=== PATIENT | female | born 1975 | race Caucasian/White ===

== ENCOUNTER 2019-07-25 15:50 | Outpatient (CLI) | payer OTHER, SELFPAY ==
[2019-07-25 17:47] LABS: Beta HCG Quantitative 13.63 mIU/ML
== END 2019-07-25 15:51 | disposition home or self-care (01) ==
LOC: ANHLAB 15:54
PROVIDERS: PCP Obstetrics & Gynecology
DX: O20.9 Hemorrhage in early pregnancy, unspecified (principal)
CPT/HCPCS: 36415; 84702

== ENCOUNTER 2019-08-01 13:22 | Outpatient (CLI) | payer OTHER, SELFPAY ==
[2019-08-01 14:30] LABS: Beta HCG Quantitative 9.11 mIU/ML
== END 2019-08-01 13:23 | disposition home or self-care (01) ==
PROVIDERS: PCP Obstetrics & Gynecology
DX: O03.9 Complete or unspecified spontaneous abortion without complication (principal)
CPT/HCPCS: 36415; 84702

== ENCOUNTER 2019-08-15 12:04 | Outpatient (RCR) | payer OTHER, SELFPAY ==
[2019-08-08 13:42] LABS: Beta HCG Quantitative 6.39 mIU/ML
[2019-08-15 13:11] LABS: Beta HCG Quantitative < 2.39 mIU/ML
== END 2019-11-06 23:59 | disposition home or self-care (01) ==
LOC: ANHLAB 12:04
PROVIDERS: PCP Obstetrics & Gynecology
DX: O03.9 Complete or unspecified spontaneous abortion without complication (principal)
CPT/HCPCS: 36415; 84702

== ENCOUNTER 2019-08-24 14:57 | Outpatient (CLI) | payer OTHER, SELFPAY ==
--- NOTE | ~2019-08-24 | US_ITS ---
EXAMINATION: US pelvic complete w TV DATE: 08/24/2019 16:03 INDICATION: Recurrent loss presenting with pelvic pain. TECHNIQUE: Multiple transabdominal and endovaginal sonographic images of the pelvis were obtained. COMPARISON: None. FINDINGS: The uterus measures 11.6 x 4.8 x 6.5 cm. The endometrial complex measures 9 mm in thickness. The rig ht ovary measures 2.8 x 1.8 x 3.0 cm. The left ovary measures 2.9 x 1.3 x 2.4 cm. There is normal vas cular flow in the ovaries. A few small anechoic peripheral ovarian cysts/follicles at both ovaries wi th 1.5 cm dominant follicle at the right ovary. There is no free fluid in the pelvis. IMPRESSION: 1. Normal pelvic ultrasound. Reviewed, dictated and finalized at location A. [employer]
== END 2019-08-24 14:58 | disposition home or self-care (01) ==
PROVIDERS: PCP Obstetrics & Gynecology; Visit Provider Obstetrics & Gynecology
DX: R10.2 Pelvic and perineal pain (principal)
CPT/HCPCS: 76830; 76856

== ENCOUNTER 2019-09-30 07:22 | Outpatient (CLI) | payer OTHER, SELFPAY ==
[2019-10-02 19:02] LABS: Progesterone 3.2 ng/mL (***)
== END 2019-09-30 07:23 | disposition home or self-care (01) ==
PROVIDERS: PCP Obstetrics & Gynecology; Visit Provider Obstetrics & Gynecology
DX: Z31.41 Encounter for fertility testing (principal)
CPT/HCPCS: 36415; 84144

== ENCOUNTER 2019-10-10 12:44 | Outpatient (CLI) | payer OTHER, SELFPAY ==
[2019-10-12 12:10] LABS: Progesterone 3.7 ng/mL (***)
== END 2019-10-10 12:45 | disposition home or self-care (01) ==
PROVIDERS: Visit Provider Obstetrics & Gynecology
DX: Z31.41 Encounter for fertility testing (principal)
CPT/HCPCS: 36415; 84144

== ENCOUNTER 2019-11-07 09:53 | Outpatient (CLI) | payer OTHER, SELFPAY ==
[2019-11-10 03:48] LABS: Progesterone 18.7 ng/mL (***)
== END 2019-11-07 09:54 | disposition home or self-care (01) ==
PROVIDERS: Visit Provider Obstetrics & Gynecology
DX: Z31.41 Encounter for fertility testing (principal)
CPT/HCPCS: 36415; 84144

== ENCOUNTER 2019-11-13 17:20 | Outpatient (CLI) | payer OTHER, SELFPAY ==
[2019-11-13 19:00] LABS: Free T4 Free Thyroxine 0.92 ng/mL (0.78-2.19)
== END 2019-11-13 17:21 | disposition home or self-care (01) ==
LOC: ANHLAB 17:21
PROVIDERS: Visit Provider Obstetrics & Gynecology
DX: E07.9 Disorder of thyroid, unspecified (principal); Z32.01 Encounter for pregnancy test, result positive
CPT/HCPCS: 36415; 84439; 84443; 84702

== ENCOUNTER 2019-11-16 07:02 | Outpatient (CLI) | payer OTHER, SELFPAY ==
[2019-11-19 03:43] LABS: Progesterone 33.5 ng/mL (***)
== END 2019-11-16 07:03 | disposition home or self-care (01) ==
LOC: ANHLAB 07:04
PROVIDERS: Visit Provider Obstetrics & Gynecology
DX: Z32.01 Encounter for pregnancy test, result positive (principal)
CPT/HCPCS: 36415; 84144; 84702

== ENCOUNTER 2019-12-13 13:29 | Outpatient (CLI) | payer OTHER, SELFPAY ==
[2019-12-13 15:07] LABS: Basophils Percent Auto 0.5 % (0.2-1.2); Eosinophils Absolute Auto 0.1 K/mm3 (0-0.3); Eosinophils Percent Auto 1.3 % (0-4.4); Hematocrit 38.2 % (37.0-47.0); Hemoglobin 12.8 g/dL (12.0-15.0); Immature Granulocyte Absolute 0.04 K/mm3 (0.00-0.031); Immature Granulocyte Percent A 0.5 % (0-0.5); Lymphocytes Absolute Auto 2.28 K/mm3 (0.9-3.2); Lymphocytes Percent Auto 26.3 % (18.3-44.2); Mean Corpuscular HGB Conc 33.5 g/dl (32-36); Mean Corpuscular Hemoglobin 31.8 pg (26-34); Mean Corpuscular Volume 94.8 fl (80-100); Mean Platelet Volume 10.7 fl (7.4-10.4); Monocytes Absolute Auto 0.5 K/mm3 (0.1-0.6); Monocytes Percent Auto 5.7 % (2.6-8.5); Neutrophils Absolute Auto 5.7 K/mm3 (1.3-6.7); Neutrophils Percent Auto 65.7 % (45.5-73.1); Platelet Count Result 256 k/mm3 (150-375); Red Blood Count 4.03 M/mm3 (4.2-5.4); Red Cell Distribution Width 12.1 % (11.5-14.5); White Blood Count 8.7 K/mm3 (4.5-10.0)
[2019-12-13 15:11] LABS: Add Urine Microscopic? YES; Appearance Urine Clear (Clear); Bacteria Urine Trace /hpf; Bilirubin Urine Negative (Negative); Blood Urine Negative (Negative); Color Urine Yellow (Yellow); Glucose Urine UA Negative (Negative); Ketones Urine Trace mg/dL (Negative); Leukocyte Esterase Ur Negative LEU/UL (NEGATIVE); Mucus Urine Heavy /lpf; Nitrate Urine Negative (Negative); Protein Urine Negative (Negative); RBC Urine 0-2 /hpf (0-2); Squamous Epithelial Cell Urine Moderate /hpf (Few); Urobilinogen Urine Negative mg/dL (<2.0); WBC Urine 0-3 /hpf (0-3)
== END 2019-12-13 13:30 | disposition home or self-care (01) ==
PROVIDERS: Visit Provider Obstetrics & Gynecology
DX: O02.1 Missed abortion (principal); Z3A.00 Weeks of gestation of pregnancy not specified
CPT/HCPCS: 36415; 81001; 85025; 86850; 86900; 86901; 87086; 87088

== ENCOUNTER 2019-12-20 20:00 | Emergency (ER) | payer OTHER, SELFPAY ==
[2019-12-20 20:03] VITALS: PULSE 92; RESP 17; TEMP 36.6; O2SAT 100
[2019-12-20 20:12] VITALS: BP 139/84
--- NOTE | 2019-12-20 20:43 | ED.GENADULT ---
HPI - General Adult General Chief complaint: STUNT PERSON Stated complaint: BLEEDING POST D&C Time Seen by Provider: 12/20/19 20:25 History of Present Illness HPI narrative: Patient is a 43-year-old female who presents the ER with vaginal bleeding. She underwent a D&C for a miscarriage earlier in the week. She is 4 to 5 weeks along at that time. She is been doing well. Yesterday she became little bit more active and then today she went to work and then went to the grocery store. She started having some spotting and cramping and then around 430 started having heavy bleeding with passage of clots. Reports she bled through 1 pad and 1/2-hour and then a second pad over the course of another hour. She still continues have some bright red trickling. She is not on any blood thinners. She suffered no trauma. No abnormal vaginal discharge. Related Data Home Medications Medication Instructions Recorded Confirmed levothyroxine 12/20/19 Allergies Allergy/AdvReac Type Severity Reaction Status Date / Time dicloxacillin Allergy Seizure Verified 12/20/19 20:22 Review of Systems Review of Systems: All systems reviewed & are unremarkable except as noted in HPI and below Constitutional: Constitutional: Denies chills, Denies fever(s) and Denies weakness ENT: Denies nasal congestion and Denies sore throat Cardiovascular: Cardiovascular: Denies chest pain and Denies radiating jaw, neck or arm pain Gastrointestinal: Gastrointestinal: Denies nausea and Denies vomiting Genitourinary: Genitourinary: Reports abnormal vaginal bleeding, Reports pelvic pain and Denies vaginal discharge PMFSH Past Medical History Medical History (Updated 12/20/19 @ 22:49 by Rboerto Alas MD) 3, currently Para 2 Surgical History Surgical History (Updated 12/20/19 @ 20:46 by Roberto Alas MD) H/O dilation and curettage Social History Social History (Updated 05/14/19 @ 17:54 by Lamine Lomeli) Smoking status: Unknown if ever smoked Gender identity (if verbalized by the patient): Female Exam Narrative: Exam Narrative: GENERAL: Well-appearing, well-nourished, and in no acute distress. HEAD: Normocephalic, atraumatic. ENT: Mucous membranes moist. CHEST: Clear to auscultation. No respiratory distress. HEART: Regular rate and rhythm. Normal peripheral pulses. ABDOMEN: Soft, nontender, nondistended. Pelvic: Normal external genitalia. Moderate mount of blood within the vaginal vault with clot. This was evacuated. Patient has some redundant vaginal tissue that somewhat obstructs the view of the cervix. Superior aspect seen and it is normal in appearance. There is no reaccumulation of blood after evacuation. If patient continues to bleed it is slow. EXTREMITIES: Normal range of motion. No edema. NEURO: Alert and oriented x3. Course Course Emergency Course: Patient informed of results. Discussed the case with Dr. Bright who is on-call for patient's OB. They will contact her tomorrow to arrange close follow-up. Patient really has follow-up scheduled for 2 days from now. Vital Signs Vital signs: Vital Signs Temperature 97.8 F 12/20/19 20:03 Pulse Rate 92 12/20/19 20:03 Respiratory Rate 17 12/20/19 20:03 Pulse Oximetry 100 12/20/19 20:03 Temperature 97.8 F 12/20/19 20:03 Pulse Rate 92 12/20/19 20:03 Respiratory Rate 17 12/20/19 20:03 Blood Pressure 139/84 12/20/19 20:12 Pulse Oximetry 100 12/20/19 20:03 Medical Decision Making Vital Signs Vital Signs: Vital Signs Temperature 97.8 F 12/20/19 20:03 Pulse Rate 92 12/20/19 20:03 Respiratory Rate 17 12/20/19 20:03 Pulse Oximetry 100 12/20/19 20:03 Temperature 97.8 F 12/20/19 20:03 Pulse Rate 92 12/20/19 20:03 Respiratory Rate 17 12/20/19 20:03 Blood Pressure 139/84 12/20/19 20:12 Pulse Oximetry 100 12/20/19 20:03 Lab Data Result diagrams: 12/20/19 21:08 12/20/19 21:08
[2019-12-20 21:13] LABS: Basophils Absolute Auto 0.1 K/mm3 (0.0-0.1); Basophils Percent Auto 0.6 % (0.2-1.2); Eosinophils Absolute Auto 0.1 K/mm3 (0-0.3); Eosinophils Percent Auto 1.8 % (0-4.4); Hematocrit 35.5 % (37.0-47.0); Hemoglobin 12.3 g/dL (12.0-15.0); Immature Granulocyte Absolute 0.02 K/mm3 (0.00-0.031); Immature Granulocyte Percent A 0.3 % (0-0.5); Lymphocytes Absolute Auto 2.52 K/mm3 (0.9-3.2); Mean Corpuscular HGB Conc 34.6 g/dl (32-36); Mean Corpuscular Hemoglobin 32.8 pg (26-34); Mean Corpuscular Volume 94.7 fl (80-100); Mean Platelet Volume 10.4 fl (7.4-10.4); Monocytes Absolute Auto 0.5 K/mm3 (0.1-0.6); Monocytes Percent Auto 6.1 % (2.6-8.5); Neutrophils Absolute Auto 4.7 K/mm3 (1.3-6.7); Neutrophils Percent Auto 59.2 % (45.5-73.1); Platelet Count Result 222 k/mm3 (150-375); Red Blood Count 3.75 M/mm3 (4.2-5.4); White Blood Count 7.9 K/mm3 (4.5-10.0)
[2019-12-20 21:24] LABS: Blood Urea Nitrogen 16 mg/dL (7-17); Calcium 8.9 mg/dL (8.4-10.2); Carbon Dioxide 23 mmol/L (22-30); Chloride 107 mmol/L (98-107); Estimated CRCL calculation 69 ml/min; Estimated Glomerular Filt Rate > 60; Glucose 102 mg/dL (65-105); Potassium 4.2 mmol/L (3.4-5.0); Sodium 137 mmol/L (137-145)
[2019-12-20 21:29] LABS: Partial Thromboplastin Time 23.1 SECONDS (22.3-36.8); Prothrombin Time 12.6 Seconds (11.1-14.7)
[2019-12-20 22:52] VITALS: BP 132/96; PULSE 80; RESP 18; O2SAT 100
[2019-12-20 22:58] VITALS: BP 132/77; PULSE 80; RESP 18; O2SAT 98
== END 2019-12-20 22:59 | disposition home or self-care (01) ==
PROVIDERS: Emergency Provider Emergency Medicine
DX: N93.9 Abnormal uterine and vaginal bleeding, unspecified (principal); Z98.890 Other specified postprocedural states
CPT/HCPCS: 36415; 80048; 85025; 85610; 85730; 99284

== ENCOUNTER 2020-04-09 17:39 | Outpatient (CLI) | payer OTHER, SELFPAY ==
--- NOTE | ~2020-04-09 | MM_ITS ---
EXAMINATION: MM screening tom BI w raúl HISTORY: Screening mammogram TECHNIQUE: Craniocaudal and mediolateral oblique 3-D tomosynthesis images were obtained and synthetic 2-D images were generated. CAD analysis was submitted and interpreted. COMPARISON: 04/05/2018 BREAST PARENCHYMAL COMPOSITION: There are scattered areas of fibroglandular density. FINDINGS: There is no evidence of suspicious mass, calcification, or architectural distortion to sugg est malignancy in either breast. There has been no suspicious interval change. IMPRESSION: 1. No mammographic evidence of malignancy. 2. Recommend routine screening mammography in one year. BI-RADS Category 1: Negative Reviewed, dictated and finalized at location A.
== END 2020-04-09 17:40 | disposition home or self-care (01) ==
PROVIDERS: PCP Obstetrics & Gynecology; Visit Provider Obstetrics & Gynecology
DX: Z12.31 Encounter for screening mammogram for malignant neoplasm of breast (principal)
CPT/HCPCS: 77063; 77067

== ENCOUNTER 2021-05-12 05:52 | Inpatient (IN) | payer OTHER, SELFPAY ==
[2021-05-12] VITALS (152 sets, daily range): BP systolic 101–177; BP diastolic 58–109; PULSE 73–242; RESP 18; TEMP 36.7–37.9; O2SAT 93–100; BMI 34.7
--- OUTSIDE RECORDS SUMMARY | 2021-05-12 05:58 | XMS_ITS ---
:1975 Author Care Team Providers Name Role Phone Pascale Spears Primary Care Provider Unavailable Allergies Code Code System Name Reaction Severity Status Onset 3356 RxNorm Dicloxacillin ? ? Active ? Medications Name Status Start Date Stop Date ? ? levothyroxine Completed ? 11/27/2020 levothyroxine 25 mcg tablet Active ? Not available valacyclovir 500 mg tablet Active ? Not a vailable Problems Name Status Onset Date Source ? Active 11/27/2020 ? Hypothyroidism Active ? ? Marginal Insertion of Umbilical Cord Active ? ? Advanced Maternal Age Active ? ? In Vitro Fertilization Active ? ? Chronic Hypertension in Obstetric Context Active ? ? Procedures Date Name Performed by ? 09/03/2020 In Vitro Fertilization Information not a vailable 06/28/2015 Procedure on Rib Information not avai lable Notes: tumor removed 11/27/2020 US, Obstetric, [facility] [place] [address] [place] [address] ([address]) 01/08/2021 US, Obstetric, 2Nd or 3Rd Trimester [facility] [address] [place] [address] (Work [address]) 02/05/2021 US, Obstetric, Follow-up [place] [address]
--- OUTSIDE RECORDS SUMMARY | 2021-05-12 05:59 | XMS_ITS | Encounter Summary ---
:1975 Author Reason for Visit None recorded. Assessment and Plan 1. Chronic hypertension complica ting AND/OR reason for care during ? US, obstetric, biophysical profile + non-stress test Discussion Note: None recorded.Patient educational handouts: No information available. Plan of Care Reminders Provider Appointments Ob Routine Pascale Laurence 05/14/2021 MD Regan 3:00PM ? Ob Routine Pascale Th erese 05/20/2021 MD eRgan 2:00PM Lab None recorded. ? ? Referral None recorded. ? ? Procedures None recorded. ? ? Surgeries None recorded. ? ? Imaging US, Obstetric, [facility] [place] Biophysical Profile + 04/08/2021 Non-stress Test Medications Name Start Date ? ? levothyroxine 25 mcg tablet ? valacyclovir 500 mg tablet ? TAKE 1 TABLET BY MOUTH DAILY Medications Administered None recorded. Vitals None recorded. Results Lab Results None recorded. Allergies Code Code System Name Reaction Severity Onset 6693 RxNorm Dicloxacillin ? ? ? Problems Name Status Onset Date Source ?
--- OUTSIDE RECORDS SUMMARY | 2021-05-12 05:59 | XMS_ITS | Encounter Summary ---
:1975 Author Reason for Visit OB visit Assessment and Plan 1. Advanced maternal age 2. Chronic hypertension in obste tric context 3. Hypothyroidism 4. In vitro fertilization 5. Marginal insertion of umbilic al cord Discussion Note: None recorded.Patient educational handouts: No information available. Plan of Care Reminders Provider Appointments Ob Routine Pascale Laurence 05/14/2021 MD Regan 3:00PM ? Ob Routine Pascale Guajardo ere 05/20/2021 MD Regan 2:00PM Lab None ? ? recorded. Referral None ? ? recorded. Procedures None ? ? recorded. Surgeries None ? ? recorded. Imaging None ? ? recorded. Medications Name Start Date ? ? levothyroxine 25 mcg tablet ? valacyclovir 500 mg tablet ? TAKE 1 TABLET BY MOUTH DAILY Medications Administered None recorded. Vitals Height Weight BMI Blood Pressure 5 ft 5 in 205 lbs 34.1 kg/m2 140/82 mm[Hg] Results Lab Results None recorded. Allergies Code Code System Name Reaction Severity Onset 2288 RxNorm Di
--- OUTSIDE RECORDS SUMMARY | 2021-05-12 05:59 | XMS_ITS | Encounter Summary ---
:1975 Author Reason for Visit None recorded. Assessment and Plan 1. Chronic hypertension complica ting AND/OR reason for care during ? US, obstetric, follow-up ? US, obstetric, biophysical profile + non-stress test Discussion Note: None recorded.Patient educational handouts: No information available. Plan of Care Reminders Provider Appointments Ob Routine Pascale Laurence 05/14/2021 MD Regan 3:00PM ? Ob Routine Pascale Th erese 05/20/2021 MD Regan 2:00PM Lab None recorded. ? ? Referral None recorded. ? ? Procedures None recorded. ? ? Surgeries None recorded. ? ? Imaging US, Obstetric, [facility] Follow-up 04/30/2021 ? US, Obstetric, [facility] Biophysical Profile + 04/30/2021 Non-stress Test Medications Name Start Date ? ? levothyroxine 25 mcg tablet ? valacyclovir 500 mg tablet ? TAKE 1 TABLET BY MOUTH DAILY Medications Administered None recorded. Vitals None recorded. Results Lab Results None recorded. Allergies Code Code Syst
--- OUTSIDE RECORDS SUMMARY | 2021-05-12 05:59 | XMS_ITS | Encounter Summary ---
[...] None recorded. ? ? Imaging US, Obstetric, [facility] Biophysical Profile + 04/16/2021 Non-stress Test Medications Name Start Date ? ? levothyroxine 25 mcg tablet ? valacyclovir 500 mg tablet ? TAKE 1 TABLET BY MOUTH DAILY Medications Administered None recorded. Vitals None recorded. Results Lab Results None recorded. Allergies Code Code System Name Reaction Severity Onset 9239 RxNorm Dicloxacillin ? ? ? Problems Name Status Onset Date Source ?
--- OUTSIDE RECORDS SUMMARY | 2021-05-12 05:59 | XMS_ITS | Encounter Summary ---
:1975 Author Reason for Visit None recorded. Assessment and Plan 1. IVF - in-vitro fertilization ? non-stress test Discussion Note: None recorded.Patient educational handouts: No information available. Plan of Care Reminders Provider Appointments Ob Routine Pascale Laurence 05/14/2021 MD Regan 3:00PM ? Ob Routine Pascale Th erese 05/20/2021 MD Regan 2:00PM Lab None ? ? recorded. Referral None ? ? recorded. Procedures None ? ? recorded. Surgeries None ? ? recorded. Imaging Non-stress [place] Test 04/16/2021 Medications Name Start Date ? ? levothyroxine 25 mcg tablet ? valacyclovir 500 mg tablet ? TAKE 1 TABLET BY MOUTH DAILY Medications Administered None recorded. Vitals None recorded. Results Lab Results None recorded. Allergies Code Code System Name Reaction Severity Onset 7855 RxNorm Dicloxacillin ? ? ? Problems Name Status Onset Date Source ? Active 11/27/2020 ? Hypothyroidism Active
--- OUTSIDE RECORDS SUMMARY | 2021-05-12 05:59 | XMS_ITS | Encounter Summary ---
:1975 Author Reason for Visit None recorded. Assessment and Plan 1. IVF - in-vitro fertilization ? non-stress test Discussion Note: None recorded.Patient educational handouts: No information available. Plan of Care Reminders Provider Appointments Ob Routine Pascael Laurence 05/14/2021 MD Regan 3:00PM ? Ob Routine Pascale Th erese 05/20/2021 MD Regan 2:00PM Lab None ? ? recorded. Referral None ? ? recorded. Procedures None ? ? recorded. Surgeries None ? ? recorded. Imaging Non-stress [place] Test 04/08/2021 Medications Name Start Date ? ? levothyroxine 25 mcg tablet ? valacyclovir 500 mg tablet ? TAKE 1 TABLET BY MOUTH DAILY Medications Administered None recorded. Vitals None recorded. Results Lab Results None recorded. Allergies Code Code System Name Reaction Severity Onset 7489 RxNorm Dicloxacillin ? ? ? Problems Name Status Onset Date Source ? Active 11/27/2020 ? Hypothyroidism Active
--- OUTSIDE RECORDS SUMMARY | 2021-05-12 05:59 | XMS_ITS | Encounter Summary ---
:1975 Author Reason for Visit OB visit OB [id number] EDC 05/22/2021 LMP 07/27/2020 and IVF done 09/03/2020 Assessment and Plan Assessment Note Patient is __34_weeks . Dis cussed plan. 1. Routine care Discussion Note: None recorded.Patient educational handouts: No [...] BMI Blood Pressure 5 ft 5 in 208 lbs 34.6 kg/m2 128/86 mm[Hg] Results Lab Results None recorded. Allergies Code Code System Name Reaction Severity Onset 4874 RxNorm Dicloxacillin ? ? ? Problems
--- OUTSIDE RECORDS SUMMARY | 2021-05-12 05:59 | XMS_ITS | Encounter Summary ---
:1975 Author Reason for Visit None recorded. Assessment and Plan 1. -induced hypertensio n ? non-stress test Discussion Note: None recorded.Patient educational handouts: No information available. Plan of Care Reminders Provider Appointments Ob Routine Pascale Laurence 05/14/2021 MD Regan 3:00PM ? Ob Routine Pascale Th erese 05/20/2021 MD Regan 2:00PM Lab None ? ? recorded. Referral None ? ? recorded. Procedures None ? ? recorded. Surgeries None ? ? recorded. Imaging Non-stress [place] Test 04/02/2021 Medications Name Start Date ? ? levothyroxine 25 mcg tablet ? valacyclovir 500 mg tablet ? TAKE 1 TABLET BY MOUTH DAILY Medications Administered None recorded. Vitals None recorded. Results Lab Results None recorded. Allergies Code Code System Name Reaction Severity Onset 2692 RxNorm Dicloxacillin ? ? ? Problems Name Status Onset Date Source ? Active 11/27/2020 ? Hypothyroidism Active
--- OUTSIDE RECORDS SUMMARY | 2021-05-12 05:59 | XMS_ITS | Encounter Summary ---
[...] None recorded. ? ? Imaging US, Obstetric, [facility] Biophysical Profile + 04/22/2021 Non-stress Test Medications Name Start Date ? ? levothyroxine 25 mcg tablet ? valacyclovir 500 mg tablet ? TAKE 1 TABLET BY MOUTH DAILY Medications Administered None recorded. Vitals None recorded. Results Lab Results None recorded. Allergies Code Code System Name Reaction Severity Onset 2640 RxNorm Dicloxacillin ? ? ? Problems Name Status Onset Date Source ?
--- OUTSIDE RECORDS SUMMARY | 2021-05-12 05:59 | XMS_ITS | Encounter Summary ---
:1975 Author Reason for Visit OB visit Assessment and Plan Assessment Note Patient is ___weeks . Discu ssed plan. 1. Routine care Discussion Note: None [...] ft 5 in 208 lbs 34.6 kg/m2 (1) 148/89 mm[H g] (2) 124/89 mm[Hg ] Results Lab Results None recorded. Allergies Code Code System Name Reaction Severity Onset 1131 RxNorm Dicloxacillin ? ? ? Problems
--- OUTSIDE RECORDS SUMMARY | 2021-05-12 05:59 | XMS_ITS | Encounter Summary ---
[...] None recorded. ? ? Imaging US, Obstetric, [facility] Biophysical Profile + 05/06/2021 Non-stress Test Medications Name Start Date ? ? levothyroxine 25 mcg tablet ? valacyclovir 500 mg tablet ? TAKE 1 TABLET BY MOUTH DAILY Medications Administered None recorded. Vitals None recorded. Results Lab Results None recorded. Allergies Code Code System Name Reaction Severity Onset 4274 RxNorm Dicloxacillin ? ? ? Problems Name Status Onset Date Source ?
--- OUTSIDE RECORDS SUMMARY | 2021-05-12 05:59 | XMS_ITS | Encounter Summary ---
:1975 Author Reason for Visit None recorded. Assessment and Plan 1. Chronic hypertension in obste tric context ? non-stress test Discussion Note: None recorded.Patient educational handouts: No information available. Plan of Care Reminders Provider Appointments Ob Routine Pascale Laurence 05/14/2021 MD Regan 3:00PM ? Ob Routine Pascale Th erese 05/20/2021 MD Regan 2:00PM Lab None ? ? recorded. Referral None ? ? recorded. Procedures None ? ? recorded. Surgeries None ? ? recorded. Imaging Non-stress [place] Test 04/30/2021 Medications Name Start Date ? ? levothyroxine 25 mcg tablet ? valacyclovir 500 mg tablet ? TAKE 1 TABLET BY MOUTH DAILY Medications Administered None recorded. Vitals Weight Blood Pressure 208 lbs (1) 148/89 mm[Hg] (2) 124/89 mm[Hg] Results Lab Results None recorded. Allergies Code Code System Name Reaction Severity Onset 1339 RxNorm Dicloxacillin ? ? ? Problems Name Status O
--- OUTSIDE RECORDS SUMMARY | 2021-05-12 05:59 | XMS_ITS | Encounter Summary ---
:1975 Author Reason for Visit OB visit Assessment and Plan 1. Chronic hypertension in obste tric context 2. Advanced maternal age 3. In vitro fertilization Discussion Note: None recorded.Patient educational handouts: No [...] BMI Blood Pressure 5 ft 5 in 211 lbs 35.1 kg/m2 (1) 154/97 mm[H g] (2) 135/89 mm[Hg ] Results Lab Results None recorded. Allergies Code Code System Name Reaction Severity Onset 9299 RxNorm Dicloxacillin ? ? ? Problems
--- OUTSIDE RECORDS SUMMARY | 2021-05-12 05:59 | XMS_ITS | Encounter Summary ---
[...] ? recorded. Imaging Non-stress [place] Test 04/22/2021 Medications Name Start Date ? ? levothyroxine 25 mcg tablet ? valacyclovir 500 mg tablet ? TAKE 1 TABLET BY MOUTH DAILY Medications Administered None recorded. Vitals None recorded. Results Lab Results None recorded. Allergies Code Code System Name Reaction Severity Onset 8120 RxNorm Dicloxacillin ? ? ? Problems Name Status Onset Date Source ? Active 11/27/2020 ? Hypothyroidism Active
--- OUTSIDE RECORDS SUMMARY | 2021-05-12 05:59 | XMS_ITS | Encounter Summary ---
:1975 Author Reason for Visit OB visit OB [id number] EDC 05/19/2021 LMP 06/30/2020 IVF 09/03/2020 Assessment and Plan Assessment Note Patient is _32__weeks . Dis cussed plan. 1. Routine care Discussion Note: None recorded.Patient educational handouts: No information available. Plan of Care Reminders Provider Appointments Ob Routine Pascale Laurence 05/14/2021 MD Regan 3:00PM ? Ob Routine Pascale Guajardo erese 05/20/2021 MD Regan 2:00PM Lab None [...] BMI Blood Pressure 5 ft 5 in 207 lbs 34.4 kg/m2 (1) 146/86 mm[H g] (2) 122/86 mm[Hg ] Results Lab Results None recorded. Allergies Code Code System Name Reaction Severity Onset 33
--- OUTSIDE RECORDS SUMMARY | 2021-05-12 05:59 | XMS_ITS | Encounter Summary ---
:1975 Author Reason for Visit None recorded. Assessment and Plan 1. Chronic hypertension complica ting AND/OR reason for care during ? non-stress test Discussion Note: None recorded.Patient educational handouts: No information available. Plan of Care Reminders Provider Appointments Ob Routine Pascale Laurence 05/14/2021 MD Regan 3:00PM ? Ob Routine Pascale Th erese 05/20/2021 MD Regan 2:00PM Lab None ? ? recorded. Referral None ? ? recorded. Procedures None ? ? recorded. Surgeries None ? ? recorded. Imaging Non-stress [place] Test 05/06/2021 Medications Name Start Date ? ? levothyroxine 25 mcg tablet ? valacyclovir 500 mg tablet ? TAKE 1 TABLET BY MOUTH DAILY Medications Administered None recorded. Vitals None recorded. Results Lab Results None recorded. Allergies Code Code System Name Reaction Severity Onset 0376 RxNorm Dicloxacillin ? ? ? Problems Name Status Onset Date Source ?
--- OUTSIDE RECORDS SUMMARY | 2021-05-12 05:59 | XMS_ITS | Encounter Summary ---
:1975 Author Reason for Visit OB visit Assessment and Plan 1. Chronic hypertension in obste tric context 2. Advanced maternal age 3. Hypothyroidism 4. In vitro fertilization 5. [...] ft 5 in 207 lbs 34.4 kg/m2 125/84 mm[Hg] Results Lab Results None recorded. Allergies Code Code System Name Reaction Severity Onset 6674 RxNorm Di
--- OUTSIDE RECORDS SUMMARY | 2021-05-12 05:59 | XMS_ITS | Encounter Summary ---
[...] ? Imaging US, Obstetric, [facility] Follow-up 04/02/2021 ? US, Obstetric, [facility] Biophysical Profile + 04/02/2021 Non-stress Test Medications Name Start Date ? ? levothyroxine 25 mcg tablet ? valacyclovir 500 mg tablet ? TAKE 1 TABLET BY MOUTH DAILY Medications Administered None recorded. Vitals None recorded. Results Lab Results None recorded. Allergies Code Code Syste
--- OUTSIDE RECORDS SUMMARY | 2021-05-12 06:00 | XMS_ITS | Encounter Summary ---
[...] None recorded. ? ? Imaging US, Obstetric, [facility] Biophysical Profile + 03/25/2021 Non-stress Test Medications Name Start Date ? ? levothyroxine 25 mcg tablet ? valacyclovir 500 mg tablet ? TAKE 1 TABLET BY MOUTH DAILY Medications Administered None recorded. Vitals None recorded. Results Lab Results None recorded. Allergies Code Code System Name Reaction Severity Onset 5426 RxNorm Dicloxacillin ? ? ? Problems Name Status Onset Date Source ?
--- OUTSIDE RECORDS SUMMARY | 2021-05-12 06:00 | XMS_ITS | Encounter Summary ---
[...] BMI Blood Pressure 5 ft 5 in 204 lbs 33.9 kg/m2 135/84 mm[Hg] Results Lab Results None recorded. Allergies Code Code System Name Reaction Severity Onset 9135 RxNorm Di
--- OUTSIDE RECORDS SUMMARY | 2021-05-12 06:00 | XMS_ITS | Encounter Summary ---
[...] ? recorded. Imaging Non-stress [place] Test 03/25/2021 Medications Name Start Date ? ? levothyroxine 25 mcg tablet ? valacyclovir 500 mg tablet ? TAKE 1 TABLET BY MOUTH DAILY Medications Administered None recorded. Vitals None recorded. Results Lab Results None recorded. Allergies Code Code System Name Reaction Severity Onset 8258 RxNorm Dicloxacillin ? ? ? Problems Name Status Onset Date Source ?
--- OUTSIDE RECORDS SUMMARY | 2021-05-12 06:00 | XMS_ITS | Encounter Summary ---
:1975 Author Reason for Visit OB visit Assessment and Plan 1. Chronic hypertension in obste tric context ? unlisted lab - CMP/CBC/uri c acid ? protein:creatinine ratio, urine 2. Advanced maternal age 3. Hypothyroidism 4. In vitro fertilization Discussion Note: None recorded.Patient educational handouts: No information available. Plan of Care Reminders Provider Appointments Ob Routine Pascale Laurence 05/14/2021 MD Regan 3:00PM ? Ob Routine Pascale Guajardo ere 05/20/2021 MD Regan 2:00PM Lab Unlisted [facility] ? [facility] Protein:creatinine 03/25/2021 Hospital (Lab ) Ratio, Urine Referral None ? ? recorded. Procedures None ? ? recorded. Surgeries None ? ? recorded. Imaging None ? ? recorded. Medications Name Start Date ? ? levothyroxine 25 mcg tablet ? valacyclovir 500 mg tablet ? TAKE 1 TABLET BY MOUTH DAILY Medications Administered None recorded. Vitals Height Weight BMI Blood Pressure
--- OUTSIDE RECORDS SUMMARY | 2021-05-12 06:00 | XMS_ITS | Encounter Summary ---
[...] ft 5 in 207 lbs 34.4 kg/m2 124/85 mm[Hg] Results Lab Results None recorded. Allergies Code Code System Name Reaction Severity Onset 2947 RxNorm Dicloxacillin ? ? ? Problems Name Status Onset Date Source ?
--- OUTSIDE RECORDS SUMMARY | 2021-05-12 06:00 | XMS_ITS | Encounter Summary ---
:1975 Author Reason for Visit None recorded. Assessment and Plan 1. Hypertension complicating pre gnancy ? US, obstetric, follow-up Discussion Note: None recorded.Patient educational handouts: No information available. Plan of Care Reminders Provider Appointments Ob Routine Pascale Laurence 05/14/2021 MD Regan 3:00PM ? Ob Routine Pascale Th erese 05/20/2021 MD Regan 2:00PM Lab None ? ? recorded. Referral None ? ? recorded. Procedures None ? ? recorded. Surgeries None ? ? recorded. Imaging [facility] Obstetric, Follow-up 02/28/2021 Medications Name Start Date ? ? levothyroxine 25 mcg tablet ? valacyclovir 500 mg tablet ? TAKE 1 TABLET BY MOUTH DAILY Medications Administered None recorded. Vitals None recorded. Results Lab Results None recorded. Allergies Code Code System Name Reaction Severity Onset 6661 RxNorm Dicloxacillin ? ? ? Problems Name Status Onset Date Source ? Active 11/27/2020 ? Hypothyroidism Acti
[2021-05-12] MEDS: LACTATED RINGERS 1,000 ML 125 ML IV CONT ×3 (06:53→13:52)
[2021-05-12 06:54] LABS: Basophils Percent Auto 0.4 % (0.2-1.2); Eosinophils Absolute Auto 0.1 K/mm3 (0-0.3); Eosinophils Percent Auto 0.8 % (0-4.4); Hematocrit 35.8 % (37.0-47.0); Hemoglobin 12.4 g/dL (12.0-15.0); Immature Granulocyte Absolute 0.13 K/mm3 (0.00-0.031); Immature Granulocyte Percent A 1.5 % (0-0.5); Lymphocytes Absolute Auto 2.08 K/mm3 (0.9-3.2); Lymphocytes Percent Auto 23.3 % (18.3-44.2); Mean Corpuscular HGB Conc 34.6 g/dl (32-36); Mean Corpuscular Hemoglobin 33.5 pg (26-34); Mean Corpuscular Volume 96.8 fl (80-100); Mean Platelet Volume 10.5 fl (7.4-10.4); Monocytes Absolute Auto 0.6 K/mm3 (0.1-0.6); Monocytes Percent Auto 6.7 % (2.6-8.5); Neutrophils Percent Auto 67.3 % (45.5-73.1); Platelet Count Result 199 k/mm3 (150-375); Red Cell Distribution Width 12.2 % (11.5-14.5); White Blood Count 8.9 K/mm3 (4.5-10.0)
[2021-05-12] MEDS: OXYTOCIN 30 UNITS/NS 500 ML 30 UNITS/500 ML BAG IV CONT (06:57)
[2021-05-12] MEDS: LACTATED RINGERS 1,000 ML 999 ML IV CONT (08:44)
--- NOTE | 2021-05-12 08:45 | WPDANESEPP ---
Anes - Eval Pre Procedure Procedure: labor epidural Date/Time: 05/12/21 08:45 Surgeon: veena Preop Diagnosis: pain during labor Pre Op Diagnosis: Induction Patient Data Age: 45 Gender: F Height: 1.65 m Weight: 94.5 kg Last Vital Signs Temp 37.2 C 05/12/21 07:34 Pulse 87 05/12/21 08:30 BP 137/88 05/12/21 08:30 Allergies Allergy/AdvReac Type Severity Reaction Status Date / Time dicloxacillin Allergy Seizure Verified 12/20/19 20:22 Home Medications Medication Instructions Recorded Confirmed Type levothyroxine 25 mcg PO DAILY 12/20/19 05/12/21 History PNV cmb#95-ferrous fumarate-FA 1 tablet PO DAILY 04/25/21 05/12/21 History [] ferrous sulfate [Iron (ferrous 325 mg PO DAILY 04/25/21 05/12/21 History sulfate)] valacyclovir 500 mg PO DAILY 04/25/21 05/12/21 History Laboratory Tests 05/12/21 05/12/21 05/12/21 06:37 06:37 06:37 WBC 8.9 K/mm3 K/mm3 (4.5-10.0) RBC 3.70 M/mm3 L M/mm3 (4.2-5.4) Hgb 12.4 g/dL g/dL (12.0-15.0) Hct 35.8 % L % (37.0-47.0) MCV 96.8 fl fl (80-100) MCH 33.5 pg pg (26-34) MCHC 34.6 g/dl g/dl (32-36) RDW 12.2 % % (11.5-14.5) Plt Count 199 k/mm3 k/mm3 (150-375) MPV 10.5 fl H fl (7.4-10.4) Immature Gran % (Auto) 1.5 % H % (0-0.5) Neut % (Auto) 67.3 % % (45.5-73.1) Lymph % (Auto) 23.3 % % (18.3-44.2) Randolph % (Auto) 6.7 % % (2.6-8.5) Eos % (Auto) 0.8 % % (0-4.4) Baso % (Auto) 0.4 % % (0.2-1.2) Lymph # (Auto) 2.08 K/mm3 K/mm3 (0.9-3.2) Randolph # (Auto) 0.6 K/mm3 K/mm3 (0.1-0.6) Eos # (Auto) 0.1 K/mm3 K/mm3 (0-0.3) Baso # (Auto) 0.0 K/mm3 K/mm3 (0.0-0.1) Abs Immat Gran (auto) 0.13 K/mm3 H K/mm3 (0.00-0.031) Absolute Neuts (auto) 6.0 K/mm3 K/mm3 (1.3-6.7) Absolute Nucleated RBC 0.0 K/mm3 K/mm3 (0.0-0.012) Nucleated RBC % 0.0 % % (0.0-0.2) RPR Pending Blood Type O Positive Antibody Screen Negative Patient hx anesthesia problems: none Family hx anesthesia problems: none Results Review: All pre-operative results and documents have been reviewed as part of the pre-operative evaluation. [facility] Past Medical History Medical History (Updated 05/12/21 @ 08:46 by Angelika Liang CRNA) 3, currently Para 2 Hypothyroid Surgical History Surgical History (Updated 12/20/19 @ 20:46 by Roberto Alas MD) H/O dilation and curettage Family History Family History (Updated 04/25/21 @ 15:36 by Wanda Person RN) Mother Heart attack Social History Social History (Updated 05/14/19 @ 17:54 by Lamine Lomeli) Smoking status: Never smoker Second hand tobacco smoke exposure: No Substance use: never Gender identity (if verbalized by the patient): Female Spiritual care concerns: No Exam Day of Procedure 05/12/21 08:45
--- NOTE | 2021-05-12 09:36 | PM.IMHP ---
H&P: HPI History of Present Illness Date/Time: 05/12/21 09:36 Chief Complaint: induction of labor Narrative: [place] is a 45yo at 38.4 with complicated by anxiety, cHTN no meds, IVF, AMA, hypothyroidism and marginal cord insertion. Presents for induction due to cHTN. GBS neg. Review of Systems Review of Systems: All systems reviewed & are unremarkable except as noted in HPI and below PMFSH Past Medical History Medical History (Updated 05/12/21 @ 09:39 by Pascale Spears MD) 3, currently Para 2 Hypothyroid Surgical History Surgical History (Updated 12/20/19 @ 20:46 by Roberto Alas MD) H/O dilation and curettage Family History Family History (Updated 04/25/21 @ 15:36 by Wanda Person RN) Mother Heart attack Social History Social History (Updated 05/14/19 @ 17:54 by Lamine Lomeli) Smoking status: Never smoker Second hand tobacco smoke exposure: No Substance use: never Gender identity (if verbalized by the patient): Female Spiritual care concerns: No Meds Home Medications and Allergies Home Medications Medication Instructions Recorded Confirmed Type levothyroxine 25 mcg PO DAILY 12/20/19 05/12/21 History PNV cmb#95-ferrous fumarate-FA 1 tablet PO DAILY 04/25/21 05/12/21 History [] ferrous sulfate [Iron (ferrous 325 mg PO DAILY 04/25/21 05/12/21 History sulfate)] valacyclovir 500 mg PO DAILY 04/25/21 05/12/21 History Allergies Allergy/AdvReac Type Severity Reaction Status Date / Time dicloxacillin Allergy Seizure Verified 12/20/19 20:22 Vital Signs Vital Signs - 24 hr 05/12/21 06:52 05/12/21 06:58 05/12/21 07:00 Temperature 100.3 F H Pulse Rate 113 H 109 H Blood Pressure 136/94 H 147/99 H Pulse Oximetry 05/12/21 07:30 05/12/21 07:34 05/12/21 07:45 Temperature 98.9 F Pulse Rate 92 112 H Blood Pressure 133/84 131/96 H Pulse Oximetry 05/12/21 08:00 05/12/21 08:18 05/12/21 08:30 Temperature Pulse Rate 98 104 H 87 Blood Pressure 133/94 H 134/89 137/88 Pulse Oximetry 05/12/21 08:45 05/12/21 08:50 05/12/21 08:52 Temperature Pulse Rate 102 H 105 H Blood Pressure 148/97 H 138/89 Pulse Oximetry 100 100 05/12/21 08:53 05/12/21 08:55 05/12/21 08:56 Temperature Pulse Rate 115 H 149 H Blood Pressure 153/72 H 177/104 H Pulse Oximetry 99 05/12/21 08:58 05/12/21 09:00 05/12/21 09:01 Temperature Pulse Rate 117 H 242 H Blood Pressure 160/89 H 118/93 H Pulse Oximetry 97 05/12/21 09:03 05/12/21 09:05 05/12/21 09:08 Temperature Pulse Rate 91 95 Blood Pressure 131/106 H 146/89 H 143/82 H Pulse Oximetry 100 05/12/21 09:10 05/12/21 09:13 05/12/21 09:15 Temperature Pulse Rate 98 102 H 85 Blood Pressure 133/84 148/87 H 141/78 H Pulse Oximetry 100 98 05/12/21 09:18 05/12/21 09:20 05/12/21 09:23 Temperature Pulse Rate 114 H 106 H 92 Blood Pressure 112/72 130/93 H 128/80 Pulse Oximetry 98 05/12/21 09:25 05/12/21 09:28 05/12/21 09:30 Temperature Pulse Rate 103 H 89 89 Blood Pressure 134/89 125/93 H 130/76 Pulse Oximetry 98 98 05/12/21 09:33 05/12/21 09:35 Temperature Pulse Rate 102 H 108 H Blood Pressure 151/109 H 132/82 Pulse Oximetry 98 Exam Const: General: no acute distress Resp: Effort & Inspection: normal respiratory effort Auscultation: clear to auscultation bilaterally Cardio: Rate: regular rate Rhythm: regular rhythm GI: GI Palp: Yes Soft to palpation : Other: cervix 3cm external os, but 1.5cm internal os AROM clear small amount Extrem: General: normal to inspection H&P: Results Labs Labs: Short CBC 05/12/21 Range/Units 06:37 WBC 8.9 (4.5-10.0) K/mm3 Hgb 12.4 (12.0-15.0) g/dL Hct 35.8 L (37.0-47.0) % Plt Count 199 (150-375) k/mm3 Assessment and Plan Assessment and plan (1) Hypertension affecting : Code(s): O16.9 - Unspecified maternal
[2021-05-12 10:11] LABS: Rapid Plasma Reagin Non-Reactive (NonReactive)
--- NOTE | 2021-05-12 17:47 | PM.OBPRVD ---
OB - Delivery Note Procedure Delivery date: 05/12/21 Procedure: Intrapartal events: None Induction method: AROM and per pitocin protocol Delivery monitor: external FHT and internal uterine Route of delivery: Laceration Description: Perineal - 2nd Degree Delivery repair: vicryl Specimen: No Quantitative Blood Loss (ml): 500 Anesthesia type: Epidural Disposition: floor Narrative: With adequate expulsive efforts by the mother, the baby's head was delivered OP. The baby's anterior shoulder was delivered under the pubic symphysis without difficulty. The posterior shoulder and the rest of the baby delivered without difficulty. The was placed on the mothers chest and suctioned and stimulated. The cord was clamped and cut after 30 seconds. Mother and baby both stable. Baby Date of : 05/12/21 Time of : 17:22 Weeks of gestation at delivery: 38 Infant gender: Female Weight (pounds): 7 Weight (ounces): 4 presentation: vertex Placenta delivery description: Spontaneous cord vessel description: 3 Vessels and Delayed Cord Clamping score one minute: 8 score five minutes: 9
[2021-05-12] MEDS: OXYTOCIN 30 UNITS/NS 500 ML 30 UNITS/500 ML BAG 125 UNITS IV CONT (18:05)
[2021-05-12] MEDS: BENZOCAINE 20% AER SPR (*SP) 56 GM CAN 1 SPRAY TOPICAL (19:53)
[2021-05-12] MEDS: IBUPROFEN 600 MG TABLET PO (19:53)
[2021-05-12] MEDS: WITCH HAZEL 40 PADS 1 PAD TOPICAL (19:53)
[2021-05-12] MEDS: ACETAMINOPHEN 325 MG TABLET 650 MG PO (20:47)
[2021-05-13 04:00] VITALS: BP 146/92; PULSE 100; RESP 18; TEMP 36.5; O2SAT 97
[2021-05-13] MEDS: IBUPROFEN 600 MG TABLET PO ×3 (04:56→19:25)
[2021-05-13 05:10] LABS: Hematocrit 31.6 % (37.0-47.0); Hemoglobin 10.9 g/dL (12.0-15.0)
[2021-05-13] MEDS: LEVOTHYROXINE SODIUM 25 MCG TABLET PO (06:47)
[2021-05-13] MEDS: valACYclovir HCL 500 MG TABLET PO (06:47)
[2021-05-13 06:50] VITALS: BP 129/86; PULSE 94; RESP 18; TEMP 36.6; O2SAT 96
[2021-05-13] MEDS: DIBUCAINE 1% OINTMENT 30 GM TUBE 1 APPLIC TOPICAL (06:50)
[2021-05-13] MEDS: LANOLIN (LANSINOH) 7.5 GM CREAM 1 APPLIC TOPICAL (06:50)
[2021-05-13] MEDS: MULTIVIT/MIN/PREN/FOL AC/IRON TABLET 1 TAB PO (06:50)
[2021-05-13] MEDS: DOCUSATE SODIUM 100 MG CAPSULE PO (06:51)
--- NOTE | 2021-05-13 07:56 | P.PNOB_ITS ---
OB - PN: Subj Subjective Date/time seen: 05/13/21 07:56 Patient comments: no complaints and pain well controlled baby status: doing well and nursing well [place] feeding status: exclusively breast feeding OB - PN: Obj Data Labs CBC & Chem 7: 05/13/21 04:57 Labs: Laboratory Results - last 24 hr 05/12/21 05/13/21 06:37 04:57 Hgb 10.9 L Hct 31.6 L RPR Non-reactive OB - PN A/P Assessment and Plan (1) AMA (advanced maternal age) multigravida 35+: Code(s): O09.529 - Supervision of elderly multigravida, unspecified trimester Status: Acute (2) Hypertension affecting : Code(s): O16.9 - Unspecified maternal hypertension, unspecified trimester Status: Acute (3) Hypothyroid: Code(s): E03.9 - Hypothyroidism, unspecified Status: Acute (4) , delivered: Code(s): O80 - Encounter for full-term uncomplicated delivery Status: Acute Plan day: 1 Plan: routine care Time Spent With Patient Time: Total time spent is greater than 50% in coordination of care (as documente d) at patient's floor/unit and/or counseling patient: Time with patient: less than 15 minutes Exam Narrative: NAD abdomen soft, nontender, fundus firm below the umbilicus Extremities nontender, 1+ edema
--- NOTE | 2021-05-13 08:51 | WPDANLDPN2 ---
Anes-Prog Note L&D Date/Time: 05/13/21 08:51 Comfortable throughout: labor and delivery Neuraxial method: epidural Epidural/Spinal procedure site: clean & non-tender Neuro status: Neuro function grossly intact. Cardiovascular status: normal Respiratory status: normal Airway patency: baseline Mental status: baseline Post-Op hydration status: normal Vital Signs: Last Vital Signs Temp 97.7 F 05/13/21 04:00 Pulse 100 05/13/21 04:00 Resp 18 05/13/21 04:00 BP 146/92 H 05/13/21 04:00 Pulse Ox 97 05/13/21 04:00 Pain score (VAS): 2 I/O: Intake & Output 05/12/21 05/13/21 05/13/21 23:59 07:59 15:59 Output Total 1138 Balance -1138 Post-procedural complaints: none Patient feedback: Patient satisfied with anesthetic care.
--- NOTE | 2021-05-13 11:30 | PC.NURSE ---
Consult with pt., upon entering mother has infant latched to right breast in football. Mother reports attempting with first child 18 years ago and had several rounds of mastitis. Mother was overwhelmed and switched with second child within a few day. Infant is able to freely thrust tongue past gum ridge and flange both lips. Skin is intact on both nipples, no redness and bruising noted. Reviewed infant feeding cues, frequencies, duration of feedings, feeding elimination flow sheet, and signs of adequate intake. Demonstrated stimulation techniques to wake for feeding. Reviewed positioning/alignment in football, holding breast in ?C? hold and guided asymmetrical latch on. Reviewed rational for each. Infant was latched correctly. Infant nursed eagerly with steady draws and occasional swallowing noted, some pausing noted. Reviewed signs of a correct latch, effective nursing and suck swallow ratio. Suggested mother stimulate while feeding to increase stimulation for milk supply, for increased intake and to assist with maintaining deep latch. Infant was able to maintain latch without discomfort to mother. Demonstrated how to adjust latch more deeply while feeding as needed. Nipple care reviewed of lanolin after feedings, warm compresses as needed. Instructed mother to call out for RN assistance if she is unable to latch for feeding or she has discomfort with nursing. Instructed feeding should be initiated three hours from start of last feeding or if feeding cues are noted before. Mother voiced understanding of information shared.
[2021-05-13 12:35] VITALS: BP 136/89; PULSE 112; RESP 16; TEMP 36.6; O2SAT 100
[2021-05-13 17:00] VITALS: BP 136/85; PULSE 86; RESP 18; TEMP 36.2; O2SAT 99
[2021-05-13 19:22] VITALS: BP 134/85; PULSE 88; RESP 16; TEMP 36.8
[2021-05-14] MEDS: ACETAMINOPHEN 325 MG TABLET 650 MG PO ×3 (00:10→18:46)
--- NOTE | 2021-05-14 07:00 | PC.NURSE ---
PT introductions made and plan of care discussed per post , pain management, breast bottle feeding, daily care activities and pending discharge to home. PT and significant other both recipients of such instructions this shift per one to one discussion, mom baby care guide and demonstrations. no barriers to learning identified at this time. PT verbalized understanding of such care.
[2021-05-14 07:30] VITALS: BP 146/96; PULSE 85; RESP 18; TEMP 36.6; O2SAT 100
--- NOTE | 2021-05-14 08:36 | P.PNOB_ITS ---
OB - PN: Subj Subjective Date/time seen: 05/14/21 08:36 Patient comments: no complaints baby status: doing well [place] feeding status: exclusively breast feeding Narrative: some cramping, baby wiht hyperbilirubinemia. anxiety fine. OB - PN: Obj Data Labs CBC & Chem 7: 05/13/21 04:57 OB - PN A/P Assessment and Plan (1) , delivered: Code(s): O80 - Encounter for full-term uncomplicated delivery Status: Acute Plan day: 2 Plan: routine care and discharge home Comments: will stay as guest if baby needs to stay. FU 1 week BP check. only mildly elevated (cHTN) Time Spent With Patient Time: Total time spent is greater than 50% in coordination of care (as documented) at patient's floor/unit and/or counseling patient: Time with patient: less than 15 minutes Exam Narrative: NAD abdomen soft, nontender, fundus firm below the umbilicus Extremities nontender, 1+ edema
--- NOTE | 2021-05-14 08:38 | PM.OBDSVD ---
DS: Admitting Diagnosis Discharge Date 05/14/21 Admitting Diagnosis Term IUP, cHTN DS: Discharge Diagnosis Discharge Diagnosis (1) , delivered: Code(s): O80 - Encounter for full-term uncomplicated delivery Status: Acute (2) AMA (advanced maternal age) multigravida 35+: Code(s): O09.529 - Supervision of elderly multigravida, unspecified trimester Status: Acute (3) Hypertension affecting : Code(s): O16.9 - Unspecified maternal hypertension, unspecified trimester Status: Acute OB - DS: Summary Hospital Course Hospital Course: Pt was induced for cHTN and AMA. Had an uncomplicated and uncomplicated course. OB Procedures : NST and Ultrasound OB Procedures Intrapartum: Spontaneous Vag Delivery OB Procedures: : None Peripartum Data Infant Delivery Method: Natural Vaginal complications: none Status at Discharge Functional status at discharge: independent ambulation Time Spent with Patient Time attestation: Total time spent providing and/or coordinating discharge services: Exam Narrative: NAD abdomen soft, appropriately tender Ext non tender, 1+ edema Discharge Plan Discharge Attending physician on discharge: Pascale Spears Discharging Clinician: Pascale Spears Anticipated Discharge Date/Time: 05/14/21 08:37 Patient Disposition: Home, Self-Care Activity: may shower and pelvic rest Diet: regular Patient Instructions: Antibiotic Form Stand Alone Forms: General Discharge Information Follow-up/Referrals: Pascale Spears MD [Physician] - 1 Week Discharge Medications: Continued levothyroxine 25 mcg tablet 25 mcg PO DAILY RF: 0 valacyclovir 500 mg Tablet 500 mg PO DAILY RF: 0 PNV cmb#95-ferrous fumarate-FA [] 28 mg iron- 800 mcg Tablet 1 tablet PO DAILY RF: 0 ferrous sulfate [Iron (ferrous sulfate)] 325 mg (65 mg iron) Tablet 325 mg PO DAILY RF: 0 Date of admission: 05/12/21 05:52 Primary Care Provider: Farhana Mcdaniel Admitting Provider: Pascale Spears Attending physician on admission: Pascale Spears Condition: Stable
[2021-05-14] MEDS: LEVOTHYROXINE SODIUM 25 MCG TABLET PO (09:40)
[2021-05-14] MEDS: DOCUSATE SODIUM 100 MG CAPSULE PO ×2 (09:40→18:47)
[2021-05-14] MEDS: MULTIVIT/MIN/PREN/FOL AC/IRON TABLET 1 TAB PO (09:40)
[2021-05-14 09:41] VITALS: PULSE 85; RESP 18; O2SAT 100
[2021-05-14] MEDS: IBUPROFEN 600 MG TABLET PO ×2 (09:41→18:47)
--- NOTE | 2021-05-14 13:05 | PC.NURSE ---
Consult with pt., mother reports continues to breastfeed without difficulties or discomfort. Reporting is eagerly latching and remains awake and nursing while at breast. Mother states infant had a few good long feedings during the night and was not content after feeding. Mother choose to supplement with formula, was content and sleeping after supplement. now has jaundice and under the bili light. Mother plans to continue to put infant to breast then supplement. Offered to assist or observe next feeding, mother denies the need for assist reporting is latching well.
--- NOTE | 2021-05-14 18:40 | PC.NURSE ---
PT received discharge instructions per protocol and verbalized understanding of such instructions.
--- NOTE | 2021-05-14 19:00 | PC.NURSE ---
PT discharged to care bed 288. Infant remains under phototherapy.
--- NOTE | 2021-05-15 09:40 | PC.NURSE ---
Observed mother is able to independently latch infant with appropriate positioning/alignment. She denies any nipple discomfort, is feeding as required and waking infant to feed if needed. is more awake and making eager attempts with and maintaining latch. Infant will eagerly nurse the first 5-15 minutes then fall asleep at breast maintaining good latch. has had several effective feedings in the past 24 hours, all feedings is supplemented. is currently meeting outcomes for weight, output, jaundice and feeding frequencies. Infant has had jaundice PCP has suggested supplement after all breastfeedings until seen at follow up visit. Mother continues to pump after all feedings without difficulties or discomfort. Mother has a pump for home use, assisted mother with use before discharge. Discussed the difference of effective vs ineffective feeding. Reviewed requires supplementation by PCP suggestion after all feedings. She is latching with good burst of effective feeding, she is not feeding consistently with adequate milk transfer at this time and continues to need to be supplement after . Feeding plan discussed, Feeding Plan is for mother to put to breast each feeding for up to 15 minutes, then pace feed supplement 25-30 mls and pump for 10-15 minutes. Discussed increasing supplementation as requires to satisfactions. Reviewed paced feeding and suggested to stop when is satisfied, as long as is having required output. With increased supplementation infant may not want to feed for 4 hours. Mother will continue to pump on infant feeding schedule and will increase session to 20 minutes if pumping every 4 hours. If infant begins to nurse effectively with long draws and frequent swallowing noted, infant may decrease supplementation and discontinue pumping. Advised not to discontinue supplement until a pre/post feeding evaluation by infant PCP, Follow up RN or LC is completed. Mother states she feels confident to continue feeding plan at home. Reviewed transition to breast milk, signs of adequate intake, and engorgement/relief. Instructed to call ICP if intake/output less than required. Reviewed regular medications mother is taking. Information provided per Vanes[place]. Reviewed community resources on the [employer] website and in the Mom/Baby guide. Information on outpatient services provided. Mother has no further questions at this time.
[2021-05-16 11:38] VITALS: BP 143/86; PULSE 86; RESP 20; TEMP 36.9; O2SAT 100
== END 2021-05-14 19:00 | disposition home or self-care (01) | DRG 807 ==
LOC: ANHLDR 05:57 → ANHOB2 21:38
PROVIDERS: Admitting Provider Obstetrics & Gynecology; PCP Obstetrics & Gynecology; Visit Provider Obstetrics & Gynecology
DX: O99.284 Endocrine, nutritional and metabolic diseases complicating childbirth (principal); Z37.0 Single live birth; E03.9 Hypothyroidism, unspecified; O10.92 Unspecified pre-existing hypertension complicating childbirth; O43.123 Velamentous insertion of umbilical cord, third trimester; O70.1 Second degree perineal laceration during delivery; O76 Abnormality in fetal heart rate and rhythm complicating labor and delivery; Z3A.38 38 weeks gestation of pregnancy
CPT/HCPCS: 36415; 85014; 85018; 85025; 86592; 86850; 86900; 86901; A9270; J2590; J2795; J7120

== ENCOUNTER → 2022-04-03 13:40 | Outpatient (CLI) | payer OTHER, SELFPAY ==
--- NOTE | ~2022-04-03 | MM_ITS ---
EXAMINATION: MM screening [facility] BI w raúl HISTORY: Screening mammogram TECHNIQUE: Craniocaudal and mediolateral oblique 3-D tomosynthesis images were obtained and synthetic 2-D images were generated. CAD analysis was submitted and interpreted. COMPARISON: 04/09/2020, 04/05/2018 BREAST PARENCHYMAL COMPOSITION: There are scattered areas of fibroglandular density. FINDINGS: No suspicious mass, calcification, or architectural distortion are identified in either millie ast to suggest malignancy. There has been no suspicious interval change. IMPRESSION: 1. No mammographic evidence of malignancy. 2. Recommend routine screening mammography in one year. BI-RADS Category 1: Negative Reviewed, dictated and finalized at location A.
== END ==
PROVIDERS: PCP Obstetrics & Gynecology; Visit Provider Obstetrics & Gynecology
DX: Z12.31 Encounter for screening mammogram for malignant neoplasm of breast (principal)
CPT/HCPCS: 77063; 77067

== ENCOUNTER 2022-09-18 12:20 | Outpatient (CLI) | payer OTHER, SELFPAY ==
--- NOTE | ~2022-09-18 | XR_ITS ---
XR ribs BI 3V w CXR 2V DATE: 09/18/2022 12:44 INDICATION: Left-sided rib tumor and removal TECHNIQUE: PA and lateral views. 3 views of right ribs. 3 views of left ribs. COMPARISON: None FINDINGS: Normal heart size. Mild aortic unfolding. No hilar or mediastinal enlargement. No pulmonary infiltrate or consolidation, pleural effusion or pulmonary vascular congestion or pneumo thorax. No left or right rib fracture or bone destruction is evident. IMPRESSION: No active cardiopulmonary disease Reviewed, dictated and finalized at location A.
== END 2022-09-18 12:21 | disposition home or self-care (01) ==
PROVIDERS: PCP Family Medicine; Visit Provider Nurse Practitioner Family
DX: D16.7 Benign neoplasm of ribs, sternum and clavicle (principal)
CPT/HCPCS: 71046; 71110

== ENCOUNTER 2023-11-21 15:43 | Emergency (ER) | payer OTHER, SELFPAY ==
--- NOTE | ~2023-11-21 | XR_ITS ---
EXAMINATION: XR chest 2V 11/21/2023 16:13 INDICATION: Irregular heartbeat PROCEDURE: 2 view chest COMPARISON: 09/18/2022 FINDINGS: The lungs are clear. The cardiomediastinal silhouette is within normal limits. There are no pleural effusions. There is no pneumothorax suspected. IMPRESSION: 1: NO ACUTE CARDIOPULMONARY DISEASE. Reviewed, dictated and finalized at location A.
--- NOTE | 2023-11-21 15:46 | ECG_ITS ---
SEE SCANNED COPY FOR CONFIRMED REPORT MTDD
[2023-11-21 15:50] VITALS: BP 155/101; PULSE 88; RESP 18; TEMP 36.6; O2SAT 97
[2023-11-21 16:01] VITALS: O2SAT 99
[2023-11-21 16:14] LABS: Basophils Absolute Auto 0.1 K/mm3 (0.0-0.1); Eosinophils Absolute Auto 0.2 K/mm3 (0-0.3); Eosinophils Percent Auto 3.9 % (0-4.4); Hematocrit 40.1 % (37.0-47.0); Hemoglobin 13.6 g/dL (12.0-15.0); Immature Granulocyte Absolute 0.01 K/mm3 (0.00-0.031); Immature Granulocyte Percent A 0.2 % (0-0.5); Lymphocytes Absolute Auto 2.53 K/mm3 (0.9-3.2); Lymphocytes Percent Auto 41.3 % (18.3-44.2); Mean Corpuscular HGB Conc 33.9 g/dl (32-36); Mean Corpuscular Hemoglobin 32.4 pg (26-34); Mean Corpuscular Volume 95.5 fl (80-100); Mean Platelet Volume 10.3 fl (7.4-10.4); Monocytes Absolute Auto 0.4 K/mm3 (0.1-0.6); Monocytes Percent Auto 7.2 % (2.6-8.5); Neutrophils Absolute Auto 2.8 K/mm3 (1.3-6.7); Neutrophils Percent Auto 46.4 % (45.5-73.1); Platelet Count Result 227 k/mm3 (150-375); White Blood Count 6.1 K/mm3 (4.5-10.0)
[2023-11-21 16:23] LABS: Alanine Aminotransferase 17 U/L (6-35); Albumin Level 4.5 g/dL (3.5-5.1); Alkaline Phosphatase 65 U/L (38-126); Anion Gap 6 mmol/L (4-12); Aspartate Amino Transferase 22 U/L (14-36); Bilirubin,Total 0.3 mg/dL (0.2-1.3); Blood Urea Nitrogen 14 mg/dL (7-17); Calcium 8.9 mg/dL (8.4-10.2); Carbon Dioxide 26 mmol/L (22-30); Chloride 109 mmol/L (98-107); Estimated Glomerular Filt Rate > 60; Glucose 104 mg/dL (65-110); Lipase 213 U/L (23-300); Potassium 3.8 mmol/L (3.4-5.0); Sodium 141 mmol/L (137-145)
[2023-11-21 16:27] LABS: INR 0.8; Prothrombin Time 11.7 Seconds (11.1-14.7)
[2023-11-21 16:28] LABS: Partial Thromboplastin Time 24.5 Seconds (22.3-36.8)
[2023-11-21 16:35] LABS: Troponin I < 0.012 ng/mL (0.000-0.034)
[2023-11-21] MEDS: SODIUM CHLORIDE 0.9% IV 1,000 ML 999 ML IV CONT (16:38)
[2023-11-21] MEDS: ASPIRIN 81 MG CHEWABLE TABLET 324 MG PO (16:38)
[2023-11-21 16:45] LABS: Magnesium 2.1 mg/dL (1.6-2.3)
[2023-11-21 16:53] VITALS: BP 148/100; PULSE 83; RESP 18; O2SAT 97
--- NOTE | 2023-11-21 17:02 | ED.ARRPALP ---
HPI - Arrhythmia/Palpitations General Chief Complaint: Arrhythmia/Palpitations <Odalis Kim MD - Last Filed: 11/22/23 16:24> Stated Complaint: heart palp <Odalis Kim MD - Last Filed: 11/22/23 16:24> Time Seen by Provider: 11/21/23 16:01 <Odalis Kim MD - Last Filed: 11/22/23 16:24> History of Present Illness HPI narrative: Patient is a 47-year-old female who presents to the emergency department this afternoon complaining of palpitations. Patient states that she has been having these palpitations on and off for a few years. A few years back, patient went into AFib and was admitted in the hospital and started on a drip which converted her into sinus rhythm. Patient states that when she was discharged she was not started on a beta-ramona or any anticoagulation. Since then, patient has not had any issues and has not gone back into atrial fibrillation again. Patient states that she will get these palpitations on and but not often enough for her to seek medical attention. Patient states that yesterday evening she started to notice these palpitations which have been intermittent but did persist until today. Patient states that shortly prior to arrival to our emergency department she started to have some shortness of breath which is what prompted her to come to the emergency department for further evaluation. She is currently denying any chest pain, any nausea or vomiting, any abdominal pain, fevers or chills, denies any urinary symptoms. No additional symptoms or concerns at this time. <Odalis Kim MD - Last Filed: 11/22/23 16:24> Related Data Home Medications: Home Medications Medication Instructions Recorded Confirmed valacyclovir 500 mg tablet 500 mg PO DAILY 04/25/21 10/26/22 <Odalis Kim MD - Last Filed: 11/22/23 16:24> Allergies/Adverse Reactions: Allergies Allergy/AdvReac Type Severity Reaction Status Date / Time dicloxacillin Allergy Seizure Verified 11/21/23 15:49 <Odalis Kim MD - Last Filed: 11/22/23 16:24> Review of Systems Review of Systems: All systems are reviewed and are negative unless stated otherwise in the HPI. <Odalis Kim MD - Last Filed: 11/22/23 16:24> PMFSH Past Medical History Medical History: Medical History BMI 29.0-29.9,adult 3, currently Para 2 Hypothyroid <Odalis Kim MD - Last Filed: 11/22/23 16:24> Surgical History Surgical History: Surgical History H/O dilation and curettage <Odalis Kim MD - Last Filed: 11/22/23 16:24> Family History Family History: Family History Mother Heart attack Other Hypertension <Odalis Kim MD - Last Filed: 11/22/23 16:24> Social History Social History: Social History Smoking status: Never smoker Second hand tobacco smoke exposure: No Alcohol intake: current Substance use: never Lack of Transportation: No Lack of Food: Never True Current Housing: I Have Housing Concerned About Future Housing: No Difficulty Paying Gas/Electric Bills: No Difficulty Paying for Meds: No Currently Unemployed: No Education: Associate Degree Difficulty w/ Childcare or Family Care: No Living arrangements: with family Gender identity (if verbalized by the patient): Female Spiritual care concerns: No <Odalis Kim MD - Last Filed: 11/22/23 16:24> Exam Narrative: General: Alert, awake, afebrile, in no acute distress. HEENT: PERRL, no rhinorrhea, no post nasal drip, oropharynx clear. Cardiovascular: Regular rate and rhythm, no murmurs, rubs or gallops, no peripheral edema. Respiratory: Clear to auscultation bilaterally, no tachypnea, no wheezing, no rhonchi,
[2023-11-21 17:25] LABS: Influenza A QL RT-PCR Negative (Negative); Influenza B QL RT-PCR Negative (Negative); RSV RNA, RT-PCR Negative (Negative); SARS-CoV-2 RNA PCR Negative (Negative)
[2023-11-21 17:32] VITALS: BP 141/97; PULSE 84; RESP 20; O2SAT 100
[2023-11-21 19:13] LABS: Troponin I < 0.012 ng/mL (0.000-0.034)
[2023-11-21 19:54] VITALS: BP 144/99; PULSE 81; RESP 16; O2SAT 99
== END 2023-11-21 20:09 | disposition home or self-care (01) ==
PROVIDERS: Emergency Medicine; Emergency Provider Student in an Organized Health Care Education/Training Program; PCP Family Medicine
DX: R00.2 Palpitations (principal); Z20.822 Contact with and (suspected) exposure to COVID-19; E03.9 Hypothyroidism, unspecified
CPT/HCPCS: 36415; 71046; 80053; 83690; 83735; 84484; 85025; 85610; 85730; 87637; 93005; 96360; 99284; A9270; J7030

== ENCOUNTER 2023-12-01 13:22 | Outpatient (CLI) | payer OTHER, SELFPAY ==
--- NOTE | ~2023-12-01 | XR_ITS ---
XR finger 3rd RT min 2V Ordering provider: Shlomo Rondon MD History: . M79.644 - Pain in right finger(s) limited ROM no injury . Comparison: None. FINDINGS: BONES: No acute fracture or dislocation. JOINT SPACES: Normal. SOFT TISSUES: Normal. IMPRESSION: No acute osseous abnormality right 3rd finger. Reviewed, dictated and finalized at location A.
== END 2023-12-01 13:23 | disposition home or self-care (01) ==
PROVIDERS: PCP Family Medicine; Visit Provider Family Medicine
DX: M79.644 Pain in right finger(s) (principal)
CPT/HCPCS: 73140

== ENCOUNTER 2024-02-02 09:21 | Outpatient (CLI) | payer OTHER, SELFPAY ==
[2024-02-21 17:54] VITALS: BMI 29.6
--- NOTE | 2024-02-21 17:54 | WPDHOMESLEEP ---
Sleep Study - Home Unattended Date of Study: 02/02/24 Ordering Provider: Shlomo Rondon MD Interpreting Provider: Nadine Larry DO Home Sleep Study Type: Watch PAT Height: 1.65 m Weight: 80.739 kg Body Mass Index: 29.6 Neck Circumference (inches): 15 [place]: 8 Reason for Sleep Study Daytime hypersomnia, unrefreshing sleep Sleep History The patient is a 48-year-old female that had a sleep study ordered by her primary care for evaluation of sleep apnea. The patient admits to snoring loudly. She admits to stopping breathing during sleep. She admits having trouble falling asleep and maintaining sleep. She admits to having excessive daytime sleepiness. She admits to choking / gasping during sleep. She denies having trouble breathing on her back. She admits to having a morning headache and morning dry mouth. She denies nocturnal heartburn. She admits to nocturia. she is does have difficulty waking up early without an alarm. She admits to having difficulty returning to sleep. She denies using hypnotics her sedatives. She denies feeling anxious about sleep. She admits to daytime hypersomnia, unrefreshing sleep and the urge to fall asleep during the day. She denies feeling drowsy while driving. She admits to clenching and grinding her teeth. She denies kicking or jerking her legs excessively during the night. She denies having a restless feeling in her legs and having the urge to move her legs. She goes to bed at 9:00 p.m. on weekdays and at 10:00 p.m. on the weekends. It takes her 45 minutes to fall asleep. She well sleep 5-7 hours per night. She denies taking planned naps. She denies smoking cigarettes. She consumes 1 glass of an alcoholic beverage 1-2 times per week. She consumes 1-2 cups of caffeinated beverage per day. She exercises 3-4 times per week. 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 [facility] Past Medical History Medical History Finger pain, right 3, currently Para 2 Hypertension Hypothyroid Screening for diabetes mellitus Screening for lipoid disorders Snoring Surgical History Surgical History H/O dilation and curettage Family History Family History Mother Heart attack Other Hypertension Social History Social History Smoking status: Never smoker Second hand tobacco smoke exposure: No Alcohol intake: current Substance use: never Lack of Transportation: No Lack of Food: Never True Current Housing: I Have Housing Concerned About Future Housing: No Difficulty Paying Gas/Electric Bills: No Difficulty Paying for Meds: No Currently Unemployed: No Education: Associate Degree Difficulty w/ Childcare or Family Care: No Living arrangements: with family Gender identity (if verbalized by the patient): Female Spiritual care concerns: No Medications Home Medications Medication Instructions Recorded Confirmed Type valacyclovir 500 mg tablet 500 mg PO DAILY 04/25/21 12/21/23 History levothyroxine 100 mcg tablet 100 mcg PO DAILY #90 tabs 02/13/24 Rx lisinopril 10 mg tablet 10 mg PO DAILY #90 tabs 02/16/24 Rx Sleep Procedure The sleep study was completed using AdvisityT a technically adequate device with seven channels: peripheral arterial tone, actigraphy, body position, snore, respiratory movement, pulse oximetry, sleep staging, and heart rate. Prior to using the device, the patient received verbal and written instructions for its application and was provided with the help desk phone number for additional telephonic instruction with 24-hour availability of qualified personnel to answer questions. The study was scored using CMS guidelines. Sleep Architecture The total recording time is 8 hrs, 29 min.
== END 2024-02-03 14:28 | disposition home or self-care (01) ==
LOC: ANHCSM 09:22
PROVIDERS: PCP Family Medicine; Visit Provider Family Medicine
DX: G47.33 Obstructive sleep apnea (adult) (pediatric) (principal); G47.10 Hypersomnia, unspecified
CPT/HCPCS: 95800

== ENCOUNTER 2024-02-29 11:57 | Emergency (ER) | payer OTHER, SELFPAY ==
--- NOTE | ~2024-02-29 | XR_ITS ---
EXAMINATION: XR chest 2V 02/29/2024 12:22 INDICATION: Chest pain PROCEDURE: 2 view chest COMPARISON: 11/21/2023 FINDINGS: The lungs are clear. The cardiomediastinal silhouette is within normal limits. There are no pleural effusions. There is no pneumothorax suspected. IMPRESSION: 1: NO ACUTE CARDIOPULMONARY DISEASE. Reviewed, dictated and finalized at location B.
--- NOTE | ~2024-02-29 | CT_ITS ---
Clinical Indication: Chest pain CT Scan of the Chest with Contrast: Technique: Contiguous sections were acquired throughout the chest after intravenous administration of 100 cc of Omnipaque 350. Dose reduction technique was used on this scan by utilizing automated expos ure control and iterative reconstruction technique. The dose-length product (DLP) was 523.88 mGy-cm. Findings: There is no evidence of any significant mediastinal, hilar or axillary lymphadenopathy. There is no f illing defect in the pulmonary arterial tree to suggest pulmonary embolus. There is no evidence of ao rtic dissection or aneurysm. There is no evidence of pleural or pericardial effusion. The lungs are clear. No pulmonary nodules or infiltrates are noted. Images through the upper abdomen reveal no abnormalities. Impression: No evidence of pulmonary embolus, aortic dissection, or aortic aneurysm. Clear lungs. Reviewed, dictated and finalized at [facility]. Impression: No evidence of pulmonary embolus, aortic dissection, or aortic aneurysm. Clear lungs.
--- NOTE | 2024-02-29 12:01 | ECG_ITS ---
Test Date: 2024-02-29 12:04:34 Measurements Intervals [place] Rate: 82 P: 47 MO: 148 QRS: 30 QRSD: 90 T: 43 QT: 360 QTc: 422 Interpretive Statements SINUS RHYTHM BASELINE ARTIFACT- I, II, III, AVR, AVL NORMAL ECG No previous ECG available for comparison Electronically Signed On 02-29-2024 14:51:33 CDT by Nito Bruce D.O.
[2024-02-29 12:03] VITALS: BP 135/96; PULSE 78; RESP 16; TEMP 36.4; O2SAT 100
[2024-02-29 12:15] LABS: Basophils Absolute Auto 0.1 K/mm3 (0.0-0.1); Eosinophils Absolute Auto 0.2 K/mm3 (0-0.3); Eosinophils Percent Auto 2.2 % (0-4.4); Hematocrit 41.4 % (37.0-47.0); Hemoglobin 14.1 g/dL (12.0-15.0); Immature Granulocyte Absolute 0.04 K/mm3 (0.00-0.031); Immature Granulocyte Percent A 0.6 % (0-0.5); Lymphocytes Absolute Auto 2.49 K/mm3 (0.9-3.2); Lymphocytes Percent Auto 36.8 % (18.3-44.2); Mean Corpuscular HGB Conc 34.1 g/dl (32-36); Mean Corpuscular Hemoglobin 32.7 pg (26-34); Mean Corpuscular Volume 96.1 fl (80-100); Monocytes Absolute Auto 0.4 K/mm3 (0.1-0.6); Monocytes Percent Auto 6.4 % (2.6-8.5); Neutrophils Absolute Auto 3.6 K/mm3 (1.3-6.7); Platelet Count Result 244 k/mm3 (150-375); Red Blood Count 4.31 M/mm3 (4.2-5.4); Red Cell Distribution Width 11.8 % (11.5-14.5); White Blood Count 6.8 K/mm3 (4.5-10.0)
--- NOTE | 2024-02-29 12:18 | ED.CHESTPAIN ---
HPI - Chest Pain General Chief Complaint: Chest Pain Stated Complaint: chest pain since last night Time Seen by Provider: 02/29/24 11:59 History of Present Illness HPI narrative: 48 Year old female presents to the emergency department for evaluation for left-sided chest pain that has been intermittent since last night. Patient states that she has no prior history of MA but does have a history of AFib. Patient does have follow-up with Cardiology pending. Patient states last night when she was resting she had onset of left-sided chest pain. Patient states he did 1 time that radiated to her back but typically the pain does not. Patient denies any recent coughs colds or fevers. Patient denies any falls or injuries. Patient denies any prior history of PE or DVT Related Data Home Medications Medication Instructions Recorded Confirmed valacyclovir 500 mg tablet 500 mg PO DAILY 04/25/21 12/21/23 Allergies Allergy/AdvReac Type Severity Reaction Status Date / Time dicloxacillin Allergy Seizure Verified 02/29/24 12:18 Review of Systems Review of Systems: All systems reviewed & are unremarkable except as noted in HPI and below PMFSH Past Medical History Medical History Finger pain, right 3, currently Para 2 Hypertension Hypothyroid Screening for diabetes mellitus Screening for lipoid disorders Snoring Surgical History Surgical History H/O dilation and curettage Family History Family History Mother Heart attack Other Hypertension Social History Social History Smoking status: Never smoker Second hand tobacco smoke exposure: No Alcohol intake: current Substance use: never Lack of Transportation: No Lack of Food: Never True Current Housing: I Have Housing Concerned About Future Housing: No Difficulty Paying Gas/Electric Bills: No Difficulty Paying for Meds: No Currently Unemployed: No Education: Associate Degree Difficulty w/ Childcare or Family Care: No Living arrangements: with family Gender identity (if verbalized by the patient): Female Spiritual care concerns: No Exam Narrative: APPEARANCE: Well appearing, no pain, no distress, well-nourished. HEAD: normocephalic, atraumatic. EYES: PERRLA/EOMI, conjunctivae clear. NOSE: Normal no drainage EARS:TMS clear with good light reflex. THROAT: Pharynx clear, no exudate. NECK: Supple. No adenopathy, no masses. RESPIRATORY: Airway patent, respirations nonlabored. Clear to auscultation bilaterally, no rales, rhonchi, wheezing. CARDIOVASCULAR: Regular rate and rhythm without murmurs rubs or gallops. ABDOMINAL: Soft, nontender, nondistended, normal bowel sounds MUSCULOSKELETAL: Moves all extremities. Strength/ROM intact, No edema, No calf tenderness. NEURO: Alert. Cranial nerves II through XII intact. Good gait. Good coordination SKIN: Warm, dry. Normal Color Course Course Emergency Course: Patient was discharged home with instructions have close follow-up with her primary care physician for additional outpatient cardiac testing. Vital Signs Vital signs: Vital Signs Temperature 97.5 F L 02/29/24 12:03 Pulse Rate 78 02/29/24 12:03 Respiratory Rate 16 02/29/24 12:03 Blood Pressure 135/96 H 02/29/24 12:03 Pulse Oximetry 100 02/29/24 12:03 Temperature 98.4 F 02/29/24 17:13 Pulse Rate 86 02/29/24 17:13 Respiratory Rate 17 02/29/24 17:13 Blood Pressure 116/75 02/29/24 17:13 Pulse Oximetry 99 02/29/24 17:13 Oxygen Delivery Room Air 02/29/24 12:05 MDM - Chest Pain MDM Narrative Medical decision making narrative: 48-year-old female presents emergency department for evaluation for chest pain. Patient is afebrile with no leukocytosis
[2024-02-29 12:26] LABS: Partial Thromboplastin Time 24.2 Seconds (22.3-36.8); Prothrombin Time 13.1 Seconds (11.1-14.7)
[2024-02-29 12:34] LABS: Alanine Aminotransferase 18 U/L (6-35); Albumin Level 4.7 g/dL (3.5-5.1); Alkaline Phosphatase 72 U/L (38-126); Anion Gap 11 mmol/L (4-12); Aspartate Amino Transferase 25 U/L (14-36); Bilirubin,Total 0.6 mg/dL (0.2-1.3); Blood Urea Nitrogen 16 mg/dL (7-17); Calcium 9.3 mg/dL (8.4-10.2); Carbon Dioxide 25 mmol/L (22-30); Chloride 102 mmol/L (98-107); Estimated CRCL calculation 81 ml/min; Estimated Glomerular Filt Rate > 60; Glucose 91 mg/dL (65-110); Lipase 215 U/L (23-300); Sodium 138 mmol/L (137-145)
[2024-02-29] MEDS: ASPIRIN 81 MG CHEWABLE TABLET 324 MG PO (12:39)
[2024-02-29 12:40] LABS: D Dimer 0.57 ug/mL (<0.48)
[2024-02-29] MEDS: PANTOPRAZOLE SODIUM IV 40 MG VIAL IV PUSH (12:40)
[2024-02-29] MEDS: HYDROmorphone HCL INJ (*CRX) 1 MG/ML SYR 0.5 MG IV PUSH (12:44)
[2024-02-29 12:45] LABS: Troponin I < 0.012 ng/mL (0.000-0.034)
[2024-02-29 12:51] VITALS: PULSE 87
[2024-02-29 13:08] LABS: Influenza A QL RT-PCR Negative (Negative); Influenza B QL RT-PCR Negative (Negative); RSV RNA, RT-PCR Negative (Negative); SARS-CoV-2 RNA PCR Negative (Negative)
[2024-02-29 13:24] VITALS: BP 121/89; PULSE 83; RESP 18; O2SAT 97
[2024-02-29 14:31] VITALS: BP 112/83; PULSE 78; RESP 21; O2SAT 96
--- NOTE | 2024-02-29 15:02 | ECG_ITS ---
Test Date: 2024-02-29 15:13:59 Measurements Intervals [place] Rate: 68 P: 33 FL: 165 QRS: 23 QRSD: 98 T: 29 QT: 397 QTc: 425 Interpretive Statements SINUS RHYTHM MINIMAL Q WAVES- INFERIOR LEADS BASELINE ARTIFACT- I, II, AVR, AVL, AVF, V1 BORDERLINE ECG Compared to ECG 02/29/2024 12:04:34 No significant changes Electronically Signed On 02-29-2024 15:34:31 CDT by Nito Bruce D.O.
[2024-02-29 15:47] LABS: Troponin I < 0.012 ng/mL (0.000-0.034)
[2024-02-29 16:01] VITALS: BP 117/84; PULSE 87; RESP 21; O2SAT 98
[2024-02-29] MEDS: KETOROLAC 15 MG/ML VIAL (*BKC) IV PUSH (16:37)
[2024-02-29 17:13] VITALS: BP 116/75; PULSE 86; RESP 17; TEMP 36.9; O2SAT 99
== END 2024-02-29 17:15 | disposition home or self-care (01) ==
PROVIDERS: Emergency Provider Emergency Medicine; PCP Family Medicine
DX: R07.89 Other chest pain (principal); Z20.822 Contact with and (suspected) exposure to COVID-19; I48.91 Unspecified atrial fibrillation; I10 Essential (primary) hypertension; E03.9 Hypothyroidism, unspecified; Z79.899 Other long term (current) drug therapy; R94.31 Abnormal electrocardiogram [ECG] [EKG]
CPT/HCPCS: 36415; 71046; 71275; 80053; 83690; 84484; 85025; 85380; 85610; 85730; 87637; 93005; 96374; 96375; 99284; A9270; J1170; J1885; J2470; Q9967

== ENCOUNTER 2024-03-09 14:27 | Outpatient (CLI) | payer OTHER, SELFPAY ==
--- NOTE | ~2024-03-09 | MM_ITS ---
EXAMINATION: MM screening [facility] BI w raúl HISTORY: Screening mammogram TECHNIQUE: Craniocaudal and mediolateral oblique 3-D tomosynthesis images were obtained and synthetic 2-D images were generated. CAD analysis was submitted and interpreted. COMPARISON: 04/03/2022, 04/09/2020, 04/05/2018 BREAST PARENCHYMAL COMPOSITION:Not Dense. There are scattered areas of fibroglandular density. FINDINGS: No suspicious mass, calcification, or architectural distortion are identified in either millie ast to suggest malignancy. There has been no suspicious interval change. IMPRESSION: No mammographic evidence of malignancy. Recommend routine screening mammography in one year. BI-RADS Category 1: Negative Reviewed, dictated and finalized at location .
== END 2024-03-09 14:28 | disposition home or self-care (01) ==
LOC: MICIMG 14:27
PROVIDERS: PCP Family Medicine; Visit Provider Nurse Practitioner
DX: Z12.31 Encounter for screening mammogram for malignant neoplasm of breast (principal)
CPT/HCPCS: 77063; 77067

== ENCOUNTER 2024-06-13 17:19 | Emergency (ER) | payer OTHER, SELFPAY ==
[2024-06-13 17:46] VITALS: BP 129/96; PULSE 93; RESP 16; TEMP 37.3; O2SAT 98
--- NOTE | 2024-06-13 18:24 | ED_ITS ---
HPI - URI/Sore Throat General Chief Complaint: Upper Respiratory Infection Stated Complaint: COUGH Time Seen by Provider: 06/13/24 18:15 Source: patient, RN notes reviewed and old records reviewed Mode of arrival: ambulatory Limitations: no limitations History of Present Illness HPI Narrative: 2 week duration of cough has been taking Zyrtec D and also has been taking [id number] ibuprofen for her symptoms. Patient reports cough is deep and has been worse when supine. Patient reports that she wears a c-pap and she has been unable to wear it due to the cough lately. Patient reports that she initially started with sinus congestion and drainage which has decreased some but cough persists. MD elicited complaint: cough Onset (ago): week(s) (2 weeks) Severity: moderate Able to tolerate fluids by mouth: Yes Treatments prior to arrival: ibuprofen and other (Zyrtec D ) Related Data Home Medications ?Medication ?Instructions ?Recorded ?Confirmed ?Last Taken ?Type valacyclovir 500 mg tablet 500 mg PO DAILY 04/25/21 05/17/24 05/11/21 History Allergies Allergy/AdvReac Type Severity Reaction Status Date / Time dicloxacillin Allergy Seizure Verified 06/13/24 20:37 Review of Systems Review of Systems: CONSTITUTIONAL: Reports malaise, no chills, sweats, or known fever. EYES: Denies visual changes, redness, or discharge. ENT: Reports rhinorrhea, congestion, sinus pain, no otalgia and no sore throat. CARDIOVASCULAR: Denies chest pain, palpitations, or edema. RESPIRATORY: Reports cough.? Denies dyspnea. GASTROINTESTINAL: Denies abdominal pain, nausea, vomiting, diarrhea SKIN: Denies rash or itching. MUSCULOSKELETAL: Denies myalgia. NEUROLOGIC: Denies headache. All systems reviewed & are unremarkable except as noted in HPI and below PMFSH Past Medical History Medical History Snoring Finger pain, right Hypertension Screening for lipoid disorders Screening for diabetes mellitus Hypothyroid 3, currently Para 2 Surgical History Surgical History H/O dilation and curettage Family History Family History Mother Heart attack Other Hypertension Social History Social History Smoking status: Never smoker Second hand tobacco smoke exposure: No Alcohol intake: current Substance use: never Lack of Transportation: No Lack of Food: Never True Current Housing: I Have Housing Concerned About Future Housing: No Difficulty Paying Gas/Electric Bills: No Difficulty Paying for Meds: No Currently Unemployed: No Education: Associate Degree Difficulty w/ Childcare or Family Care: No Living arrangements: with family Gender identity (if verbalized by the patient): Female Spiritual care concerns: No Comments At time of signature, agree with nursing past medical, surgical, social and family history. There is no relevant family history pertinent to the presenting complaint Exam Narrative: GENERAL: Well-appearing, well-nourished, and in no acute distress. HEAD: Normocephalic EYES: PERRLA, conjunctivae clear ENT: Nares clear, turbinates edematous and erythematous, clear discharge. Mucous membranes moist. TM pearly gonzáles with dull light reflex bilaterally; no tragal tenderness. Oropharynx erythematous without lesions. Tonsils not enlarged and without exudate, no drooling, no hoarseness, no trismus, uvula midline.post nasal drainage NECK: Supple. No lymphadenopathy CHEST: Clear to auscultation, breath sounds equal. No wheezing, rhonchi, rales, or stridor. No respiratory distress, speaks in full sentences. SAO2 98% on room air cough noted HEART: Regular rate and rhythm. No murmur heard. SKIN: Warm, dry, no rash. NEURO: Alert and oriented x3. PSYCH: Normal mood and affect Course Course Emergency Course: Patient is aware of diagnosis, understands and agrees to treatment plan.? Ant icipatory guidance given.? Patient agrees to follow-up as directed and is aware of reasons to seek care at the emergency department. Portions of this record may have been created with voice recognition software Level of Care: Express Care Visit Vital Signs Vital signs: Vital Signs Temperature 37.3 C 06/13/24 17:46 Pulse Rate 93 06/13/24 17:46 Respiratory Rate 16 06/13/24 17:46 Blood Pressure 129/96 H 06/13/24 17:46 Pulse Oximetry 98 12/17/24 17:46 Temperature 37.3 C 06/13/24 17:46 Pulse Rate 93 06/13/24 17:46 Respiratory Rate 16 06/13/24 17:46 Blood Pressure 129/96 H 06/13/24 17:46 Pulse Oximetry 98 06/13/24 17:46 Oxygen Delivery Room Air 06/13/24 18:00 Reviewed MDM - URI/Sore Throat MDM Narrative Medical decision making narrative: Differential diagnosis considered: Do virus, strep pharyngitis, allergic rhinitis, upper respiratory tract infection, sinusitis, rhinosinusitis, nasopharyngitis. viral pharyngitis, otitis media, otitis externa, pneumonia, bronchitis, viral cough syndrome, viral syndrome, and influenza.? Exam findings show no acute concerns or changes; patient is non-toxic appearing and is in no distress.? Patient is appropriate for outpatient treatment and follow-up. Differential Diagnosis Differential diagnosis: Likely upper respiratory infection, sinusitis, viral infection and other (acute cough) Medical Records Attestation: I reviewed the patient's medical records. Lab Data Attestation: I reviewed the patient's lab results. Critical Care Time Critical Care Time Critical Care Time: No Discharge Plan Discharge Clinical Impression: Acute cough Sinusitis Qualifiers: Sinusitis location: pansinusitis Chronicity: acute Recurrence: non-recurrent Qualified Code(s): J01.40 - Acute pansinusitis, unspecified Patient Disposition: Home, Self-Care Condition: Stable Instructions: Antibiotic Form, Sinusitis (ED), Acute Cough (ED) Additional Instructions: Increase fluids especially juices and water [id number] cough and cold medicine of your choice for your symptoms Prescription cough medicine as directed--caution drowsiness and no driving or alcohol while taking Zyrtec Claritin Shakira daily include Coricidin brand decongestant Steroids as directed--take with food heat to the face 20-30 minutes 4-6 times a day for pain Salt water gargles, throat lozenges or throat sprays as desired Antibiotic as directed--finished the medication If your symptoms persist, change or worsen significantly before you can contact your personal physician then please, without delay, go to the emergency department for further evaluation. Follow-up with PCP in 7-10 days or sooner if needed Follow up with PCP soon in regards to your blood pressure which is elevated above threshold for referral. Blood pressure above 120/80 may indicate pre- hypertension. 129/96 Patient Language: [place] Zealander Prescriptions: New prednisone 20 mg tablet 20 mg PO BID Qty: 10 0RF Rx Instructions: start 06/14/2024 azithromycin 250 mg tablet See Rx Instructions .ROUTE .COMPLEX Qty: 6 0RF Rx Instructions: For 250 mg dose pack: take 500 mg today (day 1), then 250 mg for 4 days (days 2-5) codeine-guaifenesin 10-100 mg/5 mL liquid 10 ml PO Q6H PRN (Reason: cough) Qty: 200 0RF No Action valacyclovir 500 mg Tablet 500 mg PO DAILY lisinopril 10 mg tablet 10 mg PO DAILY Qty: 90 1RF levothyroxine 100 mcg tablet 100 mcg PO DAILY Qty: 90 1RF Follow-up/Referrals: Shlomo Rondon MD [Primary Care Provider] - Time of Disposition: 18:33 Quality Elena Coma Scale Eyes: Open Verbal: Oriented and Alert Motor: Follows Commands [place]appell Coma Total Score: 15
== END 2024-06-13 18:38 | disposition home or self-care (01) ==
PROVIDERS: Emergency Provider Registered Nurse; PCP Family Medicine
DX: R05.1 Acute cough (principal); J01.40 Acute pansinusitis, unspecified; I10 Essential (primary) hypertension; E03.9 Hypothyroidism, unspecified
CPT/HCPCS: 99213; G0463

== ENCOUNTER 2024-07-04 10:59 | Outpatient (CLI) | payer OTHER, SELFPAY ==
--- NOTE | ~2024-07-04 | XR_ITS ---
XR finger 3rd RT min 2V Ordering provider: Mahad Rodriguez MD History: . M65.331 - Trigger finger, right middle finger . Comparison: None. FINDINGS: BONES: No acute fracture or dislocation. Tiny bony fragment seen near to the distal interphalangeal j oint. JOINT SPACES: Normal. SOFT TISSUES: Normal. IMPRESSION: No definite acute osseous abnormality. Small bony fragment seen near to the distal interphalangeal joint most likely soft tissue ossificatio n. Reviewed, dictated and finalized at location A. [employer] IMPRESSION: No definite acute osseous abnormality. Small bony fragment seen near to the distal interphalangeal joint most likely s oft tissue ossification.
--- OUTSIDE RECORDS SUMMARY | 2024-07-11 09:40 | XMS_ITS | Encounter Summary ---
Author Organization [facility] Address [address] [place] [address]. [place] [address] [place] [address] Care Team Providers Care Art Coordinator Name Role Phone Jayden Wynn MD Primary Care Provider [phone] Reason for Visit * Auth/Cert Specialty Diagnoses / Procedures Referred By Oliver lazo Referred To Contact Diagnoses missed Procedures DILATATION & CURETTAGE SUCTION WITH CHROMOSOME ANALYSIS Referral ID Status Reason Start Date Expiration Date Visits Re quested Visits Authorized [id number] 1 1 Encounter Details Date Type Department Care Team (Latest Contact Info) Description 12/15/2019 11:34 AM CDT - 12/15/2019 3:44 PM CDT Hospital Encounter [facility] [address] [place], [place] [id number] Jayden Wynn MD [address] [place], [place] [id number] Discharge Disposition: Home or Self Care (Routine Discharge) Social History Tobacco Use Types Packs/Day Years Used Date Smoking Tobacco: Never Smokeless Tobacco: Never Alcohol Use Standard Drinks/Week Comments Yes 0 (1 standard drink = 0.6 oz pur e alcohol) Comments Unknown Sex and Gender Information Value Date Recorded Sex Assigned at Not on file Legal Sex Female 2:52 AM CDT Gender Identity Not on file Sexual Orientation Not on file COVID-19 Exposure Response Date Recorded In the last month, have you been in contact with someone who was confirmed or suspected to have Coronavirus / COVID-19? No / Unsure 12/15/2019 11:34 AM CDT documented as of this encounter Last Filed Vital Signs Vital Sign Reading Time Taken Comments Blood Pressure 118/76 12/15/2019 3:02 PM CDT Pulse 64 12/15/2019 3:02 PM CDT Temperature 36.4 ??C (97.5 ??F) 12/15/2019 2:16 PM CD T Respiratory Rate 18 12/15/2019 3:02 PM CDT Oxygen Saturation 97% 12/15/2019 3:02 PM CDT Inhaled Oxygen Concentration - - Weight 87.5 kg (193 lb) 12/15/2019 11:43 AM CDT Height 162.6 cm (5' 4 ) 12/15/2019 11:43 AM CDT Body Mass Index 33.13 12/15/2019 11:43 AM CDT documented in this encounter Discharge Instructions * Discharge Instructions* Anil Loera RN - 12/15/2019 3:06 PM CDT PATIENT INSTRUCTIONS POST-ANESTHESIA IMMEDIATELY FOLLOWING SURGERY: Do not drive or operate machinery for day of surgery. Do not make any important decisions for twenty four hours after surgery or while taking narcotic pain medications or sedatives. If you develop intractable nausea and vomiting or a severe headache please notify yourdoctor immediately. FOLLOW-UP: Please make an appointment with your surgeon as instructed. You do not need to follow upwith anesthesia unless specifically instructed to do so. QUESTIONS?: Please feel free to call your physician or the hospital cinder crusher operator if you have any questions, and they will be happy to assist you. D&C Patient Information Guidelines At Home ??? Rest for 24 hours after you arrive home. Slowly increase activity to limit pain and fatigue. ??? Avoid lifting, pushing or pulling heavy objects or strenuous work for 3-4 days. ??? Vaginal bleeding or discharge may last up to 3 weeks but should become progressively sweatband drummer inamount and darker in color. ??? Do not wear a tampon or douche and avoid sexual intercourse until approved by your physician. ??? You may shower or tub bathe. ??? You may experience mild cramping. You may take Acetaminophen or Ibuprofen. Call The Doctor If You Have ??? Heavy or persistent vaginal bleeding. Vaginal bleeding continues more than 3 weeks. ??? Fever greater than 100.5 F. ??? Heavy or foul smelling vaginal discharge. ??? Severe or persistent pain unrelieved by Acetaminophen, Ibuprofen,. ??? Persistent nausea/vomiting or abdominal pain. ??? Pain, burning or difficulty with urination. Please Schedule ??? An appointment in 1-2 weeks for follow-up care. Our office number is [phone]. documented in this encounter Medications at Time of Discharge levothyroxine 25 MCG tablet Take 25 mcg by mouth every morning. documented as of this encounter Progress Notes * Judith Barriga - 12/15/2019 1:15 PM CDT This revenue cycle analyst provided grief support for this patient and her and gave them the resource folder. Patient gave signed permission for the disposition by the [facility] of the products of conception.Paper placed in her chart. * Jayden Wynn MD - 12/15/2019 12:49 PM CDT HP is uptodate. documented in this encounter Nursing Notes * Vivian Gibson RN - 12/14/2019 12:09 PM CDT Spoke with Isabella at [facility]. Labs reviewed by Dr. Donna daly. Patient is O positive. documented in this encounter OR Notes * Op Note - Jayden Wynn MD - 12/15/2019 2:07 PM CDT 12/15/19 missed * No post-op diagnosis entered * JAYDEN WYNN MD ANESTHESIA: TIV BLUE LINE OPERATOR: none ESTIMATED BLOOD LOSS: 50 FINDINGS: nl SPECIMENS: Products of conception PROCEDURE: The patient was taken to the operating room. She was placed in the dorsal supine position. She underwent anesthesia.She was placed in the dorsal lithotomy position and prepped and draped in the usualsterile fashion. A speculum was used to visualize the cervix. The anterior lip was grasped with a tenaculum. Cervix was already about 1 cm dilated and did not need to be dilated further. Size 6 flexible currette was used to remove tissue with suction. After 3 passes, the polyp forceps were used to gently probe the cavity. US confirmed thin stripe and no sac seen. 1 more pass was made with flexible currette with no further tissue. No bleeding from os or tenaculum noted. All counts were correct and pt went to recovery in stable condition. * Brief Op Note - Jayden Wynn MD - 12/15/2019 2:07 PM CDT [facility] Brief Op HSHSDILATATION & CURETTAGE SUCTION WITH CHROMOSOME ANALYSIS with Ultra Sound Procedure Note Odessa Hurtadoshay 12/15/2019 1300 Procedure(s) (LRB): DILATATION & CURETTAGE SUCTION WITH CHROMOSOME ANALYSIS with Ultra Sound (N/A) Surgeon(s): Jayden Wynn MD Project Management Specialist: None Anesthesia: General Pre-Op Diagnosis: missed Post-Op Diagnosis: Same Findings: Mod amount tissue Estimated Blood Loss: less than 50 Specimens: ID Type Source Tests Collected by Time A : product of conception ( CHROMOSOME ANALYSIS) TISSUE PRODUCTS OF CONCEPTION PATHOLOGY Jayden Wynn MD 12/15/2019 1353 JAYDEN WYNN MD Date: 12/15/2019 Time: 2:07 PM documented in this encounter Plan of Treatment Not on file documented as of this encounter Procedures Procedure Name Priority Date/Time Associated Diagnosis Comments PATHOLOGY Routine 12/15/2019 1:53 PM CDT MISCELLANEOUS LAB TEST Routine 12/15/2019 1:53 PM CDT DILATATION & CURETTAGE SUCTION 12/15/2019 1:42 PM CDT missed Case Notes THIS IS WITH CHROMOSOME ANALYSIS documented in this encounter Results * MISCELLANEOUS LAB TEST (12/15/2019 1:53 PM CDT) TEST NAME: CHROMOSOME ANALYSIS [facility] 12/15/2019 3:07 PM CDT [facility] SPECIMEN TYPE POC 12/15/2019 3:07 PM CDT [facility] TEST RESULT: REFER TO REFERENCE LAB REPORT 01/09/2020 3:36 PM CDT [facility] 12/15/2019 1:53 PM CDT us Jayden Wynn MD LABORATORY Final Resul t [facility] [address] [place] [address], * Pathology (12/15/2019 1:53 PM CDT) COPATH REPORT ?[facility] ? [address] [facility] ?[place] [address] ? [phone] ? Department of Pathology ? Pathology Report ? Addendum ? Surgical Pathology Report Patient Name: ODESSA DE LUNA ? : 1975 (Age: 43) ? Location: [facility] Gender: F ?Collected Date: 12/15/2019 Med Rec #: [id number] ?Date Received: 12/15/2019 Date Reported: Provider: JAYDEN WYNN MD Specimen(s) Products of Conception, receivied fresh @ 14:10, sent to [facility] for Chromosome analysis Final Pathologic Diagnosis UTERINE CONTENTS, CURETTAGE: ? PRODUCTS OF CONCEPTION ? PORTIONS OF SPECIMEN SENT FOR CHRONOSOME ANALYSIS Electronically Signed Out ? CARMITA MURILLO MD Pathologist DDH:lc Procedures/Kendal higuera Addendum ? Date Ordered: ? 01/08/2020 ? Status: Signed Out ?Date Complete: ? 01/08/2020 ? By: ANIL PARHAM ? Date Reported: ? 01/09/2020 ? Addendum Comment The cytogenetic POC chromosome analysis results from [employer] was received and reviewed. ??The result was karyotype: 46XX. ?? Interpretation: ??Normal female karyotype. ??See comment. Comment: ??In some instances when a normal female karyotype is reported from culture of abortus tissue, the source of culture may have been maternal rather than . ??See outside report. Electronicall y Signed Out By CARMITA MURILLO MD Microscopic Description: Reviewed are three H&E slides, which reveal multiple fragments of tissue, which includes some blood and mucoid material. ??Some of the tissue fragments are composed of decidualized type tissue with areas of acute inflammation and degenerative change. ??Also present are numerous placental villi. ??These are primarily smaller, occasionally slightly enlarged villi are noted, but no prominent enlargement plastic cistern formation is noted. ??No parts are identified. ??Clinical correlation is needed. Clinical History Missed Gross Description The specimen is received fresh at 14:10 in a container labeled with (Odessa De Luna), with the patient's date of and products of conception and consists of a suction trap device that contains numerous fragments of reddish araiza tissue and blood. ??A portion of the tissue is collected sterilely for chromosomal analysis and is submitted in RPMI. ??The blood clot and tissue fragments have an aggregate measurement of 6.0 x 5.5 x 1.0 cm. ??Embryonal elements are not identified. ??Help Desk Team Leader sections are submitted in three cassettes. ??OL/llc : Billing Fee Code(s): 14546 [facility] Tissue specimen (specimen) PRODUCTS OF CONCEPTION TISSUE SPECIMEN / Unknown 12/15/2019 1:53 PM CDT Comment:Recurrent loss Jayden Wynn MD PATHOLOGY/CYTOLOGY ORDERABL ES Final Result [facility] [address] [place] [address], documented in this encounter Visit Diagnoses Not on filedocumented in this encounter Administered Medications Inactive Administered Medications - up to 3 most recent administrations Medication Order MAR Action Action Date Dose Rate Site ibuprofen (MOTRIN) tablet 600 mg 600 mg, Oral, Every 6 hours, First dose on 12/16/19 at 1445, Until Discontinued, Post-Op ketorolac (TORADOL) injection 30 mg 30 mg, Intravenous, Every 6 hours, 4 doses, First dose on Wed12/15/19 at 1445, Last dose on 12/16/19 at 0845, For IV administration, give over 15 seconds., Post-Op lactated ringers infusion at 10 mL/hr, Intravenous, Continuous, Starting on Wed12/15/19 at 1215, Until Wed12/15/19 at 1753, Infuse at TKO rate, Pre-Op New Bag 12/15/2019 12:08 PM CDT 10 mL/hr Right Arm lactated ringers infusion at 100 mL/hr, Intravenous, Continuous, Starting on Wed12/15/19 at 1330, Until Wed12/15/19 at 1753, PACU documented in this encounter Active and Recently Administered Medications Times are shown in CDT. Scheduled Medication Order 12/13/2019 12/14/2019 12/15/2019 ibuprofen (MOTRIN) tablet 600 mg(Linked Group 1) 600 mg, Oral, Every 6 hours, First dose on 12/16/19 at 1445, Until Discontinued, Post-Op ketorolac (TORADOL) injection 30 mg(Linked Group 1) 30 mg, Intravenous, Every 6 hours, 4 doses, First dose on Wed12/15/19 at 1445, Last dose on Wed12/16/19 at 0845, For IV administration, give over 15 seconds., Post-Op 1445 (Canceled Entry - Provider: Automatic Discharge Provider - Comment: Automatically canceled at discontinue of medication order) Continuous Medication Order 12/13/2019 12/14/2019 12/15/2019 lactated ringers infusion at 10 mL/hr, Intravenous, Continuous, Starting on Wed12/15/19 at 1215, Until Wed12/15/19 at 1753, Infuse at TKO rate, Pre-Op 1208 (New Bag - Prov ider: Dawna Lindsey RN)1405 (Anesthesia Volume Adjustment - Provider: Malcom Clement CRNA)1406 (Infusion Stop Time - Provider: Malcom Clement CRNA)1526 (Infusion Stop Time - Provider: Anil Loera RN) lactated ringers infusion at 100 mL/hr, Intravenous, Continuous, Starting on Wed12/15/19 at 1330, Until Wed12/15/19 at 1753, PACU 1330 (Canceled Entry - Provider: Automatic Discharge Provider - Comment: Automatically canceled at discontinue of medication order) PRN Medication Order 12/13/2019 12/14/2019 12/15/2019 acetaminophen (TYLENOL) tablet 650 mg 650 mg, Oral, Every 4 hours PRN, Mild pain (Scale 1 - 3), Fever, Starting on Wed12/15/19 at 1422, Until Wed12/15/19 at 1753, Maximum dose of acetaminophen is 4000 mg from all sources in 24 hours., Post-Op HYDROcodone-acetaminophen (NORCO) 5-325 MG tablet 1 tablet 1 tablet, Oral, Every 4 hours PRN, Moderate pain (Scale 4 - 7), Starting on Wed12/15/19 at 1422, Until Wed12/15/19 at 1753, Maximum dose of acetaminophen is 4000 mg from all sources in 24 hours., Post-Op Linked Groups Order Group 1: ketorolac (TORADOL) injection 30 mgJump to med 30 mg, Intravenous, Every 6 hours, 4 doses, First dose on Wed12/15/19 at 1445, Last dose on Wed12/16/19 at 0845, For IV administration, give over 15 seconds., Post- Op Followed by ibuprofen (MOTRIN) tablet 600 mgJump to med 600 mg, Oral, Every 6 hours, First dose on Wed12/16/19 at 1445, Until Discontinued, Post-Op documented in this encounter Care Teams Art Coordinator Relationship Specialty Start Date End Date Donna-Jayden Daly MD PCP - General 07/17/13 documented as of this encounter
--- OUTSIDE RECORDS SUMMARY | 2024-07-11 09:40 | XMS_ITS | Encounter Summary ---
Author Organization [facility] Address [address] [place] [address]. [place] [address] [place] [address] Care Team Providers Care Patent Drafter Name Role Phone Farhana Mcdaniel MD Primary Care Provider [phone] Reason for Visit * Auth/Cert Specialty Diagnoses / Procedures Referred By Oliver lazo Referred To Contact Diagnoses missed Procedures DILATATION & CURETTAGE SUCTION WITH CHROMOSOME ANALYSIS Referral ID Status Reason Start Date Expiration Date Visits Re quested Visits Authorized [id number] 1 1 Encounter Details Date Type Department Care Team (Late st Contact Info) Description 12/15/2019 1:42 PM CDT Anesthesia Event [facility] [address] [place] [address] Malcom Clement CRNA [address] [place] [address] [address] [place] [address] Erika Chirinos MD [address] [place] [address] [phone] (Work) Anesthesia Record Procedure Summary Procedure Name Responsible Anesthesiologist Anesthesia Start Time Anesthesia Stop Time DILATATION & CURETTAGE SUCTION WITH CHROMOSOME ANALYSIS with Ultra Sound (Uterus) Malcom Clement CRNA 12/15/19 1342 12/15/19 1407 Events Date Time Event Comment 12/15/2019 1227 1227 AN HOGSHEAD HAND Prepped 1342 An Start Patient ID and consent checked and patient reassessed. 1342 An Start Data 1343 Face Mask Applied 1347 Anesthesia Ready 1400 Face Mask Removed 1404 an stop data 1405 Post Anesthetic Care Handoff I completed my handoff to the receiving nurse during which we: 1. Identified the patient 2. Identified the responsible provider 3. Reviewed the pertinent medical history 4. Discussed the surgical course 5. Reviewed intra-op anesthesia management and issues during anesthesia 6. Set expectations for post-procedure period 7. Allowed opportunity for questions and acknowledgement of understanding. 1407 An Stop Meds Name Total propofol (DIPRIVAN) 200 mg/20 mL injecti on 250 mg midazolam 2 mg/2 mL injection 2 mg fentaNYL (SUBLIMAZE) 100 mcg/2 mL inject ion 100 mcg lidocaine (PF) 1% injection 50 mg ketorolac (TORADOL) 30 mg/mL injection 3 0 mg lactated ringers infusion 700 mL * Agents Name O2 N2O Air Inspired Desflurane Desflurane * Blood No blood administrations on file. Lines, Drains, and Airways Type Details Placement Removal Peripheral IV Placement Date: 11/26 03/17; Placement Time: 1207; Placed Outside of This Facility?: No; Size: 20 G; Orientation: Right; Location: Wrist; Site Prep: Chlorhexidine; Local Anesthetic: Injectable; Insertion attempts: 1; Patient Tolerance: Tolerated well; Removal Date: 12/15/19; Removal Time: 1526; Removal Reason: Patient Discharged 12/15/19 1207 by Dawna Lindsey RN 12/15/19 1526 by Love Loera RN documented in this encounter Social History Tobacco Use Types Packs/Day Years [...] AM CDT documented as of this encounter OR Notes * Anesthesia Postprocedure Evaluation - Malcom Clement, BUTCH - 12/15/2019 2:07 PM CDT Anesthesia Post-op Note Odessa De Luna Procedure(s): DILATATION & CURETTAGE SUCTION WITH CHROMOSOME ANALYSIS with Ultra Sound (N/A Uterus) Anesthesia type: general Vitals: 12/15/19 1143 BP: 119/86 Vitals: 12/15/19 1143 Pulse: 81 Vitals: 12/15/19 1143 Resp: 18 Vitals: 12/15/19 1228 Temp: 37.1 ??C Vitals: 12/15/19 1143 SpO2: 100% Patient Location: Other Level of Consciousness: awake, alert and oriented Pain Management: adequate analgesia Airway Patency: patent Respiratory Status: acceptable Cardiovascular Status: acceptable Post-Op Nausea: none Postoperative Hydration: euvolemic Complications: no anesthesia complication * Anesthesia Preprocedure Evaluation - Erika Chirinos MD - 12/15/2019 11:40 AM CDT Anesthesia ROS/MED History Reviewed: Patient summary , Nursing notes , Family history anesthesia, Anesthesia history , Medications , Labs , Unchecked boxes are not applicable Pre-Anesthetic State: alert, awake and responds appropriately Pulmonary neg pulmonary ROS Cardiovascular neg cardio ROS Exercise tolerance:good Neuro/Psych neg neuro/psych ROS GI/Hepatic/Renal neg GI/hepatic/renal ROS Endo/Other (+) obese, hypothyroidism GENERAL COMMENTS Past Medical History: No date: Disease of thyroid gland History of A-fib, 10 yrs ago. No meds Physical Evaluation Airway Mallampati: II TM Distance: >3 FB Neck ROM: normal Dental No notable dental history Pulmonary Pulmonary exam normal Breath sounds clear to auscultation Cardiovascular Rhythm: regular Rate: normal Cardiovascular exam normal Anesthesia Plan ASA 2 Intravenous Induction Anesthesia type: general Discussed potential risks of General Anesthesia including but not limited to corneal abrasion, visual impairment or visual loss, mouth injury, dental damage, sore throat, hoarseness, esophageal injury, awareness under anesthesia, nerve injury due to positioning, aspiration, pneumonia, stroke, cardiac event, adverse drug reactions and . Tiva anesthetic planned and discussed. Possible GA as needed. Informed Consent Anesthetic plan and risks discussed with patient of whom consent was obtained. . documented in this encounter Plan of Treatment Not on file documented as of this encounter Visit Diagnoses Not on filedocumented in this encounter Administered Medications Inactive Administered Medications - up to 3 most recent administrations Medication Order MAR Action Action Date Dose Rate Site fentaNYL (SUBLIMAZE) injection PRN, Starting on Wed12/15/19 at 1344, Until Wed12/15/19 at 1407, Anesthesia Intra-Op Given 12/15/2019 1:51 PM CDT 50 mcg Given 12/15/2019 1:44 PM CDT 50 mcg ketorolac (TORADOL) injection PRN, Starting on Wed12/15/19 at 1359, Until Wed12/15/19 at 1407, Anesthesia Intra-Op Given 12/15/2019 1:59 PM CDT 30 mg lidocaine (PF) (XYLOCAINE) 1 % injection PRN, Starting on Wed12/15/19 at 1344, Until Wed12/15/19 at 1407, Anesthesia Intra-Op Given 12/15/2019 1:44 PM CDT 50 mg midazolam (VERSED) injection PRN, Starting on Wed12/15/19 at 1342, Until Wed12/15/19 at 1407, Anesthesia Intra-Op Given 12/15/2019 1:42 PM CDT 2 m g propofol (DIPRIVAN) IV bolus Intravenous, PRN, Starting on Wed12/15/19 at 1345, Until Wed12/15/19 at 1407, Anesthesia Intra-Op Given 12/15/2019 1:52 PM CDT 50 mg Given 12/15/2019 1:51 PM CDT 50 mg Given 12/15/2019 1:49 PM CDT 50 mg documented in this encounter Care Teams Patent Drafter Relationship Specialty Start Date End Date Donna-Farhana Melgar MD PCP - General 07/17/13 documented as of this encounter
--- OUTSIDE RECORDS SUMMARY | 2024-07-11 09:40 | XMS_ITS | Clinical Summary ---
Author Organization [facility] Address [address] [place] [address]. [place], [place] [address] [place] [address] Care Team Providers Care Supervisor Ski Production Name Role Phone Farhana Mcdaniel MD Primary Care Provider [phone] Allergies Active Allergy Reactions Criticality Noted Date Comments Dicloxacillin Unknown,Other (see comment) Low 12/08 seizures Medications levothyroxine 25 MCG tablet Take 25 mcg by mouth every morning. Active Family History Medical History Relation Comments Heart Disease Mother Relation Status Comments Father Other Mother Alive Social History Tobacco Use Types Packs/Day Years Used Date Smoking Tobacco: Never Smokeless Tobacco: Never Alcohol Use Standard Drinks/Week Comments Yes 0 (1 standard drink = 0.6 oz pur e alcohol) Comments Unknown Sex and Gender Information Value Date Recorded Sex Assigned at Not on file Legal Sex Female 2:52 AM CDT Gender Identity Not on file Sexual Orientation Not on file Last Filed Vital Signs Vital Sign Reading [...] Mass Index 33.13 12/15/2019 11:43 AM CDT Plan of Treatment Health Maintenance Due Date Last Done Comments Cervical Cancer Screening Pa p Smear (Age 30 to 64) Every 3 Years 1977 Colorectal Cancer Screening Colonoscopy (10 Years) 1977 Annual Physical 1980 Hepatitis C 12/24/1995 DTaP, Tdap and Td Vaccines ( 1 - Tdap) 1996 Hepatitis B Vaccines (1 of 3 - 19+ 3-dose series) 1996 Cervical Cancer Screening Pa p with HPV Testing (Age 30 to 64) Every 5 Years 12/24/2007 Cervical Cancer Screening with HPV 12/24/2007 Mammogram Screening 2017 COVID-19 Vaccine (2023-2 5 season) 2024 Influenza Adult (#1) 2024 Meningococcal Vaccine Aged Out No adam lan eligible based on patient's age to complete this topic Pneumococcal Vaccine: Pediat rics (0 to 5 Years) and At-Risk Patients (6 to 64 Years) Aged Out No longer eligible b ased on patient's age to complete this topic RSV Immunizations Under 20 Months Aged Out No longer eligible based on patient's age to complete this topic Insurance Advance Directives * Full Code (Latest Code Status on File) Date Activated Date Inactivated Comments 12/15/2019 2:22 PM 12/15/2019 5:53 PM Care Teams Supervisor Ski Production Relationship Specialty Start Date End Date Farhana Mcdaniel MD PCP - General 07/17/13
--- OUTSIDE RECORDS SUMMARY | 2024-07-11 09:40 | XMS_ITS | Encounter Summary ---
Author Organization [facility] Address [address] [place] [address]. [place], [place] [address] [place] [address] Care Team Providers Care Gas Fitter Name Role Phone Farhana Mcdaniel MD Primary Care Provider [phone] Encounter Details Date Type Department Care Team (Latest Contact Info) Description 11/24/2019 11:34 AM CDT - 11/24/2019 11:59 PM CDT Hospital Encounter [facility] [address] [place], [place] [id number] Farhana Mcdaniel MD [address] [place] [address] Discharge Disposition: Home or Self Care (Routine Discharge) Social History Tobacco Use Types Packs/Day Years Used Date Smoking Tobacco: Never Comments Unknown Sex and Gender Information Value Date Recorded Sex Assigned at Not on file Legal Sex Female 2:52 AM CDT Gender Identity Not on file Sexual Orientation Not on file COVID-19 Exposure Response Date Recorded In the last month, have you been in contact with someone who was confirmed or suspected to have Coronavirus / COVID-19? No / Unsure 11/24/2019 11:34 AM CDT documented as of this encounter Plan of Treatment Not on file documented as of this encounter Procedures Procedure Name Priority Date/Time Associated Diagnosis Comments HCG QUANT (SERUM)-CHORIONIC GONADOTROPIN STAT 11/24/2019 11:41 AM CDT Secondary amenorrhea 2 weeks gestation of (HHS/HCC) documented in this encounter Results * HCG QUANT (SERUM)-CHORIONIC GONADOTROPIN (11/24/2019 11:41 AM CDT) HCG QUANTITATIVE 16,152 MIU/ML 11/24/19 12:49 PM CDT [facility] Comment: WEEKS OF ? REFERENCE RANGES NON- FEMALE ?0-6 ? 0.2 - 1 ? 5 - 50 ? 1 - 2 ? 50 - 500 ? 2 - 3 ? 100 - 5000 ? 3 - 4 ? 500 - 10,000 ? 4 - 5 ? 1000 - 50,000 ? 5 - 6 ? 10,000 - 100,000 ? 6 - 8 ? 15,000 - 200,000 ? 2 - 3 MONTHS ?10,000 - 100,000 11/24/2019 11:4 1 AM CDT us Farhana Mcdaniel MD LABORATORY Final Resul t [facility] [address] [place] [address], documented in this encounter Visit Diagnoses Diagnosis Secondary amenorrhea Absence of menstruation 2 weeks gestation of ([facility]) state, incidental documented in this encounter Care Teams Gas Fitter Relationship Specialty Start Date End Date Farhana Mcdaniel MD PCP - General 07/17/13 documented as of this encounter
--- OUTSIDE RECORDS SUMMARY | 2024-07-11 09:40 | XMS_ITS | Encounter Summary ---
Author Organization [facility] Address [address] [place] [address]. [place], [place] [address] [place] [address] Care Team Providers Care Tire Specialist Name Role Phone Farhana Mcdaniel MD Primary Care Provider [phone] Encounter Details Date Type Department Care Team (Latest Contact Info) Description 12/15/2019 Travel Social History Tobacco Use Types Packs/Day Years [...] Diagnoses Not on filedocumented in this encounter Care Teams Tire Specialist Relationship Specialty Start Date End Date Farhana Mcdaniel MD PCP - General 07/17/13 documented as of this encounter
--- OUTSIDE RECORDS SUMMARY | 2024-07-11 09:40 | XMS_ITS | Encounter Summary ---
Author Organization [facility] Address [address] [place] [address]. [place], [place] [address] [place] [address] Care Team Providers Care Degreasing Wheel Operator Name Role Phone Farhana Mcdaniel MD Primary Care Provider [phone] Encounter Details Date Type Department Care Team (Latest Contact Info) Description 11/24/2019 Travel Social History Tobacco Use Types Packs/Day [...] on filedocumented in this encounter Care Teams Degreasing Wheel Operator Relationship Specialty Start Date End Date Farhana Mcdaniel MD PCP - General 07/17/13 documented as of this encounter
--- OUTSIDE RECORDS SUMMARY | 2024-07-11 09:40 | XMS_ITS | Encounter Summary ---
Author Organization [facility] Address [address] [place] [address]. [place] [address] [place] [address] Care Team Providers Care Horse Doctor Name Role Phone Jayden Wynn MD Primary Care Provider [phone] Reason for Visit * Auth/Cert Specialty Diagnoses / Procedures Referred By Oliver t Referred To Contact Diagnoses missed Procedures DILATATION & CURETTAGE SUCTION WITH CHROMOSOME ANALYSIS Referral ID Status Reason Start Date Expiration Date Visits Re quested Visits Authorized [id number] 1 1 Encounter Details Date Type Department Care Team (Late st Contact Info) Description 12/15/2019 1:00 PM CDT - 12/15/2019 1:48 PM CDT Surgery [facility] [address] [place], [place] [phone] Jayden Wynn MD [address] [place], [place] [phone] DILATATION & CURETTAGE SUCTION WITH CHROMOSOME ANALYSIS with Ultra Sound Surgery Details Date/Time Status Location OR Service Patient Class Case Class Case Type Trauma Case? 12/15/2019 1:00 PM Posted [facility] OR OR 2 Gynecology Short Stay/Outpati ent Surgery No Panel 1 Procedure LRB Anes Op Region Wound Class Comments DILATATION & CURETTAGE SUCTI ON WITH CHROMOSOME ANALYSIS with Ultra Sound N/A General Uterus Clean Contaminated Surgeon Surgeon Role Service Panel Jayden Wynn MD Primary Gynecology 1 Case Notes THIS IS WITH CHROMOSOME ANALYSIS documented in this encounter Social History Tobacco [...] Sign Reading Time Taken Comments Blood Pressure 119/86 12/15/2019 11:43 AM CDT Pulse 81 12/15/2019 11:43 AM CDT Temperature 37.1 ??C (98.7 ??F) 12/15/2019 12:28 PM C DT Respiratory Rate 18 12/15/2019 11:43 AM CDT Oxygen Saturation 100% 12/15/2019 11:43 AM CDT Inhaled Oxygen Concentration - - Weight [...] to call your physician or the hospital freezer tunnel operator if you have any questions, and [...] to 3 weeks but should become progressively signal constructor inamount and darker in color. ??? Do [...] for follow-up care. Our office number is [phone]. documented in this encounter Medications at Time of Discharge levothyroxine 25 MCG tablet Take 25 mcg by mouth every morning. documented as of this encounter Progress Notes * Judith Barriga - 12/15/2019 1:15 PM CDT This internet sales manager provided grief support for this patient and her and gave them the resource folder. Patient gave signed permission for the disposition by the [facility] of the products of conception.Paper placed in her chart. * Jayden Wynn MD - 12/15/2019 12:49 PM CDT HP is uptodate. documented in this encounter Nursing Notes * Vivian Gibson RN - 12/14/2019 12:09 PM CDT Spoke with Isabella at [facility]. Labs reviewed by Dr. Donna daly. Patient is O positive. documented in this encounter OR Notes * Op Note - Jayden Wynn MD - 12/15/2019 2:07 PM CDT 12/15/19 missed * No post-op diagnosis entered * JAYDEN WYNN MD ANESTHESIA: TIV RADIOCHEMICAL TECHNICIAN: none ESTIMATED BLOOD LOSS: 50 FINDINGS: nl [...] ANALYSIS with Ultra Sound Procedure Note Odessa De Luna 12/15/2019 1300 Procedure(s) (LRB): DILATATION & CURETTAGE SUCTION WITH CHROMOSOME ANALYSIS with Ultra Sound (N/A) Surgeon(s): Jayden Wynn MD Bilingual Teacher Assistant: None Anesthesia: General Pre-Op Diagnosis: missed Post-Op [...] CHROMOSOME ANALYSIS CHARIS 12/15/2019 3:07 PM CDT [facility] SPECIMEN TYPE POC 12/15/2019 3:07 PM CDT [facility] TEST RESULT: REFER TO REFERENCE LAB REPORT 01/09/2020 3:36 PM CDT [facility] 12/15/2019 1:53 PM CDT us Jayden Wynn MD LABORATORY Final Resul t [facility] [address] [place] [address], * Pathology (12/15/2019 1:53 PM CDT) COPATH REPORT ?[facility] ? [address] [facility] ?[place] [address] ? [phone] ? Department of Pathology ? Pathology Report ? Addendum ? Surgical Pathology Report Patient Name: ODESSA DE LUNA ? : 1975 (Age: 43) ? Location: [facility] Gender: F ?Collected Date: 12/15/2019 Med Rec #: [id number] ?Date Received: 12/15/2019 Date Reported: Provider: JAYDEN WYNN MD Specimen(s) Products of Conception, receivied fresh @ 14:10, sent to [facility] for Chromosome analysis Final Pathologic Diagnosis UTERINE [...] The cytogenetic POC chromosome analysis results from [facility] was received and reviewed. ??The result was [...] at 14:10 in a container labeled with (Vidya De Lunasy), with the patient's date of and products [...] 1.0 cm. ??Embryonal elements are not identified. ??Special Education Administrator sections are submitted in three cassettes. ??[email or web address] : Billing Fee Code(s): 91301 [facility] Tissue specimen (specimen) PRODUCTS OF CONCEPTION TISSUE SPECIMEN / Unknown 12/15/2019 1:53 PM CDT Comment:Recurrent loss us Jayden Wynn MD PATHOLOGY/CYTOLOGY ORDERABL ES Final Result [facility] [address] [place] [address], [place] [phone] documented in this encounter Visit Diagnoses Not on filedocumented in this encounter Administered Medications Inactive Administered Medications - up to 3 most recent administrations Medication Order MAR Action Action Date Dose Rate Site ibuprofen (MOTRIN) tablet 600 mg 600 mg, Oral, Every 6 hours, First dose on Wed12/16/19 at 1445, Until Discontinued, Post-Op ketorolac (TORADOL) [...] on Wed12/16/19 at 1445, Until Discontinued, Post-Op ketorolac (TORADOL) [...] CRNA)1526 (Infusion Stop Time - Provider: Anil Loera, BENNIE) lactated ringers infusion at 100 mL/hr, Intravenous, [...] Post-Op documented in this encounter Care Teams Horse Doctor Relationship Specialty Start Date End Date Donna-Jayden Daly MD PCP - General 07/17/13 documented as of this encounter
--- OUTSIDE RECORDS SUMMARY | 2024-07-11 09:40 | XMS_ITS | Encounter Summary ---
Author Organization [facility] Address [address] [place] [address]. [place], [place] [address] [place] [address] Care Team Providers Care Avionics Mechanic Name Role Phone Farhana Mcdaniel MD Primary Care Provider [phone] Encounter Details Date Type Department Care Team (Latest Contact Info) Description 12/13/2019 Travel Social History Tobacco Use Types Packs/Day [...] have Coronavirus / COVID-19? No / Unsure 12/13/2019 3:33 PM CDT documented as of this encounter Plan of Treatment Not on file documented as of this encounter Visit Diagnoses Not on filedocumented in this encounter Care Teams Avionics Mechanic Relationship Specialty Start Date End Date Farhana Mcdaniel MD PCP - General 07/17/13 documented as of this encounter
--- OUTSIDE RECORDS SUMMARY | 2024-07-11 09:40 | XMS_ITS | Encounter Summary ---
Author Organization [facility] Address [address] [place] [address]. [place], [place] [address] [place] [address] Care Team Providers Care Outpatient Psychiatrist Name Role Phone Farhana Mcdaniel MD Primary Care Provider [phone] Encounter Details Date Type Department Care Team (Late st Contact Info) Description 11/24/[address] [facility] [address] [place] [address] Farhana Mcdaniel MD [address] [place], [place] [phone] Social History Tobacco Use Types Packs/Day Years [...] on file documented as of this encounter Results * HCG QUANT (SERUM)-CHORIONIC GONADOTROPIN (11/24/2019 11:41 AM CDT) Pathologist [facility] HCG QUANTITATIVE 16,152 MIU/ML 11/24/19 20 12:49 PM CDT [facility] Comment: WEEKS OF ? REFERENCE RANGES [...] Farhana Mcdaniel MD LABORATORY Final Resul t Performing Organization Address City/State/[facility] Co de Phone Number [facility] [address] [place] [address], documented in this encounter Visit Diagnoses Diagnosis Secondary amenorrhea- Primary Absence of menstruation 2 weeks gestation of ([facility]) state, incidental documented in this encounter Care Teams Outpatient Psychiatrist Relationship Specialty Start Date End Date Farhana Mcdaniel MD PCP - General 07/17/13 documented as of this encounter
--- OUTSIDE RECORDS SUMMARY | 2024-07-11 09:40 | XMS_ITS | Encounter Summary ---
Author Organization [facility] Address [address] [place] [address]. [place] [address] [place] [address] Care Team Providers Care Customer Success Manager Name Role Phone Farhana Mcdaniel MD Primary Care Provider [phone] Reason for Visit * Reason Comments Lab (SCAN) Encounter Details Date Type Department Care Team ([facility] Contact Info) Description 12/13/2019 Scan [facility] [place] [address] Scanned, Documents Lab (SCAN) Social History Tobacco Use Types Packs/Day Years [...] Procedure Name Priority Date/Time Associated Diagnosis Comments OUTSIDE LAB (SCAN ORDER) Routine 12/13/2019 documented in this encounter Results * OUTSIDE LAB (12/13/2019) 12/13/2019 us Documents Scanned SCANNING Final Result [facility] documented in this encounter Visit Diagnoses Not on filedocumented in this encounter Care Teams Customer Success Manager Relationship Specialty Start Date End Date Farhana Mcdaniel MD PCP - General 07/17/13 documented as of this encounter
--- OUTSIDE RECORDS SUMMARY | 2024-07-11 09:41 | XMS_ITS | Encounter Summary ---
Author Organization [facility] Address [address] [place] [address]. [place], [place] [address] [place] [address] Care Team Providers Care Mail Opener Name Role Phone Farhana Mcdaniel MD Primary Care Provider [phone] Encounter Details Date Type Department Care Team (Late st Contact Info) Description 02/10/2017 Abstract [facility] Conversion Md, Generic ConversionMD Social History Tobacco Use Types Packs/Day Years Used Date Smoking Tobacco: Never Comments Unknown Sex and Gender Information Value Date Recorded Sex Assigned at Not on file Legal Sex Female 2:52 AM CDT Gender Identity Not on file Sexual Orientation Not on file documented as of this encounter Plan of Treatment Not on file documented as of this encounter Visit Diagnoses Not on filedocumented in this encounter Care Teams Mail Opener Relationship Specialty Start Date End Date Farhana Mcdaniel MD PCP - General 07/17/13 documented as of this encounter
--- OUTSIDE RECORDS SUMMARY | 2024-07-11 09:41 | XMS_ITS | Encounter Summary ---
Author Organization [facility] Address [address] [place] [address]. [place], [place] [address] [place] [address] Care Team Providers Care Card Processing Clerk Name Role Phone Farhana Mcdaniel MD Primary Care Provider [phone] Encounter Details Date Type Department Care Team (Late st Contact Info) Description 03/03/2016 Abstract [facility] Conversion Md, Generic ConversionMD Social History [...] on filedocumented in this encounter Care Teams Card Processing Clerk Relationship Specialty Start Date End Date Farhana Mcdaniel MD PCP - General 07/17/13 documented as of this encounter
--- OUTSIDE RECORDS SUMMARY | 2024-07-11 09:41 | XMS_ITS | Encounter Summary ---
Author Organization [facility] Address [address] [place] [address]. [place], [place] [address] [place] [address] Care Team Providers Care Engineering Production Liaison Name Role Phone Farhana Mcdaniel MD Primary Care Provider [phone] Encounter Details Date Type Department Care Team (Late st Contact Info) Description 11/03/2017 Abstract [facility] Conversion Md, Generic ConversionMD Social History Tobacco [...] on filedocumented in this encounter Care Teams Engineering Production Liaison Relationship Specialty Start Date End Date Farhana Mcdaniel MD PCP - General 07/17/13 documented as of this encounter
--- OUTSIDE RECORDS SUMMARY | 2024-07-11 09:41 | XMS_ITS | Encounter Summary ---
Author Organization [facility] Address [address] [place] [address]. [place] [address] [place] [address] Care Team Providers Care Forming Machine Upkeep Mechanic Helper Name Role Phone Farhana Mcdaniel MD Primary Care Provider +1 [phone] Encounter Details Date Type Department Care Team (Late st Contact Info) Description 11/03/2017 Abstract [facility] Emergency Room [address] [place] [address] Social History Tobacco Use Types Packs/Day Years [...] Procedure Name Priority Date/Time Associated Diagnosis Comments PARTIAL THROMBOPLASTIN TIME,PTT STAT 11/03/2017 8:20 PM CDT PROTHROMBIN TIME, VENOUS STAT 11/03/2017 8:20 PM CDT COMPREHENSIVE METABOLIC PANEL STAT 11/03/2017 8:20 PM CDT CKMB(MB FRACTION ONLY) STAT 8 8:20 PM CDT CBC W/DIFF AUTOMATED Routine 11/03/2017 8:20 PM CDT TROPONIN, QUANT STAT 11/03/2017 8:20 PM CDT URINALYSIS WI REFLEX TO CULTURE STAT 11/03/2017 8:02 PM CDT TEST URINE STAT 11/03/2017 8:02 PM CDT documented in this encounter Results * TROPONIN, QUANT (11/03/2017 8:20 PM CDT) TROPONIN I <0.017 0.000 - 0.056 ng/mL. 11/03/2017 9:32 PM CDT [facility] Comment: NORMAL: LESS THAN OR EQUAL TO 0.056 NG/MLINDETERMINATE ZONE: 0.056 TO 0.599 NG/MLCONDITIONS RESULTING IN MYOCARDIAL CELL DAMAGE CAN POTENTIALLY INCREASE LEVELS ABOVE THE EXPECTED RANGE.HIGH DOSES OF BIOTIN MAY INTERFERE WITH THIS TEST RESULT. CORRELATION TO CLINICAL HISTORY AND PRESENTATION RECOMMENDED. SERUM OR PLASMA SPECIMEN / Unknown 11/03/2017 8:20 PM CDT 11/03/2017 8:47 PM CDT us Generic Conversion Md [facility] Final R esult [facility] [address] [place] [address], [place] [phone] * PARTIAL THROMBOPLASTIN TIME,PTT (11/03/2017 8:20 PM CDT) PTT 27.9 26.4 - 36.1 SEC 11/03/2017 9:23 PM CDT [facility] PLASMA SPECIMEN / Unknown 11/03/2017 8:20 PM CDT 11/03/2017 8:47 PM CDT us Generic Conversion Md [facility] Final R esult [facility] [address] [place] [address], [place] [phone] * PROTIME/INR, VENOUS (11/03/2017 8:20 PM CDT) [facility] PROTIME 11.9 9.6 - 12.2 SEC 11/03/2017 9:23 PM CDT [facility] INR 1.1 0.9 - 1.1 11/03/2017 9:23 PM CDT [facility] Comment: Recommended INR Therapeutic Goals: ?? 2.0-3.0 Routine Therapy ??2.5-3.5 Mechanical Prosthetic Valves (High Risk) ??3.0-4.0 Acute PR (to prevent Systemic Embolism)The INR is used only for patients on stable oral anticoagulant therapy. It makes no significant contribution to the diagnosis or treatment of patients whose Protime is prolonged for other reasons. 11/03/2017 8:20 PM CDT 11/03/2017 8:47 PM CDT us Generic Conversion Md [facility] Final R esult [facility] [address] [place] [address], [place] [phone] * (ABNORMAL) COMPREHENSIVE METABOLIC PANEL (11/03/2017 8:20 PM CDT) [facility] GLUCOSE 97 70 - 99 MG/DL 11/03/2017 9:32 PM CDT [facility] BUN 17 7 - 18 MG/DL 11/03/2017 9:32 PM T [facility] CREATININE S/P/B 0.89 0.55 - 1.02 MG/DL 11/03/2017 9:32 PM CDT [facility] SODIUM S/P/B 141 136 - 145 MMOL/L 11/03/2017 9:32 PM T [facility] POTASSIUM S/P/B 3.5 3.5 - 5.1 MMOL/L 11/03/2017 9:32 PM CDT [facility] CHLORIDE S/P/B 105 100 - 108 MMOL/L 11/03/2017 9:32 PM T [facility] CO2 25.9 21 - 32 MMOL/L 11/03/2017 9:32 PM [facility] CALCIUM S/P/B 8.7 8.5 - 10.1 MG/DL 11/03/2017 9:32 PM [facility] BILIRUBIN TOTAL S/P/B 0.2 0.2 - 1.2 MG/DL 11/03/2017 9:32 PM [facility] TOTAL PROTEIN S/P/B 7.6 6.4 - 8.2 G/DL 11/03/2017 9:32 PM [facility] ALBUMIN S/P/B 3.8 3.4 - 5.0 G/DL 11/03/2017 9:32 PM [facility] AST 20 15 - 37 U/L 11/03/2017 9:32 PM [facility] ALT 29 14 - 55 U/L 11/03/2017 9:32 PM [facility] ALKALINE PHOSPHATASE S/P/B 68 50 - 136 U/L 11/03/2017 9:32 PM [facility] ANION GAP 13.6 8 - 20 MMOL/L 11/03/2017 9:32 PM [facility] BUN CREATININE RATIO 19.1 6 - 26 11/03/2017 9:32 PM [facility] A/G RATIO 1.0 1.0 - 2.0 RATIO 11/03/2017 9:32 PM [facility] EGFR NON-AFR. AMER. 82(L) >90 ML/MIN/1.7 3 M2 11/03/2017 9:32 PM [facility] EGFR AFR. AMER. >90 >90 ML/MIN/1.7 3 M2 11/03/2017 9:32 PM CDT [facility] Comment: NOTE: eGFR is not calculated for patients <18 years of age. This is an estimated GFR (CKD EPI) and should not be used for calculating drug doses. 11/03/2017 8:20 PM CDT 11/03/2017 8:47 PM CDT us Generic Conversion Md [facility] Final R esult Performing Organization Address [facility] de Phone Number [facility] [address] [place] [address], [place] [phone] * (ABNORMAL) CKMB(MB FRACTION ONLY) (11/03/2017 8:20 PM CDT) CK-MB <0.5(L) 0.5 - 3.6 NG/ML 11/03/2017 9:32 PM CDT [facility] Comment: HIGH DOSES OF BIOTIN MAY INTERFERE WITH THIS TEST RESULT. CORRELATION TO CLINICAL HISTORY AND PRESENTATION RECOMMENDED. CPK 80 26 - 192 U/L 11/03/2017 9:32 PM CDT [facility] 11/03/2017 8:20 PM CDT 11/03/2017 8:47 PM CDT us Generic Conversion Md [facility] Final R esult Performing Organization Address City/[facility] Co de Phone Number [facility] [address] [place] [address], [place] [phone] * CBC W/DIFF AUTOMATED (11/03/2017 8:20 PM CDT) WBC 7.9 4.8 - 10.8 x10'3/uL 11/03/2017 9:13 PM CDT [facility] RBC 4.25 4.10 - 5.10 x10'6/uL 11/03/2017 9:13 PM CDT [facility] HGB 13.7 12.0 - 16.0 G/DL 11/03/2017 9:13 PM [facility] HCT 40.0 36 - 46 % 11/03/2017 9:13 PM [facility] MCV 94.1 80 - 100 FL 11/03/2017 9:13 PM [facility] MCH 32.2 26.0 - 34.0 PG 11/03/2017 9:13 PM [facility] MCHC 34.3 31.0 - 37.0 G/DL 11/03/2017 9:13 PM [facility] RDW 11.9 11.5 - 14.5 % 11/03/2017 9:13 PM [facility] PLT 224 150 - 350 x10'3/uL 11/03/2017 9:13 PM [facility] CBC COMMENT AUTOMATED RBC MORPHOLOGY AND PLATELET EVALUATION NORMAL 11/03/2017 9:13 PM [facility] NEUTROPHILS % 62.1 50 - 70 % 11/03/2017 9:13 PM [facility] LYMPHOCYTES % 28.4 18 - 42 % 11/03/2017 9:13 PM [facility] MONOCYTES % 7.7 2.0 - 11.0 % 11/03/2017 9:13 PM [facility] EOSINOPHILS 1.3 1.0 - 3.0 % 11/03/2017 9:13 PM [facility] BASOPHILS 0.5 0.0 - 1.0 % 11/03/2017 9:13 PM [facility] ABS. NEUTROPHILS TOTAL 4.89 1.69 - 7.81 x10'3/uL 11/03/2017 9:13 PM [facility] 11/03/2017 8:20 PM CDT 11/03/2017 8:47 PM CDT us Generic Conversion Md [facility] Final R esult [facility] [address] [place] [address], [place] [phone] * (ABNORMAL) URINALYSIS WI REFLEX TO CULTURE (11/03/2017 8:02 PM CDT) COLOR (U) YELLOW 11/03/2017 9:01 PM CDT [facility] TRANSPARENCY CLEAR 11/03/2017 9:01 PM T [facility] SPECIFIC GRAVITY (U) 1.020 1.002 - 1.030 11/03/2017 9:01 PM T [facility] U PH 6.0 4.5 - 8 11/03/2017 9:01 PM T [facility] LEUKOCYTES (U) NEGATIVE NEGATIVE 11/03/2017 9:01 PM T [facility] NITRITES NEGATIVE NEGATIVE 11/03/2017 9:01 PM T [facility] PROTEIN (U) NEGATIVE NEGATIVE 11/03/2017 9:01 PM T [facility] URINE GLUCOSE NEGATIVE NEGATIVE 11/03/2017 9:01 PM T [facility] KETONES MG/DL (U) NEGATIVE NEGATIVE 11/03/2017 9:01 PM T [facility] UROBILINOGEN NORMAL NORMAL EU/DL 11/03/2017 9:01 PM T [facility] BILIRUBIN (U) NEGATIVE NEGATIVE 11/03/2017 9:01 PM [facility] BLOOD (U) 1+(A) NEGATIVE 11/03/2017 9:01 PM T [facility] WBC/HPF 0-5 /HPF 11/03/2017 9:01 PM CDT [facility] CULTURE & SENSITIVITY INDICATED? CULTURE IS NOT INDICATED 11/03/2017 9:01 PM CDT [facility] RBC/HPF 0-2 /HPF 11/03/2017 9:01 PM CDT [facility] EPI/HPF 0-5 /HPF 11/03/2017 9:01 PM CDT [facility] BACTERIA (U) 1+ /HPF 11/03/2017 9:01 PM CDT [facility] 11/03/2017 8:02 PM CDT 11/03/2017 8:47 PM CDT us Generic Conversion Md [facility] URINE ORDERABLES Final Result Performing Organization Address City/[facility]/ZIP Co de Phone Number [facility] [address] [place] [address], [place] [phone] * TEST URINE (11/03/2017 8:02 PM CDT) PREG TEST NEGATIVE NEGATIVE 11/03/2017 8:56 PM CDT [facility] SPECIFIC GRAVITY (U) 1.020 >1.009 11/03/2017 8:56 PM CDT [facility] 11/03/2017 8:02 PM CDT 11/03/2017 8:47 PM CDT us Generic Conversion Md [facility] URINE ORDERABLES Final Result Performing Organization Address City/[facility]/ZIP Co de Phone Number [facility] [address] [place] [address], [place] [phone] documented in this encounter Visit Diagnoses Diagnosis Paresthesia of skin Disturbance of skin sensation documented in this encounter Care Teams Forming Machine Upkeep Mechanic Helper Relationship Specialty Start Date End Date Farhana Mcdaniel MD PCP - General 07/17/13 documented as of this encounter
--- OUTSIDE RECORDS SUMMARY | 2024-07-11 09:41 | XMS_ITS | Encounter Summary ---
Author Organization [facility] Address [address] [place] [address]. [place], [place] [address] [place] [address] Care Team Providers Care Kindergarten Teacher Name Role Phone Farhana Mcdaniel MD Primary Care Provider [phone] Encounter Details Date Type Department Care Team (Late st Contact Info) Description 05/03/2018 Abstract [facility] Conversion Md, Generic ConversionMD Social History Tobacco [...] on filedocumented in this encounter Care Teams Kindergarten Teacher Relationship Specialty Start Date End Date Farhana Mcdaniel MD PCP - General 07/17/13 documented as of this encounter
--- OUTSIDE RECORDS SUMMARY | 2024-07-11 09:41 | XMS_ITS | Encounter Summary ---
Author Organization [facility] Address [address] [place] [address]. [place], [place] [address] [place] [address] Care Team Providers Care Balloon Tester Name Role Phone Farhana Mcdaniel MD Primary Care Provider [phone]- [phone] Encounter Details Date Type Department Care Team (Latest Contact Info) Description 03/16/2016 Abstract [facility] Social History Tobacco Use Types Packs/Day Years [...] on filedocumented in this encounter Care Teams Balloon Tester Relationship Specialty Start Date End Date Farhana Mcdaniel MD PCP - General 07/17/13 documented as of this encounter
--- OUTSIDE RECORDS SUMMARY | 2024-07-11 09:41 | XMS_ITS | Encounter Summary ---
Author Organization [facility] Address [address] [place] [address]. [place], [place] [address] [place] [address] Care Team Providers Care Home School Liaison Officer Name Role Phone Farhana Mcdaniel MD Primary Care Provider [phone] Encounter Details Date Type Department Care Team (Late st Contact Info) Description 02/11/2017 Abstract [facility] Conversion Yessica Thompson, [address] [place], [place] [id number] Social History Tobacco Use Types Packs/Day Years Used Date Smoking Tobacco: Never Comments Unknown Sex and Gender Information Value Date Recorded Sex Assigned at Not on file Legal Sex Female 2:52 AM CDT Gender Identity Not on file Sexual Orientation Not on file documented as of this encounter Last Filed Vital Signs Vital Sign Reading Time Taken Comments Blood Pressure 120/88 02/11/2017 8:05 AM CDT Pulse 80 02/11/2017 8:05 AM CDT Temperature - - Respiratory Rate - - Oxygen Saturation - - Inhaled Oxygen Concentration - - Weight 85 kg (187 lb 8 oz) 02/11/2017 8:05 AM CD T Height 165.1 cm (5' 5 ) 02/11/2017 8:05 AM CDT Body Mass Index 31.2 02/11/2017 8:05 AM CDT documented in this encounter Plan of Treatment Not on file documented as of this encounter Visit Diagnoses Not on filedocumented in this encounter Care Teams Home School Liaison Officer Relationship Specialty Start Date End Date Farhana Mcdaniel MD PCP - General 07/17/13 documented as of this encounter
--- OUTSIDE RECORDS SUMMARY | 2024-07-11 09:41 | XMS_ITS | Encounter Summary ---
Author Organization [facility] Address [address] [place] [address]. [place] [address] [place] [address] Care Team Providers Care Patient Relations Liaison Name Role Phone Farhana Mcdaniel MD Primary Care Provider [phone] Encounter Details Date Type Department Care Team (Late st Contact Info) Description 02/27/2016 Abstract [facility] General Surgery - [place] [address] [facility], [address] [place] [address] Derrick Perez MD Social History Tobacco Use Types Packs/Day Years Used Date Smoking Tobacco: Never Comments Unknown Sex and Gender Information Value Date Recorded Sex Assigned at Not on file Legal Sex Female 2:52 AM CDT Gender Identity Not on file Sexual Orientation Not on file documented as of this encounter Progress Notes * Derrick Perez MD - 02/27/2016 2:45 PM CDT Chief Complaint f/u exc soft tissue tumor left rib cage below the left breast pt states that she has been in pain since the procedure states that it feels like the site is being stuck by needles sutures still intact History of Present Illness pt had a soft tissue tumor in the ribcage just below the left breast. tx of excision of the lipoma a week ago. Active Problems 1. Left breast mass (611.72) (N63) Past Medical History 1. History of atrial fibrillation (V12.59) (Z86.79) 2. History of candidiasis (V12.09) (Z86.19) 3. History of hypertension (V12.59) (Z86.79) 4. History of Rhinitis, chronic (472.0) (J31.0) Family History Mother 1. Family history of hypertension (V17.49) (Z82.49) 2. Family history of myocardial infarction (V17.3) (Z82.49) Family History 3. Family history of essential hypertension (V17.49) (Z82.49) Social History ?? Never a smoker Current Meds 1. Mirena (52 MG) 20 MCG/24HR Intrauterine Intrauterine Device; Therapy: (Recorded:[id number]) to Recorded Dispense: 0 Days ; #: Sufficient IUD; Refill: 0; SERENE = N; Record; Last Updated By: Lizy Pena; 02/12/2016 3:49:51 PM Allergies 1. 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 pt cannot raise her arm because of pain Assessment postop excision of lipoma postop course uneventful. incision partially healed. stitches left intact. Plan pt advised to come back next week for removal of stitches. pt advised not to work yet. Signatures Electronically signed by : Derrick Perez M.D.; Mar 05 2016 9:17AM WELDING SUPERVISOR (Author) documented in this encounter Plan of Treatment Not on file documented as of this encounter Visit Diagnoses Not on filedocumented in this encounter Care Teams Patient Relations Liaison Relationship Specialty Start Date End Date Donna-Farhana Melgar MD PCP - General 07/17/13 documented as of this encounter
--- OUTSIDE RECORDS SUMMARY | 2024-07-11 09:41 | XMS_ITS | Encounter Summary ---
Author Organization [facility] Address [address] [place] [address]. [place], [place] [address] [place] [address] Care Team Providers Care Sausage Machine Operator Name Role Phone Farhana Mcdaniel MD Primary Care Provider [phone] Encounter Details Date Type Department Care Team (Late st Contact Info) Description 11/12/2016 Abstract [facility] Conversion Md, Generic ConversionMD Social [...] on filedocumented in this encounter Care Teams Sausage Machine Operator Relationship Specialty Start Date End Date Farhana Mcdaniel MD PCP - General 07/17/13 documented as of this encounter
--- OUTSIDE RECORDS SUMMARY | 2024-07-11 09:41 | XMS_ITS | Encounter Summary ---
Author Organization [facility] Address [address] [place] [address]. [place], [place] [address] [place] [address] Care Team Providers Care Credit Risk Specialist Name Role Phone Farhana Mcdaniel MD Primary Care Provider [phone]- [phone] Encounter Details Date Type Department Care Team (Late st Contact Info) Description 09/09/2016 Abstract [facility] Conversion Md, Generic ConversionMD Social History Tobacco [...] on filedocumented in this encounter Care Teams Credit Risk Specialist Relationship Specialty Start Date End Date Farhana Mcdaniel MD PCP - General 07/17/13 documented as of this encounter
--- OUTSIDE RECORDS SUMMARY | 2024-07-11 09:41 | XMS_ITS | Encounter Summary ---
Author Organization [facility] Address [address] [place] [address]. [place], [place] [address] [place] [address] Care Team Providers Care Radial Drill Press Set Up Operator Name Role Phone Farhana Mcdaniel MD Primary Care Provider [phone]- [phone] Encounter Details Date Type Department Care Team (Late st Contact Info) Description 09/09/2016 Abstract [facility] [address] [place] [address] Farhana Mcdaniel MD [address] [place] [address] Social History Tobacco Use Types Packs/Day Years Used Date Smoking Tobacco: Never Comments Unknown Sex and Gender Information Value Date Recorded Sex Assigned at Not on file Legal Sex Female 2:52 AM CDT Gender Identity Not on file Sexual Orientation Not on file documented as of this encounter Plan of Treatment Not on file documented as of this encounter Visit Diagnoses Diagnosis Encounter for general adult medical examination without abnormal findings Unspecified general medical examination documented in this encounter Care Teams Radial Drill Press Set Up Operator Relationship Specialty Start Date End Date Farhana Mcdaniel MD PCP - General 07/17/13 documented as of this encounter
--- OUTSIDE RECORDS SUMMARY | 2024-07-11 09:41 | XMS_ITS | Encounter Summary ---
Author Organization [facility] Address [address] [place] [address]. [place], [place] [address] [place] [address] Care Team Providers Care Vacuum Spindle Sander Name Role Phone Farhana cMdaniel MD Primary Care Provider [phone]- [phone] Encounter Details Date Type Department Care Team (Latest Contact Info) Description 11/03/2017 Abstract [facility] Choco Higgins MD [address] [place] [address] Social History Tobacco Use Types Packs/Day Years [...] on filedocumented in this encounter Care Teams Vacuum Spindle Sander Relationship Specialty Start Date End Date Farhana Mcdaniel MD PCP - General 07/17/13 documented as of this encounter
--- OUTSIDE RECORDS SUMMARY | 2024-07-11 09:41 | XMS_ITS | Encounter Summary ---
Author Organization [facility] Address [address] [place] [address]. [place], [place] [address] [place] [address] Care Team Providers Care Crop Picker Name Role Phone Farhana Mcdaniel MD Primary Care Provider [phone]- [phone] Encounter Details Date Type Department Care Team (Late st Contact Info) Description 11/16/2016 Abstract [facility] [address] [place] [address] Farhana Mcdaniel MD [address] [place] [address] Social History Tobacco Use Types Packs/Day Years Used Date Smoking Tobacco: Never Comments Unknown Sex and Gender Information Value Date Recorded Sex Assigned at Not on file Legal Sex Female 2:52 AM CDT Gender Identity Not on file Sexual Orientation Not on file documented as of this encounter Plan of Treatment Not on file documented as of this encounter Visit Diagnoses Diagnosis Disorder of thyroid Unspecified disorder of thyroid documented in this encounter Care Teams Crop Picker Relationship Specialty Start Date End Date Farhana Mcdaniel MD PCP - General 07/17/13 documented as of this encounter
--- OUTSIDE RECORDS SUMMARY | 2024-07-11 09:41 | XMS_ITS | Encounter Summary ---
Author Organization [facility] Address [address] [place] [address]. [place] [address] [place] [address] Care Team Providers Care Grid Caster Name Role Phone Farhana Mcdaniel MD Primary Care Provider [phone] Encounter Details Date Type Department Care Team (Late st Contact Info) Description 03/03/2016 Abstract [facility] General Surgery - [place] [address] [facility], [address] [place] [address] Derrick Perez MD Social History Tobacco Use Types Packs/Day Years Used Date Smoking Tobacco: Never Comments Unknown Sex and Gender Information Value Date Recorded Sex Assigned at Not on file Legal Sex Female 2:52 AM CDT Gender Identity Not on file Sexual Orientation Not on file documented as of this encounter Progress Notes * Derrick Perez MD - 03/03/2016 12:45 PM CDT Chief Complaint f/u History of Present Illness The patient had a lipoma to the left chest wall excised ten days ago. Today, on examination the postoperative site healed completely. All stitches are removed. Active Problems 1. Left breast mass (611.72) [...] MG) 20 MCG/24HR Intrauterine Intrauterine Device; Therapy: (Recorded:12Feb2016) to Recorded Dispense: 0 Days ; #: Sufficient IUD; Refill: 0; SERENE = N; Record; Last Updated By: Liyz Pena; 02/12/2016 3:49:51 PM Allergies 1. dicloxacillin Recorded By: Lizy Pena; 02/12/2016 3:49:52 PM Plan Disposition: The patient is discharged from my care and advised to see her family physician for further medical care. The patient advised to go back to work tomorrow. The patient advised to call me if she has any problem with the operative site. Signatures Electronically signed by : Derrick Perez M.D.; Mar 05 2016 4:53PM PROPERTY PRESERVATION SPECIALIST (Author) documented in this encounter Plan of Treatment Not on file documented as of this encounter Visit Diagnoses Not on filedocumented in this encounter Care Teams Grid Caster Relationship Specialty Start Date End Date Donna-Farhana Melgar MD PCP - General 07/17/13 documented as of this encounter
--- OUTSIDE RECORDS SUMMARY | 2024-07-11 09:41 | XMS_ITS | Encounter Summary ---
Author Organization [facility] Address [address] [place] [address]. [place], [place] [address] [place] [address] Care Team Providers Care Consultant Dietitian Name Role Phone Farhana Mcdaniel MD Primary Care Provider [phone]- [phone] Encounter Details Date Type Department Care Team (Late st Contact Info) Description 05/01/2017 Abstract [place] [address] , Generic ConversionMD Social History Tobacco Use Types [...] on filedocumented in this encounter Care Teams Consultant Dietitian Relationship Specialty Start Date End Date Farhana Mcdaniel MD PCP - General 07/17/13 documented as of this encounter
--- OUTSIDE RECORDS SUMMARY | 2024-07-11 09:41 | XMS_ITS | Encounter Summary ---
Author Organization [facility] Address [address] [place] [address]. [place], [place] [address] [place] [address] Care Team Providers Care Full Time Paramedic Name Role Phone Farhana Mcdaniel MD Primary Care Provider +1- [phone] Encounter Details Date Type Department Care Team (Late st Contact Info) Description 09/17/2016 Abstract [facility] Conversion Md, Generic ConversionMD Social History [...] on filedocumented in this encounter Care Teams Full Time Paramedic Relationship Specialty Start Date End Date Farhana Mcdaniel MD PCP - General 07/17/13 documented as of this encounter
--- OUTSIDE RECORDS SUMMARY | 2024-07-11 09:41 | XMS_ITS | Encounter Summary ---
Author Organization [facility] Address [address] [place] [address]. [place], [place] [address] [place] [address] Care Team Providers Care Digital Media Designer Name Role Phone Farhana Mcdaniel MD Primary Care Provider +1- [phone] Encounter Details Date Type Department Care Team (Late st Contact Info) Description 02/27/2016 Abstract [facility] Conversion Md, Generic ConversionMD Social [...] on filedocumented in this encounter Care Teams Digital Media Designer Relationship Specialty Start Date End Date Farhana Mcdaniel MD PCP - General 07/17/13 documented as of this encounter
--- OUTSIDE RECORDS SUMMARY | 2024-07-11 09:41 | XMS_ITS | Encounter Summary ---
Author Organization [facility] Address [address] [place] [address]. [place], [place] [address] [place] [address] Care Team Providers Care Last Remodeler Repairer Name Role Phone Farhana Mcdaniel MD Primary Care Provider [phone] Encounter Details Date Type Department Care Team (Latest Contact Info) Description 11/12/2017 Abstract [facility] Social History Tobacco Use Types Packs/Day Years Used Date Smoking Tobacco: Never Comments Unknown Sex and Gender Information Value Date Recorded Sex Assigned at Not on file Legal Sex Female 2:52 AM CDT Gender Identity Not on file Sexual Orientation Not on file documented as of this encounter Miscellaneous Notes * Letter - Blanca Kelly Md, MD - 11/12/2017 9:59 AM CDT Nurse: Saritha Baez RN Dear Ms. Howard , As of this date, we have made several attempts by means of telephoning and have been unable to reach you. We are sending this letter asking you to contact our office Wednesday through Wednesday 9am to 5pm. [facility] Electronically signed by:Saritha Baez Nov 12 2017 10:02AM LEATHER GOODS II ASSEMBLER documented in this encounter Plan of Treatment Not on file documented as of this encounter Visit Diagnoses Not on filedocumented in this encounter Care Teams Last Remodeler Repairer Relationship Specialty Start Date End Date Farhana Mcdaniel MD PCP - General 07/17/13 documented as of this encounter
--- OUTSIDE RECORDS SUMMARY | 2024-07-11 09:41 | XMS_ITS | Encounter Summary ---
Author Organization [facility] Address [address] [place] [address]. [place] [address] [place] [address] Care Team Providers Care Machine Attendant Name Role Phone Farhana Mcdainel MD Primary Care Provider [phone]- [phone] Encounter Details Date Type Department Care Team (Late st Contact Info) Description 11/11/2018 Abstract [facility] [address] [place] [address] Farhana Mcdaniel MD [address] [place] [address] Social History Tobacco Use Types Packs/Day Years [...] Procedure Name Priority Date/Time Associated Diagnosis Comments HEMOGLOBIN, GLYCOSYLATED Routine 11/11/2018 1:44 PM CDT VITAMIN B-12 Routine 11/11/2018 1:44 PM CDT THYROXINE, FREE (FT4) Routine 11/11/2018 1:44 PM CDT THYROID STIM HORMONE TSH Routine 11/11/2018 1:44 PM CDT PROGESTERONE Routine 11/11/2018 1:44 PM CDT documented in this encounter Results * THYROID STIM HORMONE, TSH (11/11/2018 1:44 PM CDT) TSH 1.614 0.358 - 3.74 uIU/ML 11/11/2018 2:28 PM CDT [facility] Comment: HIGH DOSES OF BIOTIN MAY INTERFERE WITH THIS TEST RESULT. CORRELATION TO CLINICAL HISTORY AND PRESENTATION RECOMMENDED. SERUM OR PLASMA SPECIMEN / Unknown 11/11/2018 1:44 PM CDT 11/11/2018 1:45 PM CDT us Generic Conversion Md [facility] Final R [facility] Performing Organization Address City/[facility]/ZIP Co de Phone Number [facility] [address] [place] [address], * THYROXINE, FREE (FT4) (11/11/2018 1:44 PM CDT) [facility] FREE T4 0.90 0.76 - 1.46 NG/DL 11/11/2018 2:28 PM CDT [facility] SERUM OR PLASMA SPECIMEN / Unknown 11/11/2018 1:44 PM CDT 11/11/2018 1:45 PM CDT us Generic Conversion Md [facility] Final R allegra [facility] [address] [place] [address], [place] [phone] * PROGESTERONE (11/11/2018 1:44 PM CDT) Pathologist [facility] PROGESTERONE 0.5 see note ng/mL 11/16/2018 6:17 AM CDT [facility] Comment: Unable to flag abnormal result(s), please refer ?? to reference range(s) below: ?? Female: ?? Follicular Phase ?<1.0 ng/mL ?? Luteal Phase ?2.6 - 21.5 ng/mL ?? Post Menopausal ? <0.5 ng/mL ?? : ?? 1st Trimester ? 4.1 - 34.0 ng/mL ?? 2nd Trimester ?24.0 - 76.0 ng/mL ?? 3rd Trimester ? 52.0 -302.0 ng/mLTest Performed by [facility] [place] [facility],[address] [place] [id number] Delacruz M.D., Ph.D., Director of [phone], [facility] [id number] SERUM SPECIMEN / Unknown 11/11/2018 1:44 PM CDT 11/11/2018 1:45 PM CDT us Generic Conversion Md [facility] Final R esult Performing Organization Address City/[facility]/ZIP Co de Phone Number [employer] , [place] [phone] * HEMOGLOBIN, GLYCOSYLATED (11/11/2018 1:44 PM CDT) HGB A1C 5.3 <5.7 % 11/11/2018 2:25 PM CDT [facility] Comment: INCREASED RISK OF DIABETES<5.7% ?NON-DIABETES5.7-6.4% INCREASED RISK FOR FUTURE DIABETES> OR = 6.5 CONSISTENT WITH DIABETES STANDARDS OF MEDICAL CARE IN DIABETES-2010DIABETES CARE, 33(SUPP 1): S1-S61,2010 WHOLE BLOOD SPECIMEN / Unknown 11/11/2018 1:44 PM CDT 11/11/2018 1:45 PM CDT us Generic Conversion Md [facility] Final R esult [facility] [address] [place] [address], [place] [phone] * VITAMIN B-12 (11/11/2018 1:44 PM CDT) VITAMIN B12 S/P/B 593 193 - 986 PG/ML 11/11/2018 2:28 PM CDT [facility] SERUM SPECIMEN / Unknown 11/11/2018 1:44 PM CDT 11/11/2018 1:45 PM CDT us Generic Conversion Md [facility] Final R esult [facility] [address] [place] [address], documented in this encounter Visit Diagnoses Diagnosis Obesity Obesity, unspecified documented in this encounter Care Teams Machine Attendant Relationship Specialty Start Date End Date Farhana Mcdaniel MD PCP - General 07/17/13 documented as of this encounter
--- OUTSIDE RECORDS SUMMARY | 2024-07-11 09:41 | XMS_ITS | Encounter Summary ---
Author Organization [facility] Address [address] [place] [address]. [place], [place] [address] [place] [address] Care Team Providers Care Fire And Safety Helper Name Role Phone Farhana Mcdaniel MD Primary Care Provider [phone]- [phone] Encounter Details Date Type Department Care Team (Late st Contact Info) Description 11/16/2016 Abstract [facility] Conversion Md, Generic ConversionMD Social History [...] on filedocumented in this encounter Care Teams Fire And Safety Helper Relationship Specialty Start Date End Date Farhana Mcdaniel MD PCP - General 07/17/13 documented as of this encounter
--- OUTSIDE RECORDS SUMMARY | 2024-07-11 09:42 | XMS_ITS | Encounter Summary ---
Author Organization [facility] Address [address] [place] [address]. [place], [place] [address] [place] [address] Care Team Providers Care Area Intelligence Technician Name Role Phone Farhana Mcdaniel MD Primary Care Provider [phone] Encounter Details Date Type Department Care Team (Late st Contact Info) Description 01/30/2016 Abstract [facility] [address] [place] [address] Yessica Thompson, [address] [place] [address] Social History Tobacco Use Types Packs/Day Years Used Date Smoking Tobacco: Never Comments Unknown Sex and Gender Information Value Date Recorded Sex Assigned at Not on file Legal Sex Female 2:52 AM CDT Gender Identity Not on file Sexual Orientation Not on file documented as of this encounter Plan of Treatment Not on file documented as of this encounter Visit Diagnoses Diagnosis Soft tissue disorder Disorders of soft tissue, unspecified documented in this encounter Care Teams Area Intelligence Technician Relationship Specialty Start Date End Date Farhana Mcdaniel MD PCP - General 07/17/13 documented as of this encounter
--- OUTSIDE RECORDS SUMMARY | 2024-07-11 09:42 | XMS_ITS | Encounter Summary ---
Author Organization [facility] Address [address] [place] [address]. [place], [place] [address] [place] [address] Care Team Providers Care Managing Partner Name Role Phone Farhana Mcdaniel MD Primary Care Provider +1- [phone] Encounter Details Date Type Department Care Team (Late st Contact Info) Description 10/15/2015 Abstract [facility] Conversion Md, Generic ConversionMD Social [...] on filedocumented in this encounter Care Teams Managing Partner Relationship Specialty Start Date End Date Farhana Mcdaniel MD PCP - General 07/17/13 documented as of this encounter
--- OUTSIDE RECORDS SUMMARY | 2024-07-11 09:42 | XMS_ITS | Encounter Summary ---
Author Organization [facility] Address [address] [place] [address]. [place], [place] [address] [place] [address] Care Team Providers Care Steam Hoist Operator Name Role Phone Farhana Mcdaniel MD Primary Care Provider +1- [phone] Encounter Details Date Type Department Care Team (Late st Contact Info) Description 04/12/2015 Abstract [facility] Conversion Md, Generic ConversionMD Social [...] on filedocumented in this encounter Care Teams Steam Hoist Operator Relationship Specialty Start Date End Date Farhana Mcdaniel MD PCP - General 07/17/13 documented as of this encounter
--- OUTSIDE RECORDS SUMMARY | 2024-07-11 09:42 | XMS_ITS | Encounter Summary ---
Author Organization [facility] Address [address] [place] [address]. [place], [place] [address] [place] [address] Care Team Providers Care Bottom Painter Name Role Phone Farhana Mcdaniel MD Primary Care Provider +1- [phone] Encounter Details Date Type Department Care Team (Late st Contact Info) Description 02/03/2016 Abstract [facility] Conversion Md, Generic ConversionMD Social [...] on filedocumented in this encounter Care Teams Bottom Painter Relationship Specialty Start Date End Date Farhana Mcdaniel MD PCP - General 07/17/13 documented as of this encounter
--- OUTSIDE RECORDS SUMMARY | 2024-07-11 09:42 | XMS_ITS | Encounter Summary ---
Author Organization [facility] Address [address] [place] [address]. [place], [place] [address] [place] [address] Care Team Providers Care Serology Technician Name Role Phone Farhana Mcdaniel MD Primary Care Provider +1- [phone] Encounter Details Date Type Department Care Team (Late st Contact Info) Description 01/31/2016 Abstract [facility] Conversion Md, Generic ConversionMD Social History [...] on filedocumented in this encounter Care Teams Serology Technician Relationship Specialty Start Date End Date Farhana Mcdaniel MD PCP - General 07/17/13 documented as of this encounter
--- OUTSIDE RECORDS SUMMARY | 2024-07-11 09:42 | XMS_ITS | Encounter Summary ---
Author Organization [facility] Address [address] [place] [address]. [place], [place] [address] [place] [address] Care Team Providers Care Basketball Referee Name Role Phone Farhana Mcdaniel MD Primary Care Provider +1- [phone] Encounter Details Date Type Department Care Team (Late st Contact Info) Description 02/22/2015 Abstract [facility] Conversion Md, Generic ConversionMD Social [...] on filedocumented in this encounter Care Teams Basketball Referee Relationship Specialty Start Date End Date Farhana Mcdaniel MD PCP - General 07/17/13 documented as of this encounter
--- OUTSIDE RECORDS SUMMARY | 2024-07-11 09:42 | XMS_ITS | Encounter Summary ---
Author Organization [facility] Address [address] [place] [address]. [place], [place] [address] [place] [address] Care Team Providers Care Paper Latcher Name Role Phone Farhana Mcdaniel MD Primary Care Provider +1- [phone] Encounter Details Date Type Department Care Team (Late st Contact Info) Description 07/03/2015 Abstract [facility] Conversion Md, Generic ConversionMD [...] on filedocumented in this encounter Care Teams Paper Latcher Relationship Specialty Start Date End Date Farhana Mcdaniel MD PCP - General 07/17/13 documented as of this encounter
--- OUTSIDE RECORDS SUMMARY | 2024-07-11 09:42 | XMS_ITS | Encounter Summary ---
Author Organization [facility] Address [address] [place] [address]. [place], [place] [address] [place] [address] Care Team Providers Care Electric Motorman Name Role Phone Farhana Mcdaniel MD Primary Care Provider +1 [phone] Encounter Details Date Type Department Care Team (Late st Contact Info) Description 07/17/2015 Abstract [facility] Conversion Yessica Thompson, [address] [place], [place] [address] Social History Tobacco Use Types Packs/Day Years Used Date Smoking Tobacco: Never Comments Unknown Sex and Gender Information Value Date Recorded Sex Assigned at Not on file Legal Sex Female 2:52 AM CDT Gender Identity Not on file Sexual Orientation Not on file documented as of this encounter Last Filed Vital Signs Vital Sign Reading Time Taken Comments Blood Pressure 132/80 07/17/2015 8:08 AM RIG BUILDER HELPER Pulse 76 07/17/2015 8:08 AM RIG BUILDER HELPER Temperature - - Respiratory Rate - - Oxygen Saturation - - Inhaled Oxygen Concentration - - Weight 85.3 kg (188 lb) 07/17/2015 8:08 AM RIG BUILDER HELPER Height 165.1 cm (5' 5 ) 07/17/2015 8:08 AM RIG BUILDER HELPER Body Mass Index 31.28 07/17/2015 8:08 AM RIG BUILDER HELPER documented in this encounter Plan of Treatment Not on file documented as of this encounter Procedures Procedure Name Priority Date/Time Associated Diagnosis Comments TSH 3RD GENERATION Routine 07/17/2015 9: 21 AM RIG BUILDER HELPER COMPREHENSIVE METABOLIC PANEL Routine 07/17/2015 9:21 AM RIG BUILDER HELPER LIPID PANEL Routine 07/17/2015 9:21 AM RIG BUILDER HELPER CBC W/DIFF AUTOMATED Routine 07/17/2015 9:21 AM RIG BUILDER HELPER THYROXINE, FREE (FT4) Routine 07/17/2015 9:21 AM RIG BUILDER HELPER VITAMIN D, 25 OH Routine 07/17/2015 9:21 AM RIG BUILDER HELPER documented in this encounter Results * VITAMIN D, 25 OH (07/17/2015 9:21 AM RIG BUILDER HELPER) VITAMIN D 25 HYDROXY S/P/B 37 30 - 100 ng/mL [facility] TO EPIC CONVERSION 07/17/2015 9:21 AM RIG BUILDER HELPER 07/17/2015 9:21 AM RIG BUILDER HELPER Narrative [facility] TO EPIC CONVERSION - 07/17/2015 11:23 AM RIG BUILDER HELPER This lab was migrated from [facility] and may be missing annotations or result text, please check the Media tab for the most complete results. us Y[facility]ica [facility] Final Result Performing Organization Address [facility] Co de Phone Number [facility] TO EPIC CONVERSION * (ABNORMAL) LIPID PANEL (07/17/2015 9:21 AM RIG BUILDER HELPER) CHOLESTEROL 225(H) 120 - 200 mg/dL [facility] TO EPIC CONVERSION TRIGLYCERIDES 209(H) 20 - 160 mg/dL [facility] TO EPIC CONVERSION HDL 52 0 - 65 mg/dL [facility] TO [facility]IC CONVERSION LDL (CALCULATED) 131(H) 10 - 130 mg/dL [facility] TO EPIC CONVERSION RISK 4 [facility] T O EPIC CONVERSION 07/17/2015 9:21 AM RIG BUILDER HELPER 07/17/2015 9:21 AM RIG BUILDER HELPER Narrative [facility] TO EPIC CONVERSION - 07/17/2015 11:22 AM RIG BUILDER HELPER This lab was migrated from [facility] and may be missing annotations or result text, please check the Media tab for the most complete results. us Yessica [facility] Final Result [facility] TO [facility]IC CONVERSION * CBC W/DIFF AUTOMATED (07/17/2015 9:21 AM RIG BUILDER HELPER) WBC 6.5 4.5 - 11.0 cmm [facility] TO EPIC CONVERSION RBC 4.3 4.0 - 5.2 M/cumm [facility] TO EPIC CONVERSION HGB 13.9 12.0 - 16.0 g/dL [facility] TO EPIC CONVERSION HCT 40.6 36.0 - 46.0 % [facility] TO EPIC CONVERSION MCV 95.3 80.0 - 100 fL [facility] TO EPIC CONVERSION MCH 32.6 26.0 - 34.0 pg [facility] TO EPIC CONVERSION MCHC 34.2 31.0 - 37.0 g/dL [facility] TO EPIC CONVERSION RDW 11.7 11.6 - 14.8 % [facility] TO EPIC CONVERSION PLT 221 140 - 415 cmm [facility] TO EPIC CONVERSION MPV 11 7 - 12 fl [facility] T O EPIC CONVERSION ABS. NEUTROPHILS 3.49 0.44 - 17.02 x10^3 [facility] TO EPIC CONVERSION ABS. LYMPHOCYTES 2.29 0.21 - 5.42 x10^3 [facility] TO EPIC CONVERSION ABS. MONOCYTES 0.51 0.04 - 1.37 x10^3 [facility] TO EPIC CONVERSION ABS. EOSINOPHILS 0.12 0.00 - 0.68 x10^3 [facility] TO EPIC CONVERSION ABS. BASOPHILS 0.04 0.00 - 0.08 x10^3 [facility] TO EPIC CONVERSION ABS. IMMATURE GRANULOCYTES 0.01 0.00 - 0.06 x10^3 [facility] TO EPIC CONVERSION NEUTROPHILS % 54.0 40.0 - 74.0 % [facility] TO EPIC CONVERSION LYMPHOCYTES % 35.4 14.0 - 46.0 % [facility] TO EPIC CONVERSION MONOCYTES % 7.9 4.0 - 13.0 % [facility] TO EPIC CONVERSION EOSINOPHILS % 1.9 0.0 - 7.0 % [facility] TO EPIC CONVERSION BASOPHILS % 0.6 0.0 - 3.0 % [facility] TO EPIC CONVERSION IMMATURE GRANS % 0.20 0.00 - 0.43 % [facility] TO EPIC CONVERSION MANUAL DIFFERENTIAL NOT INDICATED [facility] TO [facility]IC CONVERSION WBC MORPHOLOGY NOT INDICATED M [facility] TO EPIC CONVERSION RBC MORPHOLOGY NOT INDICATED M [facility] TO EPIC CONVERSION PLT MORPH. NOT INDICATED [facility] OUP TO EPIC CONVERSION 07/17/2015 9:21 AM RIG BUILDER HELPER 07/17/2015 9:21 AM RIG BUILDER HELPER Narrative [facility] TO EPIC CONVERSION - 07/17/2015 9:41 AM RIG BUILDER HELPER This lab was migrated from [employer] and may be missing annotations or result text, please check the Media tab for the most complete results. Yessica Lozada Donna [facility]FIN[facility] Final Result [facility] TO [facility]IC CONVERSION * COMPREHENSIVE METABOLIC PANEL (07/17/2015 9:21 AM RIG BUILDER HELPER) [facility] GLUCOSE 85 65 - 99 mg/dL [facility] TO EPIC CONVERSION SODIUM S/P/B 146 135 - 148 mmol/L [facility] TO [facility]IC CONVERSION POTASSIUM S/P/B 4.8 3.5 - 5.3 mmol/L [facility] TO EPIC CONVERSION CHLORIDE S/P/B 102 95 - 110 mmol/L [facility] TO EPIC CONVERSION TCO2 27 22 - 32 mmol/L [facility] TO EPIC CONVERSION BUN 15 6 - 20 mg/dL [facility] TO EPIC CONVERSION CREATININE S/P/B 0.8 0.5 - 1.2 mg/dL [facility] TO EPIC CONVERSION TOTAL PROTEIN S/P/B 7.6 6.6 - 8.7 g/dL [facility] TO EPIC CONVERSION CALCIUM S/P/B 9.5 8.6 - 10.2 mg/dL [facility] TO EPIC CONVERSION BILIRUBIN TOTAL S/P/B 0.3 0.1 - 1.2 mg/dL [facility] TO EPIC CONVERSION ALKALINE PHOSPHATASE S/P/B 82 35 - 104 U/L [facility] TO EPIC CONVERSION ALBUMIN S/P/B 4.7 3.5 - 5.2 g/dL [facility] TO EPIC CONVERSION AST 18 0 - 32 U/L [facility] TO EPIC CONVERSION ALT 20 0 - 33 U/L [facility] TO EPIC CONVERSION PATIENT'S AGE 39 YEARS [facility] UP TO EPIC CONVERSION EGFR NON-AFR. AMER. 86 ml/min [facility] TO EPIC CONVERSION ANION GAP 17 9 - 21 [facility] T O EPIC CONVERSION 07/17/2015 9:21 AM RIG BUILDER HELPER 07/17/2015 9:21 AM RIG BUILDER HELPER Narrative [facility] TO EPIC CONVERSION - 07/17/2015 11:22 AM RIG BUILDER HELPER This lab was migrated from [facility] and may be missing annotations or result text, please check the Media tab for the most complete results. us Yessica Lozada Donna [facility] Final Result Performing Organization Address City/[facility] Co de Phone Number [facility] TO EPIC CONVERSION * THYROXINE, FREE (FT4) (07/17/2015 9:21 AM RIG BUILDER HELPER) FREE T4 0.98 0.93 - 1.70 [facility] TO EPIC CONVERSION 07/17/2015 9:21 AM RIG BUILDER HELPER 07/17/2015 9:21 AM RIG BUILDER HELPER Narrative [facility] TO EPIC CONVERSION - 07/17/2015 11:22 AM RIG BUILDER HELPER This lab was migrated from [facility] and may be missing annotations or result text, please check the Media tab for the most complete results. us Yessica Thompson [facility] Final Result Performing Organization Address [facility] de Phone Number [facility] TO EPIC CONVERSION * TSH 3RD GENERATION (07/17/2015 9:21 AM RIG BUILDER HELPER) TSH 2.45 0.27 - 4.20 uIU/mL [facility] TO EPIC CONVERSION 07/17/2015 9:21 AM RIG BUILDER HELPER 07/17/2015 9:21 AM RIG BUILDER HELPER Narrative [facility] TO EPIC CONVERSION - 07/17/2015 11:22 AM RIG BUILDER HELPER This lab was migrated from [facility] and may be missing annotations or result text, please check the Media tab for the most complete results. us Yessica Thompson [facility] Final Result Performing Organization Address [facility] Co de Phone Number [facility] TO EPIC CONVERSION documented in this encounter Visit Diagnoses Not on filedocumented in this encounter Care Teams Electric Motorman Relationship Specialty Start Date End Date Farhana Mcdaniel MD PCP - General 07/17/13 documented as of this encounter
--- OUTSIDE RECORDS SUMMARY | 2024-07-11 09:42 | XMS_ITS | Encounter Summary ---
Author Organization [facility] Address [address] [place] [address]. [place], [place] [address] [place] [address] Care Team Providers Care Poll Clerk Name Role Phone Farhana Mcdaniel MD Primary Care Provider +1- [phone] Encounter Details Date Type Department Care Team (Late st Contact Info) Description 04/08/2015 Abstract [facility] Family & Internal Medicine [address] [address] Social History Tobacco Use Types Packs/Day Years [...] on filedocumented in this encounter Care Teams Poll Clerk Relationship Specialty Start Date End Date Farhana Mcdaniel MD PCP - General 07/17/13 documented as of this encounter
--- OUTSIDE RECORDS SUMMARY | 2024-07-11 09:42 | XMS_ITS | Encounter Summary ---
Author Organization [facility] Address [address] [place] [address]. [place], [place] [address] [place] [address] Care Team Providers Care Phosphorus Processing Supervisor Name Role Phone Farhana Mcdaniel MD Primary Care Provider [phone]- [phone] Encounter Details Date Type Department Care Team (Late st Contact Info) Description 02/27/2015 Abstract [facility] Conversion Yessica Thompson, [address] [place] [address] Social History Tobacco Use Types Packs/Day Years Used Date Smoking Tobacco: Never Comments Unknown Sex and Gender Information Value Date Recorded Sex Assigned at Not on file Legal Sex Female 2:52 AM CDT Gender Identity Not on file Sexual Orientation Not on file documented as of this encounter Last Filed Vital Signs Vital Sign Reading Time Taken Comments Blood Pressure 130/82 02/27/2015 8:17 AM CDT Pulse 80 02/27/2015 8:17 AM CDT Temperature - - Respiratory Rate - - Oxygen Saturation - - Inhaled Oxygen Concentration - - Weight - - Height - - Body Mass Index - - documented in this encounter Plan of Treatment Not on file documented as of this encounter Visit Diagnoses Not on filedocumented in this encounter Care Teams Phosphorus Processing Supervisor Relationship Specialty Start Date End Date Farhana Mcdaniel MD PCP - General 07/17/13 documented as of this encounter
--- OUTSIDE RECORDS SUMMARY | 2024-07-11 09:42 | XMS_ITS | Encounter Summary ---
Author Organization [facility] Address [address] [place] [address]. [place], [place] [address] [place] [address] Care Team Providers Care Candlemaking Laborer Name Role Phone Farhana Mcdaniel MD Primary Care Provider [phone]- [phone] Encounter Details Date Type Department Care Team (Late st Contact Info) Description 02/21/2016 Abstract [facility] Conversion Md, Generic ConversionMD Social [...] on filedocumented in this encounter Care Teams Candlemaking Laborer Relationship Specialty Start Date End Date Farhana Mcdaniel MD PCP - General 07/17/13 documented as of this encounter
--- OUTSIDE RECORDS SUMMARY | 2024-07-11 09:42 | XMS_ITS | Encounter Summary ---
Author Organization [facility] Address [address] [place] [address]. [place], [place] [address] [place] [address] Care Team Providers Care Alterations Supervisor Name Role Phone Farhana Mcdaniel MD Primary Care Provider [phone] Encounter Details Date Type Department Care Team (Late st Contact Info) Description 11/27/2015 Abstract [facility] Conversion Yessica Thompson, [address] [place] [address] Social History Tobacco Use Types Packs/Day Years Used Date Smoking Tobacco: Never Comments Unknown Sex and Gender Information Value Date Recorded Sex Assigned at Not on file Legal Sex Female 2:52 AM CDT Gender Identity Not on file Sexual Orientation Not on file documented as of this encounter Last Filed Vital Signs Vital Sign Reading Time Taken Comments Blood Pressure 130/88 11/27/2015 9:25 AM CDT Pulse 68 11/27/2015 9:25 AM CDT Temperature - - Respiratory Rate - - Oxygen Saturation - - Inhaled Oxygen Concentration - - Weight 84.9 kg (187 lb 1 oz) 11/27/2015 9:25 AM CDT Height - - Body Mass Index 31.13 07/17/2015 8:08 AM CORPORATE PHYSICAL SECURITY SUPERVISOR documented in this encounter Plan of Treatment Not on file documented as of this encounter Visit Diagnoses Not on filedocumented in this encounter Care Teams Alterations Supervisor Relationship Specialty Start Date End Date Farhana Mcdaniel MD PCP - General 07/17/13 documented as of this encounter
--- OUTSIDE RECORDS SUMMARY | 2024-07-11 09:42 | XMS_ITS | Encounter Summary ---
Author Organization [facility] Address [address] [place] [address]. [place], [place] [address] [place] [address] Care Team Providers Care Farm Hand Name Role Phone Farhana Mcdaniel MD Primary Care Provider [phone]- [phone] Encounter Details Date Type Department Care Team (Late st Contact Info) Description 05/02/2015 Abstract [facility] Conversion Md, Generic ConversionMD [...] on filedocumented in this encounter Care Teams Farm Hand Relationship Specialty Start Date End Date Farhana Mcdaniel MD PCP - General 07/17/13 documented as of this encounter
--- OUTSIDE RECORDS SUMMARY | 2024-07-11 09:42 | XMS_ITS | Encounter Summary ---
Author Organization [facility] Address [address] [place] [address]. [place], [place] [address] [place] [address] Care Team Providers Care Head Of Housekeeping Name Role Phone Farhana Mcdaniel MD Primary Care Provider [phone] Encounter Details Date Type Department Care Team (Late st Contact Info) Description 01/30/2016 Abstract [facility] Conversion Yessica Thompson, [address] [place] [address] Social History Tobacco Use Types Packs/Day Years Used Date Smoking Tobacco: Never Comments Unknown Sex and Gender Information Value Date Recorded Sex Assigned at Not on file Legal Sex Female 2:52 AM CDT Gender Identity Not on file Sexual Orientation Not on file documented as of this encounter Last Filed Vital Signs Vital Sign Reading Time Taken Comments Blood Pressure 140/98 01/30/2016 8:27 AM CDT Pulse 84 01/30/2016 8:16 AM CDT Temperature - - Respiratory Rate - - Oxygen Saturation - - Inhaled Oxygen Concentration - - Weight 83.5 kg (184 lb 3 oz) 01/30/2016 8:16 AM CDT Height - - Body Mass Index 30.65 07/17/2015 8:08 AM ASSOCIATE GENETICS PROFESSOR documented in this encounter Plan of Treatment Not on file documented as of this encounter Visit Diagnoses Not on filedocumented in this encounter Care Teams Head Of Housekeeping Relationship Specialty Start Date End Date Farhana Mcdaniel MD PCP - General 07/17/13 documented as of this encounter
--- OUTSIDE RECORDS SUMMARY | 2024-07-11 09:42 | XMS_ITS | Encounter Summary ---
Author Organization [facility] Address [address] [place] [address]. [place], [place] [address] [place] [address] Care Team Providers Care Mill Representative Name Role Phone Farhana Mcdaniel MD Primary Care Provider [phone] Encounter Details Date Type Department Care Team (Late st Contact Info) Description 02/21/2015 Abstract [facility] Conversion Yessica Thompson, [address] [place], [place] [id number] Social History Tobacco Use Types Packs/Day Years Used Date Smoking Tobacco: Never Comments Unknown Sex and Gender Information Value Date Recorded Sex Assigned at Not on file Legal Sex Female 2:52 AM CDT Gender Identity Not on file Sexual Orientation Not on file documented as of this encounter Last Filed Vital Signs Vital Sign Reading Time Taken Comments Blood Pressure 180/100 02/21/2015 8:49 AM CDT Pulse 70 02/21/2015 8:49 AM CDT Temperature - - Respiratory Rate - - Oxygen Saturation - - Inhaled Oxygen Concentration - - Weight 82.8 kg (182 lb 8 oz) 02/21/2015 8:09 AM CDT Height 165.1 cm (5' 5 ) 02/21/2015 8:09 AM CDT Body Mass Index 30.37 02/21/2015 8:09 AM CDT documented in this encounter Plan of Treatment Not on file documented as of this encounter Visit Diagnoses Not on filedocumented in this encounter Care Teams Mill Representative Relationship Specialty Start Date End Date Farhana Mcdaniel MD PCP - General 07/17/13 documented as of this encounter
--- OUTSIDE RECORDS SUMMARY | 2024-07-11 09:42 | XMS_ITS | Encounter Summary ---
Author Organization [facility] Address [address] [place] [address]. [place], [place] [address] [place] [address] Care Team Providers Care Paraffin Plant Sweater Operator Name Role Phone Farhana Mcdaniel MD Primary Care Provider [phone] Encounter Details Date Type Department Care Team (Latest Contact Info) Description 02/24/2016 Abstract [facility] Kiki Perez MD Social History Tobacco Use Types Packs/Day Years Used Date Smoking Tobacco: Never Comments Unknown Sex and Gender Information Value Date Recorded Sex Assigned at Not on file Legal Sex Female 2:52 AM CDT Gender Identity Not on file Sexual Orientation Not on file documented as of this encounter Procedure Notes * Kiki Perez MD - 02/21/2016 1:02 PM CDT [facility] Patient: ODESSA CORDOVA [facility] Rec#: [id number] Birthdate: 1975 Admit/Svce Date: 02/21/2016 Disch Date: Attending Md: KIKI PEREZ MD OPERATIVE RECORD Date of Operation: 02/21/2016 Surgeon: Kiki Perez M.D. Ass't: Chart Document Preoperative Diagnosis: Soft tissue tumor left rib cage below the left breast. Postoperative Diagnosis: Soft tissue tumor left rib cage below the left breast. 4 cm in size. Name of Operation: Excision of soft tissue tumor of left rib cage below left breast. PROCEDURE AND FINDINGS: TECHNIQUE: The patient was given MAC anesthesia by Jai Ordaz CRNA. POSITION: Dorsal decubitus. The soft tissue was identified and localized. 1% Xylocaine with saline and epinephrine solution was injected into the skin and subcutaneous tissue, above and around the soft tissue tumor. A transverse skin incision was made and the soft tissue tumor, which was a lipoma was completely excised. Subcutaneous tissue closed with continuous 3-0 Monocryl suture. Skin closed with interrupted 4-0 nylon suture. Proper dressing was placed. The patient sent back to her room in satisfactory condition. Electronically Signed By: Kiki Perez M.D. 02/24/2016 09:58 A Kiki Perez M.D. RR:nadir P A cc: Lucas Valladares M.D. [id number] documented in this encounter Plan of Treatment Not on file documented as of this encounter Visit Diagnoses Not on filedocumented in this encounter Care Teams Paraffin Plant Sweater Operator Relationship Specialty Start Date End Date Donna-Farhana Meglar MD PCP - General 07/17/13 documented as of this encounter
--- OUTSIDE RECORDS SUMMARY | 2024-07-11 09:42 | XMS_ITS | Encounter Summary ---
Author Organization [facility] Address [address] [place] [address]. [place], [place] [address] [place] [address] Care Team Providers Care Human Resources District Manager Name Role Phone Farhana Mcdaniel MD Primary Care Provider [phone]- [phone] Encounter Details Date Type Department Care Team (Late st Contact Info) Description 07/17/2015 Abstract [facility] [address] [place] [address] Yessica Thompson, [facility] [address] [place] [address] Social History Tobacco Use Types Packs/Day Years [...] on filedocumented in this encounter Care Teams Human Resources District Manager Relationship Specialty Start Date End Date Farhana Mcdaniel MD PCP - General 07/17/13 documented as of this encounter
--- OUTSIDE RECORDS SUMMARY | 2024-07-11 09:42 | XMS_ITS | Encounter Summary ---
Author Organization [facility] Address [address] [place] [address]. [place], [place] [address] [place] [address] Care Team Providers Care Sketch Liner Name Role Phone Farhana Mcdaniel MD Primary Care Provider [phone]- [phone] Encounter Details Date Type Department Care Team (Latest Contact Info) Description 02/17/2016 Abstract [facility] Social History Tobacco Use Types [...] on filedocumented in this encounter Care Teams Sketch Liner Relationship Specialty Start Date End Date Farhana Mcdaniel MD PCP - General 07/17/13 documented as of this encounter
--- OUTSIDE RECORDS SUMMARY | 2024-07-11 09:42 | XMS_ITS | Encounter Summary ---
Author Organization [facility] Address [address] [place] [address]. [place], [place] [address] [place] [address] Care Team Providers Care System Development Manager Name Role Phone Farhana Mcdaniel MD Primary Care Provider [phone]- [phone] Encounter Details Date Type Department Care Team (Late st Contact Info) Description 02/21/2016 Abstract [facility] [place] [address] [place] [address] Derrick Perez MD Social History Tobacco Use [...] as of this encounter Visit Diagnoses Diagnosis Benign lipomatous neoplasm of other sites documented in this encounter Care Teams System Development Manager Relationship Specialty Start Date End Date Farhana Mcdaniel MD PCP - General 07/17/13 documented as of this encounter
--- OUTSIDE RECORDS SUMMARY | 2024-07-11 09:42 | XMS_ITS | Encounter Summary ---
Author Organization [facility] Address [address] [place] [address]. [place] [address] [place] [address] Care Team Providers Care Sand Mixer Machine Name Role Phone Farhana Mcdaniel MD Primary Care Provider [phone] Encounter Details Date Type Department Care Team (Late st Contact Info) Description 02/13/2016 Abstract [facility] General Surgery - [place] [address] [facility], [address] [place] [address] Derrick Perez MD Social History [...] Sign Reading Time Taken Comments Blood Pressure 112/72 02/13/2016 9:02 AM CDT Pulse 75 02/13/2016 9:02 AM CDT Temperature - - Respiratory Rate - - Oxygen Saturation - - Inhaled Oxygen Concentration - - Weight 83 kg (183 lb) 02/13/2016 9:02 AM CDT Height 165.1 cm (5' 5 ) 02/13/2016 9:02 AM CDT Body Mass Index 30.45 02/13/2016 9:02 AM CDT documented in this encounter Progress Notes * Derrick Perez MD - 02/13/2016 9:00 AM CDT Reason For Visit Consultation Visit Chief Complaint mass below left breast near rib cage x 1 month tender pt states relief if she stretches her torso constant uncomfortable feeling has not noticed any change in size History of Present Illness pt has a soft tissue tumor to the left ribcage just below the left breast 1 mo duration and has been increasing in size and has been tender especially on some pressure against it. pt states relief if she stretches her torso. pat has constant uncomfortable feeling. Review of Systems General: No weight loss or weight gain, fatigue, night sweats or fever. Skin: No rash, dry skin, cancer, non-healing wounds or shingles. Head: No trauma, cuts or wounds. Eyes: No vision problems (blurred, double or black spots), cataracts, glaucoma or eye pain. Ears: No hearing problems, ringing in the ears or earache. Nose: No runny or stuffy nose, bleeding, or sinus problems. Throat: No hoarseness, sore throat, or voice change. Mouth: No dry mouth, sores or tongue problems. Heart: No pain, tightness, pressure, palpitations, irregular heartbeat, rheumatic fever or past workup. Lungs: No shortness of breath at rest, exertion or at night, no wheezing or coughing. Chest: Soft tissue tumor left ribcage below the left breast. Active Problems 1. Left breast mass (611.72) [...] 3:49:51 PM Allergies 1. dicloxacillin Recorded By: Jean Lizy; 02/12/2016 3:49:52 PM Vitals Recorded: [id number] 09:02AM Heart Rate 75 Systolic 112 Diastolic 72 O2 Saturation 98 Height 5 ft 5 in Weight 183 lb BMI Calculated 30.45 BSA Calculated 1.9 Physical Exam General: Patient is a well-developed, well-nourished, 40-year-old, white female in no distress, body build medium, demeanor is pleasant and cooperative. Skin: No dehydration, moist mucosa. Head: Normocephalic/atraumatic. Eyes: No pallor, no jaundice, no infection. Ears: No infection, no drainage. Nose: No infection, no bleeding. Mouth: Moist mucosa, good dentition, pharynx no infection. Neck: Trachea is midline, no venous engorgement, no thyroid enlargement, and no lymphadenopathy. Lungs: No respiratory distress, no soft tissue retractions, breath sounds clear to auscultation, good air movement. Cardio: Rate is regular and rhythm is regular. Heart sounds - S1 normal, S2 normal, no murmur. Chest: Soft tissue tumor left rib cage just below the left breast measuring about 4 x 8 cm. Tender to palpation. Moveable. Well circumscribed. No sign of infection. No sign of trauma. Abdomen: Soft, no tenderness, no masses, and no hernia. Extremities: No edema, clubbing or cyanosis. Assessment Soft tissue tumor left ribcage just below the left breast 4 x 8 cm in size. Plan Excision under MAC anesthesia. The planned procedure/s, the expected benefits,the associated risks,possible complications, and alternatives to the procedure/s have been discussed in detail with the patient or family. They state that they understand, have no further questions and agree to proceed with the procedure/s as outlined. Signatures Electronically signed by : Derrick Perez M.D.; Feb 17 2016 2:18PM FIRE INFORMATION OFFICER (Author) documented in this encounter Plan of Treatment Not on file documented as of this encounter Visit Diagnoses Not on filedocumented in this encounter Care Teams Sand Mixer Machine Relationship Specialty Start Date End Date Farhana Mcdaniel MD PCP - General 07/17/13 documented as of this encounter
--- OUTSIDE RECORDS SUMMARY | 2024-07-11 09:42 | XMS_ITS | Encounter Summary ---
Author Organization [facility] Address [address] [place] [address]. [place], [place] [address] [place] [address] Care Team Providers Care Operating Theatre Technician Name Role Phone Farhana Mcdaniel MD Primary Care Provider [phone]- [phone] Encounter Details Date Type Department Care Team (Late st Contact Info) Description 02/22/2015 Abstract [facility] [address] [place] [address] Yessica Thompson, [facility] [address] [place] [address] Social History Tobacco Use Types Packs/Day Years [...] on filedocumented in this encounter Care Teams Operating Theatre Technician Relationship Specialty Start Date End Date Farhana Mcdaniel MD PCP - General 07/17/13 documented as of this encounter
--- OUTSIDE RECORDS SUMMARY | 2024-07-11 09:42 | XMS_ITS | Encounter Summary ---
Author Organization [facility] Address [address] [place] [address]. [place], [place] [address] [place] [address] Care Team Providers Care Private Investigator Surveillance Name Role Phone Farhana Mcdaniel MD Primary Care Provider [phone] Encounter Details Date Type Department Care Team (Latest Contact Info) Description 02/21/2016 Abstract [facility] Derrick Perez MD Social History Tobacco Use [...] Procedure Name Priority Date/Time Associated Diagnosis Comments TISSUE EXAM BY PATHOLOGIST Routine 02/21/2016 10:44 AM CDT documented in this encounter Results * TISSUE EXAM BY PATHOLOGIST (02/21/2016 10:44 AM CDT) COPATH REPORT SURG ? - Surgical Pathology Report Patient Name: ODESSA CORDOVA Med. Rec. 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 MATURE FATTY TISSUE CONSISTENT WITH LIPOMA. [facility]/02/25/2016 Electronically Signed Out ByLoly Hoff MD Microscopic Description Three slides examined. This case was signed out at [facility], [address] [place] [address]. Clinical History Lipoma left rib cage Gross Description Received in a single container with the patient's name, number and date as well as lipoma left ribcage 02/21/16 1251 are ten fairly well-defined fragments of yellow-araiza, fatty tissue having greatest dimensions varying from 1.2 to 5 cm. A small amount of fibrous tissue is seen along the edges. No fleshy areas or necrosis are noted. Band Head Saw Operator sections are submitted in cassettes 1 through 3 . / dlw//02/24/2016 Billing Fee Code(s): 21048 [facility] TO EPIC CONVERSION 02/21/2016 10:4 4 AM CDT 02/21/2016 10:44 AM CDT Narrative [facility] CONVERSION - 02/22/2016 10:44 AM CDT Result Communication: No patient communication needed at this time us Derrick Perez MD PATHOLOGY/CYTOLOGY ORDERABLES Final Result [facility] TO EPIC CONVERSION documented in this encounter Visit Diagnoses Not on filedocumented in this encounter Care Teams Private Investigator Surveillance Relationship Specialty Start Date End Date Donna-Farhana Melgar MD PCP - General 07/17/13 documented as of this encounter
--- OUTSIDE RECORDS SUMMARY | 2024-07-11 09:43 | XMS_ITS | Encounter Summary ---
Author Organization [facility] Address [address] [place] [address]. [place], [place] [address] [place] [address] Care Team Providers Care Retail Office Associate Name Role Phone Farhana Mcdaniel MD Primary Care Provider [phone] Encounter Details Date Type Department Care Team (Late st Contact Info) Description 02/09/2014 Abstract [facility] [address] [place] [id number] , Blanca Kelly MD Social History Tobacco Use Types Packs/Day Years Used Date Smoking Tobacco: Never Comments Unknown Sex and Gender Information Value Date Recorded Sex Assigned at Not on file Legal Sex Female 2:52 AM CDT Gender Identity Not on file Sexual Orientation Not on file documented as of this encounter Last Filed Vital Signs Vital Sign Reading Time Taken Comments Blood Pressure 110/68 02/09/2014 8:50 AM CDT ret aken by Pulse 70 02/09/2014 8:50 AM CDT Temperature - - Respiratory Rate - - Oxygen Saturation - - Inhaled Oxygen Concentration - - Weight 82.1 kg (181 lb) 02/09/2014 8:50 AM CDT Height 165.1 cm (5' 5 ) 02/09/2014 8:50 AM CDT Body Mass Index 30.12 02/09/2014 8:50 AM CDT documented in this encounter Plan of Treatment Not on file documented as of this encounter Visit Diagnoses Not on filedocumented in this encounter Care Teams Retail Office Associate Relationship Specialty Start Date End Date Farhana Mcdaniel MD PCP - General 07/17/13 documented as of this encounter
--- OUTSIDE RECORDS SUMMARY | 2024-07-11 09:43 | XMS_ITS | Encounter Summary ---
Author Organization [facility] Address [address] [place] [address]. [place], [place] [address] [place] [address] Care Team Providers Care Pulmonary Nurse Practitioner Name Role Phone Farhana Mcdaniel MD Primary Care Provider [phone] Encounter Details Date Type Department Care Team (Late st Contact Info) Description 09/12/2014 Abstract [facility] Conversion Md, Generic ConversionMD Social [...] on filedocumented in this encounter Care Teams Pulmonary Nurse Practitioner Relationship Specialty Start Date End Date Farhana Mcdaniel MD PCP - General 07/17/13 documented as of this encounter
--- OUTSIDE RECORDS SUMMARY | 2024-07-11 09:43 | XMS_ITS | Encounter Summary ---
Author Organization [facility] Address [address] [place] [address]. [place], [place] [address] [place] [address] Care Team Providers Care Veterinary Assistant Name Role Phone Farhana Mcdaniel MD Primary Care Provider [phone] Farhana Mcdaniel MD Primary Care Provider [phone] Encounter Details Date Type Department Care Team (Late st Contact Info) Description 06/01/2013 Abstract [facility] Conversion Adrianna Ernandez, LINDSAY [address] [place] [address] Social History Tobacco Use Types Packs/Day Years Used Date Smoking Tobacco: Never Comments Unknown Sex and Gender Information Value Date Recorded Sex Assigned at Not on file Legal Sex Female 2:52 AM CDT Gender Identity Not on file Sexual Orientation Not on file documented as of this encounter Last Filed Vital Signs Vital Sign Reading Time Taken Comments Blood Pressure 104/62 06/01/2013 8:36 AM BENDING ROLL OPERATOR Pulse 72 06/01/2013 8:36 AM BENDING ROLL OPERATOR Temperature - - Respiratory Rate - - Oxygen Saturation - - Inhaled Oxygen Concentration - - Weight 76.2 kg (168 lb) 06/01/2013 8:36 AM BENDING ROLL OPERATOR Height - - Body Mass Index 27.96 06/24/2012 1:02 PM BENDING ROLL OPERATOR documented in this encounter Plan of Treatment Not on file documented as of this encounter Visit Diagnoses Not on filedocumented in this encounter Care Teams Veterinary Assistant Relationship Specialty Start Date End Date Farhana Mcdaniel MD PCP - General 07/17/13 Farhana Mcdaniel MD PCP - General 02/20/13 07/16/13 documented as of this encounter
--- OUTSIDE RECORDS SUMMARY | 2024-07-11 09:43 | XMS_ITS | Encounter Summary ---
Author Organization [facility] Address [address] [place] [address]. [place], [place] [address] [place] [address] Care Team Providers Care Wooden Barrel Mechanic Name Role Phone Farhana Mcdaniel MD Primary Care Provider [phone] Farhana Mcdaniel MD Primary Care Provider [phone] Encounter Details Date Type Department Care Team (Late st Contact Info) Description 02/20/2013 Abstract [facility] [address] [place], [place] [id number] Afsaneh Gonsalez MD [address] [address] Social History Tobacco Use Types Packs/Day Years Used Date Smoking Tobacco: Never Assessed Comments Unknown Sex and Gender Information Value Date Recorded Sex Assigned at Not on file Legal Sex Female 2:52 AM CDT Gender Identity Not on file Sexual Orientation Not on file documented as of this encounter Plan of Treatment Not on file documented as of this encounter Visit Diagnoses Diagnosis Acute tonsillitis documented in this encounter Care Teams Wooden Barrel Mechanic Relationship Specialty Start Date End Date Farhana Mcdaniel MD PCP - General 07/17/13 Farhana Mcdaniel MD PCP - General 02/20/13 07/16/13 documented as of this encounter
--- OUTSIDE RECORDS SUMMARY | 2024-07-11 09:43 | XMS_ITS | Encounter Summary ---
Author Organization [facility] Address [address] [place] [address]. [place], [place] [address] [place] [address] Care Team Providers Care Cook Restaurant Name Role Phone Farhana Mcdaniel MD Primary Care Provider [phone] Encounter Details Date Type Department Care Team (Late st Contact Info) Description 11/01/2013 Abstract [facility] Conversion Md, Generic ConversionMD Social History Tobacco [...] Sign Reading Time Taken Comments Blood Pressure 114/78 11/01/2013 8:48 AM CDT Pulse 72 11/01/2013 8:48 AM CDT Temperature - - Respiratory Rate - - Oxygen Saturation - - Inhaled Oxygen Concentration - - Weight 80.3 kg (177 lb 2 oz) 11/01/2013 8:48 AM CDT Height - - Body Mass Index 29.48 06/24/2012 1:02 PM MANAGING PRINCIPAL documented in this encounter Plan of Treatment Not on file documented as of this encounter Visit Diagnoses Not on filedocumented in this encounter Care Teams Cook Restaurant Relationship Specialty Start Date End Date Farhana Mcdaniel MD PCP - General 07/17/13 documented as of this encounter
--- OUTSIDE RECORDS SUMMARY | 2024-07-11 09:43 | XMS_ITS | Encounter Summary ---
Author Organization [facility] Address [address] [place] [address]. [place], [place] [address] [place] [address] Care Team Providers Care Travel Ticketing Reviewer Name Role Phone Farhana Mcdaniel MD Primary Care Provider [phone] Farhana Mcdaniel MD Primary Care Provider [phone] Farhana Mcdaniel MD Primary Care Provider [phone] , Blanca Kelly MD Primary Care Provider Unavailable Encounter Details Date Type Department Care Team (Late st Contact Info) Description 01/06/2013 Abstract [facility] Conversion Zhane Chamorro, [address] [place] [address] Social History Tobacco Use Types Packs/Day Years Used Date Smoking Tobacco: Never Assessed Comments Unknown Sex and Gender Information Value Date Recorded Sex Assigned at Not on file Legal Sex Female 2:52 AM CDT Gender Identity Not on file Sexual Orientation Not on file documented as of this encounter Last Filed Vital Signs Vital Sign Reading Time Taken Comments Blood Pressure 122/60 01/06/2013 10:26 AM CDT Pulse 74 01/06/2013 10:26 AM CDT Temperature - - Respiratory Rate - - Oxygen Saturation - - Inhaled Oxygen Concentration - - Weight 79.4 kg (175 lb) 01/06/2013 10:26 AM CDT Height - - Body Mass Index 29.12 06/24/2012 1:02 PM STITCHER STANDARD MACHINE documented in this encounter Plan of Treatment Not on file documented as of this encounter Visit Diagnoses Not on filedocumented in this encounter Care Teams Travel Ticketing Reviewer Relationship Specialty Start Date End Date Farhana Mcdaniel MD PCP - General 07/17/13 Farhana Mcdaniel MD PCP - General 02/20/13 07/16/13 Farhana Mcdaniel MD PCP - General 02/12/13 02/19/13 Blanca Lau MD PCP - General 11/13/12 documented as of this encounter
--- OUTSIDE RECORDS SUMMARY | 2024-07-11 09:43 | XMS_ITS | Encounter Summary ---
Author Organization [facility] Address [address] [place] [address]. [place], [place] [address] [place] [address] Care Team Providers Care Geomorphologist Name Role Phone Donna-Farhana Melgar MD Primary Care Provider [phone] Encounter Details Date Type Department Care Team (Late st Contact Info) Description 09/13/2013 Abstract [facility] Conversion Chel John, [facility] [address] [facility] [place] [id number] Social History Tobacco Use Types Packs/Day Years Used Date Smoking Tobacco: Never Comments Unknown Sex and Gender Information Value Date Recorded Sex Assigned at Not on file Legal Sex Female 2:52 AM CDT Gender Identity Not on file Sexual Orientation Not on file documented as of this encounter Last Filed Vital Signs Vital Sign Reading Time Taken Comments Blood Pressure 112/70 09/13/2013 10:20 AM CDT Pulse 88 09/13/2013 10:20 AM CDT Temperature - - Respiratory Rate - - Oxygen Saturation - - Inhaled Oxygen Concentration - - Weight 78.9 kg (174 lb) 09/13/2013 10:20 AM CDT Height - - Body Mass Index 28.96 06/24/2012 1:02 PM REHAB CARE ASSISTANT documented in this encounter Plan of Treatment Not on file documented as of this encounter Procedures Procedure Name Priority Date/Time Associated Diagnosis Comments STREP A RAPID Routine 09/13/2013 2:12 PM CDT SED RATE, ERYTHROCYTE (ESR) Routine 09/13/2013 11:10 AM CDT COMPREHENSIVE METABOLIC PANEL Routine 09/13/2013 11:10 AM CDT CBC W/DIFF AUTOMATED Routine 09/13/2013 11:10 AM CDT VITAMIN D, 25 [place] Routine 09/13/2013 11:1 0 AM CDT documented in this encounter Results * STREP A RAPID (09/13/2013 2:12 PM CDT) Pathologist [facility] STREP PYOGENES (GRP A) PCR (BLD) NEGATIVE [facility] TO EPIC CONVERSION REPORT STATUS not sent [facility] CONVERSION lot number [id number] 03-22-14 [facility] TO [facility] CONVERSION Internal Control: passed [facility] TO EPIC CONVERSION 09/13/2013 2:12 PM CDT 09/13/2013 2:12 PM CDT Narrative [facility] TO EPIC CONVERSION - 09/13/2013 3:26 PM CDT This lab was migrated from [facility] and may be missing annotations or result text, please check the Media tab for the most complete results. us Chel [facility] - GENERAL OR DERABLES Final Result [facility] TO EPIC CONVERSION * COMPREHENSIVE METABOLIC PANEL (09/13/2013 11:10 AM CDT) GLUCOSE 82 65 - 99 mg/dL [facility] TO EPIC CONVERSION SODIUM S/P/B 142 135 - 148 mmol/L [facility] TO [facility]IC CONVERSION POTASSIUM S/P/B 4.3 3.5 - 5.3 mmol/L [facility] TO [facility]IC CONVERSION CHLORIDE S/P/B 105 95 - 110 mmol/L [facility] TO [facility]IC CONVERSION TCO2 28 22 - 32 mmol/L [facility] TO [facility]IC CONVERSION BUN 10 6 - 20 mg/dL [facility] TO [facility]IC CONVERSION CREATININE S/P/B 0.7 0.5 - 1.2 mg/dL [facility] TO [facility]IC CONVERSION TOTAL PROTEIN S/P/B 7.1 6.6 - 8.7 g/dL [facility] TO [facility] CONVERSION CALCIUM S/P/B 10.0 8.6 - 10.2 mg/dL [facility] TO [facility]IC CONVERSION BILIRUBIN TOTAL S/P/B 0.3 0.1 - 1.2 mg/dL [facility] TO EPIC CONVERSION ALKALINE PHOSPHATASE S/P/B 86 35 - 104 U/L [facility] TO EPIC CONVERSION ALBUMIN S/P/B 4.5 3.5 - 5.2 g/dL [facility] TO EPIC CONVERSION AST 15 0 - 32 U/L [facility] TO EPIC CONVERSION ALT 14 0 - 33 U/L [facility] TO EPIC CONVERSION PATIENT'S AGE 35 YEARS [facility] UP TO EPIC CONVERSION EGFR NON-AFR. AMER. 101 ml/min [facility] TO EPIC CONVERSION 09/13/2013 11:1 0 AM CDT 09/13/2013 11:10 AM CDT Narrative [facility] TO EPIC CONVERSION - 09/13/2013 12:14 PM CDT This lab was migrated from [facility] and may be missing annotations or result text, please check the Media tab for the most complete results. Chel John [facility] Final Res ult Performing Organization Address City/[facility] Co de Phone Number [facility] TO EPIC CONVERSION * VITAMIN D, 25 [place] (09/13/2013 11:10 AM CDT) VITAMIN D 25 HYDROXY S/P/B 46 30 - 100 ng/mL [facility] TO EPIC CONVERSION 09/13/2013 11:1 0 AM CDT 09/13/2013 11:10 AM CDT Narrative [facility] TO EPIC CONVERSION - 09/13/2013 12:28 PM CDT This lab was migrated from [facility] and may be missing annotations or result text, please check the Media tab for the most complete results. Chel A [facility] Final Res ult [facility] TO [facility] CONVERSION * (ABNORMAL) SED RATE, ERYTHROCYTE (ESR) (09/13/2013 11:10 AM CDT) SED RATE 31(H) 0 - 20 mm/hr [facility] TO [facility]IC CONVERSION 09/13/2013 11:1 0 AM CDT 09/13/2013 11:10 AM CDT Narrative [facility] TO EPIC CONVERSION - 09/13/2013 2:05 PM CDT This lab was migrated from [facility] and may be missing annotations or result text, please check the Media tab for the most complete results. Chel John MEAT CUTTING TEACHER [facility] Final Res ult [facility] TO [facility] CONVERSION * (ABNORMAL) CBC W/DIFF AUTOMATED (09/13/2013 11:10 AM CDT) WBC 9.4 4.5 - 11.0 cmm [facility] TO EPIC CONVERSION ABS. NEUTROPHILS 6.80(H) 1.50 - 6.50 uL [facility] TO [facility]IC CONVERSION RBC 4.3 4.0 - 5.2 M/cumm [facility] TO [facility]IC CONVERSION NEUTROPHILS % 72.4 40.0 - 74.0 % [facility] TO [facility]IC CONVERSION LYMPHOCYTES % 18.4 14.0 - 46.0 % [facility] TO [facility]IC CONVERSION MONOCYTES % 7.2 4.0 - 13.0 % [facility] TO [facility]IC CONVERSION EOSINOPHILS % 1.5 0.0 - 7.0 % [facility] TO [facility]IC CONVERSION BASOPHILS % 0.3 0.0 - 3.0 % [facility] TO [facility]IC CONVERSION IMMATURE GRANS % 0.20 0.00 - 0.43 % [facility] TO [facility] CONVERSION HGB 13.8 12.0 - 16.0 g/dl [facility] TO [facility]IC CONVERSION HCT 40.9 36.0 - 46.0 % [facility] TO [facility]IC CONVERSION MCV 95.3 80.0 - 100 fl [facility] TO [facility]IC CONVERSION MCH 32.2 26.0 - 34.0 pg [facility] TO [facility]IC CONVERSION MCHC 33.7 31.0 - 37.0 g/dl [facility] TO [facility]IC CONVERSION PLT 218 140 - 415 cmm [facility] TO [facility]IC CONVERSION RDW 12.0 11.6 - 14.8 % [facility] TO [facility]IC CONVERSION MANUAL DIFFERENTIAL NOT INDICATED [facility] TO [facility]IC CONVERSION WBC MORPHOLOGY NOT INDICATED M [facility] TO EPIC CONVERSION RBC MORPHOLOGY NOT INDICATED M [facility] TO EPIC CONVERSION PLT MORPH. NOT INDICATED [facility] OUP TO EPIC CONVERSION 09/13/2013 11:1 0 AM CDT 09/13/2013 11:10 AM CDT Narrative [facility] TO EPIC CONVERSION - 09/13/2013 11:38 AM CDT This lab was migrated from [facility] and may be missing annotations or result text, please check the Media tab for the most complete results. us Chel [facility] Final Res ult [facility] TO EPIC CONVERSION documented in this encounter Visit Diagnoses Not on filedocumented in this encounter Care Teams Geomorphologist Relationship Specialty Start Date End Date Donna-Farhana Melgar MD PCP - General 07/17/13 documented as of this encounter
--- OUTSIDE RECORDS SUMMARY | 2024-07-11 09:43 | XMS_ITS | Encounter Summary ---
Author Organization [facility] Address [address] [place] [address]. [place], [place] [address] [place] [address] Care Team Providers Care Java Application Engineer Name Role Phone Farhana Mcdaniel MD Primary Care Provider [phone] Farhana Mcdaniel MD Primary Care Provider [phone] Encounter Details Date Type Department Care Team (Late st Contact Info) Description 04/27/2013 Abstract [facility] [address] [place] [address] Farhana Mcdaniel MD [address] [place] [address] Social History Tobacco Use Types Packs/Day Years Used Date Smoking Tobacco: Never Comments Unknown Sex and Gender Information Value Date Recorded Sex Assigned at Not on file Legal Sex Female 2:52 AM CDT Gender Identity Not on file Sexual Orientation Not on file documented as of this encounter Plan of Treatment Not on file documented as of this encounter Visit Diagnoses Diagnosis Screening examination for sexually transmitted disease Screening examination for venereal disease documented in this encounter Care Teams Java Application Engineer Relationship Specialty Start Date End Date Farhana Mcdaniel MD PCP - General 07/17/13 Farhana Mcdaniel MD PCP - General 02/20/13 07/16/13 documented as of this encounter
--- OUTSIDE RECORDS SUMMARY | 2024-07-11 09:43 | XMS_ITS | Encounter Summary ---
Author Organization [facility] Address [address] [place] [address]. [place], [place] [address] [place] [address] Care Team Providers Care Lead Based Paint Technician Name Role Phone Farhana Mcdaniel MD Primary Care Provider [phone] Encounter Details Date Type Department Care Team (Late st Contact Info) Description 10/21/[address] [facility] [address] [place] [address] Lindsay Morfin, [facility] [address] [address] Social History Tobacco Use Types Packs/Day Years Used Date Smoking Tobacco: Never Comments Unknown Sex and Gender Information Value Date Recorded Sex Assigned at Not on file Legal Sex Female 2:52 AM CDT Gender Identity Not on file Sexual Orientation Not on file documented as of this encounter Plan of Treatment Not on file documented as of this encounter Visit Diagnoses Diagnosis Acute pharyngitis documented in this encounter Care Teams Lead Based Paint Technician Relationship Specialty Start Date End Date Farhana Mcdaniel MD PCP - General 07/17/13 documented as of this encounter
--- OUTSIDE RECORDS SUMMARY | 2024-07-11 09:43 | XMS_ITS | Encounter Summary ---
Author Organization [facility] Address [address] [place] [address]. [place], [place] [address] [place] [address] Care Team Providers Care Superintendent Of Schools Name Role Phone Farhana Mcdaniel MD Primary Care Provider [phone] Farhana Mcdaniel MD Primary Care Provider [phone] Farhana Mcdaniel MD Primary Care Provider [phone] , Blanca Kelly MD Primary Care Provider Unavailable Encounter Details Date Type Department Care Team (Late st Contact Info) Description 01/31/2013 Abstract [facility] Conversion Zhane Chamorro, [address] [place] [address] Social History Tobacco Use Types Packs/Day Years Used Date Smoking Tobacco: Never Assessed Comments Unknown Sex and Gender Information Value Date Recorded Sex Assigned at Not on file Legal Sex Female 2:52 AM CDT Gender Identity Not on file Sexual Orientation Not on file documented as of this encounter Last Filed Vital Signs Vital Sign Reading Time Taken Comments Blood Pressure 114/68 01/31/2013 3:33 PM CDT Pulse 74 01/31/2013 3:33 PM CDT Temperature - - Respiratory Rate - - Oxygen Saturation - - Inhaled Oxygen Concentration - - Weight 80.7 kg (178 lb) 01/31/2013 3:33 PM CDT Height - - Body Mass Index 29.62 06/24/2012 1:02 PM AVIATION ELECTRICAL TECHNICIAN documented in this encounter Plan of Treatment Not on file documented as of this encounter Visit Diagnoses Not on filedocumented in this encounter Care Teams Superintendent Of Schools Relationship Specialty Start Date End Date Farhana Mcdaniel MD PCP - General 07/17/13 Farhana Mcdaniel MD PCP - General 02/20/13 07/16/13 Farhana Mcdaniel MD PCP - General 02/12/13 02/19/13 Blanca Lau MD PCP - General 11/13/12 documented as of this encounter
--- OUTSIDE RECORDS SUMMARY | 2024-07-11 09:43 | XMS_ITS | Encounter Summary ---
Author Organization [facility] Address [address] [place] [address]. [place], [place] [address] [place] [address] Care Team Providers Care Shop Mechanic Name Role Phone Farhana Mcdaniel MD Primary Care Provider [phone] Encounter Details Date Type Department Care Team (Late st Contact Info) Description 11/01/2013 Abstract [facility] [address] [place] [address] Pascale Ordaz, TRANSPORTATION AGENT [address] [place] [address] Social History Tobacco Use Types Packs/Day Years [...] on filedocumented in this encounter Care Teams Shop Mechanic Relationship Specialty Start Date End Date Farhana Mcdaniel MD PCP - General 07/17/13 documented as of this encounter
--- OUTSIDE RECORDS SUMMARY | 2024-07-11 09:43 | XMS_ITS | Encounter Summary ---
Author Organization [facility] Address [address] [place] [address]. [place] [address] [place] [address] Care Team Providers Care Sharemilker Name Role Phone Farhana Mcdaniel MD Primary Care Provider [phone] Encounter Details Date Type Department Care Team (Late st Contact Info) Description 12/28/2013 Abstract [facility] [address] [place] [address] , Generic ConversionMD Social History Tobacco Use [...] Associated Diagnosis Comments TSH 3RD GENERATION Routine 12/28/2013 7: 13 AM CDT URINALYSIS, AUTO, COMPLETE Routine 12/28/2013 7:13 AM CDT COMPREHENSIVE METABOLIC PANEL Routine 12/28/2013 7:13 AM CDT LIPID PANEL Routine 12/28/2013 7:13 AM CDT CBC W/DIFF AUTOMATED Routine 12/28/2013 7:13 AM CDT CBC,CONVERSION Routine 12/28/2013 12:00 AM CDT LIPID PANEL Routine 12/28/2013 12:00 AM CDT THYROID PANEL Routine 12/28/2013 12:00 AM CDT COMPREHENSIVE METABOLIC PANEL Routine 12/28/2013 12:00 AM CDT documented in this encounter Results * COMPREHENSIVE METABOLIC PANEL (12/28/2013 7:13 AM CDT) Pathologist [facility] GLUCOSE 89 65 - 99 mg/dL [facility] TO EPIC CONVERSION SODIUM S/P/B 143 135 - 148 mmol/L [facility] TO EPIC CONVERSION POTASSIUM S/P/B 4.4 3.5 - 5.3 mmol/L [facility] TO EPIC CONVERSION CHLORIDE S/P/B 109 95 - 110 mmol/L [facility] TO EPIC CONVERSION TCO2 27 22 - 32 mmol/L [facility] TO EPIC CONVERSION BUN 15 6 - 20 mg/dL [facility] TO EPIC CONVERSION CREATININE S/P/B 0.9 0.5 - 1.2 mg/dL [facility] TO EPIC CONVERSION TOTAL PROTEIN S/P/B 6.9 6.6 - 8.7 g/dL [facility] TO EPIC CONVERSION CALCIUM S/P/B 9.1 8.6 - 10.2 mg/dL [facility] TO EPIC CONVERSION BILIRUBIN TOTAL S/P/B 0.3 0.1 - 1.2 mg/dL [facility] TO EPIC CONVERSION ALKALINE PHOSPHATASE S/P/B 90 35 - 104 U/L [facility] TO EPIC CONVERSION ALBUMIN S/P/B 4.5 3.5 - 5.2 g/dL [facility] TO EPIC CONVERSION AST 22 0 - 32 U/L [facility] TO EPIC CONVERSION ALT 22 0 - 33 U/L [facility] TO EPIC CONVERSION PATIENT'S AGE 38 YEARS [facility] UP TO EPIC CONVERSION EGFR NON-AFR. AMER. 75 ml/min [facility] TO EPIC CONVERSION 12/28/2013 7:13 AM CDT 12/28/2013 7:13 AM CDT Narrative [facility] TO EPIC CONVERSION - 12/28/2013 8:29 AM CDT This lab was migrated from [facility] and may be missing annotations or result text, please check the Media tab for the most complete results. Yessica Thompson [facility] Final Result [facility] TO EPIC CONVERSION * (ABNORMAL) LIPID PANEL (12/28/2013 7:13 AM CDT) CHOLESTEROL 217(H) 120 - 200 mg/dL [facility] TO EPIC CONVERSION TRIGLYCERIDES 170(H) 20 - 160 mg/dL [facility] TO EPIC CONVERSION HDL 56 0 - 65 mg/dL [facility] TO EPIC CONVERSION LDL (CALCULATED) 127 10 - 130 mg/dL [facility] TO EPIC CONVERSION RISK 4 [facility] T O EPIC CONVERSION 12/28/2013 7:13 AM CDT 12/28/2013 7:13 AM CDT Narrative [facility] TO EPIC CONVERSION - 12/28/2013 8:13 AM CDT This lab was migrated from [facility] and may be missing annotations or result text, please check the Media tab for the most complete results. Yessica Thompson [facility] Final Result Performing Organization Address [facility]/ZIP Co de Phone Number [facility] TO EPIC CONVERSION * URINALYSIS, AUTO, COMPLETE (12/28/2013 7:13 AM CDT) COLOR (U) p.yel NR: YELLOW [facility] TO EPIC CONVERSION TURBIDITY clear NR: CLEAR [facility] T O EPIC CONVERSION PH ARTERIAL 6.5 NR: 5 - 8.5 [facility] UP TO EPIC CONVERSION SPECIFIC GRAVITY (U) 1.015 NR: 1.010 - 1.025 [facility] TO EPIC CONVERSION PROTEIN NEG NR: NEGATIVE [facility] P TO EPIC CONVERSION URINE GLUCOSE NORM NR: NEGATIVE [facility] TO EPIC CONVERSION KETONE (U) NEG NR: NEGATIVE [facility] UP TO EPIC CONVERSION BILIRUBIN (U) NEG NR: NEGATIVE [facility] TO EPIC CONVERSION BLOOD (U) 25 NR: NEGATIVE [facility] P TO EPIC CONVERSION UROBILINOGEN NORM NR: 0.2 - 1.0 [facility] TO EPIC CONVERSION LEUK ESTERASE (U) NEG NR: NEGATIVE [facility] TO EPIC CONVERSION NITRITES NEG NR: NEGATIVE [facility] P TO EPIC CONVERSION BACTERIA (U) 2+ NR: NEGATIVE MEDG ROUP TO EPIC CONVERSION CRYSTALS (U) None Seen NR: NEGATIVE MEDG ROUP TO EPIC CONVERSION EPI/HPF 11 - 25 NR: NEGATIVE [facility] P TO EPIC CONVERSION RBC 2 - 5 NR: NEGATIVE [facility] P TO EPIC CONVERSION WBC 0-2 NR: NEGATIVE [facility] P TO EPIC CONVERSION OTHER CASTS (U) None Seen NR: NEGATIVE M EDGROUP TO EPIC CONVERSION YEAST None Seen NR: NEGATIVE [facility] P TO EPIC CONVERSION MUCUS None Seen NR: NEGATIVE [facility] P TO EPIC CONVERSION 12/28/2013 7:13 AM CDT 12/28/2013 7:13 AM CDT Narrative [facility] TO EPIC CONVERSION - 12/28/2013 7:40 AM CDT This lab was migrated from [facility] and may be missing annotations or result text, please check the Media tab for the most complete results. Yessica Thompson ADMIN PROG COORD URINE ORDERABLES Final Result [facility] TO EPIC CONVERSION * CBC W/DIFF AUTOMATED (12/28/2013 7:13 AM CDT) WBC 6.0 4.5 - 11.0 cmm [facility] TO EPIC CONVERSION ABS. NEUTROPHILS 3.48 1.50 - 6.50 uL [facility] TO EPIC CONVERSION RBC 4.2 4.0 - 5.2 M/cumm [facility] TO EPIC CONVERSION NEUTROPHILS % 57.8 40.0 - 74.0 % [facility] TO EPIC CONVERSION LYMPHOCYTES % 30.0 14.0 - 46.0 % [facility] TO EPIC CONVERSION MONOCYTES % 7.5 4.0 - 13.0 % [facility] TO EPIC CONVERSION EOSINOPHILS % 3.7 0.0 - 7.0 % [facility] TO EPIC CONVERSION BASOPHILS % 0.8 0.0 - 3.0 % [facility] TO EPIC CONVERSION IMMATURE GRANS % 0.20 0.00 - 0.43 % [facility] TO EPIC CONVERSION HGB 13.5 12.0 - 16.0 g/dL [facility] TO EPIC CONVERSION HCT 40.1 36.0 - 46.0 % [facility] TO EPIC CONVERSION MCV 95.0 80.0 - 100 fL [facility] TO EPIC CONVERSION MCH 32.0 26.0 - 34.0 pg [facility] TO EPIC CONVERSION MCHC 33.7 31.0 - 37.0 g/dL [facility] TO EPIC CONVERSION PLT 227 140 - 415 cmm [facility] TO EPIC CONVERSION RDW 12.3 11.6 - 14.8 % [facility] TO EPIC CONVERSION MANUAL DIFFERENTIAL NOT INDICATED [facility] TO EPIC CONVERSION WBC MORPHOLOGY NOT INDICATED M EDGROUP TO EPIC CONVERSION RBC MORPHOLOGY NOT INDICATED M EDGROUP TO EPIC CONVERSION PLT MORPH. NOT INDICATED MEDGR OUP TO EPIC CONVERSION 12/28/2013 7:13 AM CDT 12/28/2013 7:13 AM CDT Narrative [facility] TO EPIC CONVERSION - 12/28/2013 7:28 AM CDT This lab was migrated from [facility] and may be missing annotations or result text, please check the Media tab for the most complete results. [facility] Final Result Performing Organization Address City/[facility]/ZIP Co de Phone Number [facility] TO EPIC CONVERSION * TSH 3RD GENERATION (12/28/2013 7:13 AM CDT) TSH 1.43 0.27 - 4.20 uIU/mL [facility] TO EPIC CONVERSION 12/28/2013 7:13 AM CDT 12/28/2013 7:13 AM CDT Narrative [facility] TO EPIC CONVERSION - 12/28/2013 7:50 AM CDT This lab was migrated from [facility] and may be missing annotations or result text, please check the Media tab for the most complete results. Y[facility]ica [facility] Final Result Performing Organization Address City/[facility]/ZIP Co de Phone Number [facility] TO EPIC CONVERSION * THYROID PANEL (12/28/2013 12:00 AM CDT) TSH 1.43 0.4 - 5.5 micro IU/ml [facility] TO EPIC CONVERSION 12/28/2013 12/28/2013 Generic Conversion Md [facility] Final R esult [facility] TO EPIC CONVERSION * LIPID PANEL (12/28/2013 12:00 AM CDT) TRIGLYCERIDES 170 0 - 150 mg/dl [facility] TO EPIC CONVERSION CHOLESTEROL 217 0 - 200 mg/dl [facility] TO EPIC CONVERSION HDL 56 40 - 59 mg/dl [facility] TO EPIC CONVERSION LDL CONVERSION 127 0 - 100 mg/dl [facility] TO EPIC CONVERSION 12/28/2013 12/28/2013 us Generic Conversion Md [facility] Final R esult [facility] TO EPIC CONVERSION * COMPREHENSIVE METABOLIC PANEL (12/28/2013 12:00 AM CDT) SODIUM S/P/B 143 135 - 146 meq/l [facility] TO EPIC CONVERSION POTASSIUM S/P/B 4.4 3.5 - 5.3 meq/l [facility] TO EPIC CONVERSION CHLORIDE S/P/B 109 95 - 108 meq/l [facility] TO EPIC CONVERSION CO2 27 17 - 31 meq/l [facility] TO EPIC CONVERSION GLUCOSE 89 70 - 125 mg/dl [facility] TO EPIC CONVERSION BUN 15 7 - 25 mg/dl [facility] TO EPIC CONVERSION CREATININE S/P/B 0.9 0.5 - 1.4 mg/dl [facility] TO EPIC CONVERSION CALCIUM S/P/B 9.1 8.5 - 10.3 mg/dl [facility] TO EPIC CONVERSION BILIRUBIN TOTAL S/P/B 0.3 0.0 - 1.3 mg/dl [facility] TO EPIC CONVERSION ALK PHOS 90 20 - 125 u/l [facility] TO EPIC CONVERSION AST 22 0 - 42 u/l [facility] TO EPIC CONVERSION ALT 22 0 - 48 u/l [facility] TO EPIC CONVERSION TOTAL PROTEIN S/P/B 6.9 6.0 - 8.5 g/dl [facility] TO EPIC CONVERSION ALBUMIN S/P/B 4.5 3.2 - 5.0 G/DL [facility] TO EPIC CONVERSION EGFR NON-AFR. AMER. 75 >60 ml/min/1.7 3 sq.m [facility] TO EPIC CONVERSION 12/28/2013 12/28/2013 Narrative [facility] TO EPIC CONVERSION - 02/13/2014 1:57 PM CDT Reviewed by JACI Feb 13 2014 ??1:57:24:000PM us Generic Conversion Md [facility] Final R esallegra [facility] TO EPIC CONVERSION * CBC,CONVERSION (12/28/2013 12:00 AM CDT) WBC 6.0 3.8 - 10.8 thous/mcl [facility] TO EPIC CONVERSION HGB 13.5 12.0 - 15.6 g/dl [facility] TO EPIC CONVERSION HCT 40.1 35.0 - 46.0 % [facility] TO EPIC CONVERSION PLATELET COUNT 227 130 - 400 thous/mcl [facility] TO EPIC CONVERSION 12/28/2013 12/28/2013 us Generic Conversion Md [facility] Final R cari [facility] TO EPIC CONVERSION documented in this encounter Visit Diagnoses Not on filedocumented in this encounter Care Teams Sharemilker Relationship Specialty Start Date End Date Donna-Farhana Melgar MD PCP - General 07/17/13 documented as of this encounter
--- OUTSIDE RECORDS SUMMARY | 2024-07-11 09:43 | XMS_ITS | Encounter Summary ---
Author Organization [facility] Address [address] [place] [address]. [place], [place] [address] [place] [address] Care Team Providers Care Event Lighting Specialist Name Role Phone Farhana Mcdaniel MD Primary Care Provider [phone]- [phone] Encounter Details Date Type Department Care Team (Late st Contact Info) Description 09/13/2013 Abstract [facility] [address] [place] [address] Chel John, [facility] [address] [place] [address] Social History Tobacco Use Types Packs/Day Years [...] on filedocumented in this encounter Care Teams Event Lighting Specialist Relationship Specialty Start Date End Date Farhana Mcdaniel MD PCP - General 07/17/13 documented as of this encounter
--- OUTSIDE RECORDS SUMMARY | 2024-07-11 09:43 | XMS_ITS | Encounter Summary ---
Author Organization [facility] Address [address] [place] [address]. [place], [place] [address] [place] [address] Care Team Providers Care Information Officer Name Role Phone Farhana Mcdaniel MD Primary Care Provider [phone] Farhana Mcdaniel MD Primary Care Provider [phone] Encounter Details Date Type Department Care Team (Late st Contact Info) Description 06/29/2013 Abstract [facility] Conversion , Generic Conversion, Social History Tobacco Use Types Packs/Day Years [...] on filedocumented in this encounter Care Teams Information Officer Relationship Specialty Start Date End Date Farhana Mcdaniel MD PCP - General 07/17/13 Farhana Mcdaniel MD PCP - General 02/20/13 07/16/13 documented as of this encounter
--- OUTSIDE RECORDS SUMMARY | 2024-07-11 09:43 | XMS_ITS | Encounter Summary ---
Author Organization [facility] Address [address] [place] [address]. [place], [place] [address] [place] [address] Care Team Providers Care Database Programmer Analyst Name Role Phone Farhana Mcdaniel MD Primary Care Provider [phone]- [phone] Encounter Details Date Type Department Care Team (Late st Contact Info) Description 02/08/2014 [facility] [address] [place] [address] , Blanca Kelly MD Social History Tobacco [...] on filedocumented in this encounter Care Teams Database Programmer Analyst Relationship Specialty Start Date End Date Farhana Mcdaniel MD PCP - General 07/17/13 documented as of this encounter
--- OUTSIDE RECORDS SUMMARY | 2024-07-11 09:43 | XMS_ITS | Encounter Summary ---
Author Organization [facility] Address [address] [place] [address]. [place], [place] [address] [place] [address] Care Team Providers Care Association Executive Name Role Phone Farhana Mcdaniel MD Primary Care Provider [phone] Farhana Mcdaniel MD Primary Care Provider [phone] Encounter Details Date Type Department Care Team (Late st Contact Info) Description 04/06/2013 Abstract [facility] AT [address] [address] , Blanca Kelly MD Social History Tobacco [...] on filedocumented in this encounter Care Teams Association Executive Relationship Specialty Start Date End Date Farhana Mcdaniel MD PCP - General 07/17/13 Farhana Mcdaniel MD PCP - General 02/20/13 07/16/13 documented as of this encounter
--- OUTSIDE RECORDS SUMMARY | 2024-07-11 09:43 | XMS_ITS | Encounter Summary ---
Author Organization [facility] Address [address] [place] [address]. [place], [place] [address] [place] [address] Care Team Providers Care Cage Cashier Name Role Phone Farhana Mcdaniel MD Primary Care Provider [phone]- [phone] Encounter Details Date Type Department Care Team (Late st Contact Info) Description 12/28/2013 Abstract [facility] [address] [place] [address] Yessica Thompson, [facility] [address] [place] [address] Social History Tobacco Use Types Packs/Day Years [...] on filedocumented in this encounter Care Teams Cage Cashier Relationship Specialty Start Date End Date Farhana Mcdaniel MD PCP - General 07/17/13 documented as of this encounter
--- OUTSIDE RECORDS SUMMARY | 2024-07-11 09:43 | XMS_ITS | Encounter Summary ---
Author Organization [facility] Address [address] [place] [address]. [place], [place] [address] [place] [address] Care Team Providers Care Ceramic Chemist Name Role Phone Farhana Mcdaniel MD Primary Care Provider [phone] Encounter Details Date Type Department Care Team (Late st Contact Info) Description 12/27/2013 Abstract [facility] Conversion Yessica Thompson, [address] [place], [place] [id number] Social History Tobacco Use Types Packs/Day Years Used Date Smoking Tobacco: Never Comments Unknown Sex and Gender Information Value Date Recorded Sex Assigned at Not on file Legal Sex Female 2:52 AM CDT Gender Identity Not on file Sexual Orientation Not on file documented as of this encounter Last Filed Vital Signs Vital Sign Reading Time Taken Comments Blood Pressure 136/84 12/27/2013 8:07 AM CDT Pulse 74 12/27/2013 8:07 AM CDT Temperature - - Respiratory Rate - - Oxygen Saturation - - Inhaled Oxygen Concentration - - Weight 81.8 kg (180 lb 5 oz) 12/27/2013 8:07 AM CDT Height 165.1 cm (5' 5 ) 12/27/2013 8:07 AM CDT Body Mass Index 30.01 12/27/2013 8:07 AM CDT documented in this encounter Plan of Treatment Not on file documented as of this encounter Visit Diagnoses Not on filedocumented in this encounter Care Teams Ceramic Chemist Relationship Specialty Start Date End Date Farhana Mcdaniel MD PCP - General 07/17/13 documented as of this encounter
--- OUTSIDE RECORDS SUMMARY | 2024-07-11 09:43 | XMS_ITS | Encounter Summary ---
Author Organization [facility] Address [address] [place] [address]. [place], [place] [address] [place] [address] Care Team Providers Care Cargo Vessel Stewardess Name Role Phone Farhana Mcdaniel MD Primary Care Provider [phone] Farhana Mcdaniel MD Primary Care Provider [phone] Encounter Details Date Type Department Care Team (Late st Contact Info) Description 03/27/2013 Abstract [facility] Conversion , Generic Conversion, Social [...] on filedocumented in this encounter Care Teams Cargo Vessel Stewardess Relationship Specialty Start Date End Date Farhana Mcdaniel MD PCP - General 07/17/13 Farhana Mcdaniel MD PCP - General 02/20/13 07/16/13 documented as of this encounter
--- OUTSIDE RECORDS SUMMARY | 2024-07-11 09:43 | XMS_ITS | Encounter Summary ---
Author Organization [facility] Address [address] [place] [address]. [place], [place] [address] [place] [address] Care Team Providers Care Physician Non Invasive Cardiologist Name Role Phone Farhana Mcdaniel MD Primary Care Provider [phone]- [phone] Encounter Details Date Type Department Care Team (Late st Contact Info) Description 02/08/2014 Abstract [facility] Conversion Md, Generic ConversionMD Social History [...] on filedocumented in this encounter Care Teams Physician Non Invasive Cardiologist Relationship Specialty Start Date End Date Farhana Mcdaniel MD PCP - General 07/17/13 documented as of this encounter
--- OUTSIDE RECORDS SUMMARY | 2024-07-11 09:43 | XMS_ITS | Encounter Summary ---
Author Organization [facility] Address [address] [place] [address]. [place], [place] [address] [place] [address] Care Team Providers Care Director Property Name Role Phone Farhana Mcdaniel MD Primary Care Provider [phone] Encounter Details Date Type Department Care Team (Late st Contact Info) Description 07/17/[address] [facility] [address] [place] [address] Monica De La Paz, BANQUET STEWARD [address] [facility] [address] [place] [address] Social History Tobacco Use Types Packs/Day Years Used Date Smoking Tobacco: Never Comments Unknown Sex and Gender Information Value Date Recorded Sex Assigned at Not on file Legal Sex Female 2:52 AM CDT Gender Identity Not on file Sexual Orientation Not on file documented as of this encounter Plan of Treatment Not on file documented as of this encounter Visit Diagnoses Diagnosis Chronic sinusitis Unspecified sinusitis (chronic) documented in this encounter Care Teams Director Property Relationship Specialty Start Date End Date Farhana Mcdaniel MD PCP - General 07/17/13 documented as of this encounter
--- OUTSIDE RECORDS SUMMARY | 2024-07-11 09:43 | XMS_ITS | Encounter Summary ---
Author Organization [facility] Address [address] [place] [address]. [place], [place] [address] [place] [address] Care Team Providers Care Executive Producer Name Role Phone Farhana Mcdaniel MD Primary Care Provider [phone]- [phone] Encounter Details Date Type Department Care Team (Late st Contact Info) Description 12/28/2013 Abstract [facility] Conversion Md, Generic ConversionMD Social [...] on filedocumented in this encounter Care Teams Executive Producer Relationship Specialty Start Date End Date Farhana Mcdaniel MD PCP - General 07/17/13 documented as of this encounter
--- OUTSIDE RECORDS SUMMARY | 2024-07-11 09:43 | XMS_ITS | Encounter Summary ---
Author Organization [facility] Address [address] [place] [address]. [place], [place] [address] [place] [address] Care Team Providers Care Store Standards Associate Name Role Phone Farhana Mcdaniel MD Primary Care Provider [phone]- [phone] Encounter Details Date Type Department Care Team (Late st Contact Info) Description 02/08/2014 Abstract [facility] AT [address] [address] , Blanca Kelly MD Social History Tobacco [...] on filedocumented in this encounter Care Teams Store Standards Associate Relationship Specialty Start Date End Date Farhana Mcdaniel MD PCP - General 07/17/13 documented as of this encounter
--- OUTSIDE RECORDS SUMMARY | 2024-07-11 09:43 | XMS_ITS | Encounter Summary ---
Author Organization [facility] Address [address] [place] [address]. [place], [place] [address] [place] [address] Care Team Providers Care Inside Barrel Lathe Operator Name Role Phone Farhana Mcdaniel MD Primary Care Provider [phone]- [phone] Encounter Details Date Type Department Care Team (Late st Contact Info) Description 09/29/2014 Abstract [facility] [address] [place] [address] Lisa Damian DO [address] [place] [address] Social History Tobacco Use Types Packs/Day Years [...] on filedocumented in this encounter Care Teams Inside Barrel Lathe Operator Relationship Specialty Start Date End Date Farhana Mcdaniel MD PCP - General 07/17/13 documented as of this encounter
--- OUTSIDE RECORDS SUMMARY | 2024-07-11 09:43 | XMS_ITS | Encounter Summary ---
Author Organization [facility] Address [address] [place] [address]. [place], [place] [address] [place] [address] Care Team Providers Care Mechanical Maintenance Engineer Name Role Phone Farhana Mcdaniel MD Primary Care Provider [phone]- [phone] Farhana Mcdaniel MD Primary Care Provider [phone] Farhana Mcdaniel MD Primary Care Provider [phone] , Blanca Kelly MD Primary Care Provider Unavailable Encounter Details Date Type Department Care Team (Late st Contact Info) Description 01/25/2013 Abstract [facility] Conversion Zhane Chamorro, [address] [place] [address] Social History Tobacco Use Types Packs/Day Years Used Date Smoking Tobacco: Never Assessed Comments Unknown Sex and Gender Information Value Date Recorded Sex Assigned at Not on file Legal Sex Female 2:52 AM CDT Gender Identity Not on file Sexual Orientation Not on file documented as of this encounter Last Filed Vital Signs Vital Sign Reading Time Taken Comments Blood Pressure 114/64 01/25/2013 2:22 PM CDT Pulse 64 01/25/2013 2:22 PM CDT Temperature - - Respiratory Rate - - Oxygen Saturation - - Inhaled Oxygen Concentration - - Weight 79.8 kg (176 lb) 01/25/2013 2:22 PM CDT Height - - Body Mass Index 29.29 06/24/2012 1:02 PM ASSISTANT PROFESSOR IN FAMILY STUDIES documented in this encounter Plan of Treatment Not on file documented as of this encounter Visit Diagnoses Not on filedocumented in this encounter Care Teams Mechanical Maintenance Engineer Relationship Specialty Start Date End Date Farhana Mcdaniel MD PCP - General 07/17/13 Farhana Mcdaniel MD PCP - General 02/20/13 07/16/13 Farhana Mcdaniel MD PCP - General 02/12/13 02/19/13 Blanca Lau MD PCP - General 11/13/12 documented as of this encounter
--- OUTSIDE RECORDS SUMMARY | 2024-07-11 09:43 | XMS_ITS | Encounter Summary ---
Author Organization [facility] Address [address] [place] [address]. [place], [place] [address] [place] [address] Care Team Providers Care Manager Scheduling Name Role Phone Farhana Mcdaniel MD Primary Care Provider [phone] Farhana Mcdaniel MD Primary Care Provider [phone] Encounter Details Date Type Department Care Team (Late st Contact Info) Description 04/06/2013 Abstract [facility] Conversion Md, Generic Conversion, Social History Tobacco Use Types [...] on filedocumented in this encounter Care Teams Manager Scheduling Relationship Specialty Start Date End Date Farhana Mcdaniel MD PCP - General 07/17/13 Farhana Mcdaniel MD PCP - General 02/20/13 07/16/13 documented as of this encounter
--- OUTSIDE RECORDS SUMMARY | 2024-07-11 09:43 | XMS_ITS | Encounter Summary ---
Author Organization [facility] Address [address] [place] [address]. [place], [place] [address] [place] [address] Care Team Providers Care Lunch Truck Operator Name Role Phone Farhana Mcdaniel MD Primary Care Provider +1- Farhana Mcdaniel MD Primary Care Provider +1-6 Farhana Mcdaniel MD Primary Care Provider +[phone] Encounter Details Date Type Department Care Team (Late st Contact Info) Description 02/12/2013 Abstract [facility] [address] [place], [place] [id number] Afsaneh Gonsalez MD [address] [facility] [address] [place], [place] [id number] Social History Tobacco Use Types Packs/Day Years [...] pharyngitis documented in this encounter Care Teams Lunch Truck Operator Relationship Specialty Start Date End Date Farhana Mcdaniel MD PCP - General 07/17/13 Farhana Mcdaniel MD PCP - General 02/20/13 07/16/13 Farhana Mcdaniel MD PCP - General 02/12/13 02/19/13 documented as of this encounter
--- OUTSIDE RECORDS SUMMARY | 2024-07-11 09:43 | XMS_ITS | Encounter Summary ---
Author Organization [facility] Address [address] [place] [address]. [place], [place] [address] [place] [address] Care Team Providers Care Organizational Development Director Name Role Phone Farhana Mcdaniel MD Primary Care Provider +1- [phone] Farhana Mcdaniel MD Primary Care Provider +[phone] Farhana Mcdaniel MD Primary Care Provider +[phone] Blanca Lau MD Primary Care Provider Unavailable Encounter Details Date Type Department Care Team (Late st Contact Info) Description 12/21/2012 Abstract [facility] [address] [place], [place] [id number] Farhana Mcdaniel MD [address] [place], [place] [id number] Social History Tobacco Use Types Packs/Day Years [...] of this encounter Visit Diagnoses Diagnosis Screening for malignant neoplasm of cervix Screening for malignant neoplasm of the cervix documented in this encounter Care Teams Organizational Development Director Relationship Specialty Start Date End Date Farhana Mcdaniel MD PCP - General 07/17/13 Farhana Mcdaniel MD PCP - General 02/20/13 07/16/13 Farhana Mcdaniel MD PCP - General 02/12/13 02/19/13 Blanca Lau MD PCP - General 11/13/12 documented as of this encounter
--- OUTSIDE RECORDS SUMMARY | 2024-07-11 09:43 | XMS_ITS | Encounter Summary ---
Author Organization [facility] Address [address] [place] [address]. [place], [place] [address] [place] [address] Care Team Providers Care Script Supervisor Name Role Phone Farhana Mcdaniel MD Primary Care Provider +1 [phone] Encounter Details Date Type Department Care Team (Late st Contact Info) Description 09/29/2014 Abstract [facility] Lisa Damian, [place] [facility] [place] [address] Social History Tobacco Use Types Packs/Day Years Used Date Smoking Tobacco: Never Comments Unknown Sex and Gender Information Value Date Recorded Sex Assigned at Not on file Legal Sex Female 2:52 AM CDT Gender Identity Not on file Sexual Orientation Not on file documented as of this encounter Last Filed Vital Signs Vital Sign Reading Time Taken Comments Blood Pressure 138/86 09/29/2014 10:58 AM CDT Pulse 108 09/29/2014 10:58 AM CDT Temperature - - Respiratory Rate - - Oxygen Saturation - - Inhaled Oxygen Concentration - - Weight 80 kg (176 lb 5 oz) 09/29/2014 10:58 AM C DT Height - - Body Mass Index 29.34 02/09/2014 8:50 AM CDT documented in this encounter Plan of Treatment Not on file documented as of this encounter Visit Diagnoses Not on filedocumented in this encounter Care Teams Script Supervisor Relationship Specialty Start Date End Date Farhana Mcdaniel MD PCP - General 07/17/13 documented as of this encounter
--- OUTSIDE RECORDS SUMMARY | 2024-07-11 09:43 | XMS_ITS | Encounter Summary ---
Author Organization [facility] Address [address] [place] [address]. [place], [place] [address] [place] [address] Care Team Providers Care Toe Puncher Name Role Phone Farhana Mcdaniel MD Primary Care Provider +1- [phone] Encounter Details Date Type Department Care Team (Late st Contact Info) Description 02/20/2015 Abstract [facility] Conversion Md, Generic ConversionMD Social History [...] on filedocumented in this encounter Care Teams Toe Puncher Relationship Specialty Start Date End Date Farhana Mcdaniel MD PCP - General 07/17/13 documented as of this encounter
--- OUTSIDE RECORDS SUMMARY | 2024-07-11 09:43 | XMS_ITS | Encounter Summary ---
Author Organization [facility] Address [address] [place] [address]. [place], [place] [address] [place] [address] Care Team Providers Care Mortgage Loan Officer Name Role Phone Farhana Mcdaniel MD Primary Care Provider +1- [phone] Farhana Mcdaniel MD Primary Care Provider +[phone] Farhana Mcdaniel MD Primary Care Provider +1-3 Blanca Lau MD Primary Care Provider Unavailable Encounter Details Date Type Department Care Team (Late st Contact Info) Description 01/26/2013 Abstract [facility] [address] [place] [address] Zhane Chamorro [facility] [address] [place] [address] Social History Tobacco Use Types Packs/Day Years [...] on filedocumented in this encounter Care Teams Mortgage Loan Officer Relationship Specialty Start Date End Date Farhana Mcdaniel MD PCP - General 07/17/13 Farhana Mcdaniel MD PCP - General 02/20/13 07/16/13 Farhana Mcdaniel MD PCP - General 02/12/13 02/19/13 Blanca Lau MD PCP - General 11/13/12 documented as of this encounter
--- OUTSIDE RECORDS SUMMARY | 2024-07-11 09:44 | XMS_ITS | Encounter Summary ---
Author Organization [facility] Address [address] [place] [address]. [place], [place] [address] [place] [address] Care Team Providers Care Director Of Physical Security Name Role Phone Farhana Mcdaniel MD Primary Care Provider [phone] Farhana Mcdaniel MD Primary Care Provider +1- Farhana Mcdaniel MD Primary Care Provider +1- Blanca Lau MD Primary Care Provider Unavailable Encounter Details Date Type Department Care Team (Late st Contact Info) Description 11/01/2012 Abstract [facility] Conversion Md Generic MD Letiica Social History Tobacco Use Types Packs/Day Years [...] on filedocumented in this encounter Care Teams Director Of Physical Security Relationship Specialty Start Date End Date Farhana Mcdaniel MD PCP - General 07/17/13 Farhana Mcdaniel MD PCP - General 02/20/13 07/16/13 Farhana Mcdaniel MD PCP - General 02/12/13 02/19/13 , Generic Conversion, PCP - General 11/13/12 documented as of this encounter
--- OUTSIDE RECORDS SUMMARY | 2024-07-11 09:44 | XMS_ITS | Encounter Summary ---
Author Organization [facility] Address [address] [place] [address]. [place], [place] [address] [place] [address] Care Team Providers Care Senior Business Objects Developer Name Role Phone Farhana Mcdaniel MD Primary Care Provider +[phone]- [phone] Farhana Mcdaniel MD Primary Care Provider +1-4 Farhana Mcdaniel MD Primary Care Provider +1-1 , Generic Leticia FISHER Primary Care Provider Unavailable Encounter Details Date Type Department Care Team (Late st Contact Info) Description 09/13/2012 Abstract [facility] Conversion Yessica Thompson, [place] [address] Social History Tobacco Use Types Packs/Day Years Used Date Smoking Tobacco: Never Assessed Comments Unknown Sex and Gender Information Value Date Recorded Sex Assigned at Not on file Legal Sex Female 2:52 AM CDT Gender Identity Not on file Sexual Orientation Not on file documented as of this encounter Last Filed Vital Signs Vital Sign Reading Time Taken Comments Blood Pressure 150/92 09/13/2012 3:13 PM CDT Pulse 84 09/13/2012 3:13 PM CDT Temperature - - Respiratory Rate - - Oxygen Saturation - - Inhaled Oxygen Concentration - - Weight 85.7 kg (189 lb) 09/13/2012 3:13 PM CDT Height - - Body Mass Index 31.45 06/24/2012 1:02 PM ACCOUNTS PAYABLE SUPERVISOR documented in this encounter Plan of Treatment Not on file documented as of this encounter Procedures Procedure Name Priority Date/Time Associated Diagnosis Comments URINE BACTERIA CULTURE Routine 09/13/2012 5:07 PM CDT documented in this encounter Results * CULTURE URINE (09/13/2012 5:07 PM CDT) [facility] T O EPIC CONVERSION 09/13/2012 5:07 PM CDT 09/13/2012 5:07 PM CDT Narrative [facility] TO EPIC CONVERSION - 09/13/2012 5:07 PM CDT This lab was migrated from [facility] and may be missing annotations or result text, please check the Media tab for the most complete results. us Yessica Thompson DIRECTOR OF CORPORATE REAL ESTATE MICROBIOLOGY - GENERAL ORDERABL ES Final Result [facility] TO EPIC CONVERSION documented in this encounter Visit Diagnoses Not on filedocumented in this encounter Care Teams Senior Business Objects Developer Relationship Specialty Start Date End Date Farhana Mcdaniel MD PCP - General 07/17/13 Farhana Mcdaniel MD PCP - General 02/20/13 07/16/13 Farhana Mcdaniel MD PCP - General 02/12/13 02/19/13 Blanca Fisher MD PCP - General 11/13/12 documented as of this encounter
--- OUTSIDE RECORDS SUMMARY | 2024-07-11 09:44 | XMS_ITS | Encounter Summary ---
Author Organization [facility] Address [address] [place] [address]. [place], [place] [address] [place] [address] Care Team Providers Care Quilt Stuffer Name Role Phone Farhana Mcdaniel MD Primary Care Provider +[phone] Farhana Mcdaniel MD Primary Care Provider +1- Farhana Mcdaniel MD Primary Care Provider +1- Blanca Lau MD Primary Care Provider Unavailable Encounter Details Date Type Department Care Team (Late st Contact Info) Description 11/13/2012 Abstract [facility] [place] [address] Social History Tobacco Use Types Packs/Day Years Used Date Smoking Tobacco: Never Assessed Comments Unknown Sex and Gender Information Value Date Recorded Sex Assigned at Not on file Legal Sex Female 2:52 AM CDT Gender Identity Not on file Sexual Orientation Not on file documented as of this encounter Plan of Treatment Not on file documented as of this encounter Visit Diagnoses Diagnosis Atrial fibrillation (CMS/HCC HHS/HCC) Atrial fibrillation documented in this encounter Care Teams Quilt Stuffer Relationship Specialty Start Date End Date Farhana Mcdaniel MD PCP - General 07/17/13 Farhana Mcdaniel MD PCP - General 02/20/13 07/16/13 Farhana Mcdaniel MD PCP - General 02/12/13 02/19/13 Blanca Lau MD PCP - General 11/13/12 documented as of this encounter
--- OUTSIDE RECORDS SUMMARY | 2024-07-11 09:44 | XMS_ITS | Encounter Summary ---
Author Organization [facility] Address [address] [place] [address]. [place], [place] [address] [place] [address] Care Team Providers Care Vice President Of Business Development Name Role Phone Farhana Mcdaniel MD Primary Care Provider [phone] Farhana Mcdaniel MD Primary Care Provider +1-0 Farhana Mcdaniel MD Primary Care Provider +1-6 Blanca Lau MD Primary Care Provider Unavailable Encounter Details Date Type Department Care Team (Late st Contact Info) Description 09/13/2012 Abstract [facility] [address] [place] [address] Yessica Thompson, [facility] [address] [place] [address] Social History Tobacco Use Types Packs/Day Years [...] on filedocumented in this encounter Care Teams Vice President Of Business Development Relationship Specialty Start Date End Date Farhana Mcdaniel MD PCP - General 07/17/13 Farhana Mcdaniel MD PCP - General 02/20/13 07/16/13 Farhana Mcdaniel MD PCP - General 02/12/13 02/19/13 Blanca Lau MD PCP - General 11/13/12 documented as of this encounter
--- OUTSIDE RECORDS SUMMARY | 2024-07-11 09:44 | XMS_ITS | Encounter Summary ---
Author Organization [facility] Address [address] [place] [address]. [place], [place] [address] [place] [address] Care Team Providers Care Caustic Liquor Maker Name Role Phone Farhana Mcdaniel MD Primary Care Provider +1-4 Farhana Mcdaniel MD Primary Care Provider +1- Farhana Mcdaniel MD Primary Care Provider +- Blanca Lau MD Primary Care Provider Unavailable Encounter Details Date Type Department Care Team (Late st Contact Info) Description 03/27/[address] [facility] Conversion Md Generic ConversionMD Social History Tobacco Use Types [...] Procedure Name Priority Date/Time Associated Diagnosis Comments ECG 12-LEAD Routine 03/27/2012 8:08 PM CDT documented in this encounter Results * ECG 12 lead (03/27/2012 8:08 PM CDT) 03/27/2012 8:08 PM CDT Narrative [facility] - 03/27/2012 8:51 PM CDT ? [facility] ? [address] [place], [place] ??[address] ? Test Date: ?2012-03-27 Pat Name: ? KENZIE CORDOVA ?Department: ?? 1 ? Room: ? [id number] Gender: ? F ?Photographer Helper: ?? PAT : ?[id number] ? Requested By: MAIA FLOWERS Order Number: [id number] ?Reading MD: ?? Maia Flowers ? Measurements Intervals ?Calvin ? Rate: ? 76 ? P: ?70 UT: ? 154 ?QRS: ?58 QRSD: ? 82 ? T: ?34 QT: ? 380 ? QTc: ?427 ? Interpretive Statements Normal sinus rhythm Normal ECG Procedure Note , Blanca Kelly MD - 02/22/2019 [place] [address] [place] [address] Test Date: 2012-03-27 Pat Name: KENZIE CORDOVA Department: 1 Room: [facility] Gender: F Photographer Helper: DICK : 1975 Requested By: MAIA FLOWERS Order Number: [id number] Reading MD: Maia Flowers Measurements Intervals Calvin Rate: 76 P: 70 UT: 154 QRS: 58 QRSD: 82 T: 34 QT: 380 QTc: 427 Interpretive Statements Normal sinus rhythm Normal ECG us Blanca Kelly Md, MD ECG ORDERABLES Final R esult [facility] documented in this encounter Visit Diagnoses Not on filedocumented in this encounter Care Teams Caustic Liquor Maker Relationship Specialty Start Date End Date Farhana Mcdaniel MD PCP - General 07/17/13 Farhana Mcdaniel MD PCP - General 02/20/13 07/16/13 Farhana Mcdaniel MD PCP - General 02/12/13 02/19/13 , Generic Conversion, PCP - General 11/13/12 documented as of this encounter
--- OUTSIDE RECORDS SUMMARY | 2024-07-11 09:44 | XMS_ITS | Encounter Summary ---
Author Organization [facility] Address [address] [place] [address]. [place], [place] [address] [place] [address] Care Team Providers Care Binder Selector Name Role Phone Farhana Mcdaniel MD Primary Care Provider [phone] Farhana Mcdaniel MD Primary Care Provider +1- Farhana Mcdaniel MD Primary Care Provider +1- Blanca Lau MD Primary Care Provider Unavailable Encounter Details Date Type Department Care Team (Late st Contact Info) Description 07/18/2012 Abstract [facility] Conversion Md Generic MD Leticia Social History Tobacco Use Types Packs/Day Years [...] on filedocumented in this encounter Care Teams Binder Selector Relationship Specialty Start Date End Date Farhana Mcdaniel MD PCP - General 07/17/13 Farhana Mcdaniel MD PCP - General 02/20/13 07/16/13 Farhana Mcdaniel MD PCP - General 02/12/13 02/19/13 , Generic Conversion, PCP - General 11/13/12 documented as of this encounter
--- OUTSIDE RECORDS SUMMARY | 2024-07-11 09:44 | XMS_ITS | Encounter Summary ---
Author Organization [facility] Address [address] [place] [address]. [place], [place] [address] [place] [address] Care Team Providers Care Dividing Machine Operator Helper Name Role Phone Farhana Mcdaniel MD Primary Care Provider +1-5 Farhana Mcdaniel MD Primary Care Provider +1- Farhana Mcdaniel MD Primary Care Provider +1- Blanca Lau MD Primary Care Provider Unavailable Encounter Details Date Type Department Care Team (Late st Contact Info) Description 03/27/2012 Abstract [facility] [address] [place] [address] Reed Hall MD [address] [place] [address] Social History Tobacco Use Types Packs/Day Years [...] on filedocumented in this encounter Care Teams Dividing Machine Operator Helper Relationship Specialty Start Date End Date Farhana Mcdaniel MD PCP - General 07/17/13 Farhana Mcdaniel MD PCP - General 02/20/13 07/16/13 Farhana Mcdaniel MD PCP - General 02/12/13 02/19/13 Blanca Lau MD PCP - General 11/13/12 documented as of this encounter
--- OUTSIDE RECORDS SUMMARY | 2024-07-11 09:44 | XMS_ITS | Encounter Summary ---
Author Organization [facility] Address [address] [place] [address]. [place], [place] [address] [place] [address] Care Team Providers Care Court Magistrate Name Role Phone Farhana Mcdaniel MD Primary Care Provider +[phone] Farhana Mcdaniel MD Primary Care Provider +1- Farhana Mcdaniel MD Primary Care Provider +1- Blanca Lau MD Primary Care Provider Unavailable Encounter Details Date Type Department Care Team (Late st Contact Info) Description 07/08/2012 Abstract [facility] Conversion Md Generic MD Leticia Social History [...] on filedocumented in this encounter Care Teams Court Magistrate Relationship Specialty Start Date End Date Farhana Mcdaniel MD PCP - General 07/17/13 Farhana Mcdaniel MD PCP - General 02/20/13 07/16/13 Farhana Mcdaniel MD PCP - General 02/12/13 02/19/13 , Generic Conversion, PCP - General 11/13/12 documented as of this encounter
--- OUTSIDE RECORDS SUMMARY | 2024-07-11 09:44 | XMS_ITS | Encounter Summary ---
Author Organization [facility] Address [address] [place] [address]. [place], [place] [address] [place] [address] Care Team Providers Care Rn Wound Name Role Phone Farhana Mcdaniel MD Primary Care Provider [phone] Farhana Mcdaniel MD Primary Care Provider +1- Farhana Mcdaniel MD Primary Care Provider +1- Blanca Lau MD Primary Care Provider Unavailable Encounter Details Date Type Department Care Team (Late st Contact Info) Description 07/07/2012 Abstract [facility] Services [address] [place] [address] Yoel Hamilton MD [address] [place] [address] Social History Tobacco Use Types Packs/Day Years [...] on filedocumented in this encounter Care Teams Rn Wound Relationship Specialty Start Date End Date Farhana Mcdaniel MD PCP - General 07/17/13 Farhana Mcdaniel MD PCP - General 02/20/13 07/16/13 Farhana Mcdaniel MD PCP - General 02/12/13 02/19/13 Blanca Lau MD PCP - General 11/13/12 documented as of this encounter
--- OUTSIDE RECORDS SUMMARY | 2024-07-11 09:44 | XMS_ITS | Encounter Summary ---
Author Organization [facility] Address [address] [place] [address]. [place], [place] [address] [place] [address] Care Team Providers Care House Rn Name Role Phone Farhana Mcdaniel MD Primary Care Provider +[phone] Farhana Mcdaniel MD Primary Care Provider +1- Farhana Mcdaniel MD Primary Care Provider +1- Blanca Lau MD Primary Care Provider Unavailable Encounter Details Date Type Department Care Team (Late st Contact Info) Description 07/28/2012 Abstract [facility] Conversion Md Generic MD Leticia [...] on filedocumented in this encounter Care Teams House Rn Relationship Specialty Start Date End Date Farhana Mcdaniel MD PCP - General 07/17/13 Farhana Mcdaniel MD PCP - General 02/20/13 07/16/13 Farhana Mcdaniel MD PCP - General 02/12/13 02/19/13 , Generic Conversion, PCP - General 11/13/12 documented as of this encounter
--- OUTSIDE RECORDS SUMMARY | 2024-07-11 09:44 | XMS_ITS | Encounter Summary ---
Author Organization [facility] Address [address] [place] [address]. [place], [place] [address] [place] [address] Care Team Providers Care Design Manager Name Role Phone Farhana Mcdaniel MD Primary Care Provider +1- [phone] Farhana Mcdaniel MD Primary Care Provider +[phone] Farhana Mcdaniel MD Primary Care Provider +[phone] , Generic Leticia FISHER Primary Care Provider Unavailable Encounter Details Date Type Department Care Team (Late st Contact Info) Description 03/25/2012 Abstract [facility] Conversion Chel John, [address] [place] [address] Social History Tobacco Use Types Packs/Day Years Used Date Smoking Tobacco: Never Assessed Comments Unknown Sex and Gender Information Value Date Recorded Sex Assigned at Not on file Legal Sex Female 2:52 AM CDT Gender Identity Not on file Sexual Orientation Not on file documented as of this encounter Last Filed Vital Signs Vital Sign Reading Time Taken Comments Blood Pressure 120/70 03/25/2012 10:55 AM CDT Pulse 72 03/25/2012 10:55 AM CDT Temperature - - Respiratory Rate - - Oxygen Saturation - - Inhaled Oxygen Concentration - - Weight 79.4 kg (175 lb) 03/25/2012 10:55 AM CDT Height - - Body Mass Index 29.12 12/09/2011 10:06 AM CDT documented in this encounter Plan of Treatment Not on file documented as of this encounter Visit Diagnoses Not on filedocumented in this encounter Care Teams Design Manager Relationship Specialty Start Date End Date Farhana Mcdaniel MD PCP - General 07/17/13 Farhnaa Mcdaniel MD PCP - General 02/20/13 07/16/13 Farhana Mcdaniel MD PCP - General 02/12/13 02/19/13 Blanca Fisher MD PCP - General 11/13/12 documented as of this encounter
--- OUTSIDE RECORDS SUMMARY | 2024-07-11 09:44 | XMS_ITS | Encounter Summary ---
Author Organization [facility] Address [address] [place] [address]. [place], [place] [address] [place] [address] Care Team Providers Care Quality Assurance Technician Name Role Phone Farhana Mcdaniel MD Primary Care Provider [phone] Farhana Mcdaniel MD Primary Care Provider +1- Farhana Mcdaniel MD Primary Care Provider +1-6 Blanca Lau MD Primary Care Provider Unavailable Encounter Details Date Type Department Care Team (Late st Contact Info) Description 07/16/2012 Abstract [facility] [address] [place] [address] Yessica Thompson, [facility] [address] [place] [address] Social History Tobacco Use Types Packs/Day Years [...] on filedocumented in this encounter Care Teams Quality Assurance Technician Relationship Specialty Start Date End Date Farhana Mcdaniel MD PCP - General 07/17/13 Farhana Mcdaniel MD PCP - General 02/20/13 07/16/13 Farhana Mcdaniel MD PCP - General 02/12/13 02/19/13 Blanca Lau MD PCP - General 11/13/12 documented as of this encounter
--- OUTSIDE RECORDS SUMMARY | 2024-07-11 09:44 | XMS_ITS | Encounter Summary ---
Author Organization [facility] Address [address] [place] [address]. [place], [place] [address] [place] [address] Care Team Providers Care Fats And Oils Loader Name Role Phone Farhana Mcdaniel MD Primary Care Provider +1- Farhana Mcdaniel MD Primary Care Provider +1- Farhana Mcdaniel MD Primary Care Provider +1- Blanca Lau MD Primary Care Provider Unavailable Encounter Details Date Type Department Care Team (Late st Contact Info) Description 06/24/2012 Abstract [facility] Conversion Md Generic ConversionMD Social History Tobacco [...] Sign Reading Time Taken Comments Blood Pressure 110/60 06/24/2012 1:02 PM CERTIFIED PROSTHETIST Pulse 80 06/24/2012 1:02 PM CERTIFIED PROSTHETIST Temperature - - Respiratory Rate - - Oxygen Saturation - - Inhaled Oxygen Concentration - - Weight 83.9 kg (185 lb) 06/24/2012 1:02 PM CERTIFIED PROSTHETIST Height 165.1 cm (5' 5 ) 06/24/2012 1:02 PM CERTIFIED PROSTHETIST Body Mass Index 30.79 06/24/2012 1:02 PM CERTIFIED PROSTHETIST documented in this encounter Plan of Treatment Not on file documented as of this encounter Visit Diagnoses Not on filedocumented in this encounter Care Teams Fats And Oils Loader Relationship Specialty Start Date End Date Farhana Mcdaniel MD PCP - General 07/17/13 Farhana Mcdaniel MD PCP - General 02/20/13 07/16/13 Farhana Mcdaniel MD PCP - General 02/12/13 02/19/13 Blanca Lau MD PCP - General 11/13/12 documented as of this encounter
--- OUTSIDE RECORDS SUMMARY | 2024-07-11 09:44 | XMS_ITS | Encounter Summary ---
Author Organization [facility] Address [address] [place] [address]. [place], [place] [address] [place] [address] Care Team Providers Care City Marshal Name Role Phone Farhana Mcdaniel MD Primary Care Provider [phone]- [phone] Farhana Mcdaniel MD Primary Care Provider [phone] Farhana Mcdaniel MD Primary Care Provider [phone] , Generic Conversion Primary Care Provider Unavailable Encounter Details Date Type Department Care Team (Late st Contact Info) Description 07/16/2012 Abstract [facility] Conversion Yessica [place], [place] [address] Social History Tobacco Use Types Packs/Day Years [...] Associated Diagnosis Comments TSH 3RD GENERATION Routine 07/16/2012 10 :51 AM GRADER TENDER documented in this encounter Results * TSH 3RD GENERATION (07/16/2012 10:51 AM GRADER TENDER) TSH 1.88 0.27 - 4.20 uIU/mL [facility] CONVERSION 07/16/2012 10:5 1 AM GRADER TENDER 07/16/2012 10:51 AM GRADER TENDER Narrative [facility] CONVERSION - 07/16/2012 11:57 AM GRADER TENDER This lab was migrated from [facility] and may be missing annotations or result text, please check the Media tab for the most complete results. Yessica [place] [facility] Final Result [facility] CONVERSION documented in this encounter Visit Diagnoses Not on filedocumented in this encounter Care Teams City Marshal Relationship Specialty Start Date End Date Farhana Mcdaniel MD PCP - General 07/17/13 Farhana Mcdaniel MD PCP - General 02/20/13 07/16/13 Farhana Mcdaniel MD PCP - General 02/12/13 02/19/13 , Generic Conversion, PCP - General 11/13/12 documented as of this encounter
--- OUTSIDE RECORDS SUMMARY | 2024-07-11 09:44 | XMS_ITS | Encounter Summary ---
Author Organization [facility] Address [address] [place] [address]. [place], [place] [address] [place] [address] Care Team Providers Care Tilt Tray Driver Name Role Phone Farhana Mcdaniel MD Primary Care Provider +1-2 Farhana Mcdaniel MD Primary Care Provider +1- Farhana Mcdaniel MD Primary Care Provider +1- Blanca Lau MD Primary Care Provider Unavailable Encounter Details Date Type Department Care Team (Late st Contact Info) Description 07/15/2012 Abstract [facility] Conversion Md Generic MD Leticia Social [...] on filedocumented in this encounter Care Teams Tilt Tray Driver Relationship Specialty Start Date End Date Farhana Mcdaniel MD PCP - General 07/17/13 Farhana Mcdaniel MD PCP - General 02/20/13 07/16/13 Farhana Mcdaniel MD PCP - General 02/12/13 02/19/13 , Generic Conversion, PCP - General 11/13/12 documented as of this encounter
--- OUTSIDE RECORDS SUMMARY | 2024-07-11 09:44 | XMS_ITS | Encounter Summary ---
Author Organization [facility] Address [address] [place] [address]. [place], [place] [address] [place] [address] Care Team Providers Care Materials Planner Name Role Phone Farhana Mcdaniel MD Primary Care Provider +[phone]- [phone] Farhana Mcdaniel MD Primary Care Provider [phone] Farhana Mcdaniel MD Primary Care Provider [phone] , Generic Leticia FISHER Primary Care Provider Unavailable Encounter Details Date Type Department Care Team (Late st Contact Info) Description 07/12/2012 Abstract [facility] Conversion Yessica [place], [place] [address] Social History Tobacco Use Types Packs/Day Years Used Date Smoking Tobacco: Never Assessed Comments Unknown Sex and Gender Information Value Date Recorded Sex Assigned at Not on file Legal Sex Female 2:52 AM CDT Gender Identity Not on file Sexual Orientation Not on file documented as of this encounter Last Filed Vital Signs Vital Sign Reading Time Taken Comments Blood Pressure 120/88 07/12/2012 11:08 AM PUBLIC RELATIONS PLAYER Pulse 72 07/12/2012 11:08 AM PUBLIC RELATIONS PLAYER Temperature - - Respiratory Rate - - Oxygen Saturation - - Inhaled Oxygen Concentration - - Weight 85.8 kg (189 lb 2 oz) 07/12/2012 11:08 AM PUBLIC RELATIONS PLAYER Height - - Body Mass Index 31.47 06/24/2012 1:02 PM PUBLIC RELATIONS PLAYER documented in this encounter Plan of Treatment Not on file documented as of this encounter Visit Diagnoses Not on filedocumented in this encounter Care Teams Materials Planner Relationship Specialty Start Date End Date Farhana Mcdaniel MD PCP - General 07/17/13 Farhana Mcdaniel MD PCP - General 02/20/13 07/16/13 Farhana Mcdaniel MD PCP - General 02/12/13 02/19/13 Blanca Fisher MD PCP - General 11/13/12 documented as of this encounter
--- OUTSIDE RECORDS SUMMARY | 2024-07-11 09:44 | XMS_ITS | Encounter Summary ---
Author Organization [facility] Address [address] [place] [address]. [place], [place] [address] [place] [address] Care Team Providers Care Floor Service Worker Spring Name Role Phone Farhana Mcdaniel MD Primary Care Provider [phone] Farhana Mcdaniel MD Primary Care Provider +1- Farhana Mcdaniel MD Primary Care Provider +1- Blanca Lau MD Primary Care Provider Unavailable Encounter Details Date Type Department Care Team (Late st Contact Info) Description 07/07/2012 Abstract [facility] Conversion Md Generic MD Leticia Social [...] on filedocumented in this encounter Care Teams Floor Service Worker Spring Relationship Specialty Start Date End Date Farhana Mcdaniel MD PCP - General 07/17/13 Farhana Mcdaniel MD PCP - General 02/20/13 07/16/13 Farhana Mcdaniel MD PCP - General 02/12/13 02/19/13 , Generic Conversion, PCP - General 11/13/12 documented as of this encounter
--- OUTSIDE RECORDS SUMMARY | 2024-07-11 09:44 | XMS_ITS | Encounter Summary ---
Author Organization [facility] Address [address] [place] [address]. [place], [place] [address] [place] [address] Care Team Providers Care Carpenter/Labor Name Role Phone Farhana Mcdaniel MD Primary Care Provider [phone] Farhana Mcdaniel MD Primary Care Provider +1- Farhana Mcdaniel MD Primary Care Provider +1-1 Blanca Lau MD Primary Care Provider Unavailable Encounter Details Date Type Department Care Team (Late st Contact Info) Description 03/30/2012 Abstract [facility] [address] [place] [phone] Blanca Lau MD Social History Tobacco Use Types Packs/Day [...] on filedocumented in this encounter Care Teams Carpenter/Labor Relationship Specialty Start Date End Date Farhana Mcdaniel MD PCP - General 07/17/13 Farhana Mcdaniel MD PCP - General 02/20/13 07/16/13 Farhana Mcdaniel MD PCP - General 02/12/13 02/19/13 Blanca Lau MD PCP - General 11/13/12 documented as of this encounter
--- OUTSIDE RECORDS SUMMARY | 2024-07-11 09:44 | XMS_ITS | Encounter Summary ---
Author Organization [facility] Address [address] [place] [address]. [place], [place] [address] [place] [address] Care Team Providers Care Filter Plant Supervisor Name Role Phone Farhana Mcdaniel MD Primary Care Provider +1- [phone] Farhana Mcdaniel MD Primary Care Provider +1-3 Farhana Mcdaniel MD Primary Care Provider +[phone] Blanca Lau MD Primary Care Provider Unavailable Encounter Details Date Type Department Care Team (Late st Contact Info) Description 03/04/2012 Abstract [facility] [address] [place] [address] Srikanth Pleitez MD Social History Tobacco Use Types Packs/Day [...] on filedocumented in this encounter Care Teams Filter Plant Supervisor Relationship Specialty Start Date End Date Farhana Mcdaniel MD PCP - General 07/17/13 Farhana Mcdaniel MD PCP - General 02/20/13 07/16/13 Farhana Mcdaniel MD PCP - General 02/12/13 02/19/13 Blanca Lau MD PCP - General 11/13/12 documented as of this encounter
--- OUTSIDE RECORDS SUMMARY | 2024-07-11 09:44 | XMS_ITS | Encounter Summary ---
Author Organization [facility] Address [address] [place] [address]. [place], [place] [address] [place] [address] Care Team Providers Care Etymology Teacher Name Role Phone Farhana Mcdaniel MD Primary Care Provider [phone] Farhana Mcdaniel MD Primary Care Provider +- Farhana Mcdaniel MD Primary Care Provider +- Blanca Lau MD Primary Care Provider Unavailable Encounter Details Date Type Department Care Team (Late st Contact Info) Description 07/15/2012 Abstract [facility] [address] [place] [address] Yessica [place], [place]ING[place] [employer]ER [address] [place] [address] Social History Tobacco Use Types Packs/Day Years [...] on filedocumented in this encounter Care Teams Etymology Teacher Relationship Specialty Start Date End Date Farhana Mcdaniel MD PCP - General 07/17/13 Farhana Mcdaniel MD PCP - General 02/20/13 07/16/13 Farhana Mcdaniel MD PCP - General 02/12/13 02/19/13 Blanca Lau MD PCP - General 11/13/12 documented as of this encounter
--- OUTSIDE RECORDS SUMMARY | 2024-07-11 09:44 | XMS_ITS | Encounter Summary ---
Author Organization [facility] Address [address] [place] [address]. [place], [place] [address] [place] [address] Care Team Providers Care Supervisor Chassis Assembly Name Role Phone Farhana Mcdaniel MD Primary Care Provider [phone] Farhana Mcdaniel MD Primary Care Provider +1- Farhana Mcdaniel MD Primary Care Provider +1- Blanca Lau MD Primary Care Provider Unavailable Encounter Details Date Type Department Care Team (Late st Contact Info) Description 07/14/2012 Abstract [facility] Conversion Md Generic MD Leticia Social History [...] on filedocumented in this encounter Care Teams Supervisor Chassis Assembly Relationship Specialty Start Date End Date Farhana Mcdaniel MD PCP - General 07/17/13 Farhana Mcdaniel MD PCP - General 02/20/13 07/16/13 Farhana Mcdaniel MD PCP - General 02/12/13 02/19/13 , Generic Conversion, PCP - General 11/13/12 documented as of this encounter
--- OUTSIDE RECORDS SUMMARY | 2024-07-11 09:44 | XMS_ITS | Encounter Summary ---
Author Organization [facility] Address [address] [place] [address]. [place] [address] [place] [address] Care Team Providers Care Laborer Petroleum Refinery Name Role Phone Farhana Mcdaniel MD Primary Care Provider [phone]- [phone] Farhana Mcdaniel MD Primary Care Provider +1- [phone] Farhana Mcdaniel MD Primary Care Provider +1- [phone] Blanca Lau MD Primary Care Provider Unavailable Encounter Details Date Type Department Care Team (Late st Contact Info) Description 03/27/2012 Abstract [facility] [address] [place] [address] Maia Reyna MD [address] [facility] [address] [place] [phone] Social History Tobacco Use Types Packs/Day Years [...] fibrillation documented in this encounter Care Teams Laborer Petroleum Refinery Relationship Specialty Start Date End Date Farhana Mcdaniel MD PCP - General 07/17/13 Farhana Mcdaniel MD PCP - General 02/20/13 07/16/13 Farhana Mcdaniel MD PCP - General 02/12/13 02/19/13 Blanca Lau MD PCP - General 11/13/12 documented as of this encounter
--- OUTSIDE RECORDS SUMMARY | 2024-07-11 09:44 | XMS_ITS | Encounter Summary ---
Author Organization [facility] Address [address] [place] [address]. [place], [place] [address] [place] [address] Care Team Providers Care Departmental Secretary Name Role Phone Farhana Mcdaniel MD Primary Care Provider [phone] Farhana Mcdaniel MD Primary Care Provider +1- Farhana Mcdaniel MD Primary Care Provider +1-4 Blanca Lau MD Primary Care Provider Unavailable Encounter Details Date Type Department Care Team (Late st Contact Info) Description 03/30/2012 [facility] [address] [place] [phone] Blanca Lau MD Social History Tobacco Use [...] on filedocumented in this encounter Care Teams Departmental Secretary Relationship Specialty Start Date End Date Farhana Mcdaniel MD PCP - General 07/17/13 Farhana Mcdaniel MD PCP - General 02/20/13 07/16/13 Farhana Mcdaniel MD PCP - General 02/12/13 02/19/13 Blanca Lau MD PCP - General 11/13/12 documented as of this encounter
--- OUTSIDE RECORDS SUMMARY | 2024-07-11 09:44 | XMS_ITS | Encounter Summary ---
Author Organization [facility] Address [address] [place] [address]. [place], [place] [address] [place] [address] Care Team Providers Care Irrigation Service Technician Name Role Phone Farhana Mcdaniel MD Primary Care Provider +[phone] Farhana Mcdaniel MD Primary Care Provider +1-0 Farhana Mcdaniel MD Primary Care Provider +1-3 Blanca Lau MD Primary Care Provider Unavailable Encounter Details Date Type Department Care Team (Late st Contact Info) Description 03/04/2012 [facility] [address] [place] [phone] Blanca Lau MD Social History Tobacco Use [...] on filedocumented in this encounter Care Teams Irrigation Service Technician Relationship Specialty Start Date End Date Farhana Mcdaniel MD PCP - General 07/17/13 Farhana Mcdaniel MD PCP - General 02/20/13 07/16/13 Farhana Mcdaniel MD PCP - General 02/12/13 02/19/13 Blanca Lau MD PCP - General 11/13/12 documented as of this encounter
--- OUTSIDE RECORDS SUMMARY | 2024-07-11 09:44 | XMS_ITS | Encounter Summary ---
Author Organization [facility] Address [address] [place] [address]. [place], [place] [address] [place] [address] Care Team Providers Care Production Trainer Name Role Phone Farhana Mcdaniel MD Primary Care Provider +1-0 Farhana Mcdaniel MD Primary Care Provider +1-4 Farhana Mcdaniel MD Primary Care Provider +1-4 Blanca Lau MD Primary Care Provider Unavailable Encounter Details Date Type Department Care Team (Late st Contact Info) Description 03/28/2012 Abstract [facility] AT [address] [phone] Blanca Lau MD Social History Tobacco Use [...] Date/Time Associated Diagnosis Comments ECG 12-LEAD Routine 03/28/2012 7:04 AM CDT documented in this encounter Results * ECG 12 lead (03/28/2012 7:04 AM CDT) 03/28/2012 7:04 AM CDT Narrative [facility] - 03/28/2012 7:47 AM CDT ? [facility] ? [address] [place], [place] ??[address] ? Test Date: ?2012-03-28 Pat Name: ? KENZIE CORDOVA ?Department: ?? 1 ? Room: ? [id number] Gender: ? F ?Director Of Field Coordination: ?? SHEI : ?1975 ? Requested By: FABRICIO FLOWERS Order Number: [id number] ?Reading MD: ?? Yoel Molina ? Measurements Intervals ?Dille ? Rate: ? 66 ? P: ?53 OH: ? 154 ?QRS: ?60 QRSD: ? 78 ? T: ?28 QT: ? 406 ? QTc: ?425 ? Interpretive Statements Normal sinus rhythm Within normal limits Procedure Note Blanca Lau MD - 02/22/2019 [facility] [address] [place] [address] Test Date: 2012-03-28 Pat Name: KENZIE CORDOVA Department: 1 Room: [facility] Gender: F Director Of Field Coordination: AMOS : 1975 Requested By: FABRICIO FLOWERS Order Number: [id number] Reading MD: Yoel Molina Measurements Intervals Dille Rate: 66 P: 53 OH: 154 QRS: 60 QRSD: 78 T: 28 QT: 406 QTc: 425 Interpretive Statements Normal sinus rhythm Within normal limits us Generic Leticia Lau MD ECG ORDERABLES Final R esult Performing Organization Address City/State/[facility] Co de Phone Number [facility] documented in this encounter Visit Diagnoses Not on filedocumented in this encounter Care Teams Production Trainer Relationship Specialty Start Date End Date Farhana Mcdaniel MD PCP - General 07/17/13 Farhana Mcdaniel MD PCP - General 02/20/13 07/16/13 Farhana Mcdaniel MD PCP - General 02/12/13 02/19/13 Blanca Lau MD PCP - General 11/13/12 documented as of this encounter
--- OUTSIDE RECORDS SUMMARY | 2024-07-11 09:45 | XMS_ITS | Encounter Summary ---
Author Organization [facility] Address [address] [place] [address]. [place] [address] [place] [address] Care Team Providers Care Ad Operations Associate Name Role Phone Farhana Mcdaniel MD Primary Care Provider +1- [phone] Farhana Mcdaniel MD Primary Care Provider +[phone] Farhana Mcdaniel MD Primary Care Provider +[phone] Blanca Lau MD Primary Care Provider Unavailable Encounter Details Date Type Department Care Team (Late st Contact Info) Description 01/12/2008 Abstract [facility] [address] [place], [place] [phone] Farhana Mcdaniel MD [address] [place] [address] Social History Tobacco Use Types [...] on filedocumented in this encounter Care Teams Ad Operations Associate Relationship Specialty Start Date End Date Farhana Mcdaniel MD PCP - General 07/17/13 Farhana Mcdaniel MD PCP - General 02/20/13 07/16/13 Farhana Mcdaniel MD PCP - General 02/12/13 02/19/13 Blanca Lau MD PCP - General 11/13/12 documented as of this encounter
--- OUTSIDE RECORDS SUMMARY | 2024-07-11 09:45 | XMS_ITS | Encounter Summary ---
Author Organization [facility] Address [address] [place] [address]. [place], [place] [address] [place] [address] Care Team Providers Care Consulting Application Engineer Name Role Phone Farhana Mcdaniel MD Primary Care Provider [phone] Farhana Mcdaniel MD Primary Care Provider +1-7 Farhana Mcdaniel MD Primary Care Provider +1-8 Blanca Lau MD Primary Care Provider Unavailable Encounter Details Date Type Department Care Team (Late st Contact Info) Description 08/22/2008 Abstract [facility] [address] [place] [address] Farhana Mcdaniel MD [address] [place] [address] Social History Tobacco Use Types Packs/Day Years [...] on filedocumented in this encounter Care Teams Consulting Application Engineer Relationship Specialty Start Date End Date Farhana Mcdaniel MD PCP - General 07/17/13 Farhana Mcdaniel MD PCP - General 02/20/13 07/16/13 Farhana Mcdaniel MD PCP - General 02/12/13 02/19/13 Blanca Lau MD PCP - General 11/13/12 documented as of this encounter
--- OUTSIDE RECORDS SUMMARY | 2024-07-11 09:45 | XMS_ITS | Encounter Summary ---
Author Organization [facility] Address [address] [place] [address]. [place], [place] [address] [place] [address] Care Team Providers Care Dip Brazier Name Role Phone Farhana Mcdaniel MD Primary Care Provider +[phone]- [phone] Farhana Mcdaniel MD Primary Care Provider +[phone] Farhana Mcdaniel MD Primary Care Provider +1- Blanca Lau MD Primary Care Provider Unavailable Encounter Details Date Type Department Care Team (Late st Contact Info) Description 12/12/2010 Abstract [facility] [address] [place] [address] Erlinda Lee MD Social History Tobacco Use Types Packs/Day [...] on filedocumented in this encounter Care Teams Dip Brazier Relationship Specialty Start Date End Date Farhana Mcdaniel MD PCP - General 07/17/13 Farhana Mcdaniel MD PCP - General 02/20/13 07/16/13 Donna-Farhana Melgar MD PCP - General 02/12/13 02/19/13 Blanca Lau MD PCP - General 11/13/12 documented as of this encounter
--- OUTSIDE RECORDS SUMMARY | 2024-07-11 09:45 | XMS_ITS | Encounter Summary ---
Author Organization [facility] Address [address] [place] [address]. [place], [place] [address] [place] [address] Care Team Providers Care Open Cut Examiner Name Role Phone Farhana Mcdaniel MD Primary Care Provider +1- Farhana Mcdaniel MD Primary Care Provider +1- Farhana Mcdaniel MD Primary Care Provider +- Blanca Lau MD Primary Care Provider Unavailable Encounter Details Date Type Department Care Team (Late st Contact Info) Description 12/09/2011 Abstract [facility] Conversion Md Generic ConversionMD Social [...] Sign Reading Time Taken Comments Blood Pressure 114/70 12/09/2011 10:06 AM CDT Pulse 64 12/09/2011 10:06 AM CDT Temperature - - Respiratory Rate - - Oxygen Saturation - - Inhaled Oxygen Concentration - - Weight 80.7 kg (178 lb) 12/09/2011 10:06 AM CDT Height 165.1 cm (5' 5 ) 12/09/2011 10:06 AM CDT Body Mass Index 29.62 12/09/2011 10:06 AM CDT documented in this encounter Plan of Treatment Not on file documented as of this encounter Visit Diagnoses Not on filedocumented in this encounter Care Teams Open Cut Examiner Relationship Specialty Start Date End Date Farhana Mcdaniel MD PCP - General 07/17/13 Farhana Mcdaniel MD PCP - General 02/20/13 07/16/13 Farhana Mcdaniel MD PCP - General 02/12/13 02/19/13 Blanca Lau MD PCP - General 11/13/12 documented as of this encounter
--- OUTSIDE RECORDS SUMMARY | 2024-07-11 09:45 | XMS_ITS | Encounter Summary ---
Author Organization [facility] Address [address] [place] [address]. [place], [place] [address] [place] [address] Care Team Providers Care Donor Services Technician Name Role Phone Farhana Mcdaniel MD Primary Care Provider +[phone] Farhana Mcdaniel MD Primary Care Provider +1- Farhana Mcdaniel MD Primary Care Provider +1- Blanca Lau MD Primary Care Provider Unavailable Encounter Details Date Type Department Care Team (Late st Contact Info) Description 09/02/2011 Abstract [facility] Conversion Md Generic MD Leticia Social [...] on filedocumented in this encounter Care Teams Donor Services Technician Relationship Specialty Start Date End Date Farhana Mcdaniel MD PCP - General 07/17/13 Farhana Mcdaniel MD PCP - General 02/20/13 07/16/13 Farhana Mcdaniel MD PCP - General 02/12/13 02/19/13 , Generic Conversion, PCP - General 11/13/12 documented as of this encounter
--- OUTSIDE RECORDS SUMMARY | 2024-07-11 09:45 | XMS_ITS | Encounter Summary ---
Author Organization [facility] Address [address] [place] [address]. [place], [place] [address] [place] [address] Care Team Providers Care Water Plant Pump Operator Name Role Phone Farhana Mcdaniel MD Primary Care Provider [phone] Farhana Mcdaniel MD Primary Care Provider +[phone] Farhana Mcdaniel MD Primary Care Provider +-3 Blanca Lau MD Primary Care Provider Unavailable Encounter Details Date Type Department Care Team (Late st Contact Info) Description 06/05/2011 Abstract [facility] Conversion Md Generic ConversionMD Social [...] Sign Reading Time Taken Comments Blood Pressure 124/70 06/05/2011 10:09 AM LIQUID YEAST SUPERVISOR Pulse 76 06/05/2011 10:09 AM LIQUID YEAST SUPERVISOR Temperature - - Respiratory Rate - - Oxygen Saturation - - Inhaled Oxygen Concentration - - Weight 81.6 kg (180 lb) 06/05/2011 10:09 AM LIQUID YEAST SUPERVISOR Height - - Body Mass Index - - documented in this encounter Plan of Treatment Not on file documented as of this encounter Visit Diagnoses Not on filedocumented in this encounter Care Teams Water Plant Pump Operator Relationship Specialty Start Date End Date Farhana Mcdaniel MD PCP - General 07/17/13 Farhana Mcdaniel MD PCP - General 02/20/13 07/16/13 Farhana Mcdaniel MD PCP - General 02/12/13 02/19/13 Blanca Lau MD PCP - General 11/13/12 documented as of this encounter
--- OUTSIDE RECORDS SUMMARY | 2024-07-11 09:45 | XMS_ITS | Encounter Summary ---
Author Organization [facility] Address [address] [place] [address]. [place] [address] [place] [address] Care Team Providers Care Costume Maker Name Role Phone Farhana Mcdaniel MD Primary Care Provider [phone]- [phone] Farhana Mcdaniel MD Primary Care Provider [phone] Farhana Mcdaniel MD Primary Care Provider +[phone] Blanca Lau MD Primary Care Provider Unavailable Encounter Details Date Type Department Care Team (Late st Contact Info) Description 09/12/2008 Abstract [facility] [address] [place] [id number] Farhana Mcdaniel MD [address] [place] [address] Social History Tobacco Use Types [...] on filedocumented in this encounter Care Teams Costume Maker Relationship Specialty Start Date End Date Farhana Mcdaniel MD PCP - General 07/17/13 Farhana Mcdaniel MD PCP - General 02/20/13 07/16/13 Farhana Mcdaniel MD PCP - General 02/12/13 02/19/13 Blanca Lau MD PCP - General 11/13/12 documented as of this encounter
--- OUTSIDE RECORDS SUMMARY | 2024-07-11 09:45 | XMS_ITS | Encounter Summary ---
Author Organization [facility] Address [address] [place] [address]. [place], [place] [address] [place] [address] Care Team Providers Care Cancer Genetics Assistant Name Role Phone Farhana Mcdaniel MD Primary Care Provider [phone]- [phone] Farhana Mcdaniel MD Primary Care Provider +1- Farhana Mcdaniel MD Primary Care Provider +1- Blanca Lau MD Primary Care Provider Unavailable Encounter Details Date Type Department Care Team (Late st Contact Info) Description 06/30/2008 Abstract [facility] [address] [place] [address] Radha Isabel MD [address] [place] [address] Social History Tobacco Use Types Packs/Day Years [...] on filedocumented in this encounter Care Teams Cancer Genetics Assistant Relationship Specialty Start Date End Date Farhana Mcdaniel MD PCP - General 07/17/13 Farhana Mcdaniel MD PCP - General 02/20/13 07/16/13 Farhana Mcadniel MD PCP - General 02/12/13 02/19/13 Blanca Lau MD PCP - General 11/13/12 documented as of this encounter
--- OUTSIDE RECORDS SUMMARY | 2024-07-11 09:45 | XMS_ITS | Encounter Summary ---
Author Organization [facility] Address [address] [place] [address]. [place], [place] [address] [place] [address] Care Team Providers Care Spinning And Winding Supervisor Name Role Phone Farhana Mcdaniel MD Primary Care Provider +[phone]- [phone] Farhana Mcdaniel MD Primary Care Provider +[phone]- [phone] Farhana Mcdaniel MD Primary Care Provider +1- Blanca Lau MD Primary Care Provider Unavailable Encounter Details Date Type Department Care Team (Late st Contact Info) Description 06/27/2009 Abstract [facility] [address] [place] [address] Farhana Mcdaniel MD [address] [place] [address] Social History Tobacco Use Types Packs/Day Years [...] on filedocumented in this encounter Care Teams Spinning And Winding Supervisor Relationship Specialty Start Date End Date Farhana Mcdaniel MD PCP - General 07/17/13 Farhana Mcdaniel MD PCP - General 02/20/13 07/16/13 Farhana Mcdaniel MD PCP - General 02/12/13 02/19/13 Blanca Lau MD PCP - General 11/13/12 documented as of this encounter
--- OUTSIDE RECORDS SUMMARY | 2024-07-11 09:45 | XMS_ITS | Encounter Summary ---
Author Organization [facility] Address [address] [place] [address]. [place] [address] [place] [address] Care Team Providers Care Tester Armature Or Fields Name Role Phone Farhana Mcdaniel MD Primary Care Provider [phone] Farhana Mcdaniel MD Primary Care Provider +1-3 Farhana Mcdaniel MD Primary Care Provider +1-4 Blanca Lau MD Primary Care Provider Unavailable Encounter Details Date Type Department Care Team (Late st Contact Info) Description 03/04/2012 Abstract [facility] [address] [place] [phone] Blanca Lau MD Social History Tobacco Use [...] Procedure Name Priority Date/Time Associated Diagnosis Comments EXTERNAL EJECTION FRACTION Routine 03/04/2012 12:00 AM CDT documented in this encounter Results * EXTERNAL EJECTION FRACTION (03/04/2012 12:00 AM CDT) EJECTION FRACTION [facility] Comment:Normal LV size and f unction. EF around 60%. Normal RV size and function. Valvular structures appear normal with trileaflet aortic valve. Mild TR. Trace pulmonary insufficiency. Anatomical Region Laterality Modality Other 03/04/2012 03/04/2012 Narrative 03/04/2012 12:00 AM CDT transthoracic echo, us Generic Leticia Lau MD OTHER Final R esult documented in this encounter Visit Diagnoses Not on filedocumented in this encounter Care Teams Tester Armature Or Fields Relationship Specialty Start Date End Date Farhana Mcdaniel MD PCP - General 07/17/13 Farhana Mcdaniel MD PCP - General 02/20/13 07/16/13 Farhana Mcdaniel MD PCP - General 02/12/13 02/19/13 Blanca Lau MD PCP - General 11/13/12 documented as of this encounter
--- OUTSIDE RECORDS SUMMARY | 2024-07-11 09:45 | XMS_ITS | Encounter Summary ---
Author Organization [facility] Address [address] [place] [address]. [place], [place] [address] [place] [address] Care Team Providers Care Computer Patternmaker Name Role Phone Farhana Mcdaniel MD Primary Care Provider +1-2 Farhana Mcdaniel MD Primary Care Provider +1- Farhana Mcdaniel MD Primary Care Provider +1- Blanca Lau MD Primary Care Provider Unavailable Encounter Details Date Type Department Care Team (Late st Contact Info) Description 09/04/2011 Abstract [facility] Conversion Md Generic MD Leticia [...] on filedocumented in this encounter Care Teams Computer Patternmaker Relationship Specialty Start Date End Date Farhana Mcdaniel MD PCP - General 07/17/13 Farhana Mcdaniel MD PCP - General 02/20/13 07/16/13 Farhana Mcdaniel MD PCP - General 02/12/13 02/19/13 , Generic Conversion, PCP - General 11/13/12 documented as of this encounter
--- OUTSIDE RECORDS SUMMARY | 2024-07-11 09:45 | XMS_ITS | Encounter Summary ---
Author Organization [facility] Address [address] [place] [address]. [place], [place] [address] [place] [address] Care Team Providers Care Pot Lining Supervisor Name Role Phone Farhana Mcdaniel MD Primary Care Provider [phone] Farhana Mcdaniel MD Primary Care Provider +1- Farhana Mcdaniel MD Primary Care Provider +1- Blanca Lau MD Primary Care Provider Unavailable Encounter Details Date Type Department Care Team (Late st Contact Info) Description 02/23/2008 Abstract [facility] [address] [place] [address] Erlinda Lee MD Social History Tobacco Use [...] on filedocumented in this encounter Care Teams Pot Lining Supervisor Relationship Specialty Start Date End Date Farhana Mcdaniel MD PCP - General 07/17/13 Farhana Mcdaniel MD PCP - General 02/20/13 07/16/13 Farhana Mcdaniel MD PCP - General 02/12/13 02/19/13 Blanca Lau MD PCP - General 11/13/12 documented as of this encounter
--- OUTSIDE RECORDS SUMMARY | 2024-07-11 09:45 | XMS_ITS | Encounter Summary ---
Author Organization [facility] Address [address] [place] [address]. [place] [address] [place] [address] Care Team Providers Care Digital Measurement Advisor Name Role Phone Farhana Mcdaniel MD Primary Care Provider +1- [phone] Farhana Mcdaniel MD Primary Care Provider +[phone] Farhana Mcdaniel MD Primary Care Provider [phone] Blanca Lau MD Primary Care Provider Unavailable Encounter Details Date Type Department Care Team (Late st Contact Info) Description 01/11/2008 Abstract [facility] [address] [place] [id number] Farhana Mcdaniel MD [address] [place] [address] Social History Tobacco Use Types [...] filedocumented in this encounter Care Teams Digital Measurement Advisor Relationship Specialty Start Date End Date Farhana Mcdaniel MD PCP - General 07/17/13 Farhana Mcdaniel MD PCP - General 02/20/13 07/16/13 Farhana Mcdaniel MD PCP - General 02/12/13 02/19/13 Blanca Lau MD PCP - General 11/13/12 documented as of this encounter
--- OUTSIDE RECORDS SUMMARY | 2024-07-11 09:45 | XMS_ITS | Encounter Summary ---
Author Organization [facility] Address [address] [place] [address]. [place], [place] [address] [place] [address] Care Team Providers Care Account General Manager Name Role Phone Farhana Mcdaniel MD Primary Care Provider +1- [phone] Farhana Mcdaniel MD Primary Care Provider [phone] Farhana Mcdaniel MD Primary Care Provider [phone] , Generic Leticia FISHER Primary Care Provider Unavailable Encounter Details Date Type Department Care Team (Late st Contact Info) Description 02/10/2012 Abstract [facility] Conversion Yessica Thompson, [place] [address] Social History Tobacco Use Types Packs/Day Years Used Date Smoking Tobacco: Never Assessed Comments Unknown Sex and Gender Information Value Date Recorded Sex Assigned at Not on file Legal Sex Female 2:52 AM CDT Gender Identity Not on file Sexual Orientation Not on file documented as of this encounter Last Filed Vital Signs Vital Sign Reading Time Taken Comments Blood Pressure 118/82 02/10/2012 8:27 AM CDT Pulse 76 02/10/2012 8:27 AM CDT Temperature - - Respiratory Rate - - Oxygen Saturation - - Inhaled Oxygen Concentration - - Weight 80.9 kg (178 lb 4 oz) 02/10/2012 8:27 AM CDT Height - - Body Mass Index 29.66 12/09/2011 10:06 AM CDT documented in this encounter Plan of Treatment Not on file documented as of this encounter Visit Diagnoses Not on filedocumented in this encounter Care Teams Account General Manager Relationship Specialty Start Date End Date Farhana Mcdaniel MD PCP - General 07/17/13 Farhana Mcdaniel MD PCP - General 02/20/13 07/16/13 Farhana Mcdaniel MD PCP - General 02/12/13 02/19/13 Blanca Fisher MD PCP - General 11/13/12 documented as of this encounter
--- OUTSIDE RECORDS SUMMARY | 2024-07-11 09:45 | XMS_ITS | Encounter Summary ---
Author Organization [facility] Address [address] [place] [address]. [place], [place] [address] [place] [address] Care Team Providers Care Broach Setter Name Role Phone Farhana Mcdaniel MD Primary Care Provider +1- [phone] Farhana Mcdaniel MD Primary Care Provider [phone] Farhana Mcdaniel MD Primary Care Provider [phone] Blanca Lau MD Primary Care Provider Unavailable Encounter Details Date Type Department Care Team (Late st Contact Info) Description 11/12/2007 Abstract [facility] Emergency Services [address] [place] [address] Blanca Lau MD Social History Tobacco Use [...] on filedocumented in this encounter Care Teams Broach Setter Relationship Specialty Start Date End Date Farhana Mcdaniel MD PCP - General 07/17/13 Farhana Mcdaniel MD PCP - General 02/20/13 07/16/13 Farhana Mcdaniel MD PCP - General 02/12/13 02/19/13 Blanca Lau MD PCP - General 11/13/12 documented as of this encounter
--- OUTSIDE RECORDS SUMMARY | 2024-07-11 09:45 | XMS_ITS | Encounter Summary ---
Author Organization [facility] Address [address] [place] [address]. [place], [place] [address] [place] [address] Care Team Providers Care Supervisor Line Department Name Role Phone Farhana Mcdaniel MD Primary Care Provider [phone] Farhana Mcdaniel MD Primary Care Provider +1- Farhana Mcdaniel MD Primary Care Provider +1- Blanca Lau MD Primary Care Provider Unavailable Encounter Details Date Type Department Care Team (Late st Contact Info) Description 08/18/2011 Abstract [facility] Conversion Md Generic [...] filedocumented in this encounter Care Teams Supervisor Line Department Relationship Specialty Start Date End Date Farhana Mcdaniel MD PCP - General 07/17/13 Farhana Mcdaniel MD PCP - General 02/20/13 07/16/13 Farhana Mcdaniel MD PCP - General 02/12/13 02/19/13 , Generic Conversion, PCP - General 11/13/12 documented as of this encounter
--- OUTSIDE RECORDS SUMMARY | 2024-07-11 09:45 | XMS_ITS | Encounter Summary ---
Author Organization [facility] Address [address] [place] [address]. [place] [address] [place] [address] Care Team Providers Care Fruit Loader Machine Operator Name Role Phone Farhana Mcdaniel MD Primary Care Provider +1- [phone] Farhana Mcdaniel MD Primary Care Provider +[phone]- [phone] Farhana Mcdaniel MD Primary Care Provider [phone] Blanca Lau MD Primary Care Provider Unavailable Encounter Details Date Type Department Care Team (Late st Contact Info) Description 02/07/2008 Abstract [facility] [address] [place] [id number] Farhana Mcdaniel MD [address] [place] [address] Social History Tobacco Use Types [...] on filedocumented in this encounter Care Teams Fruit Loader Machine Operator Relationship Specialty Start Date End Date Farhana Mcdaniel MD PCP - General 07/17/13 Farhana Mcdaniel MD PCP - General 02/20/13 07/16/13 Farhana Mcdaniel MD PCP - General 02/12/13 02/19/13 Blanca Lau MD PCP - General 11/13/12 documented as of this encounter
--- OUTSIDE RECORDS SUMMARY | 2024-07-11 09:45 | XMS_ITS | Encounter Summary ---
Author Organization [facility] Address [address] [place] [address]. [place], [place] [address] [place] [address] Care Team Providers Care Sales Attendant Building Materials Name Role Phone Farhana Mcdaniel MD Primary Care Provider [phone] Farhana Mcdaniel MD Primary Care Provider +1- Farhana Mcdaniel MD Primary Care Provider +1- Blanca Lau MD Primary Care Provider Unavailable Encounter Details Date Type Department Care Team (Late st Contact Info) Description 04/19/2008 Abstract [facility] [address] [place] [address] Erlinda Lee MD Social History Tobacco Use [...] on filedocumented in this encounter Care Teams Sales Attendant Building Materials Relationship Specialty Start Date End Date Farhana Mcdaniel MD PCP - General 07/17/13 Farhana Mcdaniel MD PCP - General 02/20/13 07/16/13 Farhana Mcdaniel MD PCP - General 02/12/13 02/19/13 Blanca Lau MD PCP - General 11/13/12 documented as of this encounter
--- OUTSIDE RECORDS SUMMARY | 2024-07-11 09:45 | XMS_ITS | Encounter Summary ---
Author Organization [facility] Address [address] [place] [address]. [place], [place] [address] [place] [address] Care Team Providers Care Hand Brush Filler Name Role Phone Farhana Mcdaniel MD Primary Care Provider [phone] Farhana Mcdaniel MD Primary Care Provider +1- Farhana Mcdaniel MD Primary Care Provider +1- Blanca Lau MD Primary Care Provider Unavailable Encounter Details Date Type Department Care Team (Late st Contact Info) Description 07/05/2008 Abstract [facility] [address] [place], [place] [id number] Radha Isabel MD [address] [place] [address] Social History Tobacco Use Types Packs/Day Years [...] on filedocumented in this encounter Care Teams Hand Brush Filler Relationship Specialty Start Date End Date Farhana Mcdaniel MD PCP - General 07/17/13 Farhana Mcdaniel MD PCP - General 02/20/13 07/16/13 Farhana Mcdaniel MD PCP - General 02/12/13 02/19/13 Blanca Lau MD PCP - General 11/13/12 documented as of this encounter
--- OUTSIDE RECORDS SUMMARY | 2024-07-11 09:45 | XMS_ITS | Encounter Summary ---
Author Organization [facility] Address [address] [place] [address]. [place], [place] [address] [place] [address] Care Team Providers Care Patient Ombudsperson Name Role Phone Farhana Mcdaniel MD Primary Care Provider +[phone]- [phone] Farhana Mcdaniel MD Primary Care Provider +[phone] Farhana Mcdaniel MD Primary Care Provider +[phone] Blanca Lau MD Primary Care Provider Unavailable Encounter Details Date Type Department Care Team (Late st Contact Info) Description 06/04/2010 Abstract [facility] [address] [place], [place] [id number] Farhana Mcdaniel MD [address] [place], [place] [address] Social History Tobacco Use Types Packs/Day Years Used Date Smoking Tobacco: Never Assessed Comments Unknown Sex and Gender Information Value Date Recorded Sex Assigned at Not on file Legal Sex Female 2:52 AM CDT Gender Identity Not on file Sexual Orientation Not on file documented as of this encounter Plan of Treatment Not on file documented as of this encounter Visit Diagnoses Diagnosis 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
--- OUTSIDE RECORDS SUMMARY | 2024-07-11 09:45 | XMS_ITS | Encounter Summary ---
Author Organization [facility] Address [address] [place] [address]. [place], [place] [address] [place] [address] Care Team Providers Care Carpet Mechanic Name Role Phone Farhana Mcdaniel MD Primary Care Provider +[phone] Farhana Mcdaniel MD Primary Care Provider +1- Farhana Mcdaniel MD Primary Care Provider +1- Blanca Lau MD Primary Care Provider Unavailable Encounter Details Date Type Department Care Team (Late st Contact Info) Description 02/20/2012 Abstract [facility] Emergency Services [address] [place] [address] Yoel Hamilton MD [address] [place] [address] Social History Tobacco Use Types Packs/Day Years [...] on filedocumented in this encounter Care Teams Carpet Mechanic Relationship Specialty Start Date End Date Farhana Mcdaniel MD PCP - General 07/17/13 Farhana Mcdaniel MD PCP - General 02/20/13 07/16/13 Farhana Mcdaniel MD PCP - General 02/12/13 02/19/13 Blanca Lau MD PCP - General 11/13/12 documented as of this encounter
--- OUTSIDE RECORDS SUMMARY | 2024-07-11 09:45 | XMS_ITS | Encounter Summary ---
Author Organization [facility] [place] Address [address] [place] [address]. [place], [place] [address] [place] [address] Care Team Providers Care Interactive Marketing Strategist Name Role Phone Farhana Mcdaniel MD Primary Care Provider +[phone]- [phone] Farhana Mcdaniel MD Primary Care Provider +[phone] Farhana Mcdaniel MD Primary Care Provider +[phone] Blanca Lau MD Primary Care Provider Unavailable Encounter Details Date Type Department Care Team (Late st Contact Info) Description 02/24/2011 Abstract [facility] [address] [place], [place] [id number] Farhana Mcdaniel MD [address] [place], [place] [id number] Social History Tobacco Use Types Packs/Day Years [...] cervix documented in this encounter Care Teams Interactive Marketing Strategist Relationship Specialty Start Date End Date Farhana Mcdaniel MD PCP - General 07/17/13 Farhana Mcdaniel MD PCP - General 02/20/13 07/16/13 Farhana Mcdaniel MD PCP - General 02/12/13 02/19/13 Blanca Lau MD PCP - General 11/13/12 documented as of this encounter
--- OUTSIDE RECORDS SUMMARY | 2024-07-11 09:45 | XMS_ITS | Encounter Summary ---
Author Organization [facility] Address [address] [place] [address]. [place], [place] [address] [place] [address] Care Team Providers Care Bun Panner Name Role Phone Farhana Mcdaniel MD Primary Care Provider [phone] Farhana Mcdaniel MD Primary Care Provider +1- Farhana Mcdaniel MD Primary Care Provider +1- Blanca Lau MD Primary Care Provider Unavailable Encounter Details Date Type Department Care Team (Late st Contact Info) Description 10/17/2008 Abstract [facility] [address] [place] [address] Farhana Mcdaniel MD [address] [place] [address] Social History Tobacco Use Types Packs/Day Years [...] on filedocumented in this encounter Care Teams Bun Panner Relationship Specialty Start Date End Date Farhana Mcdaniel MD PCP - General 07/17/13 Farhana Mcdaniel MD PCP - General 02/20/13 07/16/13 Farhana Mcdaniel MD PCP - General 02/12/13 02/19/13 Blanca Lau MD PCP - General 11/13/12 documented as of this encounter
--- OUTSIDE RECORDS SUMMARY | 2024-07-11 09:45 | XMS_ITS | Encounter Summary ---
Author Organization [facility] Address [address] [place] [address]. [place], [place] [address] [place] [address] Care Team Providers Care Diagnostic Sales Specialist Name Role Phone Farhana Mcdaniel MD Primary Care Provider +1-3 Farhana Mcdaniel MD Primary Care Provider +1- Farhana Mcdaniel MD Primary Care Provider +1- Blanca Lau MD Primary Care Provider Unavailable Encounter Details Date Type Department Care Team (Late st Contact Info) Description 04/17/2011 Abstract [facility] Conversion Md Generic MD [...] on filedocumented in this encounter Care Teams Diagnostic Sales Specialist Relationship Specialty Start Date End Date Farhana Mcdaniel MD PCP - General 07/17/13 Farhana Mcdaniel MD PCP - General 02/20/13 07/16/13 Farhana Mcdaniel MD PCP - General 02/12/13 02/19/13 , Generic Conversion, PCP - General 11/13/12 documented as of this encounter
--- OUTSIDE RECORDS SUMMARY | 2024-07-11 09:45 | XMS_ITS | Encounter Summary ---
Author Organization [facility] Address [address] [place] [address]. [place], [place] [address] [place] [address] Care Team Providers Care Vascular Specialists Name Role Phone Farhana Mcdaniel MD Primary Care Provider +[phone]- [phone] Farhana Mcdaniel MD Primary Care Provider +[phone] Farhana Mcdaniel MD Primary Care Provider +1-1 Blanca Lau MD Primary Care Provider Unavailable Encounter Details Date Type Department Care Team (Late st Contact Info) Description 06/05/2011 Abstract [facility] [address] [place] [address] Yessica Thompson, RIVERBO[employer] CAPTAIN [address] [place] [address] Social History Tobacco Use Types Packs/Day Years [...] on filedocumented in this encounter Care Teams Vascular Specialists Relationship Specialty Start Date End Date Farhana Mcdaniel MD PCP - General 07/17/13 Farhana Mcdaniel MD PCP - General 02/20/13 07/16/13 Farhana Mcdaniel MD PCP - General 02/12/13 02/19/13 Blanca Lau MD PCP - General 11/13/12 documented as of this encounter
--- OUTSIDE RECORDS SUMMARY | 2024-07-11 09:45 | XMS_ITS | Encounter Summary ---
Author Organization [facility] Address [address] [place] [address]. [place] [address] [place] [address] Care Team Providers Care Animal Rides Manager Name Role Phone Farhana Mcdaniel MD Primary Care Provider +1- [phone] Farhana Mcdaniel MD Primary Care Provider +1- [phone] Farhana Mcdaniel MD Primary Care Provider +[phone]- [phone] Blanca Lau MD Primary Care Provider Unavailable Encounter Details Date Type Department Care Team (Late st Contact Info) Description 01/30/2008 Abstract [facility] Imaging [address] [place], [place] [id number] Farhana Mcdaniel MD [address] [place] [address] Social History Tobacco Use Types [...] on filedocumented in this encounter Care Teams Animal Rides Manager Relationship Specialty Start Date End Date Farhana Mcdaniel MD PCP - General 07/17/13 Farhana Mcdaniel MD PCP - General 02/20/13 07/16/13 Farhana Mcdaniel MD PCP - General 02/12/13 02/19/13 Blanca Lau MD PCP - General 11/13/12 documented as of this encounter
--- OUTSIDE RECORDS SUMMARY | 2024-07-11 09:45 | XMS_ITS | Encounter Summary ---
Author Organization [facility] Address [address] [place] [address]. [place], [place] [address] [place] [address] Care Team Providers Care Supervisor Paint Name Role Phone Farhana Mcdaniel MD Primary Care Provider +1- [phone] Farhana Mcdaniel MD Primary Care Provider +1- Farhana Mcdaniel MD Primary Care Provider +1- Blanca Lau MD Primary Care Provider Unavailable Encounter Details Date Type Department Care Team (Late st Contact Info) Description 11/14/2008 Abstract [facility] [address] [place] [address] Farhana Mcdaniel MD [address] [place] [address] Social History Tobacco Use Types Packs/Day Years [...] filedocumented in this encounter Care Teams Supervisor Paint Relationship Specialty Start Date End Date Farhana Mcdaniel MD PCP - General 07/17/13 Farhana Mcdaniel MD PCP - General 02/20/13 07/16/13 Farhana Mcdaniel MD PCP - General 02/12/13 02/19/13 Blanca Lau MD PCP - General 11/13/12 documented as of this encounter
--- OUTSIDE RECORDS SUMMARY | 2024-07-11 09:45 | XMS_ITS | Encounter Summary ---
Author Organization [facility] Address [address] [place] [address]. [place], [place] [address] [place] [address] Care Team Providers Care Certified Social Workers In Health Care Name Role Phone Farhana Mcdaniel MD Primary Care Provider +1-9 Farhana Mcdaniel MD Primary Care Provider +1- Farhana Mcdaniel MD Primary Care Provider +1- Blanca Lau MD Primary Care Provider Unavailable Encounter Details Date Type Department Care Team (Late st Contact Info) Description 08/16/2008 Abstract [facility] Diagnostic Imaging [address] [place], [place] [id number] Radha Isabel MD [address] [place] [address] Social History Tobacco Use Types Packs/Day Years [...] on filedocumented in this encounter Care Teams Certified Social Workers In Health Care Relationship Specialty Start Date End Date Farhana Mcdaniel MD PCP - General 07/17/13 Farhana Mcdaniel MD PCP - General 02/20/13 07/16/13 Farhana Mcdaniel MD PCP - General 02/12/13 02/19/13 Blanca Lau MD PCP - General 11/13/12 documented as of this encounter
--- OUTSIDE RECORDS SUMMARY | 2024-07-11 09:45 | XMS_ITS | Encounter Summary ---
Author Organization [facility] Address [address] [place] [address]. [place] [address] [place] [address] Care Team Providers Care Auditor/Quality Name Role Phone Farhana Mcdaniel MD Primary Care Provider +1- [phone] Farhana Mcdaniel MD Primary Care Provider +1- [phone] Farhana Mcdaniel MD Primary Care Provider [phone] Blanca Lau MD Primary Care Provider Unavailable Encounter Details Date Type Department Care Team (Late st Contact Info) Description 05/31/2008 Abstract [facility] Laboratory [address] [place] [id number] Farhana Mcdaniel MD [address] [place] [address] Social History Tobacco Use Types [...] on filedocumented in this encounter Care Teams Auditor/Quality Relationship Specialty Start Date End Date Farhana Mcdaniel MD PCP - General 07/17/13 Farhana Mcdaniel MD PCP - General 02/20/13 07/16/13 Farhana Mcdaniel MD PCP - General 02/12/13 02/19/13 Blanca Lau MD PCP - General 11/13/12 documented as of this encounter
--- OUTSIDE RECORDS SUMMARY | 2024-07-11 09:45 | XMS_ITS | Encounter Summary ---
Author Organization [facility] Address [address] [place] [address]. [place], [place] [address] [place] [address] Care Team Providers Care Post Form Remover Name Role Phone Farhana Mcdaniel MD Primary Care Provider +1- [phone] Farhana Mcdaniel MD Primary Care Provider +1- [phone] Farhana Mcdaniel MD Primary Care Provider +1- Blanca Lau MD Primary Care Provider Unavailable Encounter Details Date Type Department Care Team (Late st Contact Info) Description 11/06/2009 Abstract [facility] [address] [place] [address] Farhana Mcdaniel MD [address] [place] [address] Social History Tobacco Use Types Packs/Day Years [...] on filedocumented in this encounter Care Teams Post Form Remover Relationship Specialty Start Date End Date Farhana Mcdaniel MD PCP - General 07/17/13 Farhana Mcdaniel MD PCP - General 02/20/13 07/16/13 Farhana Mcdaniel MD PCP - General 02/12/13 02/19/13 Blanca Lau MD PCP - General 11/13/12 documented as of this encounter
--- OUTSIDE RECORDS SUMMARY | 2024-07-11 09:45 | XMS_ITS | Encounter Summary ---
Author Organization [facility] Address [address] [place] [address]. [place], [place] [address] [place] [address] Care Team Providers Care Ball Assembler Name Role Phone Farhana Mcdaniel MD Primary Care Provider +1- [phone] Farhana Mcdaniel MD Primary Care Provider +[phone] Farhana Mcdaniel MD Primary Care Provider +1-6 Blanca Lau MD Primary Care Provider Unavailable Encounter Details Date Type Department Care Team (Late st Contact Info) Description 04/11/2008 Abstract [facility] Laboratory [address] [place] [address] Erlinda Lee MD Social History Tobacco Use [...] on filedocumented in this encounter Care Teams Ball Assembler Relationship Specialty Start Date End Date Farhana Mcdaniel MD PCP - General 07/17/13 Farhana Mcdaniel MD PCP - General 02/20/13 07/16/13 Donna-Farhana Melgar MD PCP - General 02/12/13 02/19/13 Blanca Lau MD PCP - General 11/13/12 documented as of this encounter
--- OUTSIDE RECORDS SUMMARY | 2024-07-11 09:45 | XMS_ITS | Encounter Summary ---
Author Organization [facility] Address [address] [place] [address]. [place], [place] [address] [place] [address] Care Team Providers Care Ppa Teacher Name Role Phone Farhana Mcdaniel MD Primary Care Provider +1- [phone] Farhana Mcdaniel MD Primary Care Provider +[phone] Farhana Mcdaniel MD Primary Care Provider +1-4 Blanca Lau MD Primary Care Provider Unavailable Encounter Details Date Type Department Care Team (Late st Contact Info) Description 09/02/2011 Abstract [facility] Laboratory [address] [place] [address] Yessica Thompson, [facility] [address] [place] [address] Social History Tobacco Use Types Packs/Day Years [...] on filedocumented in this encounter Care Teams Ppa Teacher Relationship Specialty Start Date End Date Farhana Mcdaniel MD PCP - General 07/17/13 Farhana Mcdaniel MD PCP - General 02/20/13 07/16/13 Farhana Mcdaniel MD PCP - General 02/12/13 02/19/13 Blanca Lau MD PCP - General 11/13/12 documented as of this encounter
--- OUTSIDE RECORDS SUMMARY | 2024-07-11 09:45 | XMS_ITS | Encounter Summary ---
Author Organization [facility] Address [address] [place] [address]. [place], [place] [address] [place] [address] Care Team Providers Care Coordinate Measuring Equipment Operator Name Role Phone Farhana Mcdaniel MD Primary Care Provider +[phone] Farhana Mcdaniel MD Primary Care Provider +1- Farhana Mcdaniel MD Primary Care Provider +1- Blanca Lau MD Primary Care Provider Unavailable Encounter Details Date Type Department Care Team (Late st Contact Info) Description 07/19/2008 Abstract [facility] Diagnostic Imaging [address] [place], [place] [id number] Radha Isabel MD [address] [place] [address] Social History Tobacco Use Types Packs/Day Years [...] on filedocumented in this encounter Care Teams Coordinate Measuring Equipment Operator Relationship Specialty Start Date End Date Farhana Mcdaniel MD PCP - General 07/17/13 Farhana Mcdaniel MD PCP - General 02/20/13 07/16/13 Farhana Mcdaniel MD PCP - General 02/12/13 02/19/13 Blanca Lau MD PCP - General 11/13/12 documented as of this encounter
--- OUTSIDE RECORDS SUMMARY | 2024-07-11 09:45 | XMS_ITS | Encounter Summary ---
Author Organization [facility] Address [address] [place] [address]. [place], [place] [address] [place] [address] Care Team Providers Care Head Miller Name Role Phone Farhana Mcdaniel MD Primary Care Provider +1- [phone] Farhana Mcdaniel MD Primary Care Provider +1- [phone] Farhana Mcdaniel MD Primary Care Provider +1- Blanca Lau MD Primary Care Provider Unavailable Encounter Details Date Type Department Care Team (Late st Contact Info) Description 06/22/2008 Abstract [facility] [address] [place], [place] [id number] Farhana Mcdaniel MD [address] [place] [address] Social History Tobacco Use Types Packs/Day Years [...] filedocumented in this encounter Care Teams Head Miller Relationship Specialty Start Date End Date Farhana Mcdaniel MD PCP - General 07/17/13 Farhana Mcdaniel MD PCP - General 02/20/13 07/16/13 Farhana Mcdaniel MD PCP - General 02/12/13 02/19/13 Blanca Lau MD PCP - General 11/13/12 documented as of this encounter
--- OUTSIDE RECORDS SUMMARY | 2024-07-11 09:45 | XMS_ITS | Encounter Summary ---
Author Organization [facility] Address [address] [place] [address]. [place], [place] [address] [place] [address] Care Team Providers Care Terrazzo Roller Name Role Phone Farhana Mcdaniel MD Primary Care Provider +1- [phone] Farhana Mcdaniel MD Primary Care Provider +1- [phone] Farhana Mcdaniel MD Primary Care Provider +[phone] Blanca Lau MD Primary Care Provider Unavailable Encounter Details Date Type Department Care Team (Late st Contact Info) Description 09/06/[address] [facility] [address] [place] [address] Erlinda Lee MD Social History Tobacco Use [...] on filedocumented in this encounter Care Teams Terrazzo Roller Relationship Specialty Start Date End Date Farhana Mcdaniel MD PCP - General 07/17/13 Farhana Mcdaniel MD PCP - General 02/20/13 07/16/13 Farhana Mcdaniel MD PCP - General 02/12/13 02/19/13 Blanca Lau MD PCP - General 11/13/12 documented as of this encounter
--- OUTSIDE RECORDS SUMMARY | 2024-07-11 09:45 | XMS_ITS | Encounter Summary ---
Author Organization [facility] Address [address] [place] [address]. [place], [place] [address] [place] [address] Care Team Providers Care Shiatsu Therapist Name Role Phone Farhana Mcdaniel MD Primary Care Provider +1- [phone] Farhana Mcdaniel MD Primary Care Provider +1- Farhana Mcdaniel MD Primary Care Provider +1- Blanca Lau MD Primary Care Provider Unavailable Encounter Details Date Type Department Care Team (Late st Contact Info) Description 01/02/2009 Abstract [facility] Laboratory [address] [place] [address] Pascale Ordaz, COLLAR FUSER [address] [place] [address] Social History Tobacco Use Types Packs/Day Years [...] on filedocumented in this encounter Care Teams Shiatsu Therapist Relationship Specialty Start Date End Date Farhana Mcdaniel MD PCP - General 07/17/13 Farhana Mcdaniel MD PCP - General 02/20/13 07/16/13 Farhana Mcdaniel MD PCP - General 02/12/13 02/19/13 Blanca Lau MD PCP - General 11/13/12 documented as of this encounter
--- OUTSIDE RECORDS SUMMARY | 2024-07-11 09:45 | XMS_ITS | Encounter Summary ---
Author Organization [facility] Address [address] [place] [address]. [place], [place] [address] [place] [address] Care Team Providers Care Health Promotion Coordinator Name Role Phone Farhana Mcdaniel MD Primary Care Provider +1- [phone] Farhana Mcdaniel MD Primary Care Provider +1-3 Farhana Mcdaniel MD Primary Care Provider +1- Blanca Lau MD Primary Care Provider Unavailable Encounter Details Date Type Department Care Team (Late st Contact Info) Description 02/11/2011 Abstract [facility] Emergency Services [address] [place] [address] Tyler Vasquez S, DO [address] [place] [address] Social History Tobacco Use Types Packs/Day Years [...] on filedocumented in this encounter Care Teams Health Promotion Coordinator Relationship Specialty Start Date End Date Farhana Mcdaniel MD PCP - General 07/17/13 Farhana Mcdaniel MD PCP - General 02/20/13 07/16/13 Farhana Mcdaniel MD PCP - General 02/12/13 02/19/13 Blanca Lau MD PCP - General 11/13/12 documented as of this encounter
--- OUTSIDE RECORDS SUMMARY | 2024-07-11 09:45 | XMS_ITS | Encounter Summary ---
Author Organization [facility] Address [address] [place] [address]. [place], [place] [address] [place] [address] Care Team Providers Care Fiber Analyst Name Role Phone Farhana Mcdaniel MD Primary Care Provider +1- [phone] Farhana Mcdaniel MD Primary Care Provider +[phone] Farhana Mcdaniel MD Primary Care Provider +1-1 Blanca Lau MD Primary Care Provider Unavailable Encounter Details Date Type Department Care Team (Late st Contact Info) Description 09/14/2009 Abstract [facility] Laboratory [address] [place] [address] Erlinda Lee MD Social History Tobacco Use [...] on filedocumented in this encounter Care Teams Fiber Analyst Relationship Specialty Start Date End Date Farhana Mcdaniel MD PCP - General 07/17/13 Farhana Mcdaniel MD PCP - General 02/20/13 07/16/13 Donna-Farhana Melgar MD PCP - General 02/12/13 02/19/13 Blanca Lau MD PCP - General 11/13/12 documented as of this encounter
--- OUTSIDE RECORDS SUMMARY | 2024-07-11 09:45 | XMS_ITS | Encounter Summary ---
Author Organization [facility] Address [address] [place] [address]. [place], [place] [address] [place] [address] Care Team Providers Care Retail General Manager Name Role Phone Farhana Mcdaniel MD Primary Care Provider +1- [phone] Farhana Mcdaniel MD Primary Care Provider +1-84 Farhana Mcdanile MD Primary Care Provider +1-3 Blanca Lau MD Primary Care Provider Unavailable Encounter Details Date Type Department Care Team (Late st Contact Info) Description 03/01/2012 Abstract [facility] Cardiopulmonary Services [address] [place] [address] Srikanth Pleitez MD Social History Tobacco Use [...] filedocumented in this encounter Care Teams Retail General Manager Relationship Specialty Start Date End Date Farhana Mcdaniel MD PCP - General 07/17/13 Farhana Mcdaniel MD PCP - General 02/20/13 07/16/13 Farhana Mcdaniel MD PCP - General 02/12/13 02/19/13 Blanca Lau MD PCP - General 11/13/12 documented as of this encounter
--- OUTSIDE RECORDS SUMMARY | 2024-07-11 09:45 | XMS_ITS | Encounter Summary ---
Author Organization [facility] Address [address] [place] [address]. [place] [address] [place] [address] Care Team Providers Care Order Processing Clerk Name Role Phone Farhana Mcdaniel MD Primary Care Provider +1- [phone] Farhana Mcdaniel MD Primary Care Provider +1- [phone] Farhana Mcdaniel MD Primary Care Provider +[phone] Blanca Lau MD Primary Care Provider Unavailable Encounter Details Date Type Department Care Team (Late st Contact Info) Description 03/22/2008 Abstract [facility] Laboratory [address] [place] [id number] Farhana Mcdaniel MD [address] [place] [address] Social History Tobacco Use Types [...] on filedocumented in this encounter Care Teams Order Processing Clerk Relationship Specialty Start Date End Date Farhana Mcdaniel MD PCP - General 07/17/13 Farhana Mcdaniel MD PCP - General 02/20/13 07/16/13 Farhana Mcdaniel MD PCP - General 02/12/13 02/19/13 Blanca Lau MD PCP - General 11/13/12 documented as of this encounter
--- OUTSIDE RECORDS SUMMARY | 2024-07-11 09:46 | XMS_ITS | Encounter Summary ---
Author Organization [facility] Address [address] [place] [address]. [place], [place] [address] [place] [address] Care Team Providers Care Gasoline Catalyst Operator Name Role Phone Farhana Mcdaniel MD Primary Care Provider +1- [phone] Farhana Mcdaniel MD Primary Care Provider +[phone] Farhana Mcdaniel MD Primary Care Provider +[phone] Blanca Lau MD Primary Care Provider Unavailable Encounter Details Date Type Department Care Team (Late st Contact Info) Description 04/13/2006 Abstract [facility] Emergency Services [address] [place] [address] Blanca Lua MD Social History Tobacco Use Types Packs/Day [...] on filedocumented in this encounter Care Teams Gasoline Catalyst Operator Relationship Specialty Start Date End Date Farhana Mcdaniel MD PCP - General 07/17/13 Farhana Mcdaniel MD PCP - General 02/20/13 07/16/13 Farhana Mcdaniel MD PCP - General 02/12/13 02/19/13 Blanca Lau MD PCP - General 11/13/12 documented as of this encounter
--- OUTSIDE RECORDS SUMMARY | 2024-07-11 09:46 | XMS_ITS | Encounter Summary ---
Author Organization [facility] Address [address] [place] [address]. [place] [address] [place] [address] Care Team Providers Care Sound Equipment Mechanic Name Role Phone Farhana Mcdaniel MD Primary Care Provider +1- [phone] Farhana Mcdaniel MD Primary Care Provider +1- [phone] Farhana Mcdaniel MD Primary Care Provider +1- [phone] Blanca Lau MD Primary Care Provider Unavailable Encounter Details Date Type Department Care Team (Late st Contact Info) Description 07/20/2002 Abstract [facility] Diagnostic Imaging [address] [place], [place] [phone] Farhana Mcdaniel MD [address] [place] [address] Social History Tobacco Use Types [...] on filedocumented in this encounter Care Teams Sound Equipment Mechanic Relationship Specialty Start Date End Date Farhana Mcdaniel MD PCP - General 07/17/13 Farhana Mcdaniel MD PCP - General 02/20/13 07/16/13 Farhana Mcdaniel MD PCP - General 02/12/13 02/19/13 Blanca Lau MD PCP - General 11/13/12 documented as of this encounter
--- OUTSIDE RECORDS SUMMARY | 2024-07-11 09:46 | XMS_ITS | Encounter Summary ---
Author Organization [facility] Address [address] [place] [address]. [place], [place] [address] [place] [address] Care Team Providers Care Under Sheriff Name Role Phone Farhana Mcdaniel MD Primary Care Provider +1- [phone] Farhana Mcdaniel MD Primary Care Provider +[phone] Farhana Mcdaniel MD Primary Care Provider +[phone] Blanca Lau MD Primary Care Provider Unavailable Encounter Details Date Type Department Care Team (Late st Contact Info) Description 09/30/2007 Abstract [facility] Laboratory [address] [place] [address] Lisa Damian DO [address] [place] [address] Social History Tobacco Use Types Packs/Day Years [...] on filedocumented in this encounter Care Teams Under Sheriff Relationship Specialty Start Date End Date Farhana Mcdaniel MD PCP - General 07/17/13 Farhana Mcdaniel MD PCP - General 02/20/13 07/16/13 Farhana Mcdaniel MD PCP - General 02/12/13 02/19/13 Blanca Lau MD PCP - General 11/13/12 documented as of this encounter
--- OUTSIDE RECORDS SUMMARY | 2024-07-11 09:46 | XMS_ITS | Encounter Summary ---
Author Organization [facility] Address [address] [place] [address]. [place] [address] [place] [address] Care Team Providers Care Rn Emergency Name Role Phone Farhana Mcdaniel MD Primary Care Provider +1- [phone] Farhana Mcdaniel MD Primary Care Provider +1- [phone] Farhana Mcdaniel MD Primary Care Provider +[phone] Blanca Lau MD Primary Care Provider Unavailable Encounter Details Date Type Department Care Team (Late st Contact Info) Description 09/20/2003 Abstract [facility] Laboratory [address] [place] [id number] Farhana Mcdaniel MD [address] [place] [address] Social History Tobacco Use Types [...] filedocumented in this encounter Care Teams Rn Emergency Relationship Specialty Start Date End Date Farhana Mcdaniel MD PCP - General 07/17/13 Farhana Mcdaniel MD PCP - General 02/20/13 07/16/13 Farhana Mcdaniel MD PCP - General 02/12/13 02/19/13 Blanca Lau MD PCP - General 11/13/12 documented as of this encounter
--- OUTSIDE RECORDS SUMMARY | 2024-07-11 09:46 | XMS_ITS | Encounter Summary ---
Author Organization [facility] Address [address] [place] [address]. [place], [place] [address] [place] [address] Care Team Providers Care Java Software Engineer Name Role Phone Farhana Mcdaniel MD Primary Care Provider +1- [phone] Farhana Mcdaniel MD Primary Care Provider +[phone] Farhana Mcdaniel MD Primary Care Provider +[phone] Blanca Lau MD Primary Care Provider Unavailable Encounter Details Date Type Department Care Team (Late st Contact Info) Description 01/04/2002 Abstract [facility] Laboratory [address] [place] [address] Lucian Islas MD [address] [place] [address] Social History Tobacco Use Types Packs/Day Years [...] on filedocumented in this encounter Care Teams Java Software Engineer Relationship Specialty Start Date End Date Farhana Mcdaniel MD PCP - General 07/17/13 Farhana Mcdaniel MD PCP - General 02/20/13 07/16/13 Farhana Mcdaniel MD PCP - General 02/12/13 02/19/13 Blanca Lau MD PCP - General 11/13/12 documented as of this encounter
--- OUTSIDE RECORDS SUMMARY | 2024-07-11 09:46 | XMS_ITS | Encounter Summary ---
Author Organization [facility] Address [address] [place] [address]. [place] [address] [place] [address] Care Team Providers Care Large Animal Husbandry Technician Name Role Phone Farhana Mcdaniel MD Primary Care Provider +1- [phone] Farhana Mcdaniel MD Primary Care Provider +1- [phone] Farhana Mcdaniel MD Primary Care Provider +[phone] Blanca Lau MD Primary Care Provider Unavailable Encounter Details Date Type Department Care Team (Late st Contact Info) Description 03/30/2002 Abstract [facility] Laboratory [address] [place] [id number] Farhana Mcdaniel MD [address] [place] [address] Social History Tobacco Use Types [...] on filedocumented in this encounter Care Teams Large Animal Husbandry Technician Relationship Specialty Start Date End Date Farhana Mcdaniel MD PCP - General 07/17/13 Farhana Mcdaniel MD PCP - General 02/20/13 07/16/13 Farhana Mcdaniel MD PCP - General 02/12/13 02/19/13 Blanca Lau MD PCP - General 11/13/12 documented as of this encounter
--- OUTSIDE RECORDS SUMMARY | 2024-07-11 09:46 | XMS_ITS | Encounter Summary ---
Author Organization [facility] Address [address] [place] [address]. [place], [place] [address] [place] [address] Care Team Providers Care Order Entry Specialist Name Role Phone Farhana Mcdaniel MD Primary Care Provider +1- [phone] Farhana Mcdaniel MD Primary Care Provider +[phone] Farhana Mcdaniel MD Primary Care Provider +[phone] Blanca Lau MD Primary Care Provider Unavailable Encounter Details Date Type Department Care Team (Late st Contact Info) Description 01/13/2006 Abstract [facility] Emergency Services [address] [place] [address] Blanca Lau MD Social History Tobacco Use [...] filedocumented in this encounter Care Teams Order Entry Specialist Relationship Specialty Start Date End Date Farhana Mcdaniel MD PCP - General 07/17/13 Farhana Mcdaniel MD PCP - General 02/20/13 07/16/13 Farhana Mcdaniel MD PCP - General 02/12/13 02/19/13 Blanca Lau MD PCP - General 11/13/12 documented as of this encounter
--- OUTSIDE RECORDS SUMMARY | 2024-07-11 09:46 | XMS_ITS | Encounter Summary ---
Author Organization [facility] Address [address] [place] [address]. [place], [place] [address] [place] [address] Care Team Providers Care Contracting Manager Name Role Phone Farhana Mcdaniel MD Primary Care Provider +1- [phone] Farhana Mcdaniel MD Primary Care Provider +1- [phone] Farhana Mcdaniel MD Primary Care Provider +1-0 Blanca Lau MD Primary Care Provider Unavailable Encounter Details Date Type Department Care Team (Late st Contact Info) Description 01/03/2004 Abstract [facility] [address] [place] [address] Farhana Mcdaniel MD [address] [place] [address] Social History Tobacco Use Types Packs/Day Years [...] on filedocumented in this encounter Care Teams Contracting Manager Relationship Specialty Start Date End Date Farhana Mcdaniel MD PCP - General 07/17/13 Farhana Mcdaniel MD PCP - General 02/20/13 07/16/13 Farhana Mcdaniel MD PCP - General 02/12/13 02/19/13 Blanca Lau MD PCP - General 11/13/12 documented as of this encounter
--- OUTSIDE RECORDS SUMMARY | 2024-07-11 09:46 | XMS_ITS | Encounter Summary ---
Author Organization [facility] Address [address] [place] [address]. [place] [address] [place] [address] Care Team Providers Care Fish Bait Processing Supervisor Name Role Phone Farhana Mcdaniel MD Primary Care Provider +1- [phone] Farhana Mcdaniel MD Primary Care Provider +1- [phone] Farhana Mcdaniel MD Primary Care Provider [phone] Blanca Lau MD Primary Care Provider Unavailable Encounter Details Date Type Department Care Team (Late st Contact Info) Description 08/02/2002 Abstract [facility] [address] [place] [id number] Farhana Mcdaniel MD [address] [place] [address] Social History Tobacco Use Types [...] on filedocumented in this encounter Care Teams Fish Bait Processing Supervisor Relationship Specialty Start Date End Date Farhana Mcdaniel MD PCP - General 07/17/13 Farhnaa Mcdaniel MD PCP - General 02/20/13 07/16/13 Farhana Mcdaniel MD PCP - General 02/12/13 02/19/13 Blanca Lau MD PCP - General 11/13/12 documented as of this encounter
--- OUTSIDE RECORDS SUMMARY | 2024-07-11 09:46 | XMS_ITS | Encounter Summary ---
Author Organization [facility] Address [address] [place] [address]. [place] [address] [place] [address] Care Team Providers Care Infantry Operations Specialist Name Role Phone Farhana Mcdaniel MD Primary Care Provider +1- [phone] Farhana Mcdaniel MD Primary Care Provider +1- [phone] Farhana Mcdaniel MD Primary Care Provider [phone] Blanca Lau MD Primary Care Provider Unavailable Encounter Details Date Type Department Care Team (Late st Contact Info) Description 01/07/2007 Abstract [facility] [address] [place] [id number] Farhana Mcdaniel MD [address] [place] [address] Social History Tobacco Use Types [...] on filedocumented in this encounter Care Teams Infantry Operations Specialist Relationship Specialty Start Date End Date Farhana Mcdaniel MD PCP - General 07/17/13 Farhana Mcdaniel MD PCP - General 02/20/13 07/16/13 Farhana Mcdaniel MD PCP - General 02/12/13 02/19/13 Blanca Lau MD PCP - General 11/13/12 documented as of this encounter
--- OUTSIDE RECORDS SUMMARY | 2024-07-11 09:46 | XMS_ITS | Encounter Summary ---
Author Organization [facility] Address [address] [place] [address]. [place] [address] [place] [address] Care Team Providers Care Android Ios Developer Name Role Phone Farhana Mcdaniel MD Primary Care Provider +1- [phone] Farhana Mcdaniel MD Primary Care Provider +1- [phone] Farhana Mcdaniel MD Primary Care Provider [phone] Blanca Lau MD Primary Care Provider Unavailable Encounter Details Date Type Department Care Team (Late st Contact Info) Description 03/05/2003 Abstract [facility] [address] [place] [id number] Farhana Mcdaniel MD [address] [place] [address] Social History Tobacco Use Types [...] on filedocumented in this encounter Care Teams Android Ios Developer Relationship Specialty Start Date End Date Farhana Mcdaniel MD PCP - General 07/17/13 Farhana Mcdaniel MD PCP - General 02/20/13 07/16/13 Farhana Mcdaniel MD PCP - General 02/12/13 02/19/13 Blanca Lau MD PCP - General 11/13/12 documented as of this encounter
--- OUTSIDE RECORDS SUMMARY | 2024-07-11 09:46 | XMS_ITS | Encounter Summary ---
Author Organization [facility] Address [address] [place] [address]. [place], [place] [address] [place] [address] Care Team Providers Care Various Exceptionalities Teacher Name Role Phone Farhana Mcdaniel MD Primary Care Provider +1- [phone] Farhana Mcdaniel MD Primary Care Provider +1- [phone] Farhana Mcdaniel MD Primary Care Provider +1-5 Blanca Lau MD Primary Care Provider Unavailable Encounter Details Date Type Department Care Team (Late st Contact Info) Description 06/08/2007 Abstract [facility] [address] [place], [place] [id number] Farhana Mcdaniel MD [address] [place] [address] Social History Tobacco Use Types Packs/Day Years [...] on filedocumented in this encounter Care Teams Various Exceptionalities Teacher Relationship Specialty Start Date End Date Farhana Mcdaniel MD PCP - General 07/17/13 Farhana Mcdaniel MD PCP - General 02/20/13 07/16/13 Farhana Mcdaniel MD PCP - General 02/12/13 02/19/13 Blanca Lau MD PCP - General 11/13/12 documented as of this encounter
--- OUTSIDE RECORDS SUMMARY | 2024-07-11 09:46 | XMS_ITS | Encounter Summary ---
Author Organization [facility] Address [address] [place] [address]. [place], [place] [address] [place] [address] Care Team Providers Care Donor Services Specialist Name Role Phone Farhana Mcdaniel MD Primary Care Provider [phone] Farhana Mcdaniel MD Primary Care Provider +1- Farhana Mcdaniel MD Primary Care Provider +1-5 Blanca Lau MD Primary Care Provider Unavailable Encounter Details Date Type Department Care Team (Late st Contact Info) Description 08/03/2001 Abstract [facility] [address] [place] [address] Blanca Lau MD Social History Tobacco Use [...] in this encounter Care Teams Donor Services Specialist Relationship Specialty Start Date End Date Farhana Mcdaniel MD PCP - General 07/17/13 Farhana Mcdaniel MD PCP - General 02/20/13 07/16/13 Farhana Mcdaniel MD PCP - General 02/12/13 02/19/13 Blanca Lau MD PCP - General 11/13/12 documented as of this encounter
--- OUTSIDE RECORDS SUMMARY | 2024-07-11 09:46 | XMS_ITS | Encounter Summary ---
Author Organization [facility] Address [address] [place] [address]. [place], [place] [address] [place] [address] Care Team Providers Care Vocational Technical Education Teacher Name Role Phone Farhana Mcdaniel MD Primary Care Provider +[phone] Farhana Mcdaniel MD Primary Care Provider +1-6 Farhana Mcdaniel MD Primary Care Provider +1- Blanca Lau MD Primary Care Provider Unavailable Encounter Details Date Type Department Care Team (Late st Contact Info) Description 04/05/2004 Abstract [facility] [address] [place] [address] Farhana Gavin, DO [address] [place] [id number] Social History Tobacco Use Types Packs/Day Years [...] on filedocumented in this encounter Care Teams Vocational Technical Education Teacher Relationship Specialty Start Date End Date Farhana Mcdaniel MD PCP - General 07/17/13 Farhana Mdcaniel MD PCP - General 02/20/13 07/16/13 Farhana Mcdaniel MD PCP - General 02/12/13 02/19/13 Blanca Lau MD PCP - General 11/13/12 documented as of this encounter
--- OUTSIDE RECORDS SUMMARY | 2024-07-11 09:46 | XMS_ITS | Encounter Summary ---
Author Organization [facility] Address [address] [place] [address]. [place], [place] [address] [place] [address] Care Team Providers Care Water Supply Engineer Name Role Phone Farhana Mcdaniel MD Primary Care Provider [phone] Farhana Mcdaniel MD Primary Care Provider +1- Farhana Mcdaniel MD Primary Care Provider +1-3 Blanca Lau MD Primary Care Provider Unavailable Encounter Details Date Type Department Care Team (Late st Contact Info) Description 03/17/2002 Abstract [facility] [address] [place] [address] Blanca Lau MD Social History Tobacco Use [...] filedocumented in this encounter Care Teams Water Supply Engineer Relationship Specialty Start Date End Date Farhana Mcdaniel MD PCP - General 07/17/13 Farhana Mcdaniel MD PCP - General 02/20/13 07/16/13 Farhana Mcdaniel MD PCP - General 02/12/13 02/19/13 Blanca Lau MD PCP - General 11/13/12 documented as of this encounter
--- OUTSIDE RECORDS SUMMARY | 2024-07-11 09:46 | XMS_ITS | Encounter Summary ---
Author Organization [facility] Address [address] [place] [address]. [place], [place] [address] [place] [address] Care Team Providers Care Account Strategist Name Role Phone Farhana Mcdaniel MD Primary Care Provider +[phone]- [phone] Farhana Mcdaniel MD Primary Care Provider +1- Farhana Mcdaniel MD Primary Care Provider +1- Blanca Lau MD Primary Care Provider Unavailable Encounter Details Date Type Department Care Team (Late st Contact Info) Description 04/23/2006 Abstract [facility] [address] [place] [address] Farhana Mcdaniel MD [address] [place] [address] Social History Tobacco Use Types Packs/Day Years [...] filedocumented in this encounter Care Teams Account Strategist Relationship Specialty Start Date End Date Farhana Mcdaniel MD PCP - General 07/17/13 Farhana Mcdaniel MD PCP - General 02/20/13 07/16/13 Farhana Mcdaniel MD PCP - General 02/12/13 02/19/13 Blanca Lau MD PCP - General 11/13/12 documented as of this encounter
--- OUTSIDE RECORDS SUMMARY | 2024-07-11 09:46 | XMS_ITS | Encounter Summary ---
Author Organization [facility] Address [address] [place] [address]. [place], [place] [address] [place] [address] Care Team Providers Care Informatica Mdm Developer Name Role Phone Farhana Mcdaniel MD Primary Care Provider +1- [phone] Farhana Mcdaniel MD Primary Care Provider +[phone] Farhana Mcdaniel MD Primary Care Provider +[phone] Blanca Lau MD Primary Care Provider Unavailable Encounter Details Date Type Department Care Team (Late st Contact Info) Description 08/04/2001 Abstract [facility] [address] [place] [address] Erlinda Lee MD Social History Tobacco Use [...] on filedocumented in this encounter Care Teams Informatica Mdm Developer Relationship Specialty Start Date End Date Farhana Mcdaniel MD PCP - General 07/17/13 Farhana Mcdaniel MD PCP - General 02/20/13 07/16/13 Donna-Farhaan Melgar MD PCP - General 02/12/13 02/19/13 Blanca Lau MD PCP - General 11/13/12 documented as of this encounter
--- OUTSIDE RECORDS SUMMARY | 2024-07-11 09:46 | XMS_ITS | Encounter Summary ---
Author Organization [facility] Address [address] [place] [address]. [place], [place] [address] [place] [address] Care Team Providers Care Orthopedic Tech Name Role Phone Farhana Mcdaniel MD Primary Care Provider +1- [phone] Farhana Mcdaniel MD Primary Care Provider [phone] Farhana Mcdaniel MD Primary Care Provider +[phone] Blanca aLu MD Primary Care Provider Unavailable Encounter Details Date Type Department Care Team (Late st Contact Info) Description 01/04/2002 Abstract [facility] [address] [place] [address] Blanca Lau MD Social History Tobacco Use [...] on filedocumented in this encounter Care Teams Orthopedic Tech Relationship Specialty Start Date End Date Farhana Mcdaniel MD PCP - General 07/17/13 Farhana Mcdaniel MD PCP - General 02/20/13 07/16/13 Farhana Mcdaniel MD PCP - General 02/12/13 02/19/13 Blanca Lau MD PCP - General 11/13/12 documented as of this encounter
--- OUTSIDE RECORDS SUMMARY | 2024-07-11 09:46 | XMS_ITS | Encounter Summary ---
Author Organization [facility] Address [address] [place] [address]. [place] [address] [place] [address] Care Team Providers Care Sba Underwriter Name Role Phone Farhana Mcdaniel MD Primary Care Provider +1- [phone] Farhana Mcdaniel MD Primary Care Provider +1- [phone] Farhana Mcdaniel MD Primary Care Provider +1- [phone] Blanca Lau MD Primary Care Provider Unavailable Encounter Details Date Type Department Care Team (Late st Contact Info) Description 01/07/2004 Abstract [facility] Imaging [address] [place], [place] [id number] Farhana Mcdaniel MD [address] [place] [address] Social History Tobacco Use Types [...] on filedocumented in this encounter Care Teams Sba Underwriter Relationship Specialty Start Date End Date Farhana Mcdaniel MD PCP - General 07/17/13 Farhana Mcdaniel MD PCP - General 02/20/13 07/16/13 Farhana Mcdaniel MD PCP - General 02/12/13 02/19/13 Blanca Lau MD PCP - General 11/13/12 documented as of this encounter
--- OUTSIDE RECORDS SUMMARY | 2024-07-11 09:46 | XMS_ITS | Encounter Summary ---
Author Organization [facility] Address [address] [place] [address]. [place], [place] [address] [place] [address] Care Team Providers Care Product Development Director Name Role Phone Farhana Mcdaniel MD Primary Care Provider +1- [phone] Farhana Mcdaniel MD Primary Care Provider [phone] Farhana Mcdaniel MD Primary Care Provider +[phone] Blanca Lau MD Primary Care Provider Unavailable Encounter Details Date Type Department Care Team (Late st Contact Info) Description 09/19/2001 Abstract [facility] [address] [place] [address] Blanca Lau MD Social History Tobacco Use [...] on filedocumented in this encounter Care Teams Product Development Director Relationship Specialty Start Date End Date Farhana Mcdaniel MD PCP - General 07/17/13 Farhana Mcdaniel MD PCP - General 02/20/13 07/16/13 Farhana Mcdaniel MD PCP - General 02/12/13 02/19/13 Blanca Lau MD PCP - General 11/13/12 documented as of this encounter
--- OUTSIDE RECORDS SUMMARY | 2024-07-11 09:46 | XMS_ITS | Encounter Summary ---
Author Organization [facility] Address [address] [place] [address]. [place] [address] [place] [address] Care Team Providers Care Systems Qa Analyst Name Role Phone Farhana Mcdaniel MD Primary Care Provider +1- [phone] Farhana Mcdaniel MD Primary Care Provider +[phone] Farhana Mcdaniel MD Primary Care Provider +1- [phone] Blanca Lau MD Primary Care Provider Unavailable Encounter Details Date Type Department Care Team (Late st Contact Info) Description 06/08/2002 Abstract [facility] Imaging [address] [place], [place] [id number] Farhana Mcdaniel MD [address] [place] [address] Social History Tobacco Use Types [...] on filedocumented in this encounter Care Teams Systems Qa Analyst Relationship Specialty Start Date End Date Farhana Mcdaneil MD PCP - General 07/17/13 Farhana Mcdaniel MD PCP - General 02/20/13 07/16/13 Farhana Mcdaniel MD PCP - General 02/12/13 02/19/13 Blanca Lau MD PCP - General 11/13/12 documented as of this encounter
--- OUTSIDE RECORDS SUMMARY | 2024-07-11 09:46 | XMS_ITS | Encounter Summary ---
Author Organization [facility] Address [address] [place] [address]. [place], [place] [address] [place] [address] Care Team Providers Care Wind Energy Mechanic Name Role Phone Farhana Mcdaniel MD Primary Care Provider +1- [phone] Farhana Mcdaniel MD Primary Care Provider [phone] Farhana Mcdaniel MD Primary Care Provider +[phone] Blanca Lau MD Primary Care Provider Unavailable Encounter Details Date Type Department Care Team (Late st Contact Info) Description 10/29/2001 Abstract [facility] Services [address] [place] [address] Blanca Lau MD Social History Tobacco Use [...] on filedocumented in this encounter Care Teams Wind Energy Mechanic Relationship Specialty Start Date End Date Farhana Mcdaniel MD PCP - General 07/17/13 Farhana Mcdaniel MD PCP - General 02/20/13 07/16/13 Farhana Mcdaniel MD PCP - General 02/12/13 02/19/13 Blanca Lau MD PCP - General 11/13/12 documented as of this encounter
--- OUTSIDE RECORDS SUMMARY | 2024-07-11 09:46 | XMS_ITS | Encounter Summary ---
Author Organization [facility] Address [address] [place] [address]. [place] [address] [place] [address] Care Team Providers Care Manager Medicare Name Role Phone Farhana Mcdaniel MD Primary Care Provider +1- [phone] Farhana Mcdaniel MD Primary Care Provider +1- [phone] Farhana Mcdaniel MD Primary Care Provider +[phone] Blanca Lau MD Primary Care Provider Unavailable Encounter Details Date Type Department Care Team (Late st Contact Info) Description 04/04/2005 Abstract [facility] [address] [place] [id number] Farhana Mcdaniel MD [address] [place] [address] Social History Tobacco Use Types [...] filedocumented in this encounter Care Teams Manager Medicare Relationship Specialty Start Date End Date Farhana Mcdaniel MD PCP - General 07/17/13 Farhana Mcdnaiel MD PCP - General 02/20/13 07/16/13 Farhana Mcdaniel MD PCP - General 02/12/13 02/19/13 Blanca Lau MD PCP - General 11/13/12 documented as of this encounter
--- OUTSIDE RECORDS SUMMARY | 2024-07-11 09:46 | XMS_ITS | Encounter Summary ---
Author Organization [facility] Address [address] [place] [address]. [place], [place] [address] [place] [address] Care Team Providers Care Computing Architect Name Role Phone Farhana Mcdaniel MD Primary Care Provider +1- [phone] Farhana Mcdaniel MD Primary Care Provider +[phone] Farhana Mcdaniel MD Primary Care Provider +[phone] Blanca Lau MD Primary Care Provider Unavailable Encounter Details Date Type Department Care Team (Late st Contact Info) Description 06/15/2007 Abstract [facility] [address] [place] [address] Lisa Damian DO [address] [place] [address] Social History Tobacco Use Types Packs/Day Years [...] on filedocumented in this encounter Care Teams Computing Architect Relationship Specialty Start Date End Date Farhana Mcdaniel MD PCP - General 07/17/13 Farhana Mcdaniel MD PCP - General 02/20/13 07/16/13 Farhana Mcdaniel MD PCP - General 02/12/13 02/19/13 Blanca Lau MD PCP - General 11/13/12 documented as of this encounter
--- OUTSIDE RECORDS SUMMARY | 2024-07-11 09:46 | XMS_ITS | Encounter Summary ---
Author Organization [facility] Address [address] [place] [address]. [place] [address] [place] [address] Care Team Providers Care Graphics Programmer Name Role Phone Farhana Mcdaniel MD Primary Care Provider +1- [phone] Farhana Mcdaniel MD Primary Care Provider +1- [phone] Farhana Mcdaniel MD Primary Care Provider [phone] Blanca Lau MD Primary Care Provider Unavailable Encounter Details Date Type Department Care Team (Late st Contact Info) Description 10/06/2005 Abstract [facility] [address] [place] [id number] Farhana Mcdaniel MD [address] [place] [address] Social History Tobacco Use Types [...] on filedocumented in this encounter Care Teams Graphics Programmer Relationship Specialty Start Date End Date Farhana Mcdaniel MD PCP - General 07/17/13 Farhana Mcdaniel MD PCP - General 02/20/13 07/16/13 Farhana Mcdaniel MD PCP - General 02/12/13 02/19/13 Blanca Lau MD PCP - General 11/13/12 documented as of this encounter
--- OUTSIDE RECORDS SUMMARY | 2024-07-11 09:46 | XMS_ITS | Encounter Summary ---
Author Organization [facility] Address [address] [place] [address]. [place], [place] [address] [place] [address] Care Team Providers Care Panel Machine Setter Name Role Phone Farhana Mcdaniel MD Primary Care Provider +1-0 Farhana Mcdaniel MD Primary Care Provider +1- Farhana Mcdaniel MD Primary Care Provider +1-1 Blanca Lau MD Primary Care Provider Unavailable Encounter Details Date Type Department Care Team (Late st Contact Info) Description 10/05/2002 Abstract [facility] [address] [place] [address] Blanca Lau MD Social History Tobacco Use [...] on filedocumented in this encounter Care Teams Panel Machine Setter Relationship Specialty Start Date End Date Farhana Mcdaniel MD PCP - General 07/17/13 Farhana Mcdaniel MD PCP - General 02/20/13 07/16/13 Farhana Mcdaniel MD PCP - General 02/12/13 02/19/13 Blanca Lau MD PCP - General 11/13/12 documented as of this encounter
--- OUTSIDE RECORDS SUMMARY | 2024-07-11 09:46 | XMS_ITS | Encounter Summary ---
Author Organization [facility] Address [address] [place] [address]. [place], [place] [address] [place] [address] Care Team Providers Care Polyethylene Bag Machine Operator Name Role Phone Farhana Mcdaniel MD Primary Care Provider +1- [phone] Farhana Mcdaniel MD Primary Care Provider +[phone] Farhana Mcdaniel MD Primary Care Provider +[phone] Blanca Lau MD Primary Care Provider Unavailable Encounter Details Date Type Department Care Team (Late st Contact Info) Description 04/18/2004 Abstract [facility] [address] [place] [address] Lisa Damian DO [address] [place] [address] Social History Tobacco Use Types Packs/Day Years [...] on filedocumented in this encounter Care Teams Polyethylene Bag Machine Operator Relationship Specialty Start Date End Date Farhana Mcdaniel MD PCP - General 07/17/13 Farhana Mcdaniel MD PCP - General 02/20/13 07/16/13 Farhana Mcdaniel MD PCP - General 02/12/13 02/19/13 Blanca Lau MD PCP - General 11/13/12 documented as of this encounter
--- OUTSIDE RECORDS SUMMARY | 2024-07-11 09:46 | XMS_ITS | Encounter Summary ---
Author Organization [facility] Address [address] [place] [address]. [place], [place] [address] [place] [address] Care Team Providers Care Treating Engineer Helper Name Role Phone Farhana Mcdaniel MD Primary Care Provider +1- [phone] Farhana Mcdaniel MD Primary Care Provider +[phone] Farhana Mcdaniel MD Primary Care Provider +[phone] Blanca Lau MD Primary Care Provider Unavailable Encounter Details Date Type Department Care Team (Late st Contact Info) Description 02/17/2007 Abstract [facility] [address] [place] [address] Lisa Damian DO [address] [place] [address] Social History Tobacco Use Types Packs/Day Years [...] on filedocumented in this encounter Care Teams Treating Engineer Helper Relationship Specialty Start Date End Date Farhana Mcdaniel MD PCP - General 07/17/13 Farhana Mcdaniel MD PCP - General 02/20/13 07/16/13 Farhana Mcdaniel MD PCP - General 02/12/13 02/19/13 Blanca Lau MD PCP - General 11/13/12 documented as of this encounter
--- OUTSIDE RECORDS SUMMARY | 2024-07-11 09:46 | XMS_ITS | Encounter Summary ---
Author Organization [facility] Address [address] [place] [address]. [place] [address] [place] [address] Care Team Providers Care Account Services Specialist Name Role Phone Farhana Mcdaniel MD Primary Care Provider +1- [phone] Farhana Mcdaniel MD Primary Care Provider +1- [phone] Farhana Mcdaniel MD Primary Care Provider +[phone] Blanca Lau MD Primary Care Provider Unavailable Encounter Details Date Type Department Care Team (Late st Contact Info) Description 03/28/2004 Abstract [facility] [address] [place] [id number] Farhana Mcdaniel MD [address] [place] [address] Social History Tobacco Use Types [...] filedocumented in this encounter Care Teams Account Services Specialist Relationship Specialty Start Date End Date Farhana Mcdaniel MD PCP - General 07/17/13 Farhana Mcdaniel MD PCP - General 02/20/13 07/16/13 Farhana Mcdaniel MD PCP - General 02/12/13 02/19/13 Blanca Lau MD PCP - General 11/13/12 documented as of this encounter
--- OUTSIDE RECORDS SUMMARY | 2024-07-11 09:46 | XMS_ITS | Encounter Summary ---
Author Organization [facility] Address [address] [place] [address]. [place], [place] [address] [place] [address] Care Team Providers Care Clinical Laboratory Manager Name Role Phone Farhana Mcdaniel MD Primary Care Provider +1- [phone] Farhana Mcdaniel MD Primary Care Provider [phone] Farhana Mcdaniel MD Primary Care Provider +[phone] Blanca Lau MD Primary Care Provider Unavailable Encounter Details Date Type Department Care Team (Late st Contact Info) Description 08/29/2002 Abstract [facility] Diagnostic Imaging [address] [place] [address] Erlinda Lee MD Social History Tobacco Use [...] on filedocumented in this encounter Care Teams Clinical Laboratory Manager Relationship Specialty Start Date End Date Farhana Mcdaniel MD PCP - General 07/17/13 Farhana Mcdaniel MD PCP - General 02/20/13 07/16/13 Farhana Mcdaniel MD PCP - General 02/12/13 02/19/13 Blanca Lau MD PCP - General 11/13/12 documented as of this encounter
--- OUTSIDE RECORDS SUMMARY | 2024-07-11 09:46 | XMS_ITS | Encounter Summary ---
Author Organization [facility] Address [address] [place] [address]. [place], [place] [address] [place] [address] Care Team Providers Care Customer Operations Representative Name Role Phone Farhana Mcdaniel MD Primary Care Provider [phone] Farhana Mcdaniel MD Primary Care Provider +1- Farhana Mcdaniel MD Primary Care Provider +[phone] Blanca Lau MD Primary Care Provider Unavailable Encounter Details Date Type Department Care Team (Late st Contact Info) Description 12/07/2002 Abstract [facility] [address] [place] [address] Blanca Lau MD Social History Tobacco Use [...] filedocumented in this encounter Care Teams Customer Operations Representative Relationship Specialty Start Date End Date Farhana Mcdaniel MD PCP - General 07/17/13 Farhana Mcdaniel MD PCP - General 02/20/13 07/16/13 Farhana Mcdaniel MD PCP - General 02/12/13 02/19/13 Blanca Lau MD PCP - General 11/13/12 documented as of this encounter
--- OUTSIDE RECORDS SUMMARY | 2024-07-11 09:46 | XMS_ITS | Encounter Summary ---
Author Organization [facility] Address [address] [place] [address]. [place], [place] [address] [place] [address] Care Team Providers Care Tester Armature Or Fields Name Role Phone Farhana Mcdaniel MD Primary Care Provider [phone] Farhana Mcdaniel MD Primary Care Provider +1- Farhana Mcdaniel MD Primary Care Provider +1- Blanca Lau MD Primary Care Provider Unavailable Encounter Details Date Type Department Care Team (Late st Contact Info) Description 10/18/2002 Abstract [facility] [address] [place] [address] Blanca Lau MD Social History Tobacco Use [...]
--- OUTSIDE RECORDS SUMMARY | 2024-07-11 09:46 | XMS_ITS | Encounter Summary ---
Author Organization [facility] Address [address] [place] [address]. [place], [place] [id number] [place] [address] Care Team Providers Care Business Development Professional Name Role Phone Farhana Mcdaniel MD Primary Care Provider [phone]- [phone] Farhana Mcdaniel MD Primary Care Provider [phone] Farhana Mcdaniel MD Primary Care Provider [phone] Blanca Lau MD Primary Care Provider Unavailable Encounter Details Date Type Department Care Team (Late st Contact Info) Description 08/12/2001 Abstract [facility] [address] [place] [address] Erlinda Lee MD Social History Tobacco Use [...] on filedocumented in this encounter Care Teams Business Development Professional Relationship Specialty Start Date End Date Farhana Mcdaniel MD PCP - General 07/17/13 Farhana Mcdaniel MD PCP - General 02/20/13 07/16/13 Donna-Farhana Melgar MD PCP - General 02/12/13 02/19/13 Blanca Lau MD PCP - General 11/13/12 documented as of this encounter
--- OUTSIDE RECORDS SUMMARY | 2024-07-11 09:46 | XMS_ITS | Encounter Summary ---
Author Organization [facility] Address [address] [place] [address]. [place] [address] [place] [address] Care Team Providers Care A P Supervisor Name Role Phone Farhana Mcdaniel MD Primary Care Provider [phone]- [phone] Farhana Mcdaniel MD Primary Care Provider [phone]- [phone] Farhana Mcdaniel MD Primary Care Provider [phone] Blanca Lau MD Primary Care Provider Unavailable Encounter Details Date Type Department Care Team (Late st Contact Info) Description 03/06/2002 Abstract [facility] [address] [place] [id number] Farhana Mcdaniel MD [address] [place] [address] Social History Tobacco Use Types [...] on filedocumented in this encounter Care Teams A P Supervisor Relationship Specialty Start Date End Date Farhana Mcdaniel MD PCP - General 07/17/13 Farhana Mcdaniel MD PCP - General 02/20/13 07/16/13 Farhana Mcdaniel MD PCP - General 02/12/13 02/19/13 Blanca Lau MD PCP - General 11/13/12 documented as of this encounter
--- OUTSIDE RECORDS SUMMARY | 2024-07-11 09:46 | XMS_ITS | Encounter Summary ---
Author Organization [facility] Address [address] [place] [address]. [place] [address] [place] [address] Care Team Providers Care Lithographic Photographer Apprentice Name Role Phone Farhana Mcdaniel MD Primary Care Provider [phone]- [phone] Farhana Mcdaniel MD Primary Care Provider [phone] Farhana Mcdaniel MD Primary Care Provider [phone] Blanca Lau MD Primary Care Provider Unavailable Encounter Details Date Type Department Care Team (Late st Contact Info) Description 03/18/2002 Abstract [facility] [address] [place] [id number] Farhana Mcdaniel MD [address] [place] [address] Social History Tobacco Use Types [...] on filedocumented in this encounter Care Teams Lithographic Photographer Apprentice Relationship Specialty Start Date End Date Farhana Mcdaniel MD PCP - General 07/17/13 Farhana Mcdaniel MD PCP - General 02/20/13 07/16/13 Farhana Mcdaniel MD PCP - General 02/12/13 02/19/13 Blanca Lau MD PCP - General 11/13/12 documented as of this encounter
--- OUTSIDE RECORDS SUMMARY | 2024-07-11 09:46 | XMS_ITS | Encounter Summary ---
Author Organization [facility] Address [address] [place] [address]. [place], [place] [address] [place] [address] Care Team Providers Care Dot Compliance Coordinator Name Role Phone Farhana Mcdaniel MD Primary Care Provider [phone]- [phone] Farhana Mcdaniel MD Primary Care Provider [phone] Farhana Mcdaniel MD Primary Care Provider +[phone] Blanca Lau MD Primary Care Provider Unavailable Encounter Details Date Type Department Care Team (Late st Contact Info) Description 10/04/2007 Abstract [facility] [address] [place], [place] [id number] Lisa Damian, [address] [place] [address] Social History Tobacco Use Types Packs/Day Years [...] on filedocumented in this encounter Care Teams Dot Compliance Coordinator Relationship Specialty Start Date End Date Farhana Mcdaniel MD PCP - General 07/17/13 Farahna Mcdaniel MD PCP - General 02/20/13 07/16/13 Farhana Mcdaniel MD PCP - General 02/12/13 02/19/13 Blanca Lau MD PCP - General 11/13/12 documented as of this encounter
--- OUTSIDE RECORDS SUMMARY | 2024-07-11 09:46 | XMS_ITS | Encounter Summary ---
Author Organization [facility] Address [address] [place] [address]. [place] [address] [place] [address] Care Team Providers Care Quality Control Inspector Name Role Phone Farhana Mcdaniel MD Primary Care Provider [phone]- [phone] Farhana Mcdaniel MD Primary Care Provider [phone]- [phone] Farhana Mcdaniel MD Primary Care Provider [phone] Blanca Lau MD Primary Care Provider Unavailable Encounter Details Date Type Department Care Team (Late st Contact Info) Description 02/20/2005 Abstract [facility] [address] [place] [id number] Farhana Mcdaniel MD [address] [place] [address] Social History Tobacco Use Types [...] filedocumented in this encounter Care Teams Quality Control Inspector Relationship Specialty Start Date End Date Farhana Mcdaniel MD PCP - General 07/17/13 Farhana Mcdaniel MD PCP - General 02/20/13 07/16/13 Farhana Mcdaniel MD PCP - General 02/12/13 02/19/13 Blanca Lau MD PCP - General 11/13/12 documented as of this encounter
--- OUTSIDE RECORDS SUMMARY | 2024-07-11 09:46 | XMS_ITS | Encounter Summary ---
Author Organization [facility] Address [address] [place] [address]. [place] [address] [place] [address] Care Team Providers Care Bleach Range Operator Name Role Phone Farhana Mcdaniel MD Primary Care Provider [phone]- [phone] Farhana Mcdaniel MD Primary Care Provider [phone]- [phone] Farhana Mcdaniel MD Primary Care Provider [phone] Blanca Lau MD Primary Care Provider Unavailable Encounter Details Date Type Department Care Team (Late st Contact Info) Description 05/31/2002 Abstract [facility] [address] [place] [id number] Farhana Mcdaniel MD [address] [place] [address] Social History Tobacco Use Types [...] on filedocumented in this encounter Care Teams Bleach Range Operator Relationship Specialty Start Date End Date Fahrana Mcdaniel MD PCP - General 07/17/13 Farhana Mcdaniel MD PCP - General 02/20/13 07/16/13 Farhana Mcdaniel MD PCP - General 02/12/13 02/19/13 Blanca Lau MD PCP - General 11/13/12 documented as of this encounter
--- OUTSIDE RECORDS SUMMARY | 2024-07-11 09:46 | XMS_ITS | Encounter Summary ---
Author Organization [facility] Address [address] [place] [address]. [place] [address] [place] [address] Care Team Providers Care Hub Associate Name Role Phone Farhana Mcdaniel MD Primary Care Provider [phone]- [phone] Farhana Mcdaniel MD Primary Care Provider [phone]- [phone] Farhana Mcdaniel MD Primary Care Provider [phone] Blanca Lau MD Primary Care Provider Unavailable Encounter Details Date Type Department Care Team (Late st Contact Info) Description 12/18/2005 Abstract [facility] [address] [place] [id number] Farhana Mcdaniel MD [address] [place] [address] Social History Tobacco Use Types [...] on filedocumented in this encounter Care Teams Hub Associate Relationship Specialty Start Date End Date Farhana Mcdaniel MD PCP - General 07/17/13 Farhana Mcdaniel MD PCP - General 02/20/13 07/16/13 Farhana Mcdaniel MD PCP - General 02/12/13 02/19/13 Blanca Lau MD PCP - General 11/13/12 documented as of this encounter
--- OUTSIDE RECORDS SUMMARY | 2024-07-11 09:46 | XMS_ITS | Encounter Summary ---
Author Organization [facility] Address [address] [place] [address]. [place], [place] [address] [place] [address] Care Team Providers Care Linen Attendant Name Role Phone Farhana Mcdaniel MD Primary Care Provider [phone] Farhana Mcdaniel MD Primary Care Provider [phone] Farhana Mcdaniel MD Primary Care Provider +[phone] Blanca Lau MD Primary Care Provider Unavailable Encounter Details Date Type Department Care Team (Late st Contact Info) Description 02/19/2005 Abstract [facility] [address] [place], [place] [id number] Farhana Mcdaniel MD [address] [place] [address] Social History Tobacco Use Types Packs/Day Years [...] on filedocumented in this encounter Care Teams Linen Attendant Relationship Specialty Start Date End Date Farhana Mcdaniel MD PCP - General 07/17/13 Farhana Mcdaniel MD PCP - General 02/20/13 07/16/13 Farhana Mcdaniel MD PCP - General 02/12/13 02/19/13 Blanca Lau MD PCP - General 11/13/12 documented as of this encounter
--- OUTSIDE RECORDS SUMMARY | 2024-07-11 10:14 | XMS_ITS | Data Portability ---
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 Name Role Phone RUSTY WIN Primary Care Provider [phone] Assessment Encounter Date Assessment Date Assessment LastModified by Organization Details LastModified Time 06/17/2021 06/17/2021 Normal exam May resume normal activities contraceptive plan-- mirena, schedule insert 2 weeks TSH today FU for WWE following IUD [email or web address] Not available 06/17/2021 15:47:16 07/01/2021 07/01/2021 mirena placed FU 1-2 mos WWE and IUD check together [email or web address] Not available 07/01/2021 18:49:56 09/05/2021 09/05/2021 healthy female exam patient declines std testing pap done mammogram ordered contraception- mirena in 06/2021 FU 1 year or prn [email or web address] Not available 09/05/2021 17:11:29 01/29/2023 01/29/2023 healthy female exam patient declines std testing pap due 2024 mammogram due in march, order given colonoscopy referral given contraception-mi reno in since 06/2021 discussed perimenopause FU 1 year or prn [email or web address] Not available 01/29/2023 18:34:22 02/02/2024 02/02/2024 Annual gynecological exam performed. Patient will come back in a year unless there are new symptoms. [email or web address] Not available 02/02/2024 14:36:12 Plan of Treatment Reminders Order Date Submit Date Provider Last Modified By Organization Details Last Modified Time Details Appointments None recorded. Lab TSH, serum or plasma [address] [facility] (Lab), [address], [place], [address], 03:14:18 test, urine 2021 022 [email or web address] [facility], [address], [address], [place], [address], 18:22:32 Referral None recorded. Procedures None recorded. Surgeries None recorded. Imaging None recorded. Medication Orders None recorded. Patient TargetsNo targets recorded. Patient InstructionsNo instructions recorded. Reason for Referral None Reported. Results Created Date Observation Date Name Description Value Unit Range Abnormal Flag Note LastModifiedBy Organization Detail LastModifiedTime 06/17/20 21 06/17/2021 TSH, REFLE X FREE T4 TSH 1.15 uIU/m L 0.30-[address] [facility] (Lab) [address], [place], [address], 06/18/2021 03:14:18 07/01/19 22 07/01/2021 pregn america test, urine HCG negati ve Not Available [facility] [address], [place], [address], 07/01/2021 18:22:24 07/02/19 22 07/02/2021 CT/GC AND TRICH OMONA S VAGIN SALMA (RRNA ), URINE chlamydia trachomatis, PCR Negati ve negati ve Not Available [facility] (Lab) [address], [place], [address], 07/04/2021 14:14:51 07/02/19 22 07/02/2021 CT/GC AND TRICH OMONA S VAGIN SALMA (RRNA ), URINE neisseria gonorrhoeae, PCR Negati ve negati ve Not Available [facility] (Lab) [address], [place], [address], 07/04/2021 14:14:51 07/02/19 22 07/02/2021 CT/GC AND TRICH OMONA S VAGIN SALMA (RRNA ), URINE trichomonas vaginalis ribosomal RNA (rrna) Negati ve negati ve Not Available [facility] (Lab) [address], [place], [address], 07/04/2021 14:14:51 09/06/19 22 09/05/2021 IMAGE GUIDE D PAP AND HPV REGAR DLESS image guided Pap, HPV regardless of Pap result SEE RESULT S BELOW CASE REPOR T: Cytol ogy Gynec ologi janeth Repor t Case: [id number] Autho rizin g Provi aurora: Pascale Philip MD Colle cted: 09/05 1450 Order ing Locat ion: [place] [facility] Recei vu: 09/06 0048 First Scree n: Strut z, Willi am, CT Rescr een: Jamel regalado, Marija hayes, CT Speci men: Scree andi Pap - Image d, Cervi x STATE MENT OF ADEQU ACY: Satis facto ry for evalu ation Trans forma tion zone compo nent absen t The absen ce of an endoc ervic al compo nent was confi rmed by an addit ional screkorin ner. FINAL DIAGN OSIS: Negat gigi for Intra epith elial Lesio n or Morenita [place] (NIL) . Alba cason d by Marija Mujica ed, CT on 2021 at 3:31 PM ----- ----- ----- ----- ----- ----- ----- ----- ----- ----- ----- ----- ----- ----- ----- ----- ----- ---- HPV RESUL TS: HPV mRNA E6/E7 : No HPV mRNA Detec phyllis NOTE: This high risk HPV mRNA assay detec ts fourt een high- risk HPV types (16, 18, 31, 33, 35, 39, 45, 51, 52, 56, 58, 59, 66, 68) witho ut diffe renti ation . COMME NT: Note: This speci men was revie wed by a Cytot echno logis t and/o r Patho logis t (as indic ated in this repor t) after evalu ation using the Thinp rep Imagi ng Syste m. CLINI JANETH INFOR MATIO N: Menst rual Statu s: LMP (if appli cable ): Clini janeth Histo ry/Pr eviou s Pap: Type of Neopl godwin (if appli cable ): Signi fican t Clini janeth Findi ngs: Other Histo ry: Hormo suman (if appli cable ): PAP EDUCA ANDREW L NOTE: The Pap Test is a scree andi test with an inher ent false negat gigi rate. Liqui d-bas ed sampl ing may decre ase, but will not elimi young, false negat gigi resul ts. A negat gigi resul t does not precl ude the prese nce and/o r devel opmen t of disea se, since the prese nce of abnor mal cells in the sampl e depen ds on the locat ion of the lesio n and sampl ing techn ique. Sintia nued regul ar scree andi is the best metho d of cance r preve ntion . If repor phyllis cytol ogic findi ng do not corre late with physi janeth and/o r histo rical findi ngs, furth er inves tigat ion is recom elisa d, as clini lizbeth solomon nted. Not Available [facility] (Lab) [address], [place], [address], 09/13/2021 16:33:23 04/03/20 22 04/03/2022 MAMMO , scree andi, bilat eral No observ ation record ed. [facility] [address], [place], [address], 01/05/2023 23:42:32 03/10/20 24 03/09/2024 MAMMO , scree andi, bilat eral No observ ation record ed. [facility] [address], [place], [address], 03/17/2024 10:36:29 Result Notes None recorded. Problems Name Problem SNOMED Code Status Onset Date Resolution Date Notes Provider Name and Address Organization Details Recorded Time Pregnanc y 83293102 Completed 202006/04/2021 Adrianna Ocasio l null, [facility] 15:10:59 In vitro fertiliz ation Completed antenata l testing at 36wks- echo 03/06 WNL in chart under clinical document ->record of care -> hospital encounte r 03/07 Adrianna Marinesailaja l null, [facility] 15:10:52 Hypothyr oidism 46679178 Completed TSH q trimeste r- done - TSH pp Adrianna Hawthornedavidchrisjonathan l null, [facility] 15:10:52 Advanced maternal age 975463760 Completed did PGD, declines NIPT Adrianna Hawthornesailaja l [facility], [facility] 15:10:52 Chronic hyperten neal in obstetri c context 1667001 Completed was on meds one time 10 years ago for a couple weeks. occasion al high BP since then. baseline labs. 38 wk inductio n Adriannaciara Hawthornesailaja l null, [facility] 15:10:52 Hypothyr oidism 18109230 Completed 02/02/2024 TSH q trimeste r- done - TSH pp HELDER DOVE MD [address], [place], [address], [facility] 4 22:28:52 Chronic hyperten neal in obstetri c context 2007305 Completed 02/02/2024 was on meds one time 10 years ago for a couple weeks. occasion al high BP since then. baseline labs. 38 wk inductio n HELDER DOVE MD [address], [place], [address], [facility] 4 22:28:47 Marginal insertio n of umbilica l cord 29796677 Completed growth Adrianna green null, [facility] 1 15:10:52 conditio n affectin g obstetri janeth care of mother 657451497 Completed EIF, uni CP cyst - resolved Adrianna green null, [facility] 1 15:10:52 Intraute rine contrace ptive device in situ 422618369 Active 2021 Pascale Spears MD [address], [place], [address], [facility] 2 17:10:11 Problem Notes None recorded. Procedures Surgical History Date Name Laterality Status Provider Name and Address Organization Details Recorded Time 09/06/19 22 Date of Last Pap Smear completed Rebeccaemiliano Rosa [facility] 01/29/2023 11:14:05 07/01/19 22 IUD Insertion completed Pascale Spears MD [address], [place], [address], [facility] 07/01/2021 18:49:26 09/04/19 21 in vitro fertilization completed Rebecca Rosa [facility] 10/28/2020 15:41:52 06/28/19 16 procedure on rib completed Rebeccaemiliano Rosa [facility] 10/28/2020 15:33:14 Imaging Results Imaging Date Name Status LastModified by Organiz ation Details LastModified Time 04/03/2022 MAMMO, screening, bilateral completed RAUL [facility] [address] [facility], [place], [address], 01/05/2023 23:42:32 03/09/2024 MAMMO, screening, bilateral completed RAUL [facility] [address], [place], [address], 03/17/2024 10:36:29 Procedure Notes None recorded. Medical Equipment None Reported. Allergies Allergen ID Allergen Name Allergen Category Reaction Reaction Severity Criticality Documentation Date Start Date Code Code System Note Provider Name and Address Organization Details Recorded Time 88148 dicloxaci llin medicatio n Not available Not available Not available 10/28/2020 3356 RxNorm Rebecca Moe [place], [place] - [facility] 15:30:39 Medications Name Sig Start Date Stop Date Status Note LastModified by Organization Details LastModified Time Mirena 21 mcg/24 hr (up to 8 years) 52 mg intrauterin e device Take by intrauter ine route. active Not Available Not Available No t Available levothyroxi ne 137 mcg tablet TAKE 1 TABLET BY MOUTH DAILY 01/29 completed Not Available Not Available Not Available prednisone 10 mg tablet TAKE 3 TABLETS BY MOUTH DAILY 02/01 completed Not Available Not Available Not Available azithromyci n 250 mg tablet 02/01 completed Not Available Not Available Not Available Lidocaine Viscous 2 % mucosal solution GARGLE AND SPIT 5ML BY MOUTH FOUR TIMES DAILY NEEDED FOR THROAT DISCOMFOR T 01/29 completed Not Available Not Available Not Available prednisone 20 mg tablet TAKE 2 TABLETS BY MOUTH EVERY DAY WITH FOOD FOR 3 DAYS. DO NOT TAKE WITH ASPIRIN OR NSAIDS SUCH ALEVE OR IBUPROFEN ETC 02/01 completed Not Available Not Available Not Available valacyclovi r 500 mg tablet Take 1 tablet(s) every day by oral route. 2023 active Not Available Not Available Not Avai lable levothyroxi ne 25 mcg tablet active Not Available Not Available Not Available levothyroxi ne 100 mcg tablet TAKE 1 TABLET BY MOUTH DAILY 02/01 completed Not Available Not Available Not Available alprazolam 0.5 mg tablet TAKE 1 TABLET BY MOUTH BEFORE BEDTIME AND 1 TABLET ONE HOUR PRIOR TO APPOINTME NT 01/29 completed Not Available Not Available Not Available benzonatate 100 mg capsule TAKE 1 CAPSULE BY MOUTH EVERY 8 HOURS NEEDED 01/29 completed Not Available Not Available Not Available oseltamivir 75 mg capsule TAKE 1 CAPSULE BY MOUTH EVERY 12 HOURS FOR 5 DAYS 01/29 completed Not Available Not Available Not Available levothyroxi ne 125 mcg tablet TAKE 1 TABLET BY MOUTH DAILY 01/29 completed Not Available Not Available Not Available lisinopril 10 mg tablet TAKE 1 TABLET BY MOUTH DAILY active Not Available Not Available No t Available levothyroxi ne 150 mcg tablet TAKE 1 TABLET BY MOUTH DAILY 01/29 completed Not Available Not Available Not Available doxycycline hyclate 100 mg tablet TAKE 1 TABLET BY MOUTH TWICE DAILY FOR 10 DAYS 01/29 completed Not Available Not Available Not Available levothyroxi ne 112 mcg tablet TAKE 1 TABLET BY MOUTH DAILY 01/29 completed Not Available Not Available Not Available ciprofloxac in 0.3 %-dexametha sone 0.1 % ear drops,suspe nsion INSTILL 4 DROPS IN RIGHT EAR TWICE DAILY 09/05 completed Not Available Not Available Not Available levothyroxi ne 11/27 completed Not Available Not Available Not Available BinaxNOW COVID-19 Ag Self Test kit TEST DIRECTED TODAY 01/29 completed Not Available Not Available Not Available Vitals Date Recorded Body height Body mass index (BMI) Body weight Systolic blood pressure Diastolic blood pressure Provider Name and Address Organization Details Last Updated DateTime 06/17/2021 165.1 cm 31.5 kg/m2 22590.96 g 130 mm[Hg] 84 mm[Hg] [facility] 1 15:34:04 Date Recorded Body height Body mass index (BMI) Body weight Systolic blood pressure Diastolic blood pressure Provider Name and Address Organization Details Last Updated DateTime 07/01/2021 165.1 cm 31.6 kg/m2 57586.55 g 129 mm[Hg] 86 mm[Hg] [facility] 2 18:18:27 Date Recorded Body height Body mass index (BMI) Body weight Systolic blood pressure Diastolic blood pressure Provider Name and Address Organization Details Last Updated DateTime 09/05/2021 165.1 cm 31.8 kg/m2 65961.14 g 129 mm[Hg] 92 mm[Hg] [facility] 2 14:49:32 Date Recorded Body height Body mass index (BMI) Body weight Systolic blood pressure Diastolic blood pressure Provider Name and Address Organization Details Last Updated DateTime 01/29/2023 165.1 cm 29.5 kg/m2 29584.85 g 139 mm[Hg] 84 mm[Hg] [facility] 3 14:31:25 Date Recorded Body height Body mass index (BMI) Body weight Systolic blood pressure Diastolic blood pressure Provider Name and Address Organization Details Last Updated DateTime 02/02/2024 165.1 cm 30.3 kg/m2 72555.81 g 144 mm[Hg] 100 mm[Hg] Kaitliana Stevensondavid [facility] 4 14:37:02 Social History Question Answer Notes LastModified by Organizat ion Details LastModified Time Tobacco Smoking Status Never Smoker Adrianna Cook bella, [facility] 01/29/2023 14:19:08 Do You Have An Advance Directive? No [email or web address] Information n ot available 04/02/2021 What Is Your Level Of Alcohol Consumption? None [email or web address] Information not available 04/16/2021 If You Are , What Was Your Level Of Alcohol Consumption Prior To ? None [email or web address] Information not available 01/29/2023 Are You Blind Or Do You Have Difficulty Seeing? No [email or web address] Information n ot available 01/08/2021 What Is Your Level Of Caffeine Consumption? Moderate [email or web address] Information not available 04/16/2021 How Much Tobacco Do You Chew? None [email or web address] Information not available 04/02/2021 In The 14 Days Before Symptom Onset, Have You Had Close Contact With A Laboratory-confirm ed COVID-19 While That Case Was Ill? No [email or web address] Information n ot available 01/08/2021 In The 14 Days Before Symptom Onset, Have You Had Close Contact With A Person Who Is Under Investigation For COVID-19 While That Person Was Ill? No [email or web address] Information not available 01/08/2021 Have You Been To An Area Known To Be High Risk For COVID-19? No Information not available 01/08/2021 Are You Deaf Or Do You Have Serious Difficulty Hearing? No [email or web address] Information not available 01/08/2021 What Type Of Diet Are You Following? REGULAR [email or web address] Information n ot available 01/08/2021 What Is The Highest Grade Or Level Of School You Have Completed Or The Highest Degree You Have Received? 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 Yes Information not available 04/02/2021 Have You Ever Been Counseled For Unhealthy Alcohol Use? No [email or web address] Information not available 01/29/2023 Do You Use Protection During Sex? No [email or web address] Information not available 04/02/2021 Do You Use Your Seat Belt Or Car Seat Routinely? Yes [email or web address] Information not available 01/08/2021 Do You Have Smoke And Carbon Monoxide Detectors In Your Home? Yes [email or web address] Information not available 01/08/2021 How Much Tobacco Do You Smoke? No [email or web address] Information not available 04/02/2021 Do You Feel Stressed (tense, Restless, Nervous, Or Anxious, Or Unable To Sleep At Night)? [id number] [email or web address] Information not available 04/16/2021 Do You Use Any Illicit Or Recreational Drugs? No [email or web address] Information not available 10/28/2020 Do You Use Sunscreen Routinely? Yes [email or web address] Information not available 01/08/2021 Has Tobacco Cessation Counseling Been Provided? No [email or web address] Information not available 01/29/2023 Have You Used IV Drugs? No [email or web address] Information not available 04/02/2021 Do You Or Have You Ever Used Any Other Forms Of Tobacco Or Nicotine? No [email or web address] Information not available 01/29/2023 Sex: Unknown Functional Status Question Answer Note LastModified by Organization D etails LastModified Time Are you able to walk? YESWOREST [email or web address] Information not available 01/08/2021 What is your exercise level? Moderate [email or web address] Information not available 04/16/2021 Mental Status None recorded. Family History Relationship Description Onset Age of this Age Resolved Age Notes LastModified by Organization Details LastModified Time Mother Heart disease [email or web address] Not available 2020 15:29:47 Mother Hypertensive disorder [email or web address] Not available 2020 15:29:54 Medical History Condition Response Allergies (Food, seasonal, environmental ) N Other N Breast Cancer N Drug/Latex Allergies/Reactions N Blood Transfusion N Dermatologic Disorders N Lung Disease N Defects or Inherited Disease N Breast Problem N Gestational Diabetes N Hematologic disorders N Anesthesia Complications N History of STI N Deep Vein Thrombosis N Polycystic ovary syndrome N Anxiety Disorder N Autoimmune disease N Arthritis N Infertility N Polyps N Acid Reflux (GERD) N History of abnormal pap N Cancer N Stroke N Varicosities N Neurologic/Epilepsy N Endometriosis N High Cholesterol N Headaches N Fibromyalgia N Kidney Disease N Heart Problems N Kidney or Bladder Problems N Thyroid Problems Y GI Problems N Eating Disorder N Anemia N Art (IVF or FET) N Psychiatric Illness N Ovarian Cancer N Diabetes N Pulmonary (TB, Asthma) N Hepatitis/Liver Disease N No Past Medical History N Eczema N Urinary Tract Infection N Abuse/Domestic Violence N Asthma N Trauma/Violence N Depression/ depression N Heart Disease N Pre-Eclampsia N Hypertension N Osteoporosis N Thrombophilias N Gynecological History Statement/Question Response On BCP's at Conception? N N STIs/STDs N Was last menstrual period normal Y HPV Vaccine N Current Control Method IUD Age at First Child 27 Sexually Active? Y Age of first menstrual cycle 18 Date of Last Pap Smear 09/05/2021 Sexual Problems? N LMP Unknown N Obstetrics History GPAL:G 5 P 3 0 2 3 Type Value Full Term 3 Spontaneous 2 Living 3 Total 5 Past Encounters Encounter ID Performer Location Encounter Start Date Encounter Closed Date Diagnosis/Indication Diagnosis SNOMED-CT Code Diagnosis ICD10 Code Diagnosis Note [id number] Halinadipti Saloni [facility] [address],[facility] [place] [address] 10/28/2020 10:33:48 10/28/2020 22:06:56 [id number] Pascale Spears MD [facility] [address] [place] [address] 10/28/2020 15:22:21 10/28/2020 16:42:24 IVF - in-vitro fertilization 1431670786 2102 O09.819 Advanced m aternal age 870062546 O09.522 Hypothyroi dism in 502372982 E03.9 test positive 196890430 Z32.01 [id number] Vianey Hilario [facility] [address],[place] [address] 11/27/2020 12:15:40 11/27/2020 13:19:24 screening 223950336 O09.812 Z3A.14 [id number] Pascale Spears MD [facility] [address],[place] [address] 11/27/2020 12:16:41 11/27/2020 14:43:13 Routine care 027737986 Z34.91 screening 2437 24917 O09.812 Z3A.14 test positive 229228952 Z32.01 IVF - in-v itro fertilization 3816313403 2102 O09.819 Advanced m aternal age 622834363 O09.522 Hypothyroi dism in 434802293 E03.9 [id number] Pascale Spears MD [facility] [address],[place] [address] 12/25/2020 13:50:38 12/25/2020 14:29:00 Advanced maternal age 053015681 O09.522 Hypothyroi dism in 735958114 E03.9 34006732 Z36.8 9 Chronic hy pertension in obstetric context 9924714 I10 [id number] [facility] [address],[place] [address] 01/08/2021 13:50:48 01/08/2021 15:42:52 Routine care 351169722 Z34.92 [id number] Elis Stoll [facility] [address],[place] [address] 01/08/2021 13:50:10 01/09/2021 14:08:48 screening for malformation 927900072 Z36.3 [id number] Pascale Spears MD [facility] [address],[place] [address] 02/05/2021 13:55:33 02/05/2021 15:24:42 Advanced maternal age 022232286 O09.522 Chronic hy pertension in obstetric context 4587834 I10 In vitro fertilization 44116366 Z31.83 Marginal i nsertion of umbilical cord 39066721 O43.129 [id number] Elis Stoll [facility] [address],[place] [address] 02/05/2021 13:57:56 02/05/2021 15:26:39 Placental condition affecting management of mother 150786924 O44.02 O35.0XX0 O35.8XX0 Z3A.[id number] [facility] [address],[place] [address] 02/28/2021 14:31:02 02/28/2021 15:35:43 Hypertension complicating 9993007798 9102 O16.3 O43.93 [id number] Pascale Spears MD [facility] [address],[place] [address] 02/28/2021 14:32:09 02/28/2021 16:18:47 Chronic hypertension in obstetric context 9068326 I10 Advanced m aternal age 682836712 O09.522 Hypothyroidism 38592597 E03.9 In vitro fertilization 06786106 Z31.83 Marginal i nsertion of umbilical cord 68259946 O43.129 [id number] Albert Murrieta MD [facility] [address],[place] [address] 03/14/2021 14:16:29 03/14/2021 15:47:25 Routine care 819348800 Z34.83 [id number] Kierra Moss [facility] [address],[place] [address] 03/25/2021 13:53:39 03/25/2021 15:27:04 Chronic hypertension complicating AND/OR reason for care during 64342294 O10.013 O09.813 [id number] Madeline Wilson [facility] [address],[place] [address] 03/25/2021 13:54:21 03/25/2021 15:07:19 Chronic hypertension complicating AND/OR reason for care during 53154903 O10.013 O09.813 Z3A.31 [id number] Pascale Spears MD [facility] [address],[place] [address] 03/25/2021 13:54:44 03/25/2021 16:46:20 Chronic hypertension in obstetric context 3096799 I10 Advanced m aternal age 000170651 O09.522 Hypothyroidism 09838451 E03.9 In vitro fertilization 11014470 Z31.83 [id number] Linda Harvey [facility] [address],[place] [address] 04/02/2021 14:55:34 04/02/2021 17:55:16 Routine care 528887074 Z34.[id number] [facility] [address],[place] [address] 04/02/2021 14:53:29 04/02/2021 17:56:54 Chronic hypertension complicating AND/OR reason for care during 94651718 O10.013 O43.103 O09.523 Z3A.32 [id number] Meagan Granado [facility] [address],[place] [address] 04/02/2021 14:54:30 04/02/2021 17:57:16 -induced hypertension 80642484 O13.9 [id number] Isa [facility] [address],[place] [address] 04/08/2021 14:54:26 04/08/2021 15:38:29 IVF - in-vitro fertilization 9594337444 2102 O09.819 [id number] Madeline Wilson [facility] [address],[place] [address] 04/08/2021 14:54:47 04/08/2021 16:07:34 Chronic hypertension complicating AND/OR reason for care during 45216030 O16.3 O43.103 Z3A.33 [id number] Pascale Spears MD [facility] [address],[place] [address] 04/08/2021 14:55:32 04/08/2021 16:42:03 Advanced maternal age 165337572 O09.522 Chronic hy pertension in obstetric context 0902914 I10 Hypothyroidism 30698922 E03.9 In vitro fertilization 98691212 Z31.83 Marginal i nsertion of umbilical cord 79496753 O43.129 [id number] [facility] [address],[place] [address] 04/16/2021 14:48:44 04/16/2021 16:56:54 Routine care 746599230 Z34.92 [id number] [facility] [address],[place] [address] 04/16/2021 14:47:58 04/16/2021 15:31:51 IVF - in-vitro fertilization 4315940676 2 O09.819 [id number] Madeline [facility] [address],[place] [address] 04/16/2021 14:48:22 04/16/2021 16:57:19 Chronic hypertension complicating AND/OR reason for care during 00649564 O16.3 Z3A.34 [id number] [facility] [address],[place] [address] 04/22/2021 14:51:38 04/22/2021 16:06:59 IVF - in-vitro fertilization [id number] 2 O09.819 [id number] Madeline Wilson [facility] [address],[place] [address] 1 04/22/2021 14:52:12 04/22/2021 16:40:02 Chronic hypertension complicating AND/OR reason for care during 36114224 O16.3 Z3A.35 94549 Pascale Spears MD [facility] [address],[place] [address] 04/22/2021 14:52:36 04/22/2021 17:06:59 Chronic hypertension in obstetric context 9741023 I10 Advanced m aternal age 378237006 O09.522 Hypothyroidism 45803962 E03.9 In vitro fertilization 14129341 Z31.83 Marginal i nsertion of umbilical cord 54787987 O43.129 72827 Meagan Granado [facility] [address],[place] [address] 04/30/2021 13:57:22 04/30/2021 14:47:52 Chronic hypertension in obstetric context 3352604 O16.9 12479 Elis Stoll [facility] [address],[place] [address] 04/30/2021 13:57:57 04/30/2021 15:29:05 Chronic hypertension complicating AND/OR reason for care during 57933758 O10.013 Z3A.36 O43.123 56021 Albert Murrieta MD [facility] [address],[place] [address] 04/30/2021 13:58:20 04/30/2021 16:53:40 Routine care 050081566 Z34.83 76674 Madeline Wilson [facility] [address],[place] [address] 05/06/2021 13:55:19 05/06/2021 15:08:16 Chronic hypertension complicating AND/OR reason for care during 20328265 O10.013 O43.123 Z3A.37 69743 Kierra Moss [facility] [address],[place] [address] 05/06/2021 13:55:40 05/06/2021 15:30:36 Chronic hypertension complicating AND/OR reason for care during 12290814 O10.013 Z3A.36 O43.123 45666 Pascale Spears MD [facility] [address],[place] [address] 05/06/2021 13:55:58 05/06/2021 16:57:33 Chronic hypertension in obstetric context 5395518 I10 Advanced m aternal age 929454209 O09.522 In vitro fertilization 97214065 Z31.83 37384 Lynne Khalil [facility] [address],[place] [address] 05/20/2021 15:03:19 05/21/2021 10:32:52 -induced hypertension 0551814934 9100 O13.9 Pt doing well. PIH precaution s given. Plan to return for post visit or sooner if any problems or concerns. 23799 Pascale Spears MD [facility] [address],[place] [address] 06/17/2021 15:28:39 06/17/2021 16:22:01 care 079987646 Z39.2 Hypothyroidism 50498581 E03.9 74982 Pascale Spears MD [facility] [address],[place] [address] 07/01/2021 18:12:23 07/02/2021 11:00:08 test negative 190890602 Z32.02 Insertion of intrauterine contraceptive device 71865244 Z30.430 17637 aPscale Spears MD [facility] [address],[place] [address] 09/05/2021 14:39:54 09/05/2021 17:18:26 Gynecologic examination 66777632 Z01.419 Z11.51 Intrauteri ne contraceptive device in situ 724918412 Z97.5 [id number] Pascale Spears MD [facility] [address],[place] [address] 01/29/2023 14:18:23 02/01/2023 16:03:58 Intrauterine contraceptive device in situ 106537775 Z97.5 Gynecologi c examination 51172208 Z01.419 Z11.51 [id number] HELDER DOVE MD [facility] [address],[place] [address] 02/02/2024 14:27:37 02/03/2024 15:46:17 Gynecologic examination 00082475 Z01.419 [facility] woman care- Cervical cancer screening: Pap smear not indicated (next 08/2026)- Breast cancer screening: mammogram ordered- HPV immunizati on: does not qualify- STD testing: declines- hereditary cancer screening: does not qualify for testing Reduced libido 5028437 R 68.82 - patient reports low libido, irritabili ty and insomnia- [facility] and all wnl- patient was previously recommende d to start progestero ne and testostero ne supplement ation for these issues- discussed possible recurrence of depression given her current symptoms and recommend evaluation for starting SSRI/SNRI; patient declines- discussed complicate d nature of female libido including stress from home, work and kids and involvemen t with intimacy with partner- discussed approved treatments for low libido including Audelia jonathon, Addyi, and Vyleesi; do not recommend hormonal supplement ation at this time due to poor evidence of improvemen t and side effect profile- also discussed OTC supplement s for libido- patient desires to try OTC supplement s and Audelia jonathon; will RTC if patient desires to start medication s History of mood disorder 549074309 Z86.59 Health Concerns Section Related Observation LastModified by Organization Detai ls LastModified Time None Recorded Concern Status LastModified by Organization Details LastModified Time None Recorded Advance Directives Directive N: Payers Encounter Date Sequence Insurance Name Policy Number Policy Garcia Covered Member ID Garcia Member ID Guarantor Name 06/17/2021 1 [facility] [id number] Dale De Luna [id number] Dale De Luna 07/01/[address] [place] [address] [id number] Dale De Luna [id number] Dale De Luna 09/05/[address] [place] [address] [id number] Dale De Luna [id number] Dale De Luna 01/29/[address] [place] [address] [id number] Dale De Luna [id number] Dale De Luna 02/02/[address] [place] [address] [id number] Dale De Luna [id number] Dale De Luna Notes Date Note Type Note Provider Name and Address Organization Details Recorded Time 06/17/2021 text/html Patient is a presenting for a 4 week visit. She had a on 11/15 at 38 weeks GA. Baby Aye doing well. cHTN, no meds. on low dose synthroid for years, before . Doing well overall. breast and bottle feeding. Normal lochia. Pain- none Bowel and bladder function normal. [place] score 1 Period-no Annual due:now Concerns: none Pascale Spears MD [address], [place], [address], [facility] 06/17/2021 16:08:29 07/01/2021 text/html Patient presents for IUD insertion. Pascale Spears MD [address], [place], [address], [facility] 07/01/2021 18:50:59 09/05/2021 text/html Patient is a 45y o [id number] who presents for an annual exam. Mirena placed June of this year. DOing fine. Bled for 2 weeks at first, intermittent since. Had no bleeding with her last mirena. bottlefeeding. last pap-2019? mammogram-over a year sexually active-y contraception-iud seatbelts-y exercise-y depression-denies domestic violence-denies tobacco-n concerns- Pascale Spears MD [address], [place], [address], [facility] 09/05/2021 17:12:00 01/29/2023 text/html Patient is a 47y o who presents for an annual exam. No bleeding with mirena (06/2021). No concerns. last pap-08/2021 mammogram-03/2022 sexually active-y contraception-mirena seatbelts-y exercise-y depression-denies domestic violence-denies tobacco-n concerns-n Pascale Spears MD [address], [place], [address], [facility] 01/29/2023 18:34:42 02/02/2024 text/html Presents today f or her annual well-woman exam. Denies abnormal vaginal discharge. She is sexually active and denies dyspareunia. She is using Mirena IUD for contraception, and she states that she is satisfied with this method. She has not noticed any changes or masses in her breasts. Amenorrheic with IUD. [facility] due to concerns for low libido, irritability and insomnia. Labs including hormone panel and thyroid panel drawn and reviewed today. Hx of depression, previously on antidepressant therapy years ago. No VSM or brain fog. HELDER DOVE MD [address], [place], [address], [facility] 02/02/2024 22:36:24 OBGyn Episode Ob Episode Information Episode Created Date Number of Fetuses Patient Bloodtype Patient rh Status Prepregnancy Weight lbs Domestic Partner Domestic Partner Phone Father Name 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 Status 10/29/19 21 1 CLOSED Fetus Data First Name Last Name Admitted to NICU Weight (g) Sex Living Outcome Pediatric Complications Fetus ID Race Codes Race Delivery Type , Spontane ous [id number] Jodi Calculation Initial Jodi Date Initial Exam Date Initial Exam Provider Initial Ultrasound Date Last Menstrual Period Date Ultra Sound Weeks Gestation 0 Eighteen To Twenty Week Jodi Update Ultra Sound Date Fundal Height At Umbil Quickening Date Ultra Sound Latest Weeks Gestation Final Jodi Confirmed By Final Jodi Confirmed Date Final Jodi Date Ultra Sound Latest Days Gestation 0 0 Menstrual History Last Menstrual Date Menses Monthly On Bcp Conception Prior Menses Frequency Hcg Plus Date Menarche Onset Age Delivery Information Delivery Date Delivery Type Labor Anesthesia Weeks Gestation Incision Type Labor Labor Length Hrs Delivered By Post Complications Tubal Sterilization Discharge Date Comments 9 Discharge Information Feeding Method Contraceptive Method Maternal HG B and HCT Levels Ob Episode Information Episode Created Date Number of Fetuses Patient Bloodtype Patient rh Status Prepregnancy Weight lbs Domestic Partner Domestic Partner Phone Father Name 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 Status 10/29/19 21 1 CLOSED Fetus Data First Name Last Name Admitted to NICU Weight (g) Sex Living Outcome Pediatric Complications Fetus ID Race Codes Race Delivery Type M Full Term [id number] Vaginal Delivery Jodi Calculation Initial Jodi Date Initial Exam Date Initial Exam Provider Initial Ultrasound Date Last Menstrual Period Date Ultra Sound Weeks Gestation 0 Eighteen To Twenty Week Jodi Update Ultra Sound Date Fundal Height At Umbil Quickening Date Ultra Sound Latest Weeks Gestation Final Jodi Confirmed By Final Jodi Confirmed Date Final Jodi Date Ultra Sound Latest Days Gestation 0 0 Menstrual History Last Menstrual Date Menses Monthly On Bcp Conception Prior Menses Frequency Hcg Plus Date Menarche Onset Age Delivery Information Delivery Date Delivery Type Labor Anesthesia Weeks Gestation Incision Type Labor Labor Length Hrs Delivered By Post Complications Tubal Sterilization Discharge Date Comments 3 Discharge Information Feeding Method Contraceptive Method Maternal HG B and HCT Levels Ob Episode Information Episode Created Date Number of Fetuses Patient Bloodtype Patient rh Status Prepregnancy Weight lbs Domestic Partner Domestic Partner Phone Father Name 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 Status 10/29/19 21 1 CLOSED Fetus Data First Name Last Name Admitted to NICU Weight (g) Sex Living Outcome Pediatric Complications Fetus ID Race Codes Race Delivery Type , Spontane ous [id number] Jodi Calculation Initial Jodi Date Initial Exam Date Initial Exam Provider Initial Ultrasound Date Last Menstrual Period Date Ultra Sound Weeks Gestation 0 Eighteen To Twenty Week Jodi Update Ultra Sound Date Fundal Height At Umbil Quickening Date Ultra Sound Latest Weeks Gestation Final Jodi Confirmed By Final Jodi Confirmed Date Final Jodi Date Ultra Sound Latest Days Gestation 0 0 Menstrual History Last Menstrual Date Menses Monthly On Bcp Conception Prior Menses Frequency Hcg Plus Date Menarche Onset Age Delivery Information Delivery Date Delivery Type Labor Anesthesia Weeks Gestation Incision Type Labor Labor Length Hrs Delivered By Post Complications Tubal Sterilization Discharge Date Comments 0 Discharge Information Feeding Method Contraceptive Method Maternal HG B and HCT Levels Ob Episode Information Episode Created Date Number of Fetuses Patient Bloodtype Patient rh Status Prepregnancy Weight lbs Domestic Partner Domestic Partner Phone Father Name 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 Status 11/28/19 21 1 O Positive 191 CLOSED Fetus Data First Name Last Name Admitted to NICU Weight (g) Sex Living Outcome Pediatric Complications Fetus ID Race Codes Race Delivery Type Verena 3288.54 2 F true Full Term 11155 Vaginal Delivery Problems Problem Notes declines COVID vaccineDunbar pt!! Problem Name Start Date End Date Resolution Snomed Code Not e Chronic hypertension in obstetric context 5483973 was on meds one time 10 years ago for a couple weeks. occasional high BP since then. baseline labs. 38 wk induction In vitro fertilization [id number] 5 testing at 36wks- echo 03/06 WNL in chart under clinical document ->record of care -> hospital encounter 03/07 Hypothyroidism 26611985 TSH q trimester- done - TSH pp Advanced maternal age 061510495 did PGD, declin es NIPT Marginal insertion of umbilical cord 99637838 growth condition affecting obstetrical care of mother SELFRESOLVED [id number] EIF, uni CP c yst - resolved Jodi Calculation Initial Jodi Date Initial Exam Date Initial Exam Provider Initial Ultrasound Date Last Menstrual Period Date Ultra Sound Weeks Gestation 05/22/2021 11/27/2020 10/28/2020 11 Eighteen To Twenty Week Jodi Update Ultra Sound Date Fundal Height At Umbil Quickening Date Ultra Sound Latest Weeks Gestation Final Jodi Confirmed By Final Jodi Confirmed Date Final Jodi Date Ultra Sound Latest Days Gestation 0 [email or web address] 11/27/2020 05/22/20 21 0 Pre-cory Flowsheet Flowsheet Date 11/27/2020 Rondon Score Blood Edema Fundus Height Fundus Units Glucose Ketones Leukocytes Nitrite Labor Signs Protein Cervic Dilation Cervic Effacement Cervic Station neg none trace Type Weight in lbs Pre/Post Dialysis Refused Weight 191.788101205859 BP Diastolic BP Location Tested BP Systolic BP Type 84 136 Fetus Heart Rate Present A 135 Fetus Movement A No Comments [place] is a 44yo at 14.6 by IVF ET. Records received from [facility]- did not see Hep C and HIV result. JODI 05/22/21 per [facility]. US today good progression. Had PGD, declines NIPT. hypothyroid, normal levels, repeat TSH q trimester. echo at 24 weeks with MFM. Flowsheet Date 12/25/2020 Rondon Score Blood Edema Fundus Height Fundus Units Glucose Ketones Leukocytes Nitrite Labor Signs Protein Cervic Dilation Cervic Effacement Cervic Station neg none trace Type Weight in lbs Pre/Post Dialysis Refused Weight 195.289760661458 BP Diastolic BP Location Tested BP Systolic BP Type 94 157 98 138 Fetus Heart Rate Present A 140 Fetus Movement A Yes Comments Doing well, on light duty at work. BPs elevated. When asked about history of hypertension, she said she was on medication for a couple weeks and since then most BPs normal. Will do baseline labs. Repeat TSH. Also, labs at [facility] were almost a year ago, will repeat. Discussed cHTN in , risks. Anatomy next, then will schedule echo at 24 weeks. Flowsheet Date 01/08/2021 Rondon Score Blood Edema Fundus Height Fundus Units Glucose Ketones Leukocytes Nitrite Labor Signs Protein Cervic Dilation Cervic Effacement Cervic Station Type Weight in lbs Pre/Post Dialysis Refused BP Diastolic BP Location Tested BP Systolic BP Type Fetus Heart Rate Present Fetus Movement Comments Flowsheet Date 01/08/2021 Rondon Score Blood Edema Fundus Height Fundus Units Glucose Ketones Leukocytes Nitrite Labor Signs Protein Cervic Dilation Cervic Effacement Cervic Station neg none trace Type Weight in lbs Pre/Post Dialysis Refused Weight 196.284669462600 BP Diastolic BP Location Tested BP Systolic BP Type 84 134 Fetus Heart Rate Present Fetus Movement A Yes Comments patient states that has some ligament pain off and on.anatomy : unilateral CHEMICAL PROCESSOR, LVEIF, marginal cord insert, f/u 4 weeks anatomy f/u and plan echo at 24 weeks IVF reviewed precautions and f/u 4 weeks Flowsheet Date 02/05/2021 Rondon Score Blood Edema Fundus Height Fundus Units Glucose Ketones Leukocytes Nitrite Labor Signs Protein Cervic Dilation Cervic Effacement Cervic Station Type Weight in lbs Pre/Post Dialysis Refused BP Diastolic BP Location Tested BP Systolic BP Type Fetus Heart Rate Present Fetus Movement Comments Flowsheet Date 02/05/2021 Rondon Score Blood Edema Fundus Height Fundus Units Glucose Ketones Leukocytes Nitrite Labor Signs Protein Cervic Dilation Cervic Effacement Cervic Station neg none trace Type Weight in lbs Pre/Post Dialysis Refused Weight 200.106465099013 BP Diastolic BP Location Tested BP Systolic BP Type 85 126 Fetus Heart Rate Present A 130 Fetus Movement A Yes Comments Doing well. US today 30% luis eduardo wth, CHEMICAL PROCESSOR resolved, EIF still present. Discussed all findings. Had PGD. echo scheduled 03/06. GCT next. testing to start WEEKLY at 32 weeks for soft history of cHTN. Flowsheet Date 02/28/2021 Rondon Score Blood Edema Fundus Height Fundus Units Glucose Ketones Leukocytes Nitrite Labor Signs Protein Cervic Dilation Cervic Effacement Cervic Station Type Weight in lbs Pre/Post Dialysis Refused BP Diastolic BP Location Tested BP Systolic BP Type Fetus Heart Rate Present Fetus Movement Comments Flowsheet Date 02/28/2021 Rondon Score Blood Edema Fundus Height Fundus Units Glucose Ketones Leukocytes Nitrite Labor Signs Protein Cervic Dilation Cervic Effacement Cervic Station neg trace trace Type Weight in lbs Pre/Post Dialysis Refused Weight 204.917724712242 BP Diastolic BP Location Tested BP Systolic BP Type 84 135 Fetus Heart Rate Present A 140 Fetus Movement A Yes Comments Doing fine, just hard sleepi ng. US today normal growth. echo 03/06. DIscussed and encouraged Tdap (will get) and COVID vaccine (declines despite discussing risks). GCT and TSH today. testing to start weekly at 32 weeks for cHTN. Flowsheet Date 03/14/2021 Rondon Score Blood Edema Fundus Height Fundus Units Glucose Ketones Leukocytes Nitrite Labor Signs Protein Cervic Dilation Cervic Effacement Cervic Station 34 Type Weight in lbs Pre/Post Dialysis Refused Weight 207.536162869588 BP Diastolic BP Location Tested BP Systolic BP Type 85 L arm 124 sitting Fetus Heart Rate Present A 144 Fetus Movement Comments Resolution of choroid plexus cyst, EIF should be noted on next ultrasound, start testing at 32 weeks, has all her appointments mapped out, I do not see 3rd trimester thyroid testing. Flowsheet Date 03/25/2021 Rondon Score Blood Edema Fundus Height Fundus Units Glucose Ketones Leukocytes Nitrite Labor Signs Protein Cervic Dilation Cervic Effacement Cervic Station Type Weight in lbs Pre/Post Dialysis Refused BP Diastolic BP Location Tested BP Systolic BP Type Fetus Heart Rate Present Fetus Movement Comments Flowsheet Date 03/25/2021 Rondon Score Blood Edema Fundus Height Fundus Units Glucose Ketones Leukocytes Nitrite Labor Signs Protein Cervic Dilation Cervic Effacement Cervic Station Type Weight in lbs Pre/Post Dialysis Refused BP Diastolic BP Location Tested BP Systolic BP Type Fetus Heart Rate Present Fetus Movement Comments Flowsheet Date 03/25/2021 Rondon Score Blood Edema Fundus Height Fundus Units Glucose Ketones Leukocytes Nitrite Labor Signs Protein Cervic Dilation Cervic Effacement Cervic Station neg none trace Type Weight in lbs Pre/Post Dialysis Refused Weight 207.018762414144 BP Diastolic BP Location Tested BP Systolic BP Type 103 152 92 148 90 142 Fetus Heart Rate Present A 130 Fetus Movement A Yes Comments Doing well. Good FM. BPP . TSH today. She was nervous re her first monitoring, and thinks BP worse from that. Did improve, but will do PIH labs. FLu shot encouraged. PIH precautions discussed. Flowsheet Date 04/02/2021 Rondon Score Blood Edema Fundus Height Fundus Units Glucose Ketones Leukocytes Nitrite Labor Signs Protein Cervic Dilation Cervic Effacement Cervic Station Type Weight in lbs Pre/Post Dialysis Refused BP Diastolic BP Location Tested BP Systolic BP Type Fetus Heart Rate Present Fetus Movement Comments Flowsheet Date 04/02/2021 Rondon Score Blood Edema Fundus Height Fundus Units Glucose Ketones Leukocytes Nitrite Labor Signs Protein Cervic Dilation Cervic Effacement Cervic Station Type Weight in lbs Pre/Post Dialysis Refused BP Diastolic BP Location Tested BP Systolic BP Type Fetus Heart Rate Present Fetus Movement Comments Flowsheet Date 04/02/2021 Rondon Score Blood Edema Fundus Height Fundus Units Glucose Ketones Leukocytes Nitrite Labor Signs Protein Cervic Dilation Cervic Effacement Cervic Station neg none trace Type Weight in lbs Pre/Post Dialysis Refused Weight 207.448847158943 BP Diastolic BP Location Tested BP Systolic BP Type 86 146 86 122 Fetus Heart Rate Present Fetus Movement A Yes Comments EFW 69%, BPP 8/8 EF noted in LV, doing well, precautions reviewed, schedule readmit Flowsheet Date 04/08/2021 Rondon Score Blood Edema Fundus Height Fundus Units Glucose Ketones Leukocytes Nitrite Labor Signs Protein Cervic Dilation Cervic Effacement Cervic Station Type Weight in lbs Pre/Post Dialysis Refused BP Diastolic BP Location Tested BP Systolic BP Type Fetus Heart Rate Present Fetus Movement Comments Flowsheet Date 04/08/2021 Rondon Score Blood Edema Fundus Height Fundus Units Glucose Ketones Leukocytes Nitrite Labor Signs Protein Cervic Dilation Cervic Effacement Cervic Station Type Weight in lbs Pre/Post Dialysis Refused BP Diastolic BP Location Tested BP Systolic BP Type Fetus Heart Rate Present Fetus Movement Comments Flowsheet Date 04/08/2021 Rondon Score Blood Edema Fundus Height Fundus Units Glucose Ketones Leukocytes Nitrite Labor Signs Protein Cervic Dilation Cervic Effacement Cervic Station neg trace trace Type Weight in lbs Pre/Post Dialysis Refused Weight 205.931580341671 BP Diastolic BP Location Tested BP Systolic BP Type 82 140 Fetus Heart Rate Present A 145 Fetus Movement A Yes Comments Doing well. NST reactive, BP P 8/8. Discussed 38 week induction for cHTN. FU testing. Flowsheet Date 04/16/2021 Rondon Score Blood Edema Fundus Height Fundus Units Glucose Ketones Leukocytes Nitrite Labor Signs Protein Cervic Dilation Cervic Effacement Cervic Station Type Weight in lbs Pre/Post Dialysis Refused BP Diastolic BP Location Tested BP Systolic BP Type Fetus Heart Rate Present Fetus Movement Comments Flowsheet Date 04/16/2021 Rondon Score Blood Edema Fundus Height Fundus Units Glucose Ketones Leukocytes Nitrite Labor Signs Protein Cervic Dilation Cervic Effacement Cervic Station Type Weight in lbs Pre/Post Dialysis Refused BP Diastolic BP Location Tested BP Systolic BP Type Fetus Heart Rate Present Fetus Movement Comments Flowsheet Date 04/16/2021 Rondon Score Blood Edema Fundus Height Fundus Units Glucose Ketones Leukocytes Nitrite Labor Signs Protein Cervic Dilation Cervic Effacement Cervic Station neg none trace Type Weight in lbs Pre/Post Dialysis Refused Weight 208.729417603269 BP Diastolic BP Location Tested BP Systolic BP Type 86 128 Fetus Heart Rate Present Fetus Movement A Yes Comments patient is having BH contrac tions. reviewed precautions bpp 02/02, planning 38 week MIL will schedule at next visit. f/u one week Flowsheet Date 04/22/2021 Rondon Score Blood Edema Fundus Height Fundus Units Glucose Ketones Leukocytes Nitrite Labor Signs Protein Cervic Dilation Cervic Effacement Cervic Station Type Weight in lbs Pre/Post Dialysis Refused BP Diastolic BP Location Tested BP Systolic BP Type Fetus Heart Rate Present Fetus Movement Comments Flowsheet Date 04/22/2021 Rondon Score Blood Edema Fundus Height Fundus Units Glucose Ketones Leukocytes Nitrite Labor Signs Protein Cervic Dilation Cervic Effacement Cervic Station Type Weight in lbs Pre/Post Dialysis Refused BP Diastolic BP Location Tested BP Systolic BP Type Fetus Heart Rate Present Fetus Movement Comments Flowsheet Date 04/22/2021 Rondon Score Blood Edema Fundus Height Fundus Units Glucose Ketones Leukocytes Nitrite Labor Signs Protein Cervic Dilation Cervic Effacement Cervic Station neg trace trace 1cm 20% -3 Type Weight in lbs Pre/Post Dialysis Refused Weight 207.326673034990 BP Diastolic BP Location Tested BP Systolic BP Type 84 125 Fetus Heart Rate Present A 140 Fetus Movement A Yes Comments Doing well, just uncomfortab le. Occasional BH. GBS done and discussed. Will schedule IOL 38-39 weeks (cHTN soft diagnosis). US today BPP 02/02. Flowsheet Date 04/30/2021 Rondon Score Blood Edema Fundus Height Fundus Units Glucose Ketones Leukocytes Nitrite Labor Signs Protein Cervic Dilation Cervic Effacement Cervic Station Type Weight in lbs Pre/Post Dialysis Refused Weight 208.719347624129 BP Diastolic BP Location Tested BP Systolic BP Type 89 R arm 148 sitting 89 L arm 124 sitting Fetus Heart Rate Present Fetus Movement Comments Flowsheet Date 04/30/2021 Rondon Score Blood Edema Fundus Height Fundus Units Glucose Ketones Leukocytes Nitrite Labor Signs Protein Cervic Dilation Cervic Effacement Cervic Station Type Weight in lbs Pre/Post Dialysis Refused BP Diastolic BP Location Tested BP Systolic BP Type Fetus Heart Rate Present Fetus Movement Comments Flowsheet Date 04/30/2021 Rondon Score Blood Edema Fundus Height Fundus Units Glucose Ketones Leukocytes Nitrite Labor Signs Protein Cervic Dilation Cervic Effacement Cervic Station 36 trace Type Weight in lbs Pre/Post Dialysis Refused Weight 208.778655360681 BP Diastolic BP Location Tested BP Systolic BP Type 89 R arm 148 sitting 89 L arm 124 sitting Fetus Heart Rate Present A 145 Fetus Movement A Yes Comments reassuring testing , to be delivered in about 1 and half weeks. good movement Flowsheet Date 05/06/2021 Rondon Score Blood Edema Fundus Height Fundus Units Glucose Ketones Leukocytes Nitrite Labor Signs Protein Cervic Dilation Cervic Effacement Cervic Station Type Weight in lbs Pre/Post Dialysis Refused BP Diastolic BP Location Tested BP Systolic BP Type Fetus Heart Rate Present Fetus Movement Comments Flowsheet Date 05/06/2021 Rondon Score Blood Edema Fundus Height Fundus Units Glucose Ketones Leukocytes Nitrite Labor Signs Protein Cervic Dilation Cervic Effacement Cervic Station Type Weight in lbs Pre/Post Dialysis Refused BP Diastolic BP Location Tested BP Systolic BP Type Fetus Heart Rate Present Fetus Movement Comments Flowsheet Date 05/06/2021 Rondon Score Blood Edema Fundus Height Fundus Units Glucose Ketones Leukocytes Nitrite Labor Signs Protein Cervic Dilation Cervic Effacement Cervic Station neg none trace 1cm 50% -3 Type Weight in lbs Pre/Post Dialysis Refused Weight 211.560120781558 BP Diastolic BP Location Tested BP Systolic BP Type 97 154 89 135 Fetus Heart Rate Present A 130 Fetus Movement A Yes Comments Doing well. NST reactive. BP stable. IOL wednesday at 38w for cHTN. Plan pitocin and AROM, discussed with pt, questions answered. GBS neg. Flowsheet Date 05/20/2021 Rondon Score Blood Edema Fundus Height Fundus Units Glucose Ketones Leukocytes Nitrite Labor Signs Protein Cervic Dilation Cervic Effacement Cervic Station Type Weight in lbs Pre/Post Dialysis Refused Weight 193.63377940668 BP Diastolic BP Location Tested BP Systolic BP Type 88 144 90 142 Fetus Heart Rate Present Fetus Movement Comments Menstrual History Last Menstrual Date Menses Monthly On Bcp Conception Prior Menses Frequency Hcg Plus Date Menarche Onset Age Genetic Screening And Infection History Question Response Note Mental Retardation/Autism false Patient's Age Will Be 35 Years Or Older At Estim ated Date of Delivery true Thalassemia (Estonian, Yemeni, Mediterranean, Or Background): MCV < 80 false Neural Tube Defect (Meningomyelocele, Spina Bifi da, Or Anencephaly) false Congenital Heart Defect false Down Syndrome false Thiago-Sachs (eg, Mormonism, Cajun, Prydeinig-Moroccan) f alse James Disease false Sickle Cell Disease Or Trait () false Hemophilia Or Other Blood Disorders false Muscular Dystrophy false Cystic Fibrosis false Jackie's Chorea false Intellectual Disability/Autism false If Yes, Was Person Tested For Fragile X? false Other Inherited Genetic Or Chromosomal Disorder false Maternal Metabolic Disorder (eg, Type 1 Diabetes , PKU) false Patient Or Baby's Father Had A Child With Defects Not Listed Above false Recurrent Loss, Or A Stillbirth false Medications (including Suppl ements, Vitamins, Herbs, OTC Drugs), Illicit/Recreational Drugs, Alcohol false If Yes, Agent(s) And Strength/Dosage false Any Other Genetic History false Live With Someone With TB Or Exposed To TB false Patient Or Partner Has History Of Genital Herpes false Rash Or Viral Illness Since Last Menstrual Perio d false History Of STD, Gonorrhea, Chlamydia, HPV, Syphi lis false Other Infection History false History of HIV false History of Hepatitis false Prior GBS-infected child false Hemoglobinopathy Or Carrier false Other Structural Defect false Recent Travel History Outside of Country false Delivery Information Delivery Date Delivery Type Labor Anesthesia Weeks Gestation Incision Type Labor Labor Length Hrs Delivered By Post Complications Tubal Sterilization Discharge Date Comments 1 Induce d [facility]-Ep id[facility] 38.4 false Pascale Spears MD AMA & CHTN Discharge Information Feeding Method Contraceptive Method Maternal HG B and HCT Levels Ob Episode Information Episode Created Date Number of Fetuses Patient Bloodtype Patient rh Status Prepregnancy Weight lbs Domestic Partner Domestic Partner Phone Father Name 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 Status 10/29/19 21 1 CLOSED Fetus Data First Name Last Name Admitted to NICU Weight (g) Sex Living Outcome Pediatric Complications Fetus ID Race Codes Race Delivery Type M Full Term [id number] Vaginal Delivery Jodi Calculation Initial Jodi Date Initial Exam Date Initial Exam Provider Initial Ultrasound Date Last Menstrual Period Date Ultra Sound Weeks Gestation 0 Eighteen To Twenty Week Jodi Update Ultra Sound Date Fundal Height At Umbil Quickening Date Ultra Sound Latest Weeks Gestation Final Jodi Confirmed By Final Jodi Confirmed Date Final Jodi Date Ultra Sound Latest Days Gestation 0 0 Menstrual History Last Menstrual Date Menses Monthly On Bcp Conception Prior Menses Frequency Hcg Plus Date Menarche Onset Age Delivery Information Delivery Date Delivery Type Labor Anesthesia Weeks Gestation Incision Type Labor Labor Length Hrs Delivered By Post Complications Tubal Sterilization Discharge Date Comments 9 Discharge Information Feeding Method Contraceptive Method Maternal HG B and HCT Levels
== END 2024-07-04 11:00 | disposition home or self-care (01) ==
PROVIDERS: PCP Family Medicine; Visit Provider Plastic Surgery
DX: M65.331 Trigger finger, right middle finger (principal)
CPT/HCPCS: 73140

== ENCOUNTER 2024-12-13 11:18 | Outpatient (CLI) | payer OTHER, SELFPAY ==
--- NOTE | ~2024-12-13 | XR_ITS ---
HISTORY: R07.81 - Pleurodynia COMPARISON: Reference is made to a CT examination of the chest dated 02/29/2024 TECHNIQUE: 3 views of the bilateral ribs were performed along with a PA and lateral view of the chest FINDINGS: No acute displaced fracture is appreciated. Bone mineralization is age-appropriate. The cardiomediastinal silhouette is unremarkable. The lungs are clear. IMPRESSION: No acute displaced rib fracture is appreciated. The lungs are clear. Reviewed, dictated and finalized at location A.
== END 2024-12-13 11:19 | disposition home or self-care (01) ==
LOC: MICIMG 11:20
PROVIDERS: PCP Family Medicine; Visit Provider Nurse Practitioner Adult Health
DX: R07.81 Pleurodynia (principal); R10.12 Left upper quadrant pain
CPT/HCPCS: 71046; 71110

== ENCOUNTER 2025-01-19 13:43 | Outpatient (CLI) | payer OTHER, SELFPAY ==
--- NOTE | ~2025-01-19 | CT_ITS ---
EXAMINATION: CT chest abdomen wo con DATE: 01/19/2025 14:11 INDICATION: Pleurodynia TECHNIQUE: Computed tomography (CT) of the chest and abdomen was performed without intravenous contra st. Automated exposure control and iterative reconstruction technique were employed. The dose-length product was 512.87 mGy-cm. COMPARISON: 02/29/2024 FINDINGS: Chest: Lungs are clear with no suspicious pulmonary nodules, pneumonia, pulmonary edema, pleural effusion or pneumothorax. Heart size normal. No pericardial effusion. Thoracic aorta is normal in caliber. No pa thologically enlarged thoracic lymphadenopathy. Mild thoracic spondylosis with chronic mild likely ph ysiologic anterior wedging at T11 and T12. Abdomen: Liver, gallbladder, spleen, pancreas, bilateral adrenal glands and kidneys are normal. Bowels includi ng the retrocecal appendix are normal. There are small fat-containing umbilical hernia. No pathologic ally enlarged abdominal lymphadenopathy. IMPRESSION: 1. No acute cardiopulmonary disease. 2. Very small fat-containing umbilical hernia. No acute intra-abdominal process. Reviewed, dictated and finalized at location A. IMPRESSION: 1. No acute cardiopulmonary disease. 2. Very small fat-containing umbilical hernia. No acute intra-abdominal process .
--- NOTE | ~2025-01-19 | XR_ITS ---
XR lumbar spine 2-3V 01/19/2025 14:11 Indication: Neuritis an neuralgias Procedure: 3 views lumbar spine Comparison: No prior studies for comparison. Findings: No fracture, subluxation or dislocation. Vertebral body heights are maintained. There is di sc narrowing at L3-4, L4-5 and L5-S1. No evidence for spondylolisthesis. Sacral foramen are symmetric . There is facet hypertrophy at L4-5 and L5-S1. Impression: 1: Mild-moderate lumbar spondylosis. Reviewed, dictated and finalized at location [] Impression: 1: Mild-moderate lumbar spondylosis.
--- NOTE | ~2025-01-19 | XR_ITS ---
EXAM/ PROCEDURE: XR hip LT min 2V - 01/19/2025 13:45 CDT HISTORY: 49 years old Female with M79.2 - Neuralgia and neuritis, unspecified COMPARISON: None available TECHNIQUE: Two view(s) FINDINGS/ IMPRESSION: There are no fractures or dislocations.Joint spaces are within normal limits. IUD seen. Reviewed, dictated and finalized at location A.
== END 2025-01-19 13:44 | disposition home or self-care (01) ==
PROVIDERS: PCP Nurse Practitioner Adult Health; Visit Provider Nurse Practitioner Family
DX: R07.81 Pleurodynia (principal); M79.2 Neuralgia and neuritis, unspecified; M47.896 Other spondylosis, lumbar region
CPT/HCPCS: 71250; 72100; 73502; 74150

== ENCOUNTER 2025-05-31 11:51 | Outpatient (CLI) | payer OTHER, SELFPAY ==
--- NOTE | ~2025-05-31 | XR_ITS ---
XR thoracic spine 2V 05/31/2025 12:20 Indication: Back pain Procedure: 3 views thoracic spine Comparison: No prior studies for comparison. Findings: There is mild levocurvature of the lower thoracic spine. There is mild endplate degenerative changes at multiple levels most advanced at T12-L1. No fracture, subluxation or dislocation. No paraspinal soft tissue abnormality. No foreign bodies. Impression: 1: Mild thoracic spondylosis. Reviewed, dictated and finalized at location I. 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
== END 2025-05-31 11:52 | disposition home or self-care (01) ==
LOC: MICIMG 11:52
PROVIDERS: PCP Nurse Practitioner Adult Health; Visit Provider Nurse Practitioner Adult Health
DX: M47.9 Spondylosis, unspecified (principal); M47.24 Other spondylosis with radiculopathy, thoracic region
CPT/HCPCS: 72070

== ENCOUNTER 2025-06-05 10:24 | Outpatient (CLI) | payer OTHER, SELFPAY ==
--- NOTE | 2025-06-05 10:40 | NEURO_ITS ---
Impression: # Non-diabetic complains of lower back pain. # Poor pain tolerance. Only right lower extremity tested. ? # Normal Nerve Conduction study except mild right posterior tibial nerve slowing. ? # Normal Needle/ EMG exam. Nerve Conduction Studies ?Stim Site NR Peak (ms) P-T Amp (?V) Site1 Site2 Delta-P (ms) Dist (cm) Tom (m/s) Right Sup Fibular Anti Sensory (Ant Lat Mall) 14 cm ? 3.4 15.3 14 cm Ant Lat Mall 3.4 16.0 47 Right Sural Anti Sensory (Lat Mall) Calf ? 4.0 10.8 Calf Lat Mall 4.0 16.0 40 ?Stim Site NR Onset (ms) O-P Amp (mV) Site1 Site2 Delta-0 (ms) Dist (cm) Tom (m/s) Right Peroneal Motor (Vastus Med) Ankle ? 3.7 3.3 Popit Ankle 8.6 41.0 48 Popit ? 12.3 2.8 Right Tibial Motor (Abd Damian Brev) Ankle ? 3.8 3.1 Knee Ankle 9.8 41.0 42 Knee ? 13.6 4.6 F Wave Studies ?NR F-Lat (ms) L-R F-Lat (ms) Right Peroneal (Mrkrs) (EDB) ? 47.23 Right Tibial (Mrkrs) (Abd Hallucis) ? 50.75 Electromyography ?Side Muscle Nerve Root Ins Act Fibs Amp Dur Recrt Comment Right AntTibialis Dp Br Fibular L4-5 Nml Nml Nml Nml Nml Right Gastroc Tibial S1-2 Nml Nml Nml Nml Nml Right Fibularis Long Sup Br Fibular L5-S1 Nml Nml Nml Nml Nml Right Flex Dig Long Tibial L5-S2 Nml Nml Nml Nml Nml Right Ext Dig Brev Dp Br Fibular L5, S1 Nml Nml Nml Nml Nml Right QuadratusFem QuadFemoris L4-5, S1 Nml Nml Nml Nml Nml
== END 2025-06-05 10:25 | disposition home or self-care (01) ==
PROVIDERS: PCP Nurse Practitioner Adult Health; Visit Provider Nurse Practitioner Adult Health
DX: G57.93 Unspecified mononeuropathy of bilateral lower limbs (principal); M47.9 Spondylosis, unspecified
CPT/HCPCS: 95886; 95908

== ENCOUNTER 2025-06-13 14:26 | Outpatient (CLI) | payer OTHER, SELFPAY ==
--- NOTE | ~2025-06-13 | MM_ITS ---
EXAMINATION: MM screening tom BI w raúl HISTORY: Screening TECHNIQUE: Craniocaudal and mediolateral oblique 3-D tomosynthesis images were obtained and synthetic 2-D images were generated. CAD analysis was submitted and interpreted. COMPARISON: Comparison to multiple prior studies sequentially, with oldest reviewed study dated , 04/05/2018 BREAST PARENCHYMAL COMPOSITION: Not Dense: There are scattered areas of fibroglandular density. FINDINGS: There is no evidence of suspicious mass, calcification, or architectural distortion to suggest malignancy in either breast. IMPRESSION: 1. No mammographic evidence of malignancy. 2. Recommend routine screening mammography in one year. BI-RADS Category 1: Negative Reviewed, dictated and finalized at location A. 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
== END 2025-06-13 14:27 | disposition home or self-care (01) ==
LOC: MICIMG 14:27
PROVIDERS: PCP Nurse Practitioner Adult Health; Visit Provider Nurse Practitioner Adult Health
DX: Z12.31 Encounter for screening mammogram for malignant neoplasm of breast (principal)
CPT/HCPCS: 77063; 77067

== ENCOUNTER 2025-06-24 12:34 | Emergency (ER) | payer OTHER, SELFPAY ==
[2025-06-24 13:21] VITALS: BP 114/76; PULSE 101; RESP 16; TEMP 36.6; O2SAT 99
--- NOTE | 2025-06-24 13:32 | ED.URI ---
HPI - URI/Sore Throat General Chief Complaint: Upper Respiratory Infection Stated Complaint: sinus inf, sore throat, body aches Time Seen by Provider: 06/24/25 13:30 Source: patient Mode of arrival: ambulatory Limitations: no limitations History of Present Illness HPI Narrative: [place] is a 49 year old female patient presenting to the clinic today with c/o cough, runny nose, sore throat, and body aches x1 day. She reports she was sick 2 weeks ago and took a couple days of antibiotics and got better and now she is sick again. No chest pain or shortness of breath. Related Data Home Medications ?Medication ?Instructions ?Recorded ?Confirmed ?Last Taken ?Type valacyclovir 500 mg tablet 500 mg PO DAILY 04/25/21 05/31/25 05/11/21 History progesterone micronized 100 mg mg PO DAILY 11/28/24 05/31/25 Unknown History capsule testosterone cypionate 100 mg/mL 50 mg IM ONCE 11/28/24 05/31/25 Unknown History intramuscular oil (Depo-Testosterone) Allergies Allergy/AdvReac Type Severity Reaction Status Date / Time dicloxacillin Allergy Seizure Verified 05/31/25 12:54 Review of Systems Review of Systems: Pertinent positives per HPI. Patient denies any fever, chills, rash, headache, visual changes, dizziness, shortness of breath, chest pain, palpitations, nausea, vomiting, diarrhea, constipation, abdominal pain, or any urinary issues. [facility] Past Medical History Medical History Encounter for weight management Thoracic spine pain Thoracic and lumbosacral neuritis Neuralgia of both lower extremities Spondylosis Neuralgia of groin Left upper quadrant pain Rib pain on left side Screening for colon cancer Screening for breast cancer Snoring Finger pain, right Hypertension Screening for lipoid disorders Screening for diabetes mellitus Hypothyroid 3, currently Para 2 Surgical History Surgical History H/O dilation and curettage Family History Family History Mother Heart attack Other Hypertension Social History Social History Smoking status: Never smoker Second hand tobacco smoke exposure: No Alcohol intake: current Substance use: never Lack of Transportation: No Lack of Food: Never True Current Housing: I Have Housing Concerned About Future Housing: No Difficulty Paying Gas/Electric Bills: No Difficulty Paying for Meds: No Currently Unemployed: No Education: Associate Degree Difficulty w/ Childcare or Family Care: No Living arrangements: with family Gender identity (if verbalized by the patient): Female Spiritual care concerns: No Comments At the time of my signature, I reviewed and agree with the nursing past medical, surgical, social, and family history. There is no relevant family history pertinent to the patient complaint. Exam Narrative: General: Well-developed, well nourished, in no apparent distress Head: Normocephalic, atraumatic Eyes: Pupils equally round and reactive to light bilaterally, EOM intact, sclera and conjunctive clear, no discharge, lids normal Ears: TMs intact and clear, ear canals clear, no drainage, grossly hearing normal. Nose: Nares patent, clear nasal discharge, mild inflammation, no sinus tenderness. Mouth: Oral pharynx red without lesions or masses, good dentition, MMM. Postnasal drip Neck: Supple, trachea midline, no enlargement of anterior or posterior cervical nodes, no thyroid masses or goiter palpable. Cardio: Regular rate and rhythm, s1 and s2 normal, no murmur appreciated. Resp: Clear to auscultation bilaterally, no rhonchi, rales, wheezing or rubs Course Course Level of Care: Express Care Visit Vital Signs Vital signs: Vital Signs Temperature 36.6 C 06/24/25 13:21 Pulse Rate 101 H 06/24/25 13:21 Respiratory Rate 16 06/24/25 13:21 Blood Pressure 114/76 06/24/25 13:21 Pulse Oximetry 99 06/24/25 13:21 Temperature 36.6 C 06/24/25 13:21 Pulse Rate 101 H 06/24/25 13:21 Respiratory Rate 16 06/24/25 13:21 Blood Pressure 114/76 06/24/25 13:21 Pulse Oximetry 99 06/24/25 13:21 MDM MDM Narrative Medical decision making narrative: At the time of visit patient is resting comfortably on the exam table. Patient appears to be nontoxic. C/o cough, runny nose, sore throat, and body aches x1 day. She reports she was sick 2 weeks ago and took a couple days of antibiotics and got better and now she is sick again. No chest pain or shortness of breath. On exam patient has bilateral TMs intact and clear, clear nasal drainage, no anterior turbinate inflammation, oral pharynx red, cervical lymphadenopathy, lung sounds are clear, heart rates regular rate and rhythm Covid, influenza, and strep test was ordered. Labs: COVID, influenza, and strep test were performed and negative in the clinic today. We will send strep for culture. Plan: I suspect patient has URI/pharyngitis/viral syndrome. Supportive measures were discussed with the patient and they voiced understanding discharge instructions and agrees to treatment plan. Return precautions reviewed Differential Diagnosis Differential Diagnosis: Differential diagnostic considerations for upper respiratory infection include upper respiratory infection, croup, otitis media, sinusitis, viral infection, bronchitis, influenza, pharyngitis, strep, uvulitis. Lab Data Labs: Lab Results 06/24/25 Range/Units 13:51 POC Influenza A Ag Negative (Negative) POC Influenza B Ag Negative (Negative) POC SARS CoV-2 Ag Negative (Negative) POC Grp A Strep Screen Negative (Negative) Discharge Plan Discharge Clinical Impression: Acute viral syndrome URI (upper respiratory infection) Qualifiers: URI type: unspecified URI Qualified Code(s): J06.9 - Acute upper respiratory infection, unspecified Pharyngitis Qualifiers: Pharyngitis/tonsillitis etiology: unspecified etiology Qualified Code(s): J02.9 - Acute pharyngitis, unspecified Patient Disposition: Home Condition: Stable Instructions: Antibiotic Form, Pharyngitis (ED), Viral Syndrome (ED), Cold Symptoms (ED) Additional Instructions: COVID, flu, and strep test were all negative in the clinic today. We will send strep for culture if this comes back positive we will contact him place you on antibiotics at that time Increase fluids and stay well hydrated May take Tylenol or motrin as directed on bottle for pain/fever May use Flonase 1 spray in each nare daily May take OTC antihistamines such as Zyrtec or Claritin daily as directed on bottle May apply Vicks vapor rub to chest to open sinuses Sinus rinses for congestion Cepacol spray, cough drops, throat lozenges, warm tea with honey/lemon, gargle salt water to soothe throat BRAT diet for diarrhea Clear liquids x 24 hours then advance as tolerated for nausea/vomiting Go to the ED if you develop a worsening in your condition- high fever not controlled by Tylenol or Motrin, dehydration, weakness, lethargy, shortness of breath, or chest pain. Follow up with your PCP in 3-5 days if symptoms persist. Patient Language: Swazi Prescriptions: No Action progesterone micronized 100 mg capsule PO DAILY testosterone cypionate [Depo-Testosterone] 100 mg/mL oil 50 mg IM ONCE Rx Instructions: as a single dose Zepbound 5 mg/0.5 mL pen injector 5 mg subcut WEEKLY Qty: 2 1RF valacyclovir 500 mg Tablet 500 mg PO DAILY lisinopril 10 mg tablet 10 mg PO DAILY Qty: 90 1RF levothyroxine 75 mcg tablet See Rx Instructions .ROUTE .COMPLEX Qty: 30 0RF Dose Instruction: TAKE 1 TABLET BY MOUTH DAILY Rx Instructions: TAKE 1 TABLET BY MOUTH DAILY Follow-up/Referrals: Margoth Chamberlain APRN [Primary Care Provider, Family Practice] Stand Alone Forms: Work/School Release IP Time of Disposition: 14:20 Quality NIHSS Nursing Documentation ED NIHSS nursing documentation: reviewed/agree
[2025-06-24 14:08] LABS: EDCOVIDSCREEN Negative (Negative); EDINFLUASCREEN Negative (Negative); EDINFLUBSCREEN Negative (Negative); EDSTREPNEGPOS1 Negative (Negative)
== END 2025-06-24 14:31 | disposition home or self-care (01) ==
PROVIDERS: Emergency Provider Nurse Practitioner Family; PCP Nurse Practitioner Adult Health
DX: B34.9 Viral infection, unspecified (principal); J06.9 Acute upper respiratory infection, unspecified; J02.9 Acute pharyngitis, unspecified; Z20.822 Contact with and (suspected) exposure to COVID-19; I10 Essential (primary) hypertension; E03.9 Hypothyroidism, unspecified
CPT/HCPCS: 87081; 87426; 87804; 87880; 99213; G0463